=== PATIENT | female | born 1940 | race Caucasian/White ===

== ENCOUNTER 2019-12-02 00:04 | Outpatient (CLI) | payer MEDICARE, SELFPAY ==
[2019-12-02 15:57] LABS: SARS-CoV-2 RNA PCR Negative
== END 2019-12-02 00:05 | disposition home or self-care (01) ==
LOC: ANHCOVIDDT 00:04
PROVIDERS: PCP Family Medicine; Visit Provider Internal Medicine Gastroenterology
DX: Z01.812 Encounter for preprocedural laboratory examination (principal); Z20.828 Contact with and (suspected) exposure to other viral communicable diseases
CPT/HCPCS: 87635; C9803; U0003

== ENCOUNTER 2019-12-04 00:38 | Day surgery (SDC) | payer MEDICARE, SELFPAY ==
[2019-11-26 12:48] VITALS: BMI 39.5
[2019-12-04 06:53] VITALS: BP 149/65; PULSE 90; RESP 18; TEMP 36.3; O2SAT 98
[2019-12-04 07:02] LABS: Glucose Point of Care 145 (65-105)
[2019-12-04] MEDS: LACTATED RINGERS 1,000 ML 150 ML IV CONT (07:26)
--- NOTE | 2019-12-04 07:59 | WPDANESEPPF ---
Anes - Initial Pre Proc Eval Procedure: Operation Date: 12/04/19 08:00 Proposed Procedures p Screening Colonoscopy - Jonel Marrero MD Date/Time: 12/04/19 07:59 Surgeon: Jonel Marrero MD Pre Op Diagnosis: History of Colon Cancer Patient Data Age: 79 Gender: F Height: 5 ft 1 in Weight: 92.3 kg Last Vital Signs Temp 97.4 F L 12/04/19 06:53 Pulse 90 12/04/19 06:53 Resp 18 12/04/19 06:53 BP 149/65 H 12/04/19 06:53 Pulse Ox 98 12/04/19 06:53 Allergies Allergy/AdvReac Type Severity Reaction Status Date / Time No Known Allergies Allergy Verified 12/04/19 06:47 Home Medications Medication Instructions Recorded Confirmed Type aspirin [Aspir-81] 81 mg PO DAILY 04/10/19 11/26/19 History ferrous sulfate 324 mg PO TID 04/10/19 11/26/19 History metformin 2,000 mg PO HS 04/10/19 11/26/19 History levothyroxine 125 mcg tablet 125 mcg PO DAILY #30 tablet 07/23/19 11/26/19 Rx potassium chloride 20 mEq 20 meq PO DAILY 07/23/19 11/26/19 History tablet,extended release losartan 25 mg tablet 25 mg PO DAILY #90 tablet 10/03/19 11/26/19 Rx citalopram 20 mg tablet 20 mg PO DAILY #90 tablet 10/11/19 11/26/19 Rx ezetimibe 10 mg-simvastatin 40 mg 1 tablet PO DAILY #90 tablet 11/15/19 11/26/19 Rx tablet metoprolol succinate 100 mg 100 mg PO HS #90 tablet 11/15/19 11/26/19 Rx tablet,extended release 24 hr acyclovir 400 mg tablet 400 mg PO BID #180 tablet 11/25/19 11/26/19 Rx nystatin 5 ml PO QID PRN 11/26/19 11/26/19 History Laboratory Tests 12/04/19 07:00 POC Capillary Glucose 145 mg/dl H mg/dl (65-105) Patient hx anesthesia problems: none Family hx anesthesia problems: none PMFSH Past Medical History Medical History (Updated 07/23/19 @ 09:26 by Virgil Loya MD) Bladder mass Breast cancer Cancer of appendix Diabetes Hypertension Lymphoma Surgical History Surgical History (Updated 07/23/19 @ 09:26 by Virgil Loya MD) History of cholecystectomy History of left cataract surgery History of right cataract surgery History of right hemicolectomy History of tonsillectomy Status post hysterectomy with oophorectomy Social History Social History (Updated 07/23/19 @ 09:05 by Farzaneh Avina) Smoking status: Never smoker Second hand tobacco smoke exposure: No Alcohol intake: never Substance use: never Substance use type: does not use Gender identity (if verbalized by the patient): Female Anes - Eval Final PreProcedure Day of Procedure 12/04/19 07:59 Patient weight: obese Heart: regular rate and rhythm Lungs: clear to auscultation Airway: Mallampati scale (upper tooth missing) class III Neurological: alert and oriented Last oral intake: >/= 8 hours ASA classification: III Emergent: no Anesthetic plan: proceed Anesthesia type and monitoring: general GIVS and standard monitoring Informed Consent: The patient's anesthetic plan and its attendant risks and benefits were discussed with the patient/family/POA. Questions were solicited and answers provided to the satisfaction of the patient/family/POA.
--- NOTE | 2019-12-04 08:19 | WPDGICN ---
Assessment and Plan Assessment and plan (1) History of colon cancer: Code(s): Z85.038 - Personal history of other malignant neoplasm of large intestine Status: Acute Assessment and Plan: Patient has a history of colon cancer in the cecum resected surgically August of 2018. She has done well since that time status post chemotherapy. Her bowel habits are returned to normal. Plan is for surveillance colonoscopy now. Further recommendations will be given after colonoscopy. GI Consult Note Consult date/time: 12/04/19 08:19 HPI: Lanette Alberts is a 79 year old female Seen in evaluation at the request of Dr. Morales and Dr. Virgil Loya. Patient has a history of cancer of the cecum identified by colonoscopy 1 year ago. Since that time she has had surgical resection and chemotherapy. Recent CT scan revealed no evidence of active disease. Recent cystoscopy revealed a bladder infection. Patient states that her current weight appetite bowel movements have returned to normal. She denies abdominal pain she denies blood in her stools. Her weight has remained stable. Family history is noncontributory. Review of Systems Review of Systems: All systems reviewed & are unremarkable except as noted in HPI and below PMFSH Past Medical History Medical History Bladder mass Breast cancer Cancer of appendix Diabetes Hypertension Lymphoma Surgical History Surgical History History of cholecystectomy History of left cataract surgery History of right cataract surgery History of right hemicolectomy History of tonsillectomy Status post hysterectomy with oophorectomy Family History Family History Mother Patient's mother is , Onset Age: 39 Father Patient's father is , Onset Age: 40 Sibling Family history of cardiovascular disease Family history of malignant neoplasm of breast Family history of heart disease in male family member before age 55 Other Family history of malignant neoplasm Family history of malignant neoplasm of breast in first degree relative Social History Social History Smoking status: Never smoker Second hand tobacco smoke exposure: No Alcohol intake: never Substance use: never Substance use type: does not use Gender identity (if verbalized by the patient): Female Meds Home Medications and Allergies Home Medications Medication Instructions Recorded Confirmed Type aspirin [Aspir-81] 81 mg PO DAILY 04/10/19 11/26/19 History ferrous sulfate 324 mg PO TID 04/10/19 11/26/19 History metformin 2,000 mg PO HS 04/10/19 11/26/19 History levothyroxine 125 mcg tablet 125 mcg PO DAILY #30 tablet 07/23/19 11/26/19 Rx potassium chloride 20 mEq 20 meq PO DAILY 07/23/19 11/26/19 History tablet,extended release losartan 25 mg tablet 25 mg PO DAILY #90 tablet 10/03/19 11/26/19 Rx citalopram 20 mg tablet 20 mg PO DAILY #90 tablet 10/11/19 11/26/19 Rx ezetimibe 10 mg-simvastatin 40 mg 1 tablet PO DAILY #90 tablet 11/15/19 11/26/19 Rx tablet metoprolol succinate 100 mg 100 mg PO HS #90 tablet 11/15/19 11/26/19 Rx tablet,extended release 24 hr acyclovir 400 mg tablet 400 mg PO BID #180 tablet 11/25/19 11/26/19 Rx nystatin 5 ml PO QID PRN 11/26/19 11/26/19 History Allergies Allergy/AdvReac Type Severity Reaction Status Date / Time No Known Allergies Allergy Verified 12/04/19 06:47 Vital Signs Vital Signs - 24 hr 12/04/19 06:53 Temperature 36.3 C L Pulse Rate 90 Respiratory Rate 18 Blood Pressure 149/65 H Pulse Oximetry 98 Exam Narrative: Exam Narrative: Physical exam reveals patient to be alert. Vital signs stable. HEENT exam unremarkable. Lungs are clear to auscultation and percussion. Heart is without murm
[2019-12-04 08:56] VITALS: BP 84/40; PULSE 77; RESP 21; O2SAT 95
[2019-12-04 09:06] VITALS: BP 136/64; PULSE 79; RESP 23; O2SAT 100
[2019-12-04 09:16] VITALS: BP 135/60; PULSE 77; RESP 21; O2SAT 100
[2019-12-04 09:47] LABS: Hemoglobin 11.9 g/dL (12.0-15.0); Mean Corpuscular HGB Conc 32.2 g/dl (32-36); Mean Corpuscular Hemoglobin 27.9 pg (26-34); Mean Corpuscular Volume 86.7 fl (80-100); Mean Platelet Volume 9.3 fl (7.4-10.4); Platelet Count Result 173 k/mm3 (150-375); Red Blood Count 4.27 M/mm3 (4.2-5.4); White Blood Count 3.2 K/mm3 (4.5-10.0)
[2019-12-04 10:07] LABS: Alanine Aminotransferase 14 U/L (4-35); Albumin Level 4.1 g/dL (3.5-5.1); Alkaline Phosphatase 104 U/L (38-126); Aspartate Amino Transferase 24 U/L (14-36); Bilirubin,Total 0.6 mg/dL (0.2-1.3)
[2019-12-04 10:38] LABS: Carcinoembryonic Antigen 5.9 ng/mL (0.0-3.0)
== END 2019-12-04 09:54 | disposition home or self-care (01) ==
PROVIDERS: PCP Family Medicine; Visit Provider Internal Medicine Gastroenterology
PROC: 0DJD8ZZ Inspection of Lower Intestinal Tract, Via Natural or Artificial Opening Endoscopic (ICD-10-PCS; CPT 45378; principal; 2019-12-04 08:00)
DX: Z12.11 Encounter for screening for malignant neoplasm of colon (principal); C18.7 Malignant neoplasm of sigmoid colon; K63.5 Polyp of colon; K57.30 Diverticulosis of large intestine without perforation or abscess without bleeding; K64.8 Other hemorrhoids; I10 Essential (primary) hypertension; E11.9 Type 2 diabetes mellitus without complications; Z79.84 Long term (current) use of oral hypoglycemic drugs; E66.01 Morbid (severe) obesity due to excess calories; Z68.38 Body mass index [BMI] 38.0-38.9, adult; Z85.3 Personal history of malignant neoplasm of breast; Z85.89 Personal history of malignant neoplasm of other organs and systems; Z85.72 Personal history of non-Hodgkin lymphomas; Z92.21 Personal history of antineoplastic chemotherapy; Z90.49 Acquired absence of other specified parts of digestive tract; Z90.710 Acquired absence of both cervix and uterus; Z90.79 Acquired absence of other genital organ(s)
CPT/HCPCS: 45380; 45381; 45385; 36415; 80076; 82378; 85027; 88305; J2704; J7120

== ENCOUNTER 2019-12-12 09:24 | Outpatient (CLI) | payer MEDICARE, SELFPAY ==
--- NOTE | ~2019-12-12 | CT_ITS ---
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 TECHNIQUE: Computed tomographic images of the abdomen and pelvis were obtained after the administrati on of 100 cc of Omnipaque 350 intravenous contrast. The dose-length product (DLP) was 1181.98 mGy-cm. Automated exposure control and iterative reconstruction technique were employed. COMPARISON: 07/12/2019 FINDINGS: Minimal dependent atelectasis is present in the lung bases. The heart size is normal. The g allbladder is surgically absent. The liver, spleen, and pancreas are normal. Punctate calcification i n the right adrenal gland is consistent with prior hemorrhage or infection. The left adrenal gland is unremarkable. There is calcified atherosclerosis of the aorta and many of the other arteries. There is a 2.1 cm segment of irregular wall thickening involving the sigmoid colon near the rectosigmoid ju nction, likely corresponding to the mass described on recent colonoscopy. No pathologically enlarged abdominal or pelvic lymph nodes are identified. There is no free intraperitoneal gas or evidence of b owel obstruction. There is severe thoracolumbar spondylosis. IMPRESSION: 1. Short segment of irregular wall thickening of the sigmoid colon likely corresponding to the sigmoi d mass described on recent colonoscopy. No evidence of metastatic disease. Reviewed, dictated and finalized at location A. IMPRESSION: 1. Short segment of irregular wall thickening of the sigmoid colon likely corre sponding to the sigmoid mass described on recent colonoscopy. No evidence of me tastatic disease.
== END 2019-12-12 09:25 | disposition home or self-care (01) ==
PROVIDERS: PCP Family Medicine; Visit Provider Internal Medicine Gastroenterology
DX: C18.7 Malignant neoplasm of sigmoid colon (principal)
CPT/HCPCS: 74177; Q9967

== ENCOUNTER 2020-01-03 09:54 | Outpatient (CLI) | payer MEDICARE, SELFPAY ==
--- NOTE | 2020-01-03 11:29 | ECG_ITS ---
Measurements Intervals [place] Rate: 75 P: 57 HI: 172 QRS: -15 QRSD: 79 T: 37 QT: 373 QTc: 419 Interpretive Statements SINUS RHYTHM DELAYED PRECORDIAL R/S TRANSITION BORDERLINE ST-T WAVE ABNORMALITY- DIFFUSE LEADS BASELINE ARTIFACT- I, II BORDERLINE ECG Electronically Signed On 01-03-2020 12:55:34 CDT by Inderjit Sorto D.O.
== END 2020-01-03 09:55 | disposition home or self-care (01) ==
LOC: ANHSURGERY 09:57
PROVIDERS: PCP Family Medicine; Visit Provider Surgery
DX: C18.9 Malignant neoplasm of colon, unspecified (principal); I10 Essential (primary) hypertension; R94.31 Abnormal electrocardiogram [ECG] [EKG]
CPT/HCPCS: 36415; 86850; 86900; 86901; 93005

== ENCOUNTER 2020-01-10 00:08 | Outpatient (CLI) | payer MEDICARE, SELFPAY ==
[2020-01-10 19:22] LABS: SARS-CoV-2 RNA PCR Negative
== END 2020-01-10 00:09 | disposition home or self-care (01) ==
LOC: ANHCOVIDDT 00:08
PROVIDERS: PCP Family Medicine; Visit Provider Surgery
DX: Z01.812 Encounter for preprocedural laboratory examination (principal); Z11.59 Encounter for screening for other viral diseases
CPT/HCPCS: 87635; C9803; U0003

== ENCOUNTER 2020-01-13 15:49 | Inpatient (IN) | payer MEDICARE, SELFPAY ==
[2020-01-03 10:32] VITALS: BP 134/53; PULSE 81; RESP 18; TEMP 36.7; O2SAT 99; BMI 39.0
--- NOTE | 2020-01-09 14:19 | PCWOUND ---
WOCN NOTE patient to wound center on 01/09/20 to have abdomen marked for a colostomy. Black marker X applied to the left side of abdomen. Covered with a tegaderm. Patient instructed to keep tegaderm in place for surgery date. Patient given folder with information about having a colostomy. Will follow up with patient after surgery on 01/13/20.
[2020-01-13] VITALS (14 sets, daily range): BP systolic 108–145; BP diastolic 42–71; PULSE 66–98; RESP 16–20; TEMP 35.8–36.4; O2SAT 94–100
[2020-01-13] MEDS: ACETAMINOPHEN 500 MG TABLET 1000 MG PO (06:30)
[2020-01-13] MEDS: LACTATED RINGERS 1,000 ML 30 ML IV CONT ×3 (06:35→14:05)
[2020-01-13 06:40] LABS: Glucose Point of Care 165 (65-105)
[2020-01-13] MEDS: KETOROLAC 15 MG/ML VIAL (*BKC) IV PUSH (06:40)
--- NOTE | 2020-01-13 06:47 | WPDANESEPPF ---
Anes - Initial Pre Proc Eval Procedure: Operation Date: 01/13/20 07:30 Proposed Procedures p Laparoscopic Hand Assisted Sigmoid Colon Resection, Possible Splenic Flexure Take Down, Possible Left Colostomy - Viet Avina MD s Left Stent Placement for Abdominal Surgery - Antwon Dejesus MD Date/Time: 01/13/20 06:47 Surgeon: Viet Avina MD Pre Op Diagnosis: Invasive Carcinoma of Sigmoid Colon Patient Data Age: 79 Gender: F Height: 1.55 m Weight: 93.8 kg Last Vital Signs Temp 36.7 C 01/03/20 10:32 Pulse 81 01/03/20 10:32 Resp 18 01/03/20 10:32 BP 134/53 L 01/03/20 10:32 Pulse Ox 99 01/03/20 10:32 Allergies Allergy/AdvReac Type Severity Reaction Status Date / Time No Known Allergies Allergy Verified 01/03/20 10:03 Home Medications Medication Instructions Recorded Confirmed Type aspirin [Aspir-81] 81 mg PO HS 04/10/19 01/03/20 History ferrous sulfate 324 mg PO BID 04/10/19 01/03/20 History levothyroxine 125 mcg tablet 125 mcg PO DAILY #30 tablet 07/23/19 01/03/20 Rx losartan 25 mg tablet 25 mg PO DAILY #90 tablet 10/03/19 01/03/20 Rx ezetimibe 10 mg-simvastatin 40 mg 1 tablet PO DAILY #90 tablet 11/15/19 01/03/20 Rx tablet metoprolol succinate 100 mg 100 mg PO HS #90 tablet 11/15/19 01/03/20 Rx tablet,extended release 24 hr acyclovir 400 mg tablet 400 mg PO BID #180 tablet 11/25/19 01/03/20 Rx metronidazole 500 mg tablet 500 mg PO .COMPLEX #3 tablet 01/01/20 01/03/20 Rx neomycin 500 mg tablet 1 gm PO .COMPLEX #6 tablet 01/01/20 01/03/20 Rx cyanocobalamin (vitamin B-12) 500 mcg PO DAILY 01/03/20 01/03/20 History metformin 2,000 mg PO QPM 01/03/20 01/03/20 History citalopram 20 mg tablet 20 mg PO DAILY #90 tablet 01/09/20 Rx Laboratory Tests 01/13/20 06:37 POC Capillary Glucose 165 mg/dl H mg/dl (65-105) Patient hx anesthesia problems: none Family hx anesthesia problems: none [facility] Past Medical History Medical History (Updated 01/13/20 @ 06:53 by Geo Starr MD) Anxiety Bladder mass Breast cancer Cancer of appendix Cancer of ileum Cancer of sigmoid colon Chronic kidney disease, stage III (moderate) Diabetes Diverticulosis of large intestine without hemorrhage History of chemotherapy History of colon cancer History of lymphoma History of radiation therapy HLD (hyperlipidemia) Hx of abnormal cervical Pap smear Hx of malignant neoplasm of female breast Hypertension Hypothyroidism Lymphoma Lymphoma in remission Patient on antineoplastic chemotherapy regimen Surgical History Surgical History (Updated 12/17/19 @ 11:27 by Florencia Wilkins) History of cholecystectomy History of left cataract surgery History of right cataract surgery History of right hemicolectomy laparoscopic right hemicolectomy with anastomosis ileum to transverse colon - 09/24/2018 History of tonsillectomy History of total abdominal hysterectomy and bilateral salpingo-oophorectomy Status post hysterectomy with oophorectomy Social History Social History (Updated 01/01/20 @ 09:15 by Vanessa Mistry) Smoking status: Never smoker Second hand tobacco smoke exposure: Yes ( SMOKED QUIT 20 YEARS AGO) Alcohol intake: never Substance use: never Substance use type: does not use Living arrangements: with family Gender identity (if verbalized by the patient): Female Spiritual care concerns: No Anes - Eval Final PreProcedure Day of Procedure 01/13/20 06:47 Patient weight: obese Heart: regular rate and rhythm Lungs: clear to auscultation and normal air movement Airway: Mallampati scale class II Neurological: alert and oriented Last oral intake: >/= 8 hours ASA classification: IV Emergent: no Anesthetic plan: proceed Anesthesia type and monitoring: general ETT Informed Consent: The patient's anesthetic plan and its attendant risks and benefits were discussed with the patient/family/POA. Questions were solicited and answers provided to the sat
[2020-01-13] MEDS: ALVIMOPAN 12 MG CAPSULE PO ×2 (07:00→18:07)
--- NOTE | 2020-01-13 07:23 | WPDHPUPDATE1 ---
History and Physical Update Update Date/Time: 01/13/20 07:23 History and Physical has been reviewed, including an updated exam of the patient. There are NO changes in the patient's condition. Risks, benefits, and alternatives have been discussed and questions answered. Patient agrees to proceed with procedure.
[2020-01-13] MEDS: ceFAZolin 2 GM/D5W 50 ML 2 GM/50 ML BAG IVPB (08:03)
--- NOTE | 2020-01-13 08:28 | P.OP_ITS ---
Procedure Note - Detailed Date of procedure: 01/13/20 Pre-op diagnosis: Invasive Carcinoma of Sigmoid Colon Post-op diagnosis: same Procedure performed: Cystoscopy with bilateral ureteral stent placement Description of procedure: She is correctly identified informed consent is obtained. She is brought to the operating room. She was given general anesthesia. She was prepped and draped in sterile fashion time-out performed. She was given appropriate perioperative antibiotics and a time-out performed. I performed cystoscopy. Her bladder is examined. Her ureteral orifices were normal. On the back wall the bladder there is an area of extrinsic compression and some irritation. This was far remote from the ureteral orifice. Likely related to her colon malignancy. There is no violation of the mucosa. I placed bilateral stents in standard fashion. First the left then on the right. I used a guidewire and a 5 [place] angiographic catheter. They went up easily without resistance. Tolliver catheter was placed. The stents were secured to the Tolliver catheter. She was turned over to Dr. Avina for the remainder for surgery. Anesthesia: GETA Surgeon: Antwon Dejesus MD Drains: Yes (Tolliver and bilateral ureteral catheters) Packing: No Pathology: none sent Complications: No immediate complications Condition: stable Disposition: PACU
[2020-01-13] MEDS: BUPIVACAINE/EPINEPHRINE 0.5% 30 ML VIAL 20 ML INFILTRATE (09:14)
[2020-01-13 10:27] LABS: Glucose Point of Care 247 (65-105)
[2020-01-13] MEDS: ceFAZolin SODIUM 1 GM VIAL IV PUSH (12:08)
--- NOTE | 2020-01-13 14:18 | PM.PROC ---
Procedure Note - Detailed Date of procedure: 01/14/20 Pre-op diagnosis: Invasive Carcinoma of Sigmoid Colon Procedure performed: Hand assisted Laparoscopic left colectomy with anastamosis Description of procedure: Hand assited Laparoscopic left colectomy with anastamosis Patient was seen in the preop area. The suprapubic area marked for the site of possible hand assist incision. I again went over the risks, benefits, and possible complications of surgery with the patient. We went over the results of the prep. I confirmed the patient had received Entereg. Following this the patient was brought to the operating room and placed on the operating table and secured to the table with a dover bag padding the back. The patient was placed in the low lithotomy position with the legs in Ezio stirrups. Prior to my starting the case Dr. Dejesus came into the room and placed ureteral catheters in each ureter for me to be able to feel the ureters. A manzanares catheter was then placed also. An oG tube was then attempted to be placed. it would cone not go easily someone NG tube was placed. Following this 2 L of NS irrigant was used to irrigate out the rectum using a mallenkodt catheter. Betadine was then infused into this catheter using approximately 500 cc. This was allowed to run back out. The catheter was then left in place in the distal rectum. Following this the abdomen was prepped and draped in usual sterile fashion sterile fashion. The perineum was prepped with Betadine. An under the buttocks and leg drapes were applied followed by 4 towels and then the laparotomy / laparoscopy drape applied. This exposed nicely the entire abdomen. Following this time-out was performed with the OR staff. This confirmed patient and site of proposed surgery as the abdomen. Following this local anesthetic was infiltrated into a transverse incision marked out 2 fingerbreadths above the level of the pubic bone. This was centered on the midline. It was approximately 8.5 cm in length. Following this an incision was made and carried down to the fascia overlying the rectus sheath in this area. The anterior rectus sheath was incised the length of this incision transversely. Following this three Ana's were placed on the upper side of the cut edge of the rectus. I then carefully dissected the rectus fascia off the underlying rectus muscles up to about group home from the incision to the umbilicus. This nicely exposed the fatty midline. Following this I also placed the Allis's on the fascia inferiorly and dissected approximately 3 cm inferiorly underneath the rectus sheath. Following this we tented up the midline fat with two DeBakey forceps and carefully entered the midline under direct vision. I then put my finger in the peritoneum and incised the peritoneum cephalad and inferiorly about an 8 cm length. This was our 1st entry into the abdomen and there was no significant adhesions under this incision. I swept my finger completely circumferentially underneath the abdominal wall and there were no significant adhesions. Following this the wound protector of the laparoscopic hand port was placed into the abdomen and then carefully rotated down to secure the hand port in place and protect the edges of the wound. I then placed my hand through wound protector and placed it up in underneath the area of the umbilicus. There were At few adhesions in this area and I was able to take these down carefully with pinching between my forefinger and thumb. Once this area was clear, a vertical incision was outlined in the scar just above the umbilicus and local anesthetic infused. Then an 15 blade knife was used to make a 12 mm incision just superior to the umbilicus and a 12 mm laparoscopic port was placed into the abdomen with my hand underneath the anterior abdominal wall. Once this was adequately in place, we then insufflated the abdomen to 15 mmHg pressure CO2 by connecting the insufflation tubin
[2020-01-13 14:47] LABS: Glucose Point of Care 255 (65-105)
--- NOTE | 2020-01-13 15:49 | ADMGEN ---
This patient, Lanette Alberts, was admitted to -. Patient/family oriented to hospital policies and general routines including ID bracelet, bed and alarms, visiting hours, pain management, procedures, bathroom and other care routines, personal items, smoking policy, room service/diet, and visiting hours. Valuables list has been completed. Information on how to activate the Rapid Response Team has been discussed. Patient/Family are encouraged to report perceived risks to care and to ask questions if they do not understand what they are told or what they should do.
[2020-01-13] MEDS: LACTATED RINGERS 1,000 ML 100 ML IV CONT (16:16)
[2020-01-13] MEDS: MORPHINE SULFATE 4 MG/ML INJ IV PUSH (16:16)
[2020-01-13 16:37] LABS: Glucose Point of Care 283 (65-105)
--- NOTE | 2020-01-13 17:30 | PC.NURSE ---
Dr. Avina requesting patient port be accessed and heparin flushed one time as patient states it has not been flushed in six weeks. However lab was unable to draw patient and requesting IV specialist draw patient in AM. Due to that Dr. Avina is OK with patient's port remaining accessed at this time for blood draws and incase patient's peripheral IV goes bad.
[2020-01-13] MEDS: metroNIDAZOLE 500 MG/ISO 100ML 500 MG/100 ML BAG 100 MG IVPB (18:05)
[2020-01-13] MEDS: GABAPENTIN 300 MG CAPSULE 600 MG PO (18:06)
[2020-01-13] MEDS: ACYCLOVIR 400 MG TABLET PO (18:06)
[2020-01-13] MEDS: METOPROLOL SUCCINATE EXT REL 100 MG TABCR PO (20:46)
[2020-01-13] MEDS: ASPIRIN 81 MG ENTERIC TABLET PO (20:46)
[2020-01-13] MEDS: CENTRAL LINE FLUSH 10 ML IV PUSH (20:54)
[2020-01-13 21:20] LABS: Glucose Point of Care 249 (65-105)
[2020-01-14] VITALS (8 sets, daily range): BP systolic 100–125; BP diastolic 38–62; PULSE 82–92; RESP 16–20; TEMP 36.5–37.1; O2SAT 91–96
[2020-01-14] MEDS: ACETAMINOPHEN 500 MG TABLET PO ×2 (00:27→07:26)
[2020-01-14] MEDS: metroNIDAZOLE 500 MG/ISO 100ML 500 MG/100 ML BAG 100 MG IVPB (02:53)
[2020-01-14] MEDS: LACTATED RINGERS 1,000 ML 100 ML IV CONT (05:46)
[2020-01-14] MEDS: CENTRAL LINE FLUSH 10 ML IV PUSH ×2 (05:46→13:42)
[2020-01-14] MEDS: LEVOTHYROXINE SODIUM 125 MCG TABLET PO (05:47)
[2020-01-14 06:04] LABS: Basophils Percent Auto 0.1 % (0.2-1.2); Hematocrit 30.1 % (37.0-47.0); Hemoglobin 9.8 g/dL (12.0-15.0); Immature Granulocyte Absolute 0.03 K/mm3 (0.00-0.031); Immature Granulocyte Percent A 0.4 % (0-0.5); Lymphocytes Absolute Auto 0.42 K/mm3 (0.9-3.2); Lymphocytes Percent Auto 5.1 % (18.3-44.2); Mean Corpuscular HGB Conc 32.6 g/dl (32-36); Mean Platelet Volume 9.4 fl (7.4-10.4); Monocytes Absolute Auto 0.5 K/mm3 (0.1-0.6); Monocytes Percent Auto 6.3 % (2.6-8.5); Neutrophils Absolute Auto 7.3 K/mm3 (1.3-6.7); Neutrophils Percent Auto 88.1 % (45.5-73.1); Platelet Count Result 189 k/mm3 (150-375); Red Cell Distribution Width 13.7 % (11.5-14.5); White Blood Count 8.3 K/mm3 (4.5-10.0)
[2020-01-14 06:11] LABS: Alanine Aminotransferase 12 U/L (4-35); Albumin Level 3.2 g/dL (3.5-5.1); Alkaline Phosphatase 64 U/L (38-126); Aspartate Amino Transferase 20 U/L (14-36); Bilirubin,Total 0.3 mg/dL (0.2-1.3); Blood Urea Nitrogen 19 mg/dL (7-17); Calcium 8.2 mg/dL (8.4-10.2); Carbon Dioxide 22 mmol/L (22-30); Chloride 103 mmol/L (98-107); Estimated CRCL calculation 35 ml/min; Estimated Glomerular Filt Rate 43; Glucose 176 mg/dL (65-105); Potassium 3.9 mmol/L (3.4-5.0); Sodium 136 mmol/L (137-145)
[2020-01-14] MEDS: LACTATED RINGERS 500 ML 999 ML IVPB (06:59)
[2020-01-14 07:34] LABS: Glucose Point of Care 168 (65-105)
[2020-01-14] MEDS: ACYCLOVIR 400 MG TABLET PO ×2 (08:45→17:07)
[2020-01-14] MEDS: CITALOPRAM HYDROBROMIDE 20 MG TABLET PO (08:45)
[2020-01-14] MEDS: ALVIMOPAN 12 MG CAPSULE PO ×2 (08:45→22:44)
[2020-01-14] MEDS: LOSARTAN POTASSIUM 25 MG TABLET PO (08:45)
[2020-01-14] MEDS: ENOXAPARIN 40 MG/0.4 ML SYRINGE SUB-Q (08:45)
[2020-01-14] MEDS: PANTOPRAZOLE 40 MG TABLET PO (08:45)
--- NOTE | 2020-01-14 09:00 | PC.NURSE ---
Spoke with Dr. Avina in regards to patients wound care instructions. To lower abdomen, keep dressing dry and intact. If dressing comes off, we may reinforce with gauze pads and tape. Dressing currently is dry and intact with surgical dressing, gauze and tegaderm. Will continue to monitor.
--- NOTE | 2020-01-14 09:36 | PM.PNGS ---
Progress Note: A&P Assessment and Plan (1) Cancer of sigmoid colon: Code(s): C18.7 - Malignant neoplasm of sigmoid colon Status: Acute Assessment and Plan: Doing well postop day 1. Tolerating sips of clears well on Entereg. Will begin increasing activity. (2) Lymphoma in remission: Onset Date: ~2015 Code(s): C85.90 - Non-Hodgkin lymphoma, unspecified, unspecified site Status: Acute Assessment and Plan: Patient has been in remission from this with periodic follow-up at the Oncology department at [facility]. (3) HLD (hyperlipidemia): Code(s): E78.5 - Hyperlipidemia, unspecified Status: Acute (4) Chronic kidney disease, stage III (moderate): Code(s): N18.3 - Chronic kidney disease, stage 3 (moderate) Status: Acute (5) Hypothyroidism: Code(s): E03.9 - Hypothyroidism, unspecified Status: Acute Assessment and Plan: Patient could resume this medication with a sip water today. (6) Hx of recurrent urinary tract infection: Code(s): Z87.440 - Personal history of urinary (tract) infections Status: Acute Assessment and Plan: Most recent infection was about 1/2 weeks preop. Will watch for signs or symptoms of recurrence. (7) Diabetes: Code(s): E11.9 - Type 2 diabetes mellitus without complications Status: Acute Assessment and Plan: Patient's blood sugars were up overnight. Will consult hospitalist to assess the situation and establish Rx depending on her intake. (8) Hypovitaminosis D: Code(s): E55.9 - Vitamin D deficiency, unspecified Status: Acute Assessment and Plan: Resume supplementation upon discharge. 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 This was approximately 1 year ago that she had a right hemicolectomy for a problem. She did receive postoperative chemotherapy I believe. (10) Chronic anemia: Code(s): D64.9 - Anemia, unspecified Status: Acute Assessment and Plan: Hemoglobin down to 9.8 but steady. Additional Plan Patient had a little bit of low urine output through the night and received 2 boluses of IV fluid. Will continue to monitor urine output with the Tolliver catheter through at least mid afternoon. If patient has good urine output for the next 2 4 hour period so will probably have the nurse remove the Tolliver catheter. Subjective Subjective Date/Time Seen: 01/14/20 09:36 Post Op day: 1 ( Doing well postop day 1.) Patient reports: no new complaints Interval history: Patient lying in bed when I entered the room. She is well awake. She denies abdominal pain and is taking only Tylenol. She has been getting her Entereg. She has not yet walked in the hallway and has not notice passing any flatus. Review of Systems Constitutional: Constitutional: Reports no additional constitutional complaints ENT: Reports other (Mucous Membranes moist.) Cardiovascular: Cardiovascular: Denies dyspnea Respiratory: Respiratory: Denies pain on inspiration and Denies dyspnea Gastrointestinal: Gastrointestinal: Denies abdominal pain, Denies bloating, Denies heartburn, Denies diarrhea and Denies vomiting Musculoskeletal: Musculoskeletal: Reports other (No calf swelling or edema) Integumentary/Breasts: Skin/Breast: Reports system reviewed and no additional complaints, except as docu Exam Const: General: cooperative, no acute distress, alert and awake Orientation/consciousness: patient oriented x3 HENMT: Mouth: Yes moist mucous membranes Neck: Neck: normal visual inspection Chest: Chest palpation & inspection: normal inspection of the chest Resp: Effort & Inspection: normal respiratory effort Auscultation: clear to auscultation bilaterally Cardio: Jugular venous distension: no JV
[2020-01-14 11:31] LABS: Glucose Point of Care 171 (65-105)
--- NOTE | 2020-01-14 13:04 | PM.IMCN ---
Assessment and Plan Assessment and plan (1) Cancer of sigmoid colon: Code(s): C18.7 - Malignant neoplasm of sigmoid colon Status: Acute Assessment and Plan: patient had a left hemicolectomy per surgery. Postop care per surgery. The patient has a TOBY drain. Patient does not believe that she will need to have chemotherapy or radiation at this time. She is not having any discomfort. She states that she is feeling hungry. She is on Entereg per surgery pain management per surgery. DVT prophylaxis per surgery. It looks like she is on subcu Lovenox daily. (2) HLD (hyperlipidemia): Code(s): E78.5 - Hyperlipidemia, unspecified Status: Acute Assessment and Plan: continue Zetia. (3) Hypertension: Code(s): I10 - Essential (primary) hypertension Status: Chronic Assessment and Plan: Patient has been on metoprolol, losartan (4) Diabetes: Code(s): E11.9 - Type 2 diabetes mellitus without complications Status: Acute Assessment and Plan: Accu-Cheks q.6 hours with sliding scale. The patient told me that her last A1c was around 7.0. holding metformin. (5) Chronic anemia: Code(s): D64.9 - Anemia, unspecified Status: Acute Assessment and Plan: Her H&H has dropped somewhat please continue to monitor. She does have a TOBY drain And estimated blood loss from surgery wastapproximately 100 cc during surgery. Continue with ferrous sulfate (6) Chronic kidney disease, stage III (moderate): Code(s): N18.3 - Chronic kidney disease, stage 3 (moderate) Status: Acute Assessment and Plan: her GF are is pretty stable. Please continue to monitor. (7) Depression with anxiety: Code(s): F41.8 - Other specified anxiety disorders Status: Acute Assessment and Plan: continue with Celexa HPI Data of Consult Consult date: 01/14/20 Requesting Physician: Viet Avina MD Primary Care Provider: Virgil Loya MD Consult Narrative Narrative: Lanette Alberts is a 79 year old female Who I have been asked to consult on for medical management. Patient had invasive carcinoma the sigmoid colon. 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 She has also had lymphoma and breast cancer a which she received chemotherapy. This admission the patient had a preop diagnosis of invasive carcinoma of sigmoid colon she had a hand assisted laparoscopic left colectomy with anastomosis. She has a TOBY drain to the left lower quadrant. She tells me that her blood sugars have been less than 200s. She tells me her last A1c has been around 7. Her estimated blood loss was approximately 100 mL according to her operative note. Patient's H&H is now 9.8 and 30.1. Creatinine 1.2. Glucose 176. Patient is on ice chips clear liquids and ice tea. The patient tells me that she feels hungry. I think the surgical team for this consultation. Date of service 01/14/2020 Review of Systems Review of Systems: All systems reviewed & are unremarkable except as noted in HPI and below Constitutional: Constitutional: Reports as per HPI and Reports no additional constitutional complaints Eyes: Eyes: Reports as per HPI and Reports no additional eye complaints ENT: Reports system reviewed and no additional complaints, except as documented and Reports Normal hearing present Cardiovascular: Cardiovascular: Reports no additional cardiovascular complaints Respiratory: Respiratory: Reports no additional respiratory complaints and Reports no additional respiratory complaints Gastrointestinal: Gastrointestinal: Reports as per HPI and Reports no additional gastrointestinal complaints Musculoskeletal: Musculoskeletal: Reports no additional musculoskeletal complaints Integumentary/Breasts: Skin/Breast: Reports system reviewed and no additional complaints, except as docu and Reports as per HPI Neurologic: R
--- NOTE | 2020-01-14 13:38 | PCCCNOTE ---
On 01/14/20, the student, Kati Anders, provided care and completed [facility] documentation on this patient. I have reviewed the student's documentation and agree with the findings.
--- NOTE | 2020-01-14 15:03 | WPDANESPN ---
Anes - Prog Note Post-Op Date/Time: 01/14/20 15:03 Cardiovascular status: normal Respiratory status: normal Airway patency: baseline Mental status: baseline Post-Op hydration status: normal Vital Signs: Last Vital Signs Temp 36.8 C 01/14/20 13:30 Pulse 82 01/14/20 13:30 Resp 18 01/14/20 13:30 BP 103/62 01/14/20 13:30 Pulse Ox 94 01/14/20 13:30 I/O: Intake & Output 01/13/20 01/14/20 01/14/20 23:59 07:59 15:59 Intake Total 150 1650 Output Total 610 260 350 Balance -460 1390 -350 Laboratory Tests 01/14/20 05:44 01/14/20 05:44 01/13/20 01/13/20 01/14/20 16:29 20:52 05:44 WBC 8.3 RBC 3.50 L Hgb 9.8 L Hct 30.1 L MCV 86.0 MCH 28.0 MCHC 32.6 RDW 13.7 Plt Count 189 MPV 9.4 Immature Gran % (Auto) 0.4 Neut % (Auto) 88.1 H Lymph % (Auto) 5.1 L [place] % (Auto) 6.3 Eos % (Auto) 0.0 Baso % (Auto) 0.1 L Lymph # (Auto) 0.42 L [place] # (Auto) 0.5 Eos # (Auto) 0.0 Baso # (Auto) 0.0 Abs Immat Gran (auto) 0.03 Absolute Neuts (auto) 7.3 H Absolute Nucleated RBC 0.0 Nucleated RBC % 0.0 Sodium Potassium Chloride Carbon Dioxide BUN Creatinine Estim Creat Clear Calc Estimated GFR Glucose POC Capillary Glucose 283 H 249 H Calcium Total Bilirubin AST ALT Alkaline Phosphatase Total Protein Albumin 01/14/20 01/14/20 01/14/20 05:44 07:32 11:24 WBC RBC Hgb Hct MCV MCH MCHC RDW Plt Count MPV Immature Gran % (Auto) Neut % (Auto) Lymph % (Auto) [place] % (Auto) Eos % (Auto) Baso % (Auto) Lymph # (Auto) [place] # (Auto) Eos # (Auto) Baso # (Auto) Abs Immat Gran (auto) Absolute Neuts (auto) Absolute Nucleated RBC Nucleated RBC % Sodium 136 L Potassium 3.9 Chloride 103 Carbon Dioxide 22 BUN 19 H Creatinine 1.20 H Estim Creat Clear Calc 35 Estimated GFR 43 L Glucose 176 H POC Capillary Glucose 168 H 171 H Calcium 8.2 L Total Bilirubin 0.3 AST 20 ALT 12 Alkaline Phosphatase 64 Total Protein 6.0 L Albumin 3.2 L Post-procedural complaints: none Patient Feedback: Patient satisfied with anesthetic care.
[2020-01-14] MEDS: LACTATED RINGERS 1,000 ML 75 ML IV CONT (15:58)
[2020-01-14 18:14] LABS: Glucose Point of Care 138 (65-105)
[2020-01-14] MEDS: ASPIRIN 81 MG ENTERIC TABLET PO (22:44)
[2020-01-14] MEDS: METOPROLOL SUCCINATE EXT REL 100 MG TABCR PO (22:44)
[2020-01-15] MEDS: CENTRAL LINE FLUSH 10 ML IV PUSH ×4 (00:13→22:12)
[2020-01-15 02:00] VITALS: BP 134/46; PULSE 95; RESP 16; TEMP 36.7; O2SAT 93
[2020-01-15 04:00] LABS: Glucose Point of Care 136 (65-105)
[2020-01-15] MEDS: LACTATED RINGERS 1,000 ML 75 ML IV CONT ×2 (05:44→18:22)
[2020-01-15 05:46] VITALS: BP 113/40; PULSE 85; RESP 16; TEMP 36.1; O2SAT 96
[2020-01-15] MEDS: LEVOTHYROXINE SODIUM 125 MCG TABLET PO (05:48)
[2020-01-15 06:18] LABS: Glucose Point of Care 138 (65-105)
[2020-01-15 07:29] LABS: Basophils Percent Auto 0.2 % (0.2-1.2); Eosinophils Percent Auto 0.6 % (0-4.4); Hematocrit 25.8 % (37.0-47.0); Hemoglobin 8.2 g/dL (12.0-15.0); Immature Granulocyte Absolute 0.03 K/mm3 (0.00-0.031); Immature Granulocyte Percent A 0.6 % (0-0.5); Lymphocytes Absolute Auto 0.49 K/mm3 (0.9-3.2); Lymphocytes Percent Auto 9.1 % (18.3-44.2); Mean Corpuscular HGB Conc 31.8 g/dl (32-36); Mean Corpuscular Hemoglobin 28.2 pg (26-34); Mean Corpuscular Volume 88.7 fl (80-100); Mean Platelet Volume 9.6 fl (7.4-10.4); Monocytes Absolute Auto 0.3 K/mm3 (0.1-0.6); Monocytes Percent Auto 5.6 % (2.6-8.5); Neutrophils Absolute Auto 4.5 K/mm3 (1.3-6.7); Neutrophils Percent Auto 83.9 % (45.5-73.1); Platelet Count Result 150 k/mm3 (150-375); Red Blood Count 2.91 M/mm3 (4.2-5.4); Red Cell Distribution Width 14.1 % (11.5-14.5); White Blood Count 5.4 K/mm3 (4.5-10.0)
[2020-01-15 07:44] LABS: Blood Urea Nitrogen 17 mg/dL (7-17); Calcium 7.8 mg/dL (8.4-10.2); Carbon Dioxide 25 mmol/L (22-30); Chloride 106 mmol/L (98-107); Estimated CRCL calculation 46 ml/min; Estimated Glomerular Filt Rate 60; Glucose 119 mg/dL (65-105); Magnesium 1.7 mg/dL (1.6-2.3); Potassium 3.6 mmol/L (3.4-5.0); Sodium 136 mmol/L (137-145)
[2020-01-15] MEDS: ACYCLOVIR 400 MG TABLET PO ×2 (08:43→16:29)
[2020-01-15] MEDS: CITALOPRAM HYDROBROMIDE 20 MG TABLET PO (08:43)
[2020-01-15] MEDS: LOSARTAN POTASSIUM 25 MG TABLET PO (08:43)
[2020-01-15] MEDS: PANTOPRAZOLE 40 MG TABLET PO (08:43)
[2020-01-15] MEDS: ENOXAPARIN 40 MG/0.4 ML SYRINGE SUB-Q (08:43)
[2020-01-15] MEDS: ALVIMOPAN 12 MG CAPSULE PO ×2 (08:43→22:12)
[2020-01-15] MEDS: ACETAMINOPHEN 500 MG TABLET PO ×2 (08:48→18:21)
[2020-01-15 10:00] VITALS: BP 105/37; PULSE 80; RESP 16; TEMP 36.8; O2SAT 94
[2020-01-15] MEDS: INSULIN ASPART (*BKC) 100 UNITS/ML SUB-Q (11:39)
[2020-01-15 11:43] LABS: Glucose Point of Care 212 (65-105)
--- NOTE | 2020-01-15 11:53 | PM.PNGS ---
Progress Note: A&P Assessment and Plan (1) Cancer of sigmoid colon: Code(s): C18.7 - Malignant neoplasm of sigmoid colon Status: Acute Assessment and Plan: Doing well postop day 2 and tolerating a clear liquid diet. Will advance to a full liquid diet for dinner if patient has BM today. Encouraged increased activity, walking the halls, and IS use. Pathology showed moderately to poorly differentiated colonic adenocarcinoma invading through the muscularis propria, with lymphovascular invasion and extramural tumor deposits, extending to serosal surface and to radial margin, metastatic adenocarcinoma consistent with colon primary in 1/9 lymph nodes, diverticulosis. Pathologic staging pT4a pN1a pMX. We will plan to discuss this with patient later today or tomorrow. 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 (3) HLD (hyperlipidemia): Code(s): E78.5 - Hyperlipidemia, unspecified Status: Acute (4) Chronic kidney disease, stage III (moderate): Code(s): N18.3 - Chronic kidney disease, stage 3 (moderate) Status: Acute Assessment and Plan: Creatinine normal today. Continue to monitor labs. (5) Hypothyroidism: Code(s): E03.9 - Hypothyroidism, unspecified Status: Acute (6) Hx of recurrent urinary tract infection: Code(s): Z87.440 - Personal history of urinary (tract) infections Status: Acute Assessment and Plan: Most recent infection was about 1-2 weeks preop. Will watch for signs or symptoms of recurrence. (7) Diabetes: Code(s): E11.9 - Type 2 diabetes mellitus without complications Status: Acute Assessment and Plan: Management per Hospitalist service, appreciate help. (8) Hypovitaminosis D: Code(s): E55.9 - Vitamin D deficiency, unspecified Status: Acute Assessment and Plan: May resume on discharge. 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 This was approximately 1 year ago that she had a right hemicolectomy for a problem. (10) Chronic anemia: Code(s): D64.9 - Anemia, unspecified Status: Acute Assessment and Plan: Hemoglobin 8.2 today. Patient hemodynamically stable. TOBY drain with low output, serosanguineous drainage. No signs of active bleeding. Continue to monitor labs. Additional Plan Discussed the patient's plan of care with Dr. Avina. Subjective Subjective Date/Time Seen: 01/15/20 11:53 Post Op day: 2 Patient reports: feels better and bowel movement Interval history: Patient doing well this morning. Dr. Avina at the bedside for my assessment. States she has taken some hydrocodone for her incisional abdominal pain and this is controlling it well. Reports a few bowel movements overnight that are loose with little flatus today. No BM yet today. No nausea or vomiting. Tolerating clear liquids well. No other complaints at this time. Review of Systems Review of Systems: All systems reviewed & are unremarkable except as noted in HPI and below Constitutional: Constitutional: Reports no additional constitutional complaints, Denies chills, Denies fever(s) and Denies headache(s) Cardiovascular: Cardiovascular: Reports no additional cardiovascular complaints, Denies chest pain and Denies leg edema Respiratory: Respiratory: Reports no additional respiratory complaints and Denies dyspnea Gastrointestinal: Gastrointestinal: Reports as per HPI and Reports no additional gastrointestinal complaints Exam Const: General: comfortable, no acute distress, alert and awake Orientation/consciousness: pat
[2020-01-15 14:00] VITALS: BP 108/46; PULSE 76; RESP 16; TEMP 36.3; O2SAT 96
[2020-01-15 16:29] LABS: Glucose Point of Care 128 (65-105)
--- NOTE | 2020-01-15 17:17 | PM.IMPN ---
Progress Note: A&P Assessment and Plan (1) Cancer of sigmoid colon: Code(s): C18.7 - Malignant neoplasm of sigmoid colon Status: Acute Assessment and Plan: Colonoscopy showing sigmoid mass with pathology showing adenocarcinoma. Patient admitted here for planned left hemicolectomy which was done on 01/13/20 (POD#2). She has toelrated the procedure well. Pathology showing moderate to poorly differentiated adenocarcinoma with invasion through the muscularis propria and 1 fo9 postive lymph nodes. Patient with TOBY drain in place. Continue routine post-op care. IV fluid bolus for decreased UOP with improving UOP. Stop IV fluids when okay with Gen Surgery. (2) Hypertension: Code(s): I10 - Essential (primary) hypertension Status: Chronic Assessment and Plan: Blood pressure reviewed on 01/15/2020. Blood pressure well controlled. Continue metoprolol and losartan. (3) Diabetes: Code(s): E11.9 - Type 2 diabetes mellitus without complications Status: Acute Assessment and Plan: A1c 7.0 per patient (last A1c 9.1 in December 2018 listed here). Glucose reviewed on 01/15/2020. Glucose better controlled overall. Will continue Accu-Cheks QAC with sliding scale. continue to hold metformin. (4) Chronic anemia: Code(s): D64.9 - Anemia, unspecified Status: Acute Assessment and Plan: Patient has a chronic anemia with baseline 10-11 when she is well. Her HH has dropped to 8.2 related to the recent surgery. EBL 100mL. Contineu to trend. (5) Chronic kidney disease, stage III (moderate): Code(s): N18.3 - Chronic kidney disease, stage 3 (moderate) Status: Acute Assessment and Plan: Stable. Cr 1.2 yesterday. Her eGFR mostly in the 40's and better today with Cr down to 0.9. Continue to monitor. (6) Depression with anxiety: Code(s): F41.8 - Other specified anxiety disorders Status: Acute Assessment and Plan: mood stable. Continue Celexa. Subjective Date/time seen: 01/15/20 17:17 Interval history: 79yo female here for elective partial colon resection for colon cancer. Patient tolerating the clear liquids. She has early satiety with clear liquids however. She has had 3 bowel movement since surgery. She has been up walking the halls. No nausea or vomiting. Pain is reasonable. She denies chest or shortness of breath Exam Narrative: Exam Narrative: AF 97.4 108/46 76 16 96% ra Gen - NARD Chest -Few basilar rhonchi otherwise clear. CV - RRR S1/S2 Abd - Soft. obese. Positive bowel sounds. Incisions are clean, dry and intact. TOBY drain left lower quadrant with dark red fluid in the bulb. Ext - No pedal edema Psych - Nml mood and affect Skin - Warm and dry Objective Data Vital Signs Vital Signs: Vital Signs - 24 hr 01/14/20 22:00 01/14/20 22:44 01/15/20 02:00 Temperature 97.9 F 98.1 F Pulse Rate 92 90 95 Respiratory Rate 16 16 Blood Pressure 116/44 L 134/46 L Pulse Oximetry 92 93 01/15/20 05:46 01/15/20 10:00 01/15/20 14:00 Temperature 97.0 F L 98.3 F 97.4 F L Pulse Rate 85 80 76 Respiratory Rate 16 16 16 Blood Pressure 113/40 L 105/37 L 108/46 L Pulse Oximetry 96 94 96 Intake/Output Intake/Output: Intake & Output 01/12/20 01/13/20 01/14/20 01/15/20 23:59 23:59 23:59 23:59 Intake Total 300 2650 1470 Output Total 955 855 630 Balance -655 1795 840 Meds/Results Medications: Active Medications Generic Name Dose Route Start Last Admin Trade Name Freq PRN Reason Stop Dose Admin Acetaminophen 500 mg 01/13/20 15:49 01/15/20 08:48 Tylenol Tablet PO 500 mg Q6H PRN Administration Mild Pain (1-3) or Fever Hydrocodone Bitart/Acetaminophen 1 tab 01/13/20 15:49 01/15/20 00:10 Paramount 5-325 Mg PO 1 tab Q4H PRN Administration Pain Rated 4-6 Hydrocodone Bitart/Acetaminophen 1 tab 01/13/20 15:49 Paramount 7.5-325 Mg PO Q6H PRN Pain
[2020-01-15 20:26] VITALS: BP 117/51; PULSE 88; RESP 16; TEMP 37.2; O2SAT 94
[2020-01-15 22:11] VITALS: PULSE 88
[2020-01-15] MEDS: METOPROLOL SUCCINATE EXT REL 100 MG TABCR PO (22:11)
[2020-01-15] MEDS: ASPIRIN 81 MG ENTERIC TABLET PO (22:12)
[2020-01-16 02:49] LABS: Glucose Point of Care 125 (65-105)
[2020-01-16 04:55] VITALS: BP 126/51; PULSE 84; RESP 16; TEMP 36.8; O2SAT 93
[2020-01-16] MEDS: LACTATED RINGERS 1,000 ML 75 ML IV CONT (06:59)
[2020-01-16 07:06] LABS: Mean Platelet Volume 9.1 fl (7.4-10.4); Platelet Count Result 140 k/mm3 (150-375)
[2020-01-16] MEDS: LEVOTHYROXINE SODIUM 125 MCG TABLET PO (07:29)
[2020-01-16 07:51] LABS: Glucose Point of Care 146 (65-105)
[2020-01-16] MEDS: CITALOPRAM HYDROBROMIDE 20 MG TABLET PO (09:26)
[2020-01-16] MEDS: ACYCLOVIR 400 MG TABLET PO (09:26)
[2020-01-16] MEDS: ALVIMOPAN 12 MG CAPSULE PO (09:26)
[2020-01-16] MEDS: ENOXAPARIN 40 MG/0.4 ML SYRINGE SUB-Q (09:27)
[2020-01-16] MEDS: CENTRAL LINE FLUSH 10 ML IV PUSH (09:27)
[2020-01-16] MEDS: LOSARTAN POTASSIUM 25 MG TABLET PO (09:27)
[2020-01-16] MEDS: PANTOPRAZOLE 40 MG TABLET PO (09:27)
--- NOTE | 2020-01-16 10:47 | PM.IMPN ---
Progress Note: A&P Assessment and Plan (1) Cancer of sigmoid colon: Onset Date: ~11/2019 Code(s): C18.7 - Malignant neoplasm of sigmoid colon Status: Acute Assessment and Plan: Colonoscopy showing sigmoid mass with pathology showing adenocarcinoma. Patient admitted here for planned left hemicolectomy which was done on 01/13/20 (POD#3). She has tolerated the procedure well. Pathology showing moderate to poorly differentiated adenocarcinoma with invasion through the muscularis propria and 1 fo9 positive lymph nodes. Patient with TOBY drain in place. Continue routine post-op care. IV fluid bolus for decreased UOP with improving UOP. Patient eating and toelrating it. Stop IV fluids when okay with Gen Surgery. Okay for discharge from medical standpoint. (2) Hypertension: Code(s): I10 - Essential (primary) hypertension Status: Chronic Assessment and Plan: Blood pressure reviewed on 01/16/2020. Blood pressure well controlled. Continue metoprolol and losartan. (3) Diabetes: Code(s): E11.9 - Type 2 diabetes mellitus without complications Status: Acute Assessment and Plan: A1c 7.0 per patient (last A1c 9.1 in December 2018 listed here). Glucose reviewed on 01/16/2020. Glucose relatively well controlled except for occasional elevated glucose to 212. Will continue Accu-Cheks QAC with sliding scale. Resume metformin at discharge. (4) Chronic anemia: Code(s): D64.9 - Anemia, unspecified Status: Acute Assessment and Plan: Patient has a chronic anemia with baseline 10-11 when she is well. Her Hgb has dropped to 8.2 related to the recent surgery. EBL 100mL. (5) Chronic kidney disease, stage III (moderate): Code(s): N18.3 - Chronic kidney disease, stage 3 (moderate) Status: Acute Assessment and Plan: Stable. Cr up to 1.2 but back down to 0.9 yesterday. Continue to monitor. (6) Depression with anxiety: Code(s): F41.8 - Other specified anxiety disorders Status: Acute Assessment and Plan: mood stable. Continue Celexa. Subjective Date/time seen: 01/16/20 10:47 Interval history: 79yo female here for elective partial colon resection for colon cancer. No problems overnight. Patient had a bowel movement. She has been up walking the halls. Tolerating current diet. No nausea or vomiting. No chest pain or shortness of breath. Exam Narrative: Exam Narrative: AF 98.2 126/51 84 16 93%ra Gen - NARD sitting up in bed Chest - few rhonchi appreciated bilateral lower lobes otherwise clear. Normal respiratory rate CV - RRR S1/S2 Abd - soft. Positive bowel sounds. Minimal tenderness. Serosanguineous fluid in the bulb. Incisions are clean, dry and intact. Ext - No pitting pedal edema Psych - Nml mood and affect Skin - Warm and dry Objective Data Vital Signs Vital Signs: Vital Signs - 24 hr 01/15/20 14:00 01/15/20 20:26 01/15/20 22:11 Temperature 97.4 F L 99.0 F Pulse Rate 76 88 88 Respiratory Rate 16 16 Blood Pressure 108/46 L 117/51 L Pulse Oximetry 96 94 01/16/20 04:55 Temperature 98.2 F Pulse Rate 84 Respiratory Rate 16 Blood Pressure 126/51 L Pulse Oximetry 93 Intake/Output Intake/Output: Intake & Output 01/13/20 01/14/20 01/15/20 01/16/20 23:59 23:59 23:59 23:59 Intake Total 300 2650 2910 1660 Output Total 787 782 4559 950 Balance -655 1795 1780 710 Meds/Results Medications: Active Medications Generic Name Dose Route Start Last Admin Trade Name Freq PRN Reason Stop Dose Admin Acetaminophen 500 mg 01/13/20 15:49 01/15/20 18:21 Tylenol Tablet PO 500 mg Q6H PRN Administration Mild Pain (1-3) or Fever Hydrocodone Bitart/Acetaminophen 1 tab 01/13/20 15:49 01/15/20 00:10 Chancellor 5-325 Mg PO 1 tab Q4H PRN Administration Pain Rated 4-6 Hydrocodone Bitart/Acetaminophen 1 tab 01/13/20 15:49 Chancellor 7.5-325 Mg PO
--- NOTE | 2020-01-16 10:57 | PM.DS ---
DS: Admitting Diagnosis Admitting Diagnosis Admitting Diagnosis: adenocarcinoma of the sigmoid colon diabetes mellitus hypertension chronic anemia DS: Discharge Diagnosis Discharge Diagnosis (1) Cancer of sigmoid colon: Onset Date: ~11/2019 Code(s): C18.7 - Malignant neoplasm of sigmoid colon Status: Acute Assessment and Plan: this was the main reason for admission. Patient underwent surgical intervention on the date of admission. She has had an uneventful postoperative recovery in the hospital. (2) HLD (hyperlipidemia): Onset Date: Unknown Code(s): E78.5 - Hyperlipidemia, unspecified Status: Acute Assessment and Plan: Patient to resume usual medicines for this and on home going (3) Diverticulosis of large intestine without hemorrhage: Onset Date: Unknown Code(s): K57.30 - Diverticulosis of large intestine without perforation or abscess without bleeding Status: Acute Assessment and Plan: interestingly the pathology shows that some of the tumor implants were groin on these. There were multiple diverticula in the area of the sigmoid colon resected for the tumor. (4) Chronic kidney disease, stage III (moderate): Onset Date: Unknown Code(s): N18.3 - Chronic kidney disease, stage 3 (moderate) Status: Acute Assessment and Plan: Patient to maintain good hydration and follow up with PCP. (5) Hx of recurrent urinary tract infection: Onset Date: ~12/2019 Code(s): Z87.440 - Personal history of urinary (tract) infections Status: Acute Assessment and Plan: Patient had a urinary tract infection that was treated just 1 week prior to presenting for the surgery. She will watch for signs of frequency of urination or burning and let us know so we can check another sample if there are any problems. Dr. cezar fontanez indicated that there was some evidence of some inflammation in the wall of the bladder on the left side when he did the cystoscopy to place the ureteral stents. (6) Hypothyroidism: Onset Date: Unknown Code(s): E03.9 - Hypothyroidism, unspecified Status: Acute Assessment and Plan: Patient to resume usual home medication for this. (7) Diabetes: Onset Date: Unknown Code(s): E11.9 - Type 2 diabetes mellitus without complications Status: Acute Assessment and Plan: Patient will resume metformin for this upon discharge. 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 I talked with pathology this morning because question would be whether not some of the tumor implants in the sigmoid area for actually from last year's tumor. Further review of the old pathology slides and the current ones will be under taken by Dr. Mckinnon and further report as an addendum will come to the current pathology report. (9) Port-A-Cath in place: Onset Date: ~11/2018 Code(s): Z95.828 - Presence of other vascular implants and grafts Status: Acute Assessment and Plan: Patient has had this since her last tumor. She may be recommended to have further chemotherapy if she is willing. She has an appointment with Dr. Morales next Monday and I encouraged her to keep this appointment. I believe that in 3 weeks she could start another regimen a chemotherapy if needed. (10) Lymphoma in remission: Onset Date: Unknown Code(s): C85.90 - Non-Hodgkin lymphoma, unspecified, unspecified site Status: Acute Assessment and Plan: Patient continues to follow with a medical oncologist at [place] periodically for this. Over the last year labs have been drawn and sent over to that physician and Dr. Morales has coordinated with him. DS: Summary Hospital
[2020-01-16 11:28] LABS: Glucose Point of Care 162 (65-105)
[2020-01-16] MEDS: HEPARIN SOD FLUSH 500 UNITS/5 ML SYRINGE IV PUSH (12:21)
== END 2020-01-16 12:59 | disposition home or self-care (01) | DRG 331 ==
LOC: ANH2MED 16:01
PROVIDERS: Urology; Admitting Provider Surgery; PCP Family Medicine; Visit Provider Surgery
PROC: 0D1E4Z4 Bypass Large Intestine to Cutaneous, Percutaneous Endoscopic Approach (ICD-10-PCS; principal; 2020-01-13 07:30)
DX: C18.7 Malignant neoplasm of sigmoid colon (principal); I12.9 Hypertensive chronic kidney disease with stage 1 through stage 4 chronic kidney disease, or unspecified chronic kidney disease; E11.22 Type 2 diabetes mellitus with diabetic chronic kidney disease; N18.3 Chronic kidney disease, stage 3 (moderate); F41.8 Other specified anxiety disorders; Z85.3 Personal history of malignant neoplasm of breast; E03.9 Hypothyroidism, unspecified; Z85.038 Personal history of other malignant neoplasm of large intestine; Z85.72 Personal history of non-Hodgkin lymphomas; D64.9 Anemia, unspecified; Z87.440 Personal history of urinary (tract) infections; E55.9 Vitamin D deficiency, unspecified
CPT/HCPCS: 36415; 80048; 80053; 83735; 85025; 85049; 87635; 88305; 88309; A9270; C1729; C1758; C1769; C9803; J0330; J0690; J1100; J1642; J1650; J1815; J1885; J1940; J2270; J2405; J2704; J3010; J7030; J7120; U0003

== ENCOUNTER 2020-04-21 19:23 | Inpatient (IN) | payer MEDICARE, SELFPAY ==
[2020-04-21] VITALS (15 sets, daily range): BP systolic 112–163; BP diastolic 49–75; PULSE 102–120; RESP 20–28; TEMP 36.8; O2SAT 79–100; BMI 29.1
--- NOTE | ~2020-04-21 | XR_ITS ---
EXAMINATION: XR enema water soluble DATE: 05/01/2020 14:52 INDICATION: Ileus versus sigmoid colon obstruction TECHNIQUE: A air conditioning manager radiograph was obtained. A catheter was inserted into the patient's rectum. Water- soluble contrast was infused by gravity. Fluoroscopic spot images and conventional radiographs were o btained. Fluoroscopy exposure time was 3.4 minutes combined for the water-soluble enema and the fluo roscopic guided Dobbhoff tube insertion. A total of 13 images were obtained, 1250 and T2 for the Dobh off placement. COMPARISON: CT dated 12/12/2019 and KUB dated 05/01/2020 FINDINGS: Contrast passed readily through the sigmoid colon with no evident mass or significant stricture. Ther e is nonfocal mild relative narrowing of the sigmoid colon with smooth mucosal contour which may repr esent scarring related to chronic diverticulitis There is gaseous distention of the ascending and tra nsverse colon. The conclusion of the procedure there was similarly prominent drainage of the majority of the contrast from the descending colon again with no evident obstruction. There are multiple gas- filled but not frankly dilated loops of small bowel scattered throughout the abdomen. Overall finding s would be most consistent with an ileus. The Dobbhoff tube can be seen extending to the stomach into the proximal duodenum with versus small amount of additional contrast injected during the Dobbhoff t ube placement. IMPRESSION: 1. Large amount of gas throughout nondilated small bowel as well as in the ascending and transverse c olon most likely representing an ileus with no evident obstructing mass or stricture. 2. Nonobstructing diffuse mild relative narrowing of the sigmoid colon relative to the more proximal colon which may be related to scarring secondary to chronic diverticulitis. Reviewed, dictated and finalized at location A. OYMENT INTERVIEWER IMPRESSION: 1. Large amount of gas throughout nondilated small bowel as well as in the asce nding and transverse colon most likely representing an ileus with no evident ob structing mass or stricture. 2. Nonobstructing diffuse mild relative narrowing of the sigmoid colon relative to the more proximal colon which may be related to scarring secondary to chron ic diverticulitis.
--- NOTE | ~2020-04-21 | XR_ITS ---
EXAMINATION: XR abdomen obstructive series DATE: 05/01/2020 06:21 INDICATION: Abdominal distention TECHNIQUE: Upright and supine views of the abdomen were obtained. COMPARISON: 04/30/2020 FINDINGS: There is persistent gaseous distention of the colon and multiple small bowel loops without significant change. There appears to be gas in the rectum. No free intraperitoneal gas is identified. There is a partially imaged right-sided Port-A-Cath. Cholecystectomy clips are present in the right upper quadrant. There are surgical clips in the left axilla. Left basilar airspace opacities are stab le. IMPRESSION: 1. Persistent bowel distention without significant change with possible gas in the rectum, likely ile us. Reviewed, dictated and finalized at location A. ICATION WELDER IMPRESSION: 1. Persistent bowel distention without significant change with possible gas in the rectum, likely ileus.
--- NOTE | ~2020-04-21 | XR_ITS ---
XR chest 2V 04/21/2020 22:35 Indication: Nausea, vomiting and weakness Procedure: 2 view chest Comparison: 03/31/2019 Findings: Borderline heart size. No focal air space disease, pulmonary edema, pleural effusion or chaparro pected pneumothorax. Port catheter tip in the SVC. There are surgical clips in the left axilla. Impression: 1: No acute cardiopulmonary disease. Reviewed, dictated and finalized at location A. Impression: 1: No acute cardiopulmonary disease.
--- NOTE | ~2020-04-21 | CT_ITS ---
EXAMINATION: CT abdomen pelvis w con DATE: 05/03/2020 13:51 INDICATION: Metastatic appendiceal cancer. TECHNIQUE: Computed tomography (CT) of the abdomen and pelvis was performed with 100 mL Omnipaque 350 intravenous contrast. Automated exposure control and iterative reconstruction technique were employe d. The dose-length product was 1263.32 mGy-cm. COMPARISON: CT abdomen and pelvis 12/12/2019 FINDINGS: The visualized portions of the lung bases demonstrate mild atelectasis. A calcified left emily ng nodule and calcified left hilar lymph nodes are consistent with old granulomatous disease. No pleu ral effusion. The heart size is normal. There are coronary artery calcifications. No pericardial effu mireya. There is a catheter tip in right atrium. The liver is normal. There are changes of cholecystect lor. The spleen, pancreas, and adrenal glands are normal. There is cortical thinning of the kidneys. There is liquid stool in the colon suggestive of diarrhea. There are multiple dilated loops of small bowel. The colon is mildly distended. There are no pathologically enlarged lymph nodes. There is trac e ascites. There is mild thoracal lumbar spondylosis. IMPRESSION: 1. Dilated bowel, consistent with adynamic ileus. Reviewed, dictated and finalized at location A. INSPECTOR
--- NOTE | ~2020-04-21 | XR_ITS ---
EXAMINATION: XR fl Dobhoff insert/rad w img DATE: 05/01/2020 14:54 INDICATION: Ileus. Dobbhoff placement. TECHNIQUE: A Dobbhoff type feeding tube was advanced into the duodenum utilizing intermittent fluoroscopy. Final image demonstrates the feeding tube extending to stomach with the weighted tip in the proximal duode num. The tip is unable to advanced beyond the proximal duodenum due to abrupt change in course of the duodenum. Some redundancy to the tube was placed in the stomach in the hope of further advancement o seble time with peristalsis. The tube was flushed with 10 mL sterile saline and fixed to the nares with adhesive tape. Fluoroscopy exposure time was 3.4 minutes combined for the water-soluble enema and th e fluoroscopic guided Dobbhoff tube insertion. A total of 13 images were obtained, 11 during the enem a and 2 during the Dobbhoff tube placement. There were no immediate competitions. FINDINGS/IMPRESSION: Successful fluoroscopy-guided Dobbhoff feeding tube placement with distal tip in the first portion of the duodenum. Could consider follow-up radiographs of the abdomen on the following morning to assess for further advancement. Reviewed, dictated and finalized at location A. ASTIC TEACHER
--- NOTE | ~2020-04-21 | XR_ITS ---
EXAMINATION: XR abdomen/kub 1V DATE: 04/28/2020 17:06 INDICATION: Abdominal distention. TECHNIQUE: A supine view of the abdomen on 2 radiographs was obtained. COMPARISON: CT abdomen and pelvis 12/12/2019 FINDINGS: There is gaseous distention of the colon. There are multiple dilated loops of small bowel. Surgical clips in the right upper quadrant are likely from cholecystectomy. IMPRESSION: 1. Distended bowel, consistent with adynamic ileus versus bowel obstruction. Reviewed, dictated and finalized at location A. ASSISTANT
--- NOTE | ~2020-04-21 | XR_ITS ---
EXAMINATION: XR abdomen obstructive series DATE: 04/30/2020 06:24 INDICATION: Abdominal distention, ileus versus obstruction TECHNIQUE: Upright and supine views of the abdomen were obtained. COMPARISON: 04/29/2020 FINDINGS: Gaseous distention of the colon at multiple small bowel loops persists but demonstrates sli ght improvement. No free intraperitoneal gas is identified. Cholecystectomy clips are noted in the ri ght upper quadrant. There are surgical clips in the left axilla. A partially imaged Port-A-Cath is pr esent. Left basilar airspace opacities are unchanged. IMPRESSION: 1. Persistent but slightly improved bowel distention, consistent with ileus versus obstruction. Reviewed, dictated and finalized at location A. OIL PUMP OPERATOR HELPER IMPRESSION: 1. Persistent but slightly improved bowel distention, consistent with ileus seble chaparro obstruction.
--- NOTE | ~2020-04-21 | XR_ITS ---
EXAMINATION: XR fl port a cath w contrast DATE: 05/02/2020 17:13 INDICATION: Port dysfunction. No blood return. TECHNIQUE: I injected the port with Omnipaque 240 and performed fluoroscopy. 467 images were obtained . Fluoroscopy exposure time was 0.7 minutes. COMPARISON: None. FINDINGS: There is a right internal jugular port with tip in right atrium. Injection of contrast demo nstrates normal opacification of the catheter and normal passage of contrast beyond the catheter tip. IMPRESSION: 1. Normal port injection. Reviewed, dictated and finalized at location A. TENANCE ASSOCIATE IMPRESSION: 1. Normal port injection.
--- NOTE | ~2020-04-21 | US_ITS ---
EXAMINATION: US renal BI DATE: 04/23/2020 16:00 INDICATION: Hematuria. TECHNIQUE: Multiple ultrasound grayscale images of the kidneys were obtained. COMPARISON: CT abdomen and pelvis 12/12/2019 FINDINGS: The right kidney measures 9.6 x 5.6 x 4.1 cm. The left kidney measures 9.5 x 5.2 x 5.4 cm. The kidney s demonstrate normal parenchymal echogenicity. There is no hydronephrosis. The bladder is not well di stended. IMPRESSION: 1. Normal kidneys. No hydronephrosis. Reviewed, dictated and finalized at location A.
--- NOTE | ~2020-04-21 | XR_ITS ---
EXAMINATION: XR abdomen obstructive series DATE: 04/29/2020 06:19 INDICATION: Abdominal distention, ileus versus obstruction TECHNIQUE: Upright and supine views of the abdomen were obtained. COMPARISON: 04/28/2020 FINDINGS: There is unchanged gaseous distention of the colon and multiple small bowel loops. No defin ite free intraperitoneal gas is identified. Cholecystectomy clips are noted in the right upper quadra nt. Airspace opacities are noted in the left lung base. There is moderate osteoarthritis of the hips. IMPRESSION: 1. Unchanged bowel distention, consistent with ileus versus obstruction. 2. Left basilar airspace opacity, consistent with atelectasis versus pneumonia. Reviewed, dictated and finalized at location A. ICAL LABORATORY SCIENCE PROFESSOR
--- NOTE | 2020-04-21 19:33 | PC.NURSE ---
Unable to verify home medications with patient or . .
--- NOTE | 2020-04-21 19:58 | PC.NURSE ---
Attempt to draw blood unsuccessful per this RN.
--- NOTE | 2020-04-21 20:14 | PC.NURSE ---
orthodontic laboratory technician unable to collect labs. Image Processing Engineer contacted and will be down to attempt lab draw.
--- NOTE | 2020-04-21 20:42 | PC.NURSE ---
Labs collected per phlebotomy.
[2020-04-21 20:49] LABS: Basophils Percent Auto 2.7 % (0.2-1.2); Hematocrit 34.3 % (37.0-47.0); Hemoglobin 10.9 g/dL (12.0-15.0); Immature Granulocyte Absolute 0.03 K/mm3 (0.00-0.031); Immature Granulocyte Percent A 4.1 % (0-0.5); Immature Platelet Fraction Pct 5.8 % (0.9-11.2); Lymphocytes Percent Auto 13.5 % (18.3-44.2); Mean Corpuscular HGB Conc 31.8 g/dl (32-36); Mean Corpuscular Hemoglobin 26.7 pg (26-34); Mean Corpuscular Volume 84.1 fl (80-100); Mean Platelet Volume 11.2 fl (7.4-10.4); Monocytes Absolute Auto 0.2 K/mm3 (0.1-0.6); Monocytes Percent Auto 31.1 % (2.6-8.5); Neutrophils Absolute Auto 0.4 K/mm3 (1.3-6.7); Neutrophils Percent Auto 48.6 % (45.5-73.1); Platelet Count Result 84 k/mm3 (150-375); Red Blood Count 4.08 M/mm3 (4.2-5.4); Red Cell Distribution Width 18.6 % (11.5-14.5)
[2020-04-21] MEDS: LACTATED RINGERS 1,000 ML 999 ML IV CONT (20:49)
[2020-04-21] MEDS: ONDANSETRON INJ 4 MG/2 ML VIAL IV PUSH (20:50)
[2020-04-21] MEDS: PANTOPRAZOLE SODIUM IV 40 MG VIAL 80 MG IV PUSH (20:51)
--- NOTE | 2020-04-21 20:53 | ED.NAVMDI ---
HPI - Nausea/Vomiting/Diarrhea General Chief complaint: Nausea/Vomiting/Diarrhea <Jonel Adair MD - Last Filed: 04/21/20 20:59> Stated complaint: n/v <Jonel Adair MD - Last Filed: 04/21/20 20:59> Time Seen by Provider: 04/21/20 19:30 <Jonel Adair MD - Last Filed: 04/21/20 20:59> Source: patient and family <Jonel Adair MD - Last Filed: 04/21/20 20:59> Limitations: no limitations <Jonel Adair MD - Last Filed: 04/21/20 20:59> History of Present Illness HPI Narrative: 79-year-old female Recently had a left-sided hemicolectomy here for colon cancer Has been getting chemotherapy, also here, with Dr. Morales most recently last Monday, 8 days ago As far as her knows there is no metastatic disease Subsequent to that she got a Neulasta injection on either or Monday And by report she is doing much worse since then with increased weakness terrible appetite achiness nausea and vomiting x4 so far today for instance She has some mild diffuse abdominal pain No cough or shortness of breath, no urinary symptoms <Jonel Adair MD - Last Filed: 04/21/20 20:59> Related Data Home medications: Home Medications Medication Instructions Recorded Confirmed aspirin [Aspir-81] 81 mg PO HS 04/10/19 04/14/20 ferrous sulfate 324 mg PO BID 04/10/19 04/14/20 cyanocobalamin (vitamin B-12) 500 mcg PO DAILY 01/03/20 04/14/20 metformin 2,000 mg PO QPM 01/03/20 04/14/20 .Magic Mouth Wash 1 100 ml SWISHSWALLOW TID PRN 03/17/20 04/14/20 potassium chloride [K-Tab] 20 meq PO DAILY 04/14/20 04/14/20 <Jonel Adair MD - Last Filed: 04/21/20 20:59> Allergies/Adverse reactions: Allergies Allergy/AdvReac Type Severity Reaction Status Date / Time No Known Allergies Allergy Verified 04/21/20 19:32 <Jonel Adair MD - Last Filed: 04/21/20 20:59> Review of Systems Review of Systems: All systems reviewed & are unremarkable except as noted in HPI and below <Jonel Adair MD - Last Filed: 04/21/20 20:59> Constitutional: Constitutional: Denies chills, Reports fatigue, Denies fever(s), Denies headache(s) and Reports weakness <Jonel Adair MD - Last Filed: 04/21/20 20:59> Comments: Poor appetite <Jonel Adair MD - Last Filed: 04/21/20 20:59> Eyes: Eyes: Denies change in vision and Denies other visual disturbances <Jonel Adair MD - Last Filed: 04/21/20 20:59> ENT: Denies headache(s), Denies epistaxis, Denies nasal congestion and Denies sore throat <Jonel Adair MD - Last Filed: 04/21/20 20:59> Cardiovascular: Cardiovascular: Denies chest pain, Denies leg edema, Denies palpitations and Denies dyspnea <Jonel Adair MD - Last Filed: 04/21/20 20:59> Respiratory: Respiratory: Denies cough, Denies dyspnea and Denies wheezing <Jonel Adair MD - Last Filed: 04/21/20 20:59> Gastrointestinal: Gastrointestinal: Denies abdominal pain, Denies diarrhea, Reports nausea and Reports vomiting <Jonel Adair MD - Last Filed: 04/21/20 20:59> Genitourinary: Genitourinary: Denies hematuria, Denies urinary frequency and Denies dysuria <Jonel Adair MD - Last Filed: 04/21/20 20:59> Musculoskeletal: Musculoskeletal: Reports myalgias, Denies deformity, Denies arthralgias, Denies joint swelling, Denies muscle weakness and Denies numbness <Jonel Adair MD - Last Filed: 04/21/20 20:59> Integumentary/Breasts: Skin/Breast: Denies rash, Denies unusual bruising and Denies wounds <Jonel Adair MD - Last Filed: 04/21/20 20:59> Neurologic: Denies Abnormal speech present, Denies headache(s), Denies focal weakness, Denies numbness and Denies weakness <Jonel Adair MD - Last Filed: 04/21/20 20:59> Psychiatric: Psychiatric: Reports no additional psychiatric complaints <Jonel Adair MD - Last Filed: 04/21/20 20:59> Endocrine: Endocrine: Reports fatigue and Denies palpitations <Jonel Adair MD - Last Filed: 04/21/20 20:59> Hematologic/Lymphatic: Hematologic/Lymphatic: D
[2020-04-21 20:58] LABS: Alanine Aminotransferase 10 U/L (4-35); Albumin Level 3.7 g/dL (3.5-5.1); Alkaline Phosphatase 118 U/L (38-126); Anion Gap 14 mmol/L (8-16); Aspartate Amino Transferase 14 U/L (14-36); Bilirubin,Total 0.8 mg/dL (0.2-1.3); Blood Urea Nitrogen 19 mg/dL (7-17); Calcium 8.8 mg/dL (8.4-10.2); Carbon Dioxide 15 mmol/L (22-30); Chloride 107 mmol/L (98-107); Estimated CRCL calculation 46 ml/min; Estimated Glomerular Filt Rate 53; Glucose 229 mg/dL (65-105); Potassium 4.2 mmol/L (3.4-5.0); Sodium 136 mmol/L (137-145)
[2020-04-21 21:01] LABS: Lipase < 10 U/L (23-300)
[2020-04-21 21:06] LABS: White Blood Count 0.7 K/mm3 (4.5-10.0)
--- NOTE | 2020-04-21 21:09 | PC.NURSE ---
Lactic acid rejected per lab; phlebotomy back to attempt lab draw.
[2020-04-21 21:31] LABS: Lactic Acid Reflex 3.9 mmol/L (0.7-2.1)
[2020-04-21 21:43] LABS: Add Urine Microscopic? YES; Amorphous Sediment Urine Few; Appearance Urine Cloudy (Clear); Bacteria Urine Trace /hpf; Bilirubin Urine Negative (Negative); Blood Urine 3+ (Negative); Color Urine Red (Yellow); Glucose Urine UA Negative (Negative); Ketones Urine Negative (Negative); Leukocyte Esterase Ur Negative LEU/UL (Negative); Mucus Urine Rare /lpf; Nitrate Urine Negative (Negative); Protein Urine 2+ mg/dL (Negative); RBC Urine >75 /hpf (0-2); Specific Grav Ur 1.018 (1.001-1.035); Squamous Epithelial Cell Urine Rare /hpf (Few); Urobilinogen Urine Negative mg/dL (<2.0); WBC Urine 0-3 /hpf
--- NOTE | 2020-04-21 22:33 | PC.NURSE ---
Dr. Luz discussing plan of care. Plan to admit the patient. To radiology via stretcher.
--- NOTE | 2020-04-21 22:38 | PC.NURSE ---
janitorial tech at bedside attempting blood cultures.
[2020-04-21] MEDS: SODIUM CHLORIDE 0.9% IV 1,000 ML 999 ML IV CONT (22:52)
--- NOTE | 2020-04-21 22:54 | PC.NURSE ---
Unable to collect blood cultures. Dr. Martinez at bedside for evaluation. Continue to await bed assignment.
--- NOTE | 2020-04-21 23:06 | PM.IMHP ---
H&P: HPI History of Present Illness Date/Time: 04/21/20 23:06 Chief complaint: Dehydration, Intractable nausea and vomiting Narrative: This is a pleasant 79-year-old diabetic female with known history of lymphoma, left-sided breast cancer, and colon cancer x2 who presented to the hospital [facility] with complaint of 1 week of increased weakness, nausea and vomiting, intolerance to food, and crampy abdominal pain. The patient relates that her last chemotherapy was approximately 8 days ago. And since then she has not been able to tolerate any food intake. She denies any fevers, chills, shortness of breath, chest pain, palpitations, dysuria, hematuria, cough, sore throat, diarrhea, rectal bleeding, lower extremity swelling, lower extremity pain, or focal neurological deficits. The patient is known to have had multiple colon resections for her colon cancer and the last of which was in December of this year when she had a left-sided hemicolectomy with anastomosis. The patient was evaluated emergency room this evening and found to be pancytopenic on routine labs As well as dehydrated. Her lactic acid was elevated to 3.9. At this time there is no clear source of sepsis and it is thought that her elevated lactic acid is likely secondary to acute dehydration from decreased p.o. intake. Patient has been treated with IV fluids and ER provider has consulted Oncology, Dr. Morales. We been asked to admit the patient to the hospital for further care. 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 (~11/2019) Chronic kidney disease, stage III (moderate) (Unknown) Diabetes (Unknown) Diverticulosis of large intestine without hemorrhage (Unknown) History of chemotherapy History of colon cancer History of lymphoma History of radiation therapy HLD (hyperlipidemia) (Unknown) Hx of abnormal cervical Pap smear Hx of malignant neoplasm of female breast Hypertension Hypothyroidism (Unknown) Lymphoma 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) received chemotherapy Patient on antineoplastic chemotherapy regimen Surgical History Surgical History History of cholecystectomy History of colectomy hand assited laparoscopic left colectomy with anastamosis 01/14/20 History of left cataract surgery History of lumpectomy left breast History of right cataract surgery History of right hemicolectomy laparoscopic right hemicolectomy with anastomosis ileum to transverse colon - 09/24/2018 hand assisted laparoscopic left colectomy with anastomosis January 13 2020 History of tonsillectomy History of total abdominal hysterectomy and bilateral salpingo-oophorectomy Status post hysterectomy with oophorectomy Family History Family History Mother Patient's mother is , Onset Age: 39 Father Patient's father is , Onset Age: 40 Sibling Family history of cardiovascular disease Family history of malignant neoplasm of breast Family history of heart disease in male family member before age 55 Other Family history of malignant neoplasm Family history of malignant neoplasm of breast in first degree relative Social History Social History Social History: the patient lives with her Trever in [facility]. 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 She is a lifelong nonsmoker. Does not use alcohol or illicit drugs. Her Trever is a durable power attorney recruiter for healthcare and she desires to be a full code. She had 1 son from leukemia in 1
[2020-04-21 23:07] LABS: Creatine Kinase < 20 U/L (30-135)
--- NOTE | 2020-04-21 23:35 | PC.NURSE ---
Lab at bedside collecting blood cultures.
[2020-04-21] MEDS: SODIUM CHLORIDE 0.9% IV 1,000 ML 125 ML IV CONT (23:56)
[2020-04-22] VITALS: BP 112/44; PULSE 99; RESP 20; TEMP 37.4; O2SAT 100
[2020-04-22 00:03] LABS: Glucose Point of Care 202 (65-105)
[2020-04-22 00:17] LABS: Reflex Lactic Acid Yes or No Add Lactic
[2020-04-22] MEDS: INSULIN ASPART (*BKC) 100 UNITS/ML SUB-Q ×3 (00:26→16:44)
--- NOTE | 2020-04-22 00:38 | PC.NURSE ---
This patient, Lanette Alberts, was admitted to Medical Room 249-01. Patient/family oriented to hospital policies and general routines including ID bracelet, bed and alarms, visiting hours, pain management, procedures, bathroom and other care routines, personal items, smoking policy, room service/diet, and visiting hours. Information on how to activate the Rapid Response Team has been discussed. Patient/Family are encouraged to report perceived risks to care and to ask questions if they do not understand what they are told or what they should do.
[2020-04-22] MEDS: ONDANSETRON INJ 4 MG/2 ML VIAL IV PUSH ×4 (05:21→18:19)
[2020-04-22 05:54] LABS: Basophils Percent Auto 3.7 % (0.2-1.2); Eosinophils Percent Auto 1.2 % (0-4.4); Hematocrit 30.9 % (37.0-47.0); Hemoglobin 9.7 g/dL (12.0-15.0); Immature Granulocyte Absolute 0.07 K/mm3 (0.00-0.031); Immature Granulocyte Percent A 8.5 % (0-0.5); Lymphocytes Absolute Auto 0.16 K/mm3 (0.9-3.2); Lymphocytes Percent Auto 19.5 % (18.3-44.2); Mean Corpuscular HGB Conc 31.4 g/dl (32-36); Mean Corpuscular Hemoglobin 26.4 pg (26-34); Mean Corpuscular Volume 84.2 fl (80-100); Mean Platelet Volume 11.3 fl (7.4-10.4); Monocytes Absolute Auto 0.2 K/mm3 (0.1-0.6); Neutrophils Absolute Auto 0.4 K/mm3 (1.3-6.7); Neutrophils Percent Auto 45.1 % (45.5-73.1); Platelet Count Result 86 k/mm3 (150-375); Red Blood Count 3.67 M/mm3 (4.2-5.4); Red Cell Distribution Width 18.1 % (11.5-14.5)
[2020-04-22 06:00] VITALS: BP 136/48; PULSE 103; RESP 20; TEMP 36.1; O2SAT 99
[2020-04-22 06:10] LABS: Anion Gap 10 mmol/L (8-16); Blood Urea Nitrogen 17 mg/dL (7-17); Calcium 7.9 mg/dL (8.4-10.2); Carbon Dioxide 16 mmol/L (22-30); Chloride 110 mmol/L (98-107); Estimated CRCL calculation 45 ml/min; Estimated Glomerular Filt Rate 53; Glucose 201 mg/dL (65-105); Lactic Acid 2.1 mmol/L (0.7-2.1); Potassium 4.2 mmol/L (3.4-5.0); Sodium 136 mmol/L (137-145)
[2020-04-22 06:24] LABS: Glucose Point of Care 213 (65-105)
[2020-04-22] MEDS: LEVOTHYROXINE SODIUM INJ 100 MCG/5 ML VIAL 62.5 MCG IV PUSH (06:31)
[2020-04-22 07:22] LABS: White Blood Count 0.8 K/mm3 (4.5-10.0)
[2020-04-22 07:23] LABS: Platelet Estimate Decreased (Adequate)
[2020-04-22 07:24] LABS: Anisocytosis 1+ (NORMAL); Burr Cells 1+ (NORMAL); Microcytosis 1+ (NORMAL); Ovalocytes 1+ (NORMAL); Poikilocytosis 1+ (NORMAL)
[2020-04-22 07:25] LABS: Tear Drop Cells 1+ (NORMAL)
[2020-04-22 07:49] LABS: Glucose Point of Care 186 (65-105)
[2020-04-22] MEDS: SODIUM CHLORIDE 0.9% IV 1,000 ML 125 ML IV CONT ×2 (08:18→16:11)
[2020-04-22] MEDS: FAMOTIDINE 20 MG/2 ML VIAL IV PUSH ×2 (08:18→20:59)
[2020-04-22 11:20] VITALS: BMI 29.1
[2020-04-22 11:33] LABS: Glucose Point of Care 187 (65-105)
[2020-04-22 14:00] VITALS: BP 152/56; PULSE 95; RESP 16; TEMP 37.1; O2SAT 100
--- NOTE | 2020-04-22 14:22 | P.PNIM_ITS ---
Progress Note: A&P Assessment and Plan (1) Acute dehydration: Code(s): E86.0 - Dehydration Status: Acute Assessment and Plan: Secondary to poor PO intake from N/V. * Continue IV fluid hydration * Monitor vital signs and urine output. (2) Nausea & vomiting: Qualifiers: Vomiting Intractability: non-intractable Vomiting type: unspecified Qualified Code(s): R11.2 - Nausea with vomiting, unspecified Code(s): R11.2 - Nausea with vomiting, unspecified Status: Acute Assessment and Plan: She had nausea and vomiting following chemotherapy. * Advance to clear liquid diet. Continue to advance diet as tolerated. * Antiemetics. * Monitor symptoms. (3) Generalized weakness: Code(s): R53.1 - Weakness Status: Acute Assessment and Plan: Secondary to chemotherapy as well as ongoing colon cancer. * Continue IV hydration. * PT/OT to evaluate and input is appreciated (4) Elevated lactic acid level: Code(s): R79.89 - Other specified abnormal findings of blood chemistry Status: Acute Assessment and Plan: Lactic elevated at presentation at 3.9. This is likely secondary to acute dehydration. Improved this morning at 2.1. * Continue IV hydration (5) Pancytopenia: Code(s): D61.818 - Other pancytopenia Status: Acute Assessment and Plan: Most likely secondary to chemotherapy. White count is very low at 0.8. * Dr. Morales is following and recommendations appreciated * Monitor CBC with diff. * Transfuse prn Hgb <7.0 (6) HLD (hyperlipidemia): Onset Date: Unknown Qualifiers: Hyperlipidemia type: unspecified Qualified Code(s): E78.5 - Hyperlipidemia, unspecified Code(s): E78.5 - Hyperlipidemia, unspecified Status: Chronic Assessment and Plan: Chronic. * Resume statin (7) Hypothyroidism: Onset Date: Unknown Qualifiers: Hypothyroidism type: unspecified Qualified Code(s): E03.9 - Hypothyroidism, unspecified Code(s): E03.9 - Hypothyroidism, unspecified Status: Chronic Assessment and Plan: Chronic. * Continue levothyroxine. Transition to oral. * Check TSH (8) Diabetes: Onset Date: Unknown Qualifiers: Diabetes mellitus complication status: without complication Diabetes mellitus termite control representative insulin use: without care home use Diabetes mellitus type: type 2 Qualified Code(s): E11.9 - Type 2 diabetes mellitus without complications Code(s): E11.9 - Type 2 diabetes mellitus without complications Status: Chronic Assessment and Plan: Last A1c was 9.1 in December 2019. Blood sugars are stable today. Last sugar was 187. * Continue accu-checks ACHS, sliding scale insulin coverage, and hypoglycemia protocol. * Hold metformin (9) Hypertension: Qualifiers: Hypertension type: unspecified Qualified Code(s): I10 - Essential (primary) hypertension Code(s): I10 - Essential (primary) hypertension Status: Chronic Assessment and Plan: BP was evaluated today and is stable at 136/48. * Resume metoprolol and losartan Subjective Date/time seen: 04/22/20 14:22 Interval history: Date of service: 04/22/2020 Lanette Alberts is a 79 year old female with a history of left breast cancer, colon cancer, lymphoma who is currently undergoing chemotherapy. She is
--- NOTE | 2020-04-22 14:22 | PM.IMPN ---
Progress Note: A&P Assessment and Plan (1) Acute dehydration: Code(s): E86.0 - Dehydration Status: Acute Assessment and Plan: Secondary to poor PO intake from N/V. Continue IV fluid hydration Monitor vital signs and urine output. (2) Nausea & vomiting: Qualifiers: Vomiting Intractability: non-intractable Vomiting type: unspecified Qualified Code(s): R11.2 - Nausea with vomiting, unspecified Code(s): R11.2 - Nausea with vomiting, unspecified Status: Acute Assessment and Plan: She had nausea and vomiting following chemotherapy. Advance to clear liquid diet. Continue to advance diet as tolerated. Antiemetics. Monitor symptoms. (3) Generalized weakness: Code(s): R53.1 - Weakness Status: Acute Assessment and Plan: Secondary to chemotherapy as well as ongoing colon cancer. Continue IV hydration. PT/OT to evaluate and input is appreciated (4) Elevated lactic acid level: Code(s): R79.89 - Other specified abnormal findings of blood chemistry Status: Acute Assessment and Plan: Lactic elevated at presentation at 3.9. This is likely secondary to acute dehydration. Improved this morning at 2.1. Continue IV hydration (5) Pancytopenia: Code(s): D61.818 - Other pancytopenia Status: Acute Assessment and Plan: Most likely secondary to chemotherapy. White count is very low at 0.8. Dr. Morales is following and recommendations appreciated Monitor CBC with diff. Transfuse prn Hgb <7.0 (6) HLD (hyperlipidemia): Onset Date: Unknown Qualifiers: Hyperlipidemia type: unspecified Qualified Code(s): E78.5 - Hyperlipidemia, unspecified Code(s): E78.5 - Hyperlipidemia, unspecified Status: Chronic Assessment and Plan: Chronic. Resume statin (7) Hypothyroidism: Onset Date: Unknown Qualifiers: Hypothyroidism type: unspecified Qualified Code(s): E03.9 - Hypothyroidism, unspecified Code(s): E03.9 - Hypothyroidism, unspecified Status: Chronic Assessment and Plan: Chronic. Continue levothyroxine. Transition to oral. 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 Blood sugars are stable today. Last sugar was 187. Continue accu-checks ACHS, sliding scale insulin coverage, and hypoglycemia protocol. Hold metformin (9) Hypertension: Qualifiers: Hypertension type: unspecified Qualified Code(s): I10 - Essential (primary) hypertension Code(s): I10 - Essential (primary) hypertension Status: Chronic Assessment and Plan: BP was evaluated today and is stable at 136/48. Resume metoprolol and losartan Subjective Date/time seen: 04/22/20 14:22 Interval history: Date of service: 04/22/2020 Lanette Alberts is a 79 year old female with a history of left breast cancer, colon cancer, lymphoma who is currently undergoing chemotherapy. She is seen in follow up for weakness, nausea, and vomiting 8 days following chemotherapy. She has not had much to eat today. She has had a few sips of liquids and a couple bites of jello. She feels very nauseous. She is very weak. She has been sleeping the majority of the day. She denies abdominal pain, fever, chills, dizziness, lightheadedness, SOB, cough, or chest pain. She has been walking to the bathroom with assistance and urinating and having BMs without difficulty. I spoke with her at length. He is very worried about he
--- NOTE | 2020-04-22 14:50 | PCOTNOTE ---
OT evaluation attempted. Patient nauseated and requesting therapy try again tomorrow. RN notified. Will attempt OT evaluation at later time.
--- NOTE | 2020-04-22 14:50 | PCPTNOTE ---
Patient attempted to be seen for PT evaluation this afternoon, per patient and RN patient is very nauseated this afternoon, will attempt evaluation tomorrow.
--- NOTE | 2020-04-22 15:45 | PC.NURSE ---
Discussed order to access portacath with patient. Patient has been nauseated since trying clear liquids and does not wish to have her port accessed at this time. Patient has a peripheral IV running without difficulty. Will access port if issues arise with peripheral IV.
[2020-04-22 16:43] LABS: Glucose Point of Care 213 (65-105)
--- NOTE | 2020-04-22 16:56 | PDONCCN ---
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 She is on second-line chemotherapy in an adjuvant setting with FOLFIRI Avastin and received loss chemotherapy with cycle 4. On April 22, 2020. Patient developed significant nausea vomiting 3 days after the chemotherapy. Zofran did not really for nausea vomiting. She has been eating poorly since then. She also developed diarrhea. She was complaining of some abdominal discomfort. Denies any fevers and chills. She was found to be pancytopenic in the ER with WBC count of 0.8. She did receive Neulasta after the last chemotherapy. Now she is feeling slightly better with IV hydration and IV antiemetics. Review of Systems - Review of Systems All systems reviewed & are unremarkable except as noted in HPI and bel - Neurologic Denies abnormal speech, Denies headache(s), Denies focal weakness, Denies numbness, Denies weakness PMFSH Medical History: Medical History (Last Reviewed 04/22/20 @ 06:35 by Stephane Martinez MD) Anxiety Bladder mass Breast cancer lumpectomy and chemotherapy and radiation 1998 Cancer of appendix Onset Date: ~10/2018 Cancer of ileum Cancer of sigmoid colon Onset Date: ~11/2019 Chronic kidney disease, stage III (moderate) Onset Date: Unknown Diabetes Onset Date: Unknown Diverticulosis of large intestine without hemorrhage Onset Date: Unknown History of chemotherapy History of colon cancer History of lymphoma History of radiation therapy HLD (hyperlipidemia) Onset Date: Unknown Hx of abnormal cervical Pap smear Hx of malignant neoplasm of female breast Hypertension Hypothyroidism Onset Date: Unknown Lymphoma Lymphoma in remission Onset Date: Unknown received chemotherapy Patient on antineoplastic chemotherapy regimen Surgical History: Surgical History (Last Reviewed 04/22/20 @ 06:35 by Stephane Martinez MD) History of cholecystectomy History of colectomy hand assited laparoscopic left colectomy with anastamosis 01/14/20 History of left cataract surgery History of lumpectomy left breast History of right cataract surgery History of right hemicolectomy laparoscopic right hemicolectomy with anastomosis ileum to transverse colon - 09/24/2018 hand assisted laparoscopic left colectomy with anastomosis January 13 2020 History of tonsillectomy History of total abdominal hysterectomy and bilateral salpingo-oophorectomy Status post hysterectomy with oophorectomy Family History: Family History (Last Reviewed 04/22/20 @ 06:35 by Stephane Martinez MD) Mother Patient's mother is , Onset Age: 39 Father Patient's father is , Onset Age: 40 Sibling Family history of cardiovascular disease Family history of malignant neoplasm of breast Family history of heart disease in male family member before age 55 Other Family history of malignant neoplasm Family history of malignant neoplasm of breast in first degree relative - Social History Social History: Social History (Last Reviewed 04/22/20 @ 06:35 by Stephane Martinez MD) Gender Identity: Gender identity (if verbalized by the patient): Female Sexual Orientation: Sexual Orientation (if Verbalized by the Patient): Straight or Heterosexual Alcohol Use: Alcohol intake: never Substance Use: Substance use: never Substance use type: does not use Others: Spiritual care concerns: No Smoking Status: Smoking status: Never smoker Second hand tobacco smoke exposure: Yes Second hand tobacco smoke exposure comment: Meds
[2020-04-22 20:59] VITALS: PULSE 82
[2020-04-22] MEDS: ASPIRIN 81 MG ENTERIC TABLET PO (20:59)
[2020-04-22] MEDS: METOPROLOL SUCCINATE EXT REL 100 MG TABCR PO (20:59)
[2020-04-22 22:00] VITALS: BP 133/47; PULSE 99; RESP 18; TEMP 36.6; O2SAT 96
[2020-04-22 22:16] LABS: Glucose Point of Care 169 (65-105)
[2020-04-23] MEDS: SODIUM CHLORIDE 0.9% IV 1,000 ML 125 ML IV CONT ×2 (00:34→09:35)
[2020-04-23] MEDS: ONDANSETRON INJ 4 MG/2 ML VIAL IV PUSH ×4 (00:43→18:57)
[2020-04-23 06:00] VITALS: BP 136/46; PULSE 88; RESP 20; TEMP 37.1; O2SAT 98
[2020-04-23 06:05] LABS: Hematocrit 27.2 % (37.0-47.0); Hemoglobin 8.7 g/dL (12.0-15.0); Mean Corpuscular Hemoglobin 26.9 pg (26-34); Mean Platelet Volume 11.4 fl (7.4-10.4); Platelet Count Result 91 k/mm3 (150-375); Red Blood Count 3.24 M/mm3 (4.2-5.4)
[2020-04-23] MEDS: LEVOTHYROXINE SODIUM 125 MCG TABLET PO (06:11)
[2020-04-23 06:12] LABS: White Blood Count 0.8 K/mm3 (4.5-10.0)
[2020-04-23 06:29] LABS: Anion Gap 7 mmol/L (8-16); Blood Urea Nitrogen 16 mg/dL (7-17); Calcium 7.4 mg/dL (8.4-10.2); Carbon Dioxide 19 mmol/L (22-30); Chloride 114 mmol/L (98-107); Estimated CRCL calculation 45 ml/min; Estimated Glomerular Filt Rate 53; Glucose 172 mg/dL (65-105); Magnesium 1.3 mg/dL (1.6-2.3); Potassium 3.4 mmol/L (3.4-5.0); Sodium 140 mmol/L (137-145)
[2020-04-23] MEDS: MAGNESIUM SULF 1 GM/D5W 100 ML 1 GM/100 ML BAG IVPB (08:04)
[2020-04-23 08:09] LABS: Glucose Point of Care 150 (65-105)
[2020-04-23] MEDS: FAMOTIDINE 20 MG/2 ML VIAL IV PUSH ×2 (09:30→20:57)
[2020-04-23] MEDS: LOSARTAN POTASSIUM 25 MG TABLET PO (09:30)
[2020-04-23 11:33] LABS: Glucose Point of Care 184 (65-105)
[2020-04-23 13:24] VITALS: BP 141/51; PULSE 82; RESP 18; TEMP 36.6; O2SAT 99
--- NOTE | 2020-04-23 14:28 | P.PNIM_ITS ---
Progress Note: A&P Assessment and Plan (1) Acute dehydration: Code(s): E86.0 - Dehydration Status: Acute Assessment and Plan: Secondary to poor PO intake from N/V. She appears euvolemic and vomiting has stopped. * Continue gentle IV fluid hydration * Monitor vital signs and urine output. (2) Nausea & vomiting: Qualifiers: Vomiting Intractability: non-intractable Vomiting type: unspecified Qualified Code(s): R11.2 - Nausea with vomiting, unspecified Code(s): R11.2 - Nausea with vomiting, unspecified Status: Acute Assessment and Plan: She had nausea and vomiting following chemotherapy. She had been unable to tolerate PO intake at home. * Advance to full diet. Continue to advance diet as tolerated. * Antiemetics. * Monitor symptoms. (3) Generalized weakness: Code(s): R53.1 - Weakness Status: Acute Assessment and Plan: Secondary to chemotherapy as well as ongoing colon cancer. * Continue IV hydration. * PT/OT to evaluate and input is appreciated (4) Pancytopenia: Code(s): D61.818 - Other pancytopenia Status: Acute Assessment and Plan: Most likely secondary to chemotherapy. White count is very low at 0.8. She received Neulasta with last round of chemo. * Dr. Morales is following and recommendations appreciated * Monitor CBC with diff. * Transfuse prn Hgb <7.0 (5) Hypomagnesemia: Code(s): E83.42 - Hypomagnesemia Status: Acute Assessment and Plan: Magnesium low at 1.3. Secondary to poor PO intake. * Replace with IV magnesium * Monitor mag closely (6) Visual hallucination: Code(s): R44.1 - Visual hallucinations Status: Acute Assessment and Plan: Patient reports onset of visual hallucinations at admission. She is seeing dogs and pumpkins. She denies any history of visual hallucinations. She denies auditory or tactile hallucinations. Etiology is unclear. Possibly metabolic encephalopathy from acute dehydration or possible UTI. Possibly brain metastases. Does not appear medication induced. Alcohol or drug abuse considered but unlikely. * Head CT * Urine tox screen * Monitor electrolytes * Urine culture * Continue IV hydration (7) Hematuria: Code(s): R31.9 - Hematuria, unspecified Status: Acute Assessment and Plan: Urinalysis was red in appearance with 3+ blood and >75 RBC. Patient has no urinary symptoms. She does not have flank pain or CVA tenderness. Possibly secondary to infection or nephrolithiasis. 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 Blood sugars are stable today. Last sugar was 150. * Continue accu-checks ACHS, sliding scale insulin coverage, and hypoglycemia protocol. * Hold metformin (9) Hypothyroidism: Onset Date: Unknown Qualifiers: Hypothyroidism type: unspecified Qualified Code(s): E03.9 - Hypothyroidism, unspecified Code(s): E03.9 - Hypothyroidism, unspecified
--- NOTE | 2020-04-23 14:28 | PM.IMPN ---
Progress Note: A&P Assessment and Plan (1) Acute dehydration: Code(s): E86.0 - Dehydration Status: Acute Assessment and Plan: Secondary to poor PO intake from N/V. She appears euvolemic and vomiting has stopped. Continue gentle IV fluid hydration Monitor vital signs and urine output. (2) Nausea & vomiting: Qualifiers: Vomiting Intractability: non-intractable Vomiting type: unspecified Qualified Code(s): R11.2 - Nausea with vomiting, unspecified Code(s): R11.2 - Nausea with vomiting, unspecified Status: Acute Assessment and Plan: She had nausea and vomiting following chemotherapy. She had been unable to tolerate PO intake at home. Advance to full diet. Continue to advance diet as tolerated. Antiemetics. Monitor symptoms. (3) Generalized weakness: Code(s): R53.1 - Weakness Status: Acute Assessment and Plan: Secondary to chemotherapy as well as ongoing colon cancer. Continue IV hydration. PT/OT to evaluate and input is appreciated (4) Pancytopenia: Code(s): D61.818 - Other pancytopenia Status: Acute Assessment and Plan: Most likely secondary to chemotherapy. White count is very low at 0.8. She received Neulasta with last round of chemo. Dr. Morales is following and recommendations appreciated Monitor CBC with diff. Transfuse prn Hgb <7.0 (5) Hypomagnesemia: Code(s): E83.42 - Hypomagnesemia Status: Acute Assessment and Plan: Magnesium low at 1.3. Secondary to poor PO intake. Replace with IV magnesium Monitor mag closely (6) Visual hallucination: Code(s): R44.1 - Visual hallucinations Status: Acute Assessment and Plan: Patient reports onset of visual hallucinations at admission. She is seeing dogs and pumpkins. She denies any history of visual hallucinations. She denies auditory or tactile hallucinations. Etiology is unclear. Possibly metabolic encephalopathy from acute dehydration or possible UTI. Possibly brain metastases. Does not appear medication induced. Alcohol or drug abuse considered but unlikely. Head CT Urine tox screen Monitor electrolytes Urine culture Continue IV hydration (7) Hematuria: Code(s): R31.9 - Hematuria, unspecified Status: Acute Assessment and Plan: Urinalysis was red in appearance with 3+ blood and >75 RBC. Patient has no urinary symptoms. She does not have flank pain or CVA tenderness. Possibly secondary to infection or nephrolithiasis. urine culture has been ordered renal ultrasound (8) Diabetes: Onset Date: Unknown Qualifiers: Diabetes mellitus complication status: without complication Diabetes mellitus fpc insulin use: without fpc use Diabetes mellitus type: type 2 Qualified Code(s): E11.9 - Type 2 diabetes mellitus without complications Code(s): E11.9 - Type 2 diabetes mellitus without complications Status: Chronic Assessment and Plan: Last A1c was 9.1 in December 2019. Blood sugars are stable today. Last sugar was 150. Continue accu-checks ACHS, sliding scale insulin coverage, and hypoglycemia protocol. Hold metformin (9) Hypothyroidism: Onset Date: Unknown Qualifiers: Hypothyroidism type: unspecified Qualified Code(s): E03.9 - Hypothyroidism, unspecified Code(s): E03.9 - Hypothyroidism, unspecified Status: Chronic Assessment and Plan: Chronic. TSH is wnl Continue levothyroxine. (10) Hypertension: Qualifiers: Hypertension type: unspecified Qualified Code(s): I10 - Essential (primary) hypertension Code(s): I10 - Essential (primary) hypertension Status: Chronic Assessment and Plan: BP was evaluated today and is stable at 133/47. Continue metoprolol and losartan (11) HLD (hyperlipidemia): Onset Date: Unknown Junior
--- NOTE | 2020-04-23 15:41 | PC.NURSE ---
Talked with patient about accessing portacath today. Patient would like to continue utilizing her peripheral IV site unless there is an issue with it.
[2020-04-23 17:05] LABS: Glucose Point of Care 174 (65-105)
[2020-04-23] MEDS: SACCHAROMYCES BOULARDII 250 MG CAPSULE PO (17:26)
[2020-04-23] MEDS: SODIUM CHLORIDE 0.9% IV 1,000 ML 80 ML IV CONT (18:57)
[2020-04-23 20:57] VITALS: PULSE 92
[2020-04-23] MEDS: ASPIRIN 81 MG ENTERIC TABLET PO (20:57)
[2020-04-23] MEDS: METOPROLOL SUCCINATE EXT REL 100 MG TABCR PO (20:57)
[2020-04-23 21:03] VITALS: BP 147/50; PULSE 93; RESP 16; TEMP 36.7; O2SAT 100
[2020-04-23 22:46] LABS: Glucose Point of Care 164 (65-105)
[2020-04-23 23:41] VITALS: TEMP 37
[2020-04-23 23:45] LABS: Amphetamine Screen Urine Negative (Negative); Barbiturate Screen Urine Negative (Negative); Benzodiazepines Screen Urine Negative (Negative); Cannabinoid Screen Urine Negative (Negative); Cocaine Screen Urine Negative (Negative); Methadone Screen Urine Negative (Negative); Opiate Screen Urine Negative (Negative); Phencyclidine Screen Urine Negative (Negative)
[2020-04-24 05:16] LABS: Hematocrit 27.5 % (37.0-47.0); Hemoglobin 8.9 g/dL (12.0-15.0); Mean Corpuscular HGB Conc 32.4 g/dl (32-36); Mean Corpuscular Volume 83.3 fl (80-100); Mean Platelet Volume 10.1 fl (7.4-10.4); Platelet Count Result 98 k/mm3 (150-375); Red Cell Distribution Width 19.5 % (11.5-14.5)
[2020-04-24 05:19] LABS: White Blood Count 1.9 K/mm3 (4.5-10.0)
[2020-04-24 05:54] LABS: Anion Gap 7 mmol/L (8-16); Blood Urea Nitrogen 12 mg/dL (7-17); Calcium 7.9 mg/dL (8.4-10.2); Carbon Dioxide 18 mmol/L (22-30); Chloride 114 mmol/L (98-107); Estimated CRCL calculation 45 ml/min; Estimated Glomerular Filt Rate 53; Glucose 151 mg/dL (65-105); Magnesium 1.8 mg/dL (1.6-2.3); Potassium 2.3 mmol/L (3.4-5.0); Sodium 139 mmol/L (137-145)
[2020-04-24 06:00] VITALS: BP 115/72; PULSE 112; RESP 18; TEMP 36.4; O2SAT 100
[2020-04-24] MEDS: LEVOTHYROXINE SODIUM 125 MCG TABLET PO (06:37)
[2020-04-24] MEDS: POTASSIUM CHLORIDE 20 MEQ TABLET 40 MEQ PO (06:37)
[2020-04-24] MEDS: SODIUM CHLORIDE 0.9% IV 1,000 ML 80 ML IV CONT (06:38)
[2020-04-24 06:56] LABS: Folic Acid > 20.0 ng/mL (2.76->20); Vitamin B12 > 1000.0 pg/mL (239-931)
[2020-04-24] MEDS: KCL 20 MEQ/SW 100 ML 100 ML 50 MEQ IVPB (07:29)
[2020-04-24 07:50] LABS: Glucose Point of Care 152 (65-105)
[2020-04-24] MEDS: FAMOTIDINE 20 MG/2 ML VIAL IV PUSH (08:10)
[2020-04-24] MEDS: LOSARTAN POTASSIUM 25 MG TABLET PO (08:11)
[2020-04-24] MEDS: SACCHAROMYCES BOULARDII 250 MG CAPSULE PO ×2 (08:11→16:23)
[2020-04-24] MEDS: SODIUM BICARBONATE TAB 650 MG TABLET PO ×2 (10:26→16:23)
[2020-04-24 11:46] LABS: Glucose Point of Care 220 (65-105)
[2020-04-24] MEDS: INSULIN ASPART (*BKC) 100 UNITS/ML SUB-Q (11:47)
[2020-04-24 12:32] LABS: Potassium 2.5 mmol/L (3.4-5.0)
[2020-04-24] MEDS: POTASSIUM CHLORIDE 20 MEQ TABLET PO (13:43)
--- NOTE | 2020-04-24 13:46 | PM.IMPN ---
Progress Note: A&P Assessment and Plan (1) Acute dehydration: Code(s): E86.0 - Dehydration Status: Acute Assessment and Plan: Secondary to poor PO intake from N/V. She appears euvolemic and vomiting has stopped. Discontinue IV fluids. Patient is eating and drinking and no longer having episodes of vomiting. Monitor vital signs and urine output. (2) Nausea & vomiting: Qualifiers: Vomiting type: unspecified Vomiting Intractability: non-intractable Qualified Code(s): R11.2 - Nausea with vomiting, unspecified Code(s): R11.2 - Nausea with vomiting, unspecified Status: Acute Assessment and Plan: She had nausea and vomiting following chemotherapy. She had been unable to tolerate PO intake at home. Advance to solid diet. Antiemetics. Monitor symptoms. (3) Generalized weakness: Code(s): R53.1 - Weakness Status: Acute Assessment and Plan: Secondary to chemotherapy as well as ongoing colon cancer. Continue IV hydration. PT/OT to evaluate and input is appreciated (4) Pancytopenia: Code(s): D61.818 - Other pancytopenia Status: Acute Assessment and Plan: Most likely secondary to chemotherapy. White count has increased to 1.9 today. She received Neulasta with last round of chemo. Dr. Morales is following and recommendations appreciated Monitor CBC with diff. Transfuse prn Hgb <7.0 (5) Visual hallucination: Code(s): R44.1 - Visual hallucinations Status: Acute Assessment and Plan: Patient reports onset of visual hallucinations at admission. She is seeing dogs and pumpkins. She denies any history of visual hallucinations. She denies auditory or tactile hallucinations. Etiology is unclear. Possibly metabolic encephalopathy from acute dehydration or possible UTI. Possibly brain metastases. Does not appear medication induced. Urine tox screen is negative. She has not had any episodes today. Head CT was ordered but patient has declined. I explained my concerns and she still did not wish to proceed. Monitor electrolytes Urine culture is pending (6) Hematuria: Code(s): R31.9 - Hematuria, unspecified Status: Acute Assessment and Plan: Urinalysis was red in appearance with 3+ blood and >75 RBC. Patient has no urinary symptoms. She does not have flank pain or CVA tenderness. Possibly secondary to infection or nephrolithiasis. Renal US showed normal kidneys. urine culture has been ordered and is pending (7) Hypomagnesemia: Code(s): E83.42 - Hypomagnesemia Status: Acute Assessment and Plan: Secondary to poor PO intake. Magnesium improved to 1.8 today. Administer oral magnesium with potassium due to hypokalemia Monitor mag closely (8) Hypokalemia: Code(s): E87.6 - Hypokalemia Status: Acute Assessment and Plan: Potassium low at 2.3 this morning. Secondary to poor oral intake. Patient has received total of 80 mEq KCl. Will repeat potassium this evening. (9) Diabetes: Onset Date: Unknown Qualifiers: Diabetes mellitus type: type 2 Diabetes mellitus care home insulin use: without care home use Diabetes mellitus complication status: without complication Qualified Code(s): E11.9 - Type 2 diabetes mellitus without complications Code(s): E11.9 - Type 2 diabetes mellitus without complications Status: Chronic Assessment and Plan: Last A1c was 9.1 in December 2019. Blood sugars are stable today. Last sugar was 151. Continue accu-checks ACHS, sliding scale insulin coverage, and hypoglycemia protocol. Hold metformin (10) Hypothyroidism: Onset Date: Unknown Qualifiers: Hypothyroidism type: unspecified Qualified Code(s): E03.9 - Hypothyroidism, unspecified Code(s): E03.9 - Hypothyroidism, unspecified Status: Chronic Assessment and Plan: C
[2020-04-24] MEDS: MAGNESIUM OXIDE 400 MG TABLET PO (13:55)
[2020-04-24 14:00] VITALS: BP 139/51; PULSE 70; RESP 14; TEMP 35.9; O2SAT 99
--- NOTE | 2020-04-24 15:35 | PCDIET ---
Nutrition Follow-Up Complete: Inadequate oral intake related to nausea/vomiting as evidenced by NPO status, 14 pound weight loss x 3 weeks without trying. Patient to meet estimated nutritional needs. Goal: Goal not met. Continue goal. Pt current nutrition is DBCC+Glucerna BID Nutrition recommendation: agree Last recorded weight is 84.5 kg (recommend updated wt) Bowel Motility: BM today Labs Reviewed:Glucose 151, GFR 53, B12 over 1000 Folate over 20 Meds Noted: Florastor, NS, Levo, Insulin, Zofran Additional Notes: Pt intake 0, 10, 0. states she will take a few bites of something and then not eat any more. Pt family encouraged to bring her favorite foods in and check in with nurse before providing to encourage intake. Edu provided on stimulating appetite. No nausea today. Nutritional supplements offered BID. We will continue to monitor for adequate intake every three days.
[2020-04-24] MEDS: LOPERAMIDE HCL 2 MG CAPSULE 4 MG PO (16:22)
[2020-04-24 16:24] LABS: Potassium 3.4 mmol/L (3.4-5.0)
--- NOTE | 2020-04-24 16:29 | WPDONCPN ---
Progress Note: A/P - Additional Plan Metastatic appendiceal adenocarcinoma. Patient is on second-line chemotherapy with FOLFIRI Avastin. Patient will follow-up with me in the office to discuss further treatment management as she has been having difficulty tolerating chemotherapy. Chemotherapy-induced diarrhea. Imodium has been ordered. Continue IV hydration. Pancytopenia place secondary to chemotherapy. WBC count hemoglobin and platelet is slowly improving. Patient has received Neulasta. She remains afebrile. Nausea and vomiting. Patient is on Zofran. Sometime experiencing nausea without any vomiting. I instructed her to take Zofran prior to her meal. - Time Spent With Patient Total time spent is greater than 50% in coordination of care (as documented) at patient's floor/unit and/or counseling patient: 15 - 25 minutes Subjective Interval history: Metastatic appendiceal adenocarcinoma Pancytopenia Nausea vomiting Diarrhea secondary to chemotherapy Review of Systems - Review of Systems Patient remains tired and weak and has been having diarrhea on a regular basis. Still complaining of nausea without any vomiting. Patient only ate 5% of her meal today. - Neurologic Denies abnormal speech, Denies headache(s), Denies focal weakness, Denies numbness, Denies weakness Exam Vital signs: Temp Pulse Resp BP Pulse Ox 35.9 C L 70 14 139/51 L 99 04/24/20 14:00 04/24/20 14:00 04/24/20 14:00 04/24/20 14:00 04/24/20 14:00 Narrative: Lungs are clear to auscultation bilaterally Cardiovascular regular rate rhythm no murmurs Abdomen soft nontender nondistended bowel sounds are positive and hyperactive Extremities no edema PN: Objective Data - Labs CBC & Chem 7: 04/24/20 05:06 04/24/20 16:10 Labs: Laboratory Results - last 24 hr 04/23/20 04/23/20 04/23/20 17:03 20:00 22:43 WBC RBC Hgb Hct MCV MCH MCHC RDW Plt Count MPV Sodium Potassium Chloride Carbon Dioxide Anion Gap BUN Creatinine Estim Creat Clear Calc Estimated GFR Glucose POC Capillary Glucose 174 H 164 H Calcium Magnesium Vitamin B12 Folate Urine Opiates Screen Negative Urine Methadone Screen Negative Ur Barbiturates Screen Negative Ur Phencyclidine Scrn Negative Ur Amphetamine Screen Negative U Benzodiazepines Scrn Negative Urine Cocaine Screen Negative U Cannabinoids Screen Negative 04/24/20 04/24/2004/24/20 05:06 05:06 07:31 WBC 1.9 L RBC 3.30 L Hgb 8.9 L Hct 27.5 L MCV 83.3 MCH 27.0 MCHC 32.4 RDW 19.5 H Plt Count 98 L MPV 10.1 Sodium 139 Potassium 2.3 L* Chloride 114 H Carbon Dioxide 18 L Anion Gap 7 L BUN 12 Creatinine 1.00 Estim Creat Clear Calc 45 Estimated GFR 53 L Glucose 151 H POC Capillary Glucose 152 H Calcium 7.9 L Magnesium 1.8 Vitamin B12 > 1000.0 H Folate > 20.0 H Urine Opiates Screen Urine Methadone Screen Ur Barbiturates Screen Ur Phencyclidine Scrn Ur Amphetamine Screen U Benzodiazepines Scrn Urine Cocaine Screen U Cannabinoids Screen 04/24/20 04/24/20 04/24/20 11:44 12:14 16:10 WBC RBC Hgb Hct MCV MCH MCHC RDW Plt Count MPV Sodium Potassium 2.5 L* 3.4 Chloride Carbon Dioxide Anion Gap BUN Creatinine Estim Creat Clear Calc Estimated GFR Glucose POC Capillary Glucose 220 H Calcium Magnesium Vitamin B12 Folate Urine Opiates Screen Urine Methadone Screen Ur Barbiturates Screen Ur Phencyclidine Scrn Ur Amphetamine Screen U Benzodiazepines Scrn Urine Cocaine Screen U Cannabinoids Screen
[2020-04-24] MEDS: ONDANSETRON INJ 4 MG/2 ML VIAL IV PUSH (17:01)
[2020-04-24 17:36] LABS: Glucose Point of Care 186 (65-105)
[2020-04-24] MEDS: LOPERAMIDE HCL 2 MG CAPSULE PO (17:56)
--- NOTE | 2020-04-24 21:31 | PC.NURSE ---
Pt very confused and states she is angry, when questioned why she stated because she just is. Pt refused accucheck and meds this evening will try again if pt becomes more alert.
[2020-04-24 21:37] VITALS: PULSE 70; RESP 14; O2SAT 99
[2020-04-24 22:00] VITALS: BP 146/55; PULSE 94; RESP 14; TEMP 36.6; O2SAT 100
[2020-04-24 23:56] LABS: Glucose Point of Care 159 (65-105)
[2020-04-25 05:42] VITALS: BP 142/51; PULSE 89; RESP 16; TEMP 36.5; O2SAT 100
[2020-04-25 07:05] LABS: Basophils Percent Auto 1.3 % (0.2-1.2); Eosinophils Percent Auto 1.3 % (0-4.4); Hematocrit 25.6 % (37.0-47.0); Hemoglobin 8.4 g/dL (12.0-15.0); Immature Granulocyte Absolute 0.06 K/mm3 (0.00-0.031); Immature Granulocyte Percent A 1.9 % (0-0.5); Lymphocytes Absolute Auto 0.48 K/mm3 (0.9-3.2); Lymphocytes Percent Auto 15.1 % (18.3-44.2); Mean Corpuscular HGB Conc 32.8 g/dl (32-36); Mean Corpuscular Hemoglobin 26.8 pg (26-34); Mean Corpuscular Volume 81.5 fl (80-100); Mean Platelet Volume 11.3 fl (7.4-10.4); Monocytes Absolute Auto 0.5 K/mm3 (0.1-0.6); Monocytes Percent Auto 16.1 % (2.6-8.5); Neutrophils Percent Auto 64.3 % (45.5-73.1); Platelet Count Result 143 k/mm3 (150-375); Red Blood Count 3.14 M/mm3 (4.2-5.4); Red Cell Distribution Width 19.9 % (11.5-14.5); White Blood Count 3.2 K/mm3 (4.5-10.0)
[2020-04-25 07:36] LABS: Anion Gap 5 mmol/L (8-16); Blood Urea Nitrogen 8 mg/dL (7-17); Calcium 7.8 mg/dL (8.4-10.2); Carbon Dioxide 19 mmol/L (22-30); Chloride 115 mmol/L (98-107); Estimated CRCL calculation 45 ml/min; Estimated Glomerular Filt Rate 53; Glucose 189 mg/dL (65-105); Magnesium 1.8 mg/dL (1.6-2.3); Potassium 2.3 mmol/L (3.4-5.0); Sodium 139 mmol/L (137-145)
[2020-04-25 07:38] LABS: Crenated RBC 1+ (NORMAL); Ovalocytes 2+ (NORMAL)
[2020-04-25 07:39] LABS: Tear Drop Cells 1+ (NORMAL)
[2020-04-25 07:49] LABS: Glucose Point of Care 201 (65-105)
[2020-04-25] MEDS: LOSARTAN POTASSIUM 25 MG TABLET PO (08:41)
[2020-04-25] MEDS: LEVOTHYROXINE SODIUM 125 MCG TABLET PO (08:41)
[2020-04-25] MEDS: SODIUM BICARBONATE TAB 650 MG TABLET PO ×3 (08:41→17:33)
[2020-04-25] MEDS: LOPERAMIDE HCL 2 MG CAPSULE PO ×3 (08:41→17:31)
[2020-04-25] MEDS: SACCHAROMYCES BOULARDII 250 MG CAPSULE PO ×2 (08:41→17:32)
[2020-04-25] MEDS: ONDANSETRON INJ 4 MG/2 ML VIAL IV PUSH ×3 (08:42→17:29)
[2020-04-25] MEDS: FAMOTIDINE 20 MG/2 ML VIAL IV PUSH ×2 (08:42→20:40)
[2020-04-25] MEDS: INSULIN ASPART (*BKC) 100 UNITS/ML SUB-Q ×2 (08:50→12:57)
--- NOTE | 2020-04-25 10:26 | PM.IMPN ---
Progress Note: A&P Assessment and Plan (1) Nausea vomiting and diarrhea: Code(s): R11.2 - Nausea with vomiting, unspecified; R19.7 - Diarrhea, unspecified Status: Acute Assessment and Plan: She had nausea and vomiting following chemotherapy. She has been unable to tolerate p.o. intake at home. She has not vomited in several days but she continues to feel nauseous. She is also experiencing chemotherapy-induced diarrhea. Continue solid diet as tolerated Antiemetics. She should begin taking Zofran prior to meals per oncology recommendations Loperamide as needed Will resume IV fluids as patient has had multiple episodes of watery diarrhea. Start LR at 75 ml/hr (2) Acute dehydration: Code(s): E86.0 - Dehydration Status: Acute Assessment and Plan: Secondary to poor PO intake from N/V. IV fluids as above Monitor vital signs and urine output. (3) Generalized weakness: Code(s): R53.1 - Weakness Status: Acute Assessment and Plan: Secondary to chemotherapy as well as ongoing colon cancer. Likely exacerbated by dehydration, N/V, and acute infection Continue IV hydration. PT/OT to evaluate and input is appreciated (4) Pancytopenia: Code(s): D61.818 - Other pancytopenia Status: Acute Assessment and Plan: Improving. Most likely secondary to chemotherapy. White count has increased to 3.2 today. She received Neulasta with last round of chemo. Dr. Morales is following and recommendations appreciated Monitor CBC with diff daily. Transfuse prn Hgb <7.0 (5) Urinary tract infection: Code(s): N39.0 - Urinary tract infection, site not specified Status: Acute Assessment and Plan: Urinalysis was bloody in appearance. She denied any urinary symptoms. She has been afebrile. Urine culture obtained to evaluate hematuria which grew >100,000 CFU E coli with susceptibility to Rocephin. Begin Rocephin (6) Visual hallucination: Code(s): R44.1 - Visual hallucinations Status: Acute Assessment and Plan: Patient reports onset of visual hallucinations at admission. She is seeing dogs and pumpkins. She denies any history of visual hallucinations. She denies auditory or tactile hallucinations. Etiology is unclear. Possibly metabolic encephalopathy from acute dehydration or possible UTI. Possibly brain metastases. Does not appear medication induced. Urine tox screen is negative. She has not had any episodes today. Metabolic cause seems most likely as this seems to resolving. Head CT was ordered but patient has declined. I explained my concerns and she still does not wish to proceed. Monitor electrolytes Continue with treatment for UTI (7) Hypomagnesemia: Code(s): E83.42 - Hypomagnesemia Status: Acute Assessment and Plan: Secondary to poor PO intake. Magnesium improved to 1.8 with replacement. Administer oral magnesium with potassium due to hypokalemia Monitor mag closely (8) Hypokalemia: Code(s): E87.6 - Hypokalemia Status: Acute Assessment and Plan: Potassium again low at 2.3 this morning, despite receiving total 80 mEq KCl yesterday. Most likely due to ongoing GI losses with diarrhea. Replace with IV and PO potassium. Monitor potassium daily (9) Diabetes: Onset Date: Unknown Qualifiers: Diabetes mellitus type: type 2 Diabetes mellitus press tender long goods insulin use: without press tender long goods use Diabetes mellitus complication status: without complication Qualified Code(s): E11.9 - Type 2 diabetes mellitus without complications Code(s): E11.9 - Type 2 diabetes mellitus without complications Status: Chronic Assessment and Plan: Last A1c was 9.1 in December 2019. Blood sugars are stable today. Last sugar was 189. Continue accu-checks ACHS, sliding scale insulin coverage, and hypoglycemia protocol. Hold metformin (10) Hy
[2020-04-25] MEDS: POTASSIUM CHLORIDE 20 MEQ TABLET.ER PO ×2 (10:31→17:32)
[2020-04-25 12:55] LABS: Glucose Point of Care 220 (65-105)
--- NOTE | 2020-04-25 13:10 | PCOTNOTE ---
Attempted to see patient for OT, patient declined to participate in any functional ADL or exercises. Will continue plan of care tomorrow 04/26/2020.
[2020-04-25 14:00] VITALS: BP 162/78; PULSE 111; RESP 26; TEMP 36.3; O2SAT 100
[2020-04-25] MEDS: LACTATED RINGERS 1,000 ML 75 ML IV CONT (14:07)
[2020-04-25 16:47] LABS: Glucose Point of Care 186 (65-105)
[2020-04-25] MEDS: MAGNESIUM OXIDE 400 MG TABLET PO (17:31)
[2020-04-25] MEDS: ASPIRIN 81 MG ENTERIC TABLET PO (20:39)
[2020-04-25 20:40] VITALS: PULSE 80
[2020-04-25] MEDS: METOPROLOL SUCCINATE EXT REL 100 MG TABCR PO (20:40)
[2020-04-25] MEDS: CENTRAL LINE FLUSH 10 ML IV PUSH (20:40)
[2020-04-25 21:51] VITALS: BP 131/54; PULSE 103; RESP 16; TEMP 37; O2SAT 97
[2020-04-25 22:00] LABS: Glucose Point of Care 211 (65-105)
--- NOTE | 2020-04-26 02:00 | PC.NURSE ---
Daylight Savings Time For Daylight Savings Time Ending in the Fall - Clocks are moved back. For Daylight Savings Time Beginning in the Spring - Clocks are moved ahead. For [facility], the time of change occurs at 0200 hrs. Time is taken from the summons server. This entry on the patient's chart recognizes the change in time reflected during documentation. Example: 2 entries for vital signs may be charted for 0200 hrs.
[2020-04-26] MEDS: LACTATED RINGERS 1,000 ML 75 ML IV CONT ×2 (02:19→20:12)
[2020-04-26] MEDS: CENTRAL LINE FLUSH 10 ML IV PUSH ×3 (05:40→23:55)
[2020-04-26] MEDS: LEVOTHYROXINE SODIUM 125 MCG TABLET PO (05:40)
[2020-04-26 05:48] LABS: Basophils Absolute Auto 0.1 K/mm3 (0.0-0.1); Basophils Percent Auto 1.1 % (0.2-1.2); Eosinophils Absolute Auto 0.1 K/mm3 (0-0.3); Eosinophils Percent Auto 1.1 % (0-4.4); Hematocrit 25.7 % (37.0-47.0); Hemoglobin 8.5 g/dL (12.0-15.0); Immature Granulocyte Absolute 0.31 K/mm3 (0.00-0.031); Immature Granulocyte Percent A 6.5 % (0-0.5); Lymphocytes Absolute Auto 0.52 K/mm3 (0.9-3.2); Mean Corpuscular HGB Conc 33.1 g/dl (32-36); Mean Corpuscular Hemoglobin 26.8 pg (26-34); Mean Corpuscular Volume 81.1 fl (80-100); Mean Platelet Volume 10.2 fl (7.4-10.4); Monocytes Absolute Auto 0.7 K/mm3 (0.1-0.6); Monocytes Percent Auto 13.9 % (2.6-8.5); Neutrophils Absolute Auto 3.2 K/mm3 (1.3-6.7); Neutrophils Percent Auto 66.4 % (45.5-73.1); Platelet Count Result 165 k/mm3 (150-375); Red Blood Count 3.17 M/mm3 (4.2-5.4); Red Cell Distribution Width 20.3 % (11.5-14.5); White Blood Count 4.7 K/mm3 (4.5-10.0)
[2020-04-26 06:00] VITALS: BP 139/58; PULSE 86; RESP 16; TEMP 36.6; O2SAT 100
[2020-04-26 06:27] LABS: Anion Gap 6 mmol/L (8-16); Blood Urea Nitrogen 7 mg/dL (7-17); Calcium 7.8 mg/dL (8.4-10.2); Carbon Dioxide 20 mmol/L (22-30); Chloride 113 mmol/L (98-107); Estimated CRCL calculation 41 ml/min; Estimated Glomerular Filt Rate 48; Glucose 164 mg/dL (65-105); Magnesium 1.8 mg/dL (1.6-2.3); Potassium 2.6 mmol/L (3.4-5.0); Sodium 139 mmol/L (137-145)
[2020-04-26 08:00] LABS: Glucose Point of Care 167 (65-105)
[2020-04-26] MEDS: ONDANSETRON INJ 4 MG/2 ML VIAL IV PUSH (08:15)
[2020-04-26] MEDS: SACCHAROMYCES BOULARDII 250 MG CAPSULE PO ×2 (08:41→17:12)
[2020-04-26] MEDS: LOSARTAN POTASSIUM 25 MG TABLET PO (08:41)
[2020-04-26] MEDS: POTASSIUM CHLORIDE 20 MEQ TABLET.ER PO ×2 (08:41→17:12)
[2020-04-26] MEDS: MAGNESIUM OXIDE 400 MG TABLET PO (08:41)
[2020-04-26] MEDS: SODIUM BICARBONATE TAB 650 MG TABLET PO ×3 (08:50→17:12)
[2020-04-26] MEDS: FAMOTIDINE 20 MG/2 ML VIAL IV PUSH ×2 (08:54→20:13)
[2020-04-26] MEDS: LOPERAMIDE HCL 2 MG CAPSULE PO ×4 (10:29→20:22)
[2020-04-26] MEDS: INSULIN ASPART (*BKC) 100 UNITS/ML SUB-Q (11:35)
--- NOTE | 2020-04-26 11:40 | PCOTNOTE ---
Attempted to see patient this AM and at lunch for skilled OT. Patient declined both times, including to participate in ADLs or exercises, or mobility to meet any functional needs - including sitting up to eat in her armchair. Will continue plan of care tomorrow, 04/27/2020.
[2020-04-26 11:44] LABS: Glucose Point of Care 236 (65-105)
[2020-04-26 14:00] VITALS: BP 132/61; PULSE 89; RESP 19; TEMP 36.3; O2SAT 100
--- NOTE | 2020-04-26 16:23 | PM.IMPN ---
Progress Note: A&P Assessment and Plan (1) Nausea vomiting and diarrhea: Code(s): R11.2 - Nausea with vomiting, unspecified; R19.7 - Diarrhea, unspecified Status: Acute Assessment and Plan: She had nausea and vomiting following chemotherapy. She was unable to tolerate p.o. intake at home. She has not vomited in several days and nausea is subsiding. She is also experiencing chemotherapy-induced diarrhea with 3 episodes of watery stools today. Continue solid diet as tolerated Antiemetics. She should begin taking Zofran prior to meals per oncology recommendations Loperamide as needed Continue gentle IV fluids dueto ongoing diarrhea. LR at 75 ml/hr (2) Acute dehydration: Code(s): E86.0 - Dehydration Status: Acute Assessment and Plan: Secondary to poor PO intake from N/V. She appears adequately rehydrated IV fluids as above Monitor vital signs and urine output. (3) Generalized weakness: Code(s): R53.1 - Weakness Status: Acute Assessment and Plan: Secondary to chemotherapy as well as ongoing colon cancer. Likely exacerbated by dehydration, N/V, and acute infection Continue IV hydration. PT/OT to evaluate and input is appreciated (4) Pancytopenia: Code(s): D61.818 - Other pancytopenia Status: Acute Assessment and Plan: Improving. Most likely secondary to chemotherapy. White count has increased to wnl at 4.7 today. She received Neulasta with last round of chemo. Platelets now wnl. Dr. Morales is following and recommendations are appreciated Monitor CBC with diff daily. Transfuse prn Hgb <7.0 (5) Urinary tract infection: Code(s): N39.0 - Urinary tract infection, site not specified Status: Acute Assessment and Plan: Urinalysis was bloody in appearance. She denied any urinary symptoms. She has been afebrile. Urine culture obtained to evaluate hematuria which grew >100,000 CFU E coli with susceptibility to Rocephin. Continue Rocephin (started on 04/25/20) (6) Visual hallucination: Code(s): R44.1 - Visual hallucinations Status: Acute Assessment and Plan: Patient reports onset of visual hallucinations at admission. She reported seeing dogs and pumpkins that she knew were not real. She denies any history of visual hallucinations. She denies auditory or tactile hallucinations. Possible etiologies include metabolic encephalopathy from acute dehydration/UTI, possibly brain metastases. Does not appear medication induced. Urine tox screen is negative. She has not had any episodes today. Metabolic cause seems most likely as this seems to resolving. Head CT was ordered but patient has declined. I explained my concerns and she still does not wish to proceed. Monitor electrolytes Continue with treatment for UTI (7) Hypomagnesemia: Code(s): E83.42 - Hypomagnesemia Status: Acute Assessment and Plan: Secondary to poor PO intake. Magnesium improved to 1.8 with replacement. Administer oral magnesium with potassium due to hypokalemia Monitor mag closely (8) Hypokalemia: Code(s): E87.6 - Hypokalemia Status: Acute Assessment and Plan: Potassium again low due to ongoing GI losses with diarrhea. Replace with IV and PO potassium. She received a total of 80 mEq today Monitor potassium daily (9) Diabetes: Onset Date: Unknown Qualifiers: Diabetes mellitus type: type 2 Diabetes mellitus correction insulin use: without manager long term care use Diabetes mellitus complication status: without complication Qualified Code(s): E11.9 - Type 2 diabetes mellitus without complications Code(s): E11.9 - Type 2 diabetes mellitus without complications Status: Chronic Assessment and Plan: Last A1c was 9.1 in December 2019. Blood sugars are stable today. Last sugar was 164. Continue accu-checks ACHS, sliding scale insulin coverage,
[2020-04-26 16:33] LABS: Glucose Point of Care 161 (65-105)
[2020-04-26 20:14] VITALS: PULSE 80
[2020-04-26] MEDS: METOPROLOL SUCCINATE EXT REL 100 MG TABCR PO (20:14)
[2020-04-26] MEDS: ASPIRIN 81 MG ENTERIC TABLET PO (20:14)
[2020-04-26 21:28] VITALS: BP 148/85; PULSE 99; RESP 18; TEMP 36.2; O2SAT 100
[2020-04-26 22:59] LABS: Glucose Point of Care 152 (65-105)
[2020-04-27] MEDS: LOPERAMIDE HCL 2 MG CAPSULE PO ×3 (04:02→14:13)
[2020-04-27 04:44] LABS: Basophils Percent Auto 0.9 % (0.2-1.2); Eosinophils Absolute Auto 0.1 K/mm3 (0-0.3); Eosinophils Percent Auto 1.9 % (0-4.4); Hematocrit 25.8 % (37.0-47.0); Hemoglobin 8.4 g/dL (12.0-15.0); Immature Granulocyte Absolute 0.06 K/mm3 (0.00-0.031); Immature Granulocyte Percent A 1.9 % (0-0.5); Lymphocytes Absolute Auto 0.34 K/mm3 (0.9-3.2); Lymphocytes Percent Auto 10.6 % (18.3-44.2); Mean Corpuscular HGB Conc 32.6 g/dl (32-36); Mean Corpuscular Hemoglobin 26.7 pg (26-34); Mean Corpuscular Volume 81.9 fl (80-100); Mean Platelet Volume 10.6 fl (7.4-10.4); Monocytes Absolute Auto 0.6 K/mm3 (0.1-0.6); Monocytes Percent Auto 19.7 % (2.6-8.5); Neutrophils Absolute Auto 2.1 K/mm3 (1.3-6.7); Platelet Count Result 166 k/mm3 (150-375); Red Blood Count 3.15 M/mm3 (4.2-5.4); Red Cell Distribution Width 20.9 % (11.5-14.5); White Blood Count 3.2 K/mm3 (4.5-10.0)
[2020-04-27 04:58] LABS: Anion Gap 8 mmol/L (8-16); Blood Urea Nitrogen 6 mg/dL (7-17); Calcium 7.5 mg/dL (8.4-10.2); Carbon Dioxide 18 mmol/L (22-30); Chloride 112 mmol/L (98-107); Estimated CRCL calculation 50 ml/min; Estimated Glomerular Filt Rate 60; Glucose 150 mg/dL (65-105); Magnesium 1.5 mg/dL (1.6-2.3); Sodium 138 mmol/L (137-145)
[2020-04-27 05:39] VITALS: BP 126/54; PULSE 92; RESP 16; TEMP 36.4; O2SAT 98
[2020-04-27] MEDS: CENTRAL LINE FLUSH 10 ML IV PUSH ×3 (05:58→21:07)
[2020-04-27] MEDS: LEVOTHYROXINE SODIUM 125 MCG TABLET PO (05:58)
--- NOTE | 2020-04-27 07:29 | PCOTNOTE ---
Attempted to see Patient for A.M. treatment session at this time. Patient refused to participate in any movement, having severe nausea, RN was notified and aware.
[2020-04-27] MEDS: ONDANSETRON INJ 4 MG/2 ML VIAL IV PUSH ×3 (07:49→21:06)
[2020-04-27] MEDS: FAMOTIDINE 20 MG/2 ML VIAL IV PUSH ×2 (07:52→21:06)
[2020-04-27] MEDS: SODIUM BICARBONATE TAB 650 MG TABLET PO ×3 (07:56→16:38)
[2020-04-27] MEDS: MAGNESIUM OXIDE 400 MG TABLET PO (07:56)
[2020-04-27] MEDS: POTASSIUM CHLORIDE 20 MEQ TABLET.ER PO ×2 (07:56→16:38)
[2020-04-27] MEDS: LOSARTAN POTASSIUM 25 MG TABLET PO (07:56)
[2020-04-27] MEDS: SACCHAROMYCES BOULARDII 250 MG CAPSULE PO ×2 (07:56→16:38)
[2020-04-27 08:54] LABS: Glucose Point of Care 142 (65-105)
[2020-04-27] MEDS: LACTATED RINGERS 1,000 ML 75 ML IV CONT ×2 (10:22→21:07)
--- NOTE | 2020-04-27 11:30 | PM.IMPN ---
Progress Note: A&P Assessment and Plan (1) Nausea vomiting and diarrhea: Code(s): R11.2 - Nausea with vomiting, unspecified; R19.7 - Diarrhea, unspecified Status: Acute Assessment and Plan: Improved likely secondary to SIRS Supportive care Daily labs Tolerating PO (2) Diarrhea: Code(s): R19.7 - Diarrhea, unspecified Status: Acute Assessment and Plan: Number of BM has decreased Much improved. (3) Urinary tract infection: Code(s): N39.0 - Urinary tract infection, site not specified Status: Acute Assessment and Plan: Growing pansensitive E. choli Will benefit for one more day of iv Rocephin (4) Hypokalemia: Code(s): E87.6 - Hypokalemia Status: Acute Assessment and Plan: Replace as needed (5) Hematuria: Code(s): R31.9 - Hematuria, unspecified Status: Acute Assessment and Plan: Likely secondary to UTI. (6) Visual hallucination: Code(s): R44.1 - Visual hallucinations Status: Acute Assessment and Plan: Resolved (7) Hypomagnesemia: Code(s): E83.42 - Hypomagnesemia Status: Acute Assessment and Plan: Replace as needed (8) Elevated lactic acid level: Code(s): R79.89 - Other specified abnormal findings of blood chemistry Status: Acute Assessment and Plan: Trending down (9) Pancytopenia: Code(s): D61.818 - Other pancytopenia Status: Acute Assessment and Plan: Follow up in the outpatient setting. (10) Generalized weakness: Code(s): R53.1 - Weakness Status: Acute Assessment and Plan: PT/OT consult. (11) Acute dehydration: Code(s): E86.0 - Dehydration Status: Acute Assessment and Plan: Continue iv fluids for now until diarrhea stops. (12) Intractable nausea and vomiting: Code(s): R11.2 - Nausea with vomiting, unspecified Status: Acute Assessment and Plan: Supportive care Zofran prn Improved. Subjective Date/time seen: 04/27/20 11:30 States that she is feeling much better. Review of Systems Review of Systems: Narrative: n/v/diarrhea. Constitutional: Comments: no chills. Eyes: Comments: no vision changes. ENT: Comments: no throat pain, no ear ache, no nasal congestion. Cardiovascular: Comments: no chest pain. Respiratory: Comments: no sob. Gastrointestinal: Comments: diarrhea. Musculoskeletal: Comments: no joint pain Integumentary/Breasts: Comments: no rashes. Neurologic: Comments: no sensory motor deficit. Endocrine: Comments: no heat or cold intolerance. Hematologic/Lymphatic: Comments: no LAP Exam Narrative: Exam Narrative: Well nourished, well developed, NAD, well appearing. Const: General: cooperative, healthy appearing, comfortable and no acute distress Nutritional Appearance: average body habitus Orientation/consciousness: patient oriented x3 Limitations: no limitations HENMT: Head: normal to inspection and normocephalic General nose exam: Normal external nose present Face and sinus: normal facial exam Eyes: General: appearance normal, both eyes and all related structures Pupils: Equal, round and reactive pupils present EOM: EOMs intact bilaterally Neck: Neck: normal visual inspection, no lymphadenopathy and no JVD Resp: Effort & Inspection: normal respiratory effort Auscultation: clear to auscultation bilaterally Cardio: Jugular venous distension: no JVD Rate: regular rate Rhythm: regular rhythm Heart sounds: S1 normal heart sound present and S2 normal heart sound present GI: Inspection: normal to inspection GI Palp: Yes Soft to palpation and Yes No hepatosplenomegaly present Auscultation: normal bowel sounds Skin: General skin exam: normal color Lesions: no lesions Rashes: no rashes Wounds: no wounds Neuro: General: patient oriented x3 Cranial nerves: Yes CN's II-XII intact bilaterally Cognition (Neuro): normal cognition Sp
[2020-04-27 11:40] LABS: Glucose Point of Care 165 (65-105)
--- NOTE | 2020-04-27 12:28 | PCDIET ---
Nutrition Follow-Up Complete: Inadequate oral intake related to nausea/vomiting as evidenced by NPO status, 14 pound weight loss x 3 weeks without trying. Patient to meet estimated nutritional needs. Goal: Approaching goal. Continue current goal. Pt current nutrition is DBCC + glucerna BID Nutrition recommendation: agree Last recorded weight is 84.5 kg, recommend updated wt Bowel Motility: diarrhea (chemo induced per MD note) Labs Reviewed:Hgb 8.4, Hct 25.8, K 3.0, Mg 1.5, Ca 7.5 Meds Noted:Na bicarb, florastor, rocephin, heparin, LRs, Mg Oxide, Levo, Zofran, KCL Additional Notes: Pt with much better appetite today than on Monday. PO intakes of 75% x2, 50%x 1. She is trying to drink supplements. Glucerna offered BID to help meet needs in addition to trays. Recommend updated wt. We will continue to follow every five days to monitor for adequate PO intake.
[2020-04-27 13:32] VITALS: BP 137/61; PULSE 82; RESP 18; TEMP 35.7; O2SAT 100
--- NOTE | 2020-04-27 15:01 | PCPTNOTE ---
The PT treatment was unable to be completed today due to patient refusal. Will continue per Plan of Care frequency and duration.
[2020-04-27] MEDS: POTASSIUM CHLORIDE 20 MEQ TABLET 40 MEQ PO (17:31)
[2020-04-27] MEDS: MAGNESIUM OXIDE 400 MG TABLET 800 MG PO (17:34)
[2020-04-27 18:09] LABS: Glucose Point of Care 179 (65-105)
[2020-04-27 20:00] VITALS: BP 141/58; PULSE 78; PULSE 89; RESP 18; TEMP 36.1; O2SAT 98
[2020-04-27 21:06] VITALS: PULSE 78
[2020-04-27] MEDS: ASPIRIN 81 MG ENTERIC TABLET PO (21:06)
[2020-04-27] MEDS: METOPROLOL SUCCINATE EXT REL 100 MG TABCR PO (21:06)
[2020-04-27] MEDS: DIPHENOXYLATE/ATROPINE (*CRX) 2.5 MG TABLET 1 TABLET PO (21:06)
[2020-04-27 21:15] LABS: Glucose Point of Care 198 (65-105)
[2020-04-28 04:00] VITALS: BP 139/48; PULSE 85; RESP 20; TEMP 37.4; O2SAT 99
[2020-04-28] MEDS: ONDANSETRON INJ 4 MG/2 ML VIAL IV PUSH ×3 (05:13→20:31)
[2020-04-28] MEDS: CENTRAL LINE FLUSH 10 ML IV PUSH ×3 (05:14→20:32)
[2020-04-28 05:51] LABS: Anion Gap 7 mmol/L (8-16); Blood Urea Nitrogen 7 mg/dL (7-17); Carbon Dioxide 19 mmol/L (22-30); Chloride 114 mmol/L (98-107); Estimated CRCL calculation 45 ml/min; Estimated Glomerular Filt Rate 53; Glucose 184 mg/dL (65-105); Potassium 3.1 mmol/L (3.4-5.0); Sodium 140 mmol/L (137-145)
[2020-04-28] MEDS: LEVOTHYROXINE SODIUM 125 MCG TABLET PO (06:32)
[2020-04-28] MEDS: POTASSIUM CHLORIDE 20 MEQ PACKET (FOR LIQUID) 40 MEQ PO (07:52)
[2020-04-28] MEDS: FAMOTIDINE 20 MG/2 ML VIAL IV PUSH ×2 (07:56→20:31)
[2020-04-28] MEDS: SACCHAROMYCES BOULARDII 250 MG CAPSULE PO ×2 (07:56→17:20)
[2020-04-28] MEDS: SODIUM BICARBONATE TAB 650 MG TABLET PO ×3 (07:56→17:20)
[2020-04-28] MEDS: MAGNESIUM OXIDE 400 MG TABLET PO (07:56)
[2020-04-28] MEDS: LOSARTAN POTASSIUM 25 MG TABLET PO (08:08)
[2020-04-28] MEDS: POTASSIUM CHLORIDE 20 MEQ PACKET (FOR LIQUID) PO ×2 (09:27→17:20)
[2020-04-28 09:34] LABS: Glucose Point of Care 181 (65-105)
--- NOTE | 2020-04-28 11:21 | PM.IMPN ---
Progress Note: A&P Assessment and Plan (1) Nausea vomiting and diarrhea: Code(s): R11.2 - Nausea with vomiting, unspecified; R19.7 - Diarrhea, unspecified Status: Acute Assessment and Plan: Improved; likely secondary to recent chemo sessions. Likely etiology of electrolyte imbalance. Tolerating PO although she is particular on certain foods. Diarrhea has improved as well. Continue supportive care Daily labs Continue imodium per Dr. Andrew nunez Monitor (2) Urinary tract infection: Code(s): N39.0 - Urinary tract infection, site not specified Status: Acute Assessment and Plan: UCx growing pansensitive E. coli. Rocephin intiated on 04/25 (day 4 today); will transition to PO cefdinir tomorrow to complete 7 days total antibiotics Monitor (3) Hypokalemia: Code(s): E87.6 - Hypokalemia Status: Acute Assessment and Plan: Likely due to N/v and poor PO intake. K 3.1 today Replace as needed Monitor Daily (4) Hematuria: Code(s): R31.9 - Hematuria, unspecified Status: Acute Assessment and Plan: Likely secondary to UTI. Treat UTI with above regimen (5) Visual hallucination: Code(s): R44.1 - Visual hallucinations Status: Acute Assessment and Plan: Resolved (6) Hypomagnesemia: Code(s): E83.42 - Hypomagnesemia Status: Acute Assessment and Plan: Mag 2.0 today Replace as needed (7) Elevated lactic acid level: Code(s): R79.89 - Other specified abnormal findings of blood chemistry Status: Acute Assessment and Plan: Resolved (8) Pancytopenia: Code(s): D61.818 - Other pancytopenia Status: Acute Assessment and Plan: Likely due to recent chemotherapy. Follows Dr. Morales who is following during stay Follow up in the outpatient setting. (9) Generalized weakness: Code(s): R53.1 - Weakness Status: Acute Assessment and Plan: Showing slow improvement. Patient and wish to return home after discharge PT/OT continues Monitor for improvement (10) Acute dehydration: Code(s): E86.0 - Dehydration Status: Acute Assessment and Plan: Appears to have improved. Will d/c IV fluids today as diarrhea has improved. 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 She is seen in follow up for weakness, nausea, and vomiting with onset 3 days following her last chemotherapy. Patient states she feels overall better today, but still feels tired and weak. She has only had one BM today. No N/V currently but vomited this morning. She does not believe there is no blood or coffee ground emesis; no melena/BRBPR as far as she is aware. No other complaints. is in room at time of visit who is concerned about her condition currently as he thinks she is too weak to go home but does note some gradual improvement. Denies f/c/s, headaches, dizziness, lightheadedness, cp/palpitations, sob/cough, current n/v/d/c, abd pain, dysuria, hematuria, cloudy urine that she is aware of, calf pain/swelling. Review of Systems Review of Systems: All systems reviewed & are unremarkable except as noted in HPI and below Exam Narrative: Exam Narrative: General: Patient resting supine in bed in no acute distress. Very tired appearing, but alert and oriented HEENT: Normocephalic, EOMI, oral mucosa moist. Cardiovascular: Rate an
[2020-04-28] MEDS: INSULIN ASPART (*BKC) 100 UNITS/ML SUB-Q ×2 (11:41→17:23)
[2020-04-28 12:54] LABS: Glucose Point of Care 254 (65-105)
[2020-04-28 14:00] VITALS: BP 124/65; PULSE 81; RESP 18; TEMP 36.7; O2SAT 98
[2020-04-28 14:09] LABS: Anion Gap 7 mmol/L (8-16); Blood Urea Nitrogen 9 mg/dL (7-17); Carbon Dioxide 20 mmol/L (22-30); Chloride 112 mmol/L (98-107); Estimated CRCL calculation 45 ml/min; Estimated Glomerular Filt Rate 53; Glucose 239 mg/dL (65-105); Magnesium 2.1 mg/dL (1.6-2.3); Potassium 3.8 mmol/L (3.4-5.0); Sodium 139 mmol/L (137-145)
[2020-04-28 14:50] VITALS: BP 122/67; PULSE 85; O2SAT 99
--- NOTE | 2020-04-28 16:44 | WPDONCPN ---
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 Further chemotherapy is on hold. Chemotherapy-induced diarrhea. Patient is on Imodium along with the IV hydration. I have ordered Lomotil. Some improvement in diarrhea. Pancytopenia secondary to chemotherapy. WBC count has improved. Patient remains anemic. I will check iron studies. Nausea and vomiting. Patient is on Zofran. Nausea vomiting has improved. Poor appetite. I will start her on Megace. - Time Spent With Patient Total time spent is greater than 50% in coordination of care (as documented) at patient's floor/unit and/or counseling patient: 15 - 25 minutes Subjective Interval history: Metastatic appendiceal adenocarcinoma Pancytopenia Nausea vomiting Diarrhea secondary to chemotherapy Review of Systems - Review of Systems Patient remains quite tired and fatigued. She was able to eat clear 4. Just 1 episode of diarrhea. Nausea has improved. - Neurologic Denies abnormal speech, Denies headache(s), Denies focal weakness, Denies numbness, Denies weakness Exam Vital signs: Waldo Perdomo. Assessment of coma and impaired consciousness. A practical scale. Lancet 1974; 2:81-4. Narrative: Lungs are clear to auscultation bilaterally Cardiovascular regular rate rhythm no murmurs Abdomen soft nontender nondistended bowel sounds are positive Extremities no edema PN: Objective Data - Labs CBC & Chem 7: 04/27/20 04:36 04/28/20 13:50 Labs: Laboratory Results - last 24 hr 04/27/20 04/27/20 04/28/20 17:26 21:05 05:16 Sodium 140 Potassium 3.1 L Chloride 114 H Carbon Dioxide 19 L Anion Gap 7 L BUN 7 Creatinine 1.00 Estim Creat Clear Calc 45 Estimated GFR 53 L Glucose 184 H POC Capillary Glucose 179 H 198 H Calcium 8.0 L Magnesium 04/28/20 04/28/20 04/28/20 07:58 08:54 11:33 Sodium Potassium Chloride Carbon Dioxide Anion Gap BUN Creatinine Estim Creat Clear Calc Estimated GFR Glucose POC Capillary Glucose 181 H 254 H Calcium Magnesium 2.0 04/28/20 13:50 Sodium 139 Potassium 3.8 Chloride 112 H Carbon Dioxide 20 L Anion Gap 7 L BUN 9 Creatinine 1.00 Estim Creat Clear Calc 45 Estimated GFR 53 L Glucose 239 H POC Capillary Glucose Calcium 8.0 L Magnesium 2.1
[2020-04-28] MEDS: CALCIUM CARBONATE (TUMS) 500 MG (200 MG ELEMENTAL) PO (17:38)
[2020-04-28 18:24] LABS: Glucose Point of Care 212 (65-105)
[2020-04-28 19:54] LABS: Iron 15 ug/dL (37-170)
[2020-04-28 20:00] VITALS: PULSE 90; RESP 16; O2SAT 99
[2020-04-28 20:03] LABS: Percent Iron Saturation 7 % (20-50)
--- NOTE | 2020-04-28 20:07 | PM.CNGS ---
Assessment and Plan Assessment and plan (1) Adynamic ileus: Code(s): K56.0 - Paralytic ileus Status: Acute Assessment and Plan: This is the main reason I was asked to see the patient. I have discussed with her careful follow-up. We need to carefully keep her electrolytes is normal as possible. Her abdominal xray is most suggestive of ileus however obstruction cannot be totally ruled out. For now I will recommend that we simply repeat a set of abdominal x-rays tomorrow morning and follow her. Continue good IV hydration. (2) Nausea vomiting and diarrhea: Code(s): R11.2 - Nausea with vomiting, unspecified; R19.7 - Diarrhea, unspecified Status: Acute (3) Chronic anemia: Code(s): D64.9 - Anemia, unspecified Status: Acute (4) Cancer of appendix: Onset Date: ~10/2018 Code(s): C18.1 - Malignant neoplasm of appendix Status: Resolved (5) Acquired hypothyroidism: Code(s): E03.9 - Hypothyroidism, unspecified Status: Acute (6) Type 2 diabetes mellitus with hyperglycemia, without long-term current use of insulin: Code(s): E11.65 - Type 2 diabetes mellitus with hyperglycemia Status: Acute (7) Hypertension: Qualifiers: Hypertension type: unspecified Qualified Code(s): I10 - Essential (primary) hypertension Code(s): I10 - Essential (primary) hypertension Status: Chronic (8) Chronic kidney disease, stage III (moderate): Onset Date: Unknown Code(s): N18.3 - Chronic kidney disease, stage 3 (moderate) Status: Acute (9) Port-A-Cath in place: Onset Date: ~11/2018 Code(s): Z95.828 - Presence of other vascular implants and grafts Status: Acute (10) BMI 39.0-39.9,adult: Code(s): Z68.39 - Body mass index [BMI] 39.0-39.9, adult Status: Acute (11) Acute dehydration: Code(s): E86.0 - Dehydration Status: Acute (12) Pancytopenia: Code(s): D61.818 - Other pancytopenia Status: Acute History of Present Illness Consult details Consult date: 04/28/20 Reason for consult: other ( GI issues with x-ray showing possible ileus) Requesting physician: Teddy Morales MD Narrative: this patient is a pleasant 79-year-old white female who I know from previous surgery. She apparently was admitted 6 days ago after developing weakness and poor appetite following her last chemotherapy treatment. She was at home for about 8 days prior to [place] coming to the hospital after her last treatment. Apparently was having significant loose stools and was trying to use Imodium to continued control this. From review of the ER note and the note from her admission it appears that she got significantly dehydrated and therefore weekend and presented to the hospital. She has now been hospitalized for several days and been on antibiotics. Hospitalist have been working whether to try to control diarrhea and she is somewhat anemic and was pancytopenic after her recent chemo. Patient tells me today that she feels weak but she is passing some gas. She has occasional waves of nausea. I was consulted today because when Dr. Morales saw her today he ordered a abdominal x-ray thinking her abdomen was somewhat distended and indeed she has distended small and large bowel on a plain film tonight. This is most suggestive of ileus however obstruction cannot be totally ruled out. For now I will recommend that we simply repeat a set of abdominal x-rays tomorrow morning and follow her. Continue good IV hydration. Review of Systems Constitutional: Constitutional: Reports as per HPI, Reports anorexia and Denies headache(s) Eyes: Eyes: Denies loss of vision and Denies eye pain ENT: Reports Normal hearing present, Denies change in voice, Denies dizziness, Reports dry mouth and Denies headache(s) Cardiovascular: Cardiovascular: Denies chest pain and Denies dyspnea Respiratory: Respiratory: Denies dyspnea and Den
[2020-04-28 20:31] VITALS: PULSE 82
[2020-04-28] MEDS: ASPIRIN 81 MG ENTERIC TABLET PO (20:31)
[2020-04-28] MEDS: METOPROLOL SUCCINATE EXT REL 100 MG TABCR PO (20:31)
[2020-04-28 20:55] VITALS: BP 138/69; PULSE 90; RESP 16; TEMP 36.6; O2SAT 99
[2020-04-28 21:22] LABS: Glucose Point of Care 209 (65-105)
[2020-04-29] MEDS: ONDANSETRON INJ 4 MG/2 ML VIAL IV PUSH ×3 (05:43→20:21)
[2020-04-29] MEDS: LEVOTHYROXINE SODIUM 125 MCG TABLET PO (05:43)
[2020-04-29] MEDS: CENTRAL LINE FLUSH 10 ML IV PUSH ×3 (05:43→20:21)
[2020-04-29 06:00] VITALS: BP 104/80; PULSE 88; RESP 16; TEMP 36.7; O2SAT 99
[2020-04-29 06:57] LABS: Basophils Absolute Auto 0.1 K/mm3 (0.0-0.1); Eosinophils Percent Auto 0.5 % (0-4.4); Hemoglobin 10.1 g/dL (12.0-15.0); Immature Granulocyte Percent A 4.8 % (0-0.5); Lymphocytes Absolute Auto 0.39 K/mm3 (0.9-3.2); Lymphocytes Percent Auto 4.7 % (18.3-44.2); Mean Corpuscular HGB Conc 32.6 g/dl (32-36); Mean Corpuscular Hemoglobin 26.5 pg (26-34); Mean Corpuscular Volume 81.4 fl (80-100); Mean Platelet Volume 10.4 fl (7.4-10.4); Monocytes Absolute Auto 1.6 K/mm3 (0.1-0.6); Monocytes Percent Auto 18.6 % (2.6-8.5); Neutrophils Absolute Auto 5.9 K/mm3 (1.3-6.7); Neutrophils Percent Auto 70.4 % (45.5-73.1); Nucleated Red Blood Cells Perc 0.2 % (0.0-0.2); Platelet Count Result 271 k/mm3 (150-375); Red Blood Count 3.81 M/mm3 (4.2-5.4); Red Cell Distribution Width 22.5 % (11.5-14.5); White Blood Count 8.4 K/mm3 (4.5-10.0)
[2020-04-29 07:08] LABS: Anion Gap 8 mmol/L (8-16); Blood Urea Nitrogen 13 mg/dL (7-17); Calcium 8.4 mg/dL (8.4-10.2); Carbon Dioxide 17 mmol/L (22-30); Chloride 115 mmol/L (98-107); Estimated CRCL calculation 35 ml/min; Estimated Glomerular Filt Rate 40; Glucose 189 mg/dL (65-105); Magnesium 2.4 mg/dL (1.6-2.3); Potassium 3.6 mmol/L (3.4-5.0); Sodium 140 mmol/L (137-145)
[2020-04-29 07:15] LABS: Prealbumin 7.2 mg/dL (17.6-36.0)
[2020-04-29] MEDS: LACTATED RINGERS 1,000 ML 75 ML IV CONT ×2 (08:14→20:20)
[2020-04-29 08:28] LABS: Glucose Point of Care 195 (65-105)
[2020-04-29 08:29] LABS: Platelet Estimate Adequate (Adequate)
[2020-04-29 08:30] LABS: Ovalocytes 1+ (NORMAL)
[2020-04-29] MEDS: SODIUM BICARBONATE TAB 650 MG TABLET PO ×3 (08:34→16:14)
[2020-04-29] MEDS: POTASSIUM CHLORIDE 20 MEQ PACKET (FOR LIQUID) PO ×2 (08:34→16:14)
[2020-04-29 08:35] VITALS: RESP 16; O2SAT 98
[2020-04-29] MEDS: LOSARTAN POTASSIUM 25 MG TABLET PO (08:35)
[2020-04-29] MEDS: SACCHAROMYCES BOULARDII 250 MG CAPSULE PO ×2 (08:35→16:14)
[2020-04-29] MEDS: CEFDINIR 300 MG CAPSULE PO ×2 (08:35→20:19)
[2020-04-29] MEDS: FAMOTIDINE 20 MG/2 ML VIAL IV PUSH ×2 (08:35→20:19)
[2020-04-29] MEDS: MEGESTROL ACETATE (*CHEMO) ORAL SUSP 40 MG/ML SYR 800 MG PO (08:37)
--- NOTE | 2020-04-29 09:48 | PM.PNGS ---
Progress Note: A&P Assessment and Plan (1) Adynamic ileus: Onset Date: ~04/29/20 Code(s): K56.0 - Paralytic ileus Status: Acute Assessment and Plan: X-ray today is unchanged. This AM pt was still nauseated and had some vomiting, However, when I rechecked her at about 1600 she felt better and had kept down some liquids and some Glucerna. Will check x-ray of abd. again in AM, encourage activity, and I agree with holding the anti-diarrheal meds. (2) Pancytopenia: Code(s): D61.818 - Other pancytopenia Status: Acute (3) Generalized weakness: Onset Date: ~03/2020 Code(s): R53.1 - Weakness Status: Acute Assessment and Plan: Rlated to anemia, Chemo and dehydration. 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 This may boost her nutritional status. Subjective Subjective Date/Time Seen: 04/29/20 09:48 Interval history: Patient sleeping in bed when I entered the room. She was slightly confused thinking that it was afternoon. She states she was slightly nauseated when the rolling her back and forth to clean her up. She states she had a loose stool this morning which was involuntary. ( question whether this was her remembering yesterday afternoon versus this morning ). She denies much abdominal pain today. She states she ordered breakfast but has not yet received it. She is not nauseated. Review of Systems Constitutional: Constitutional: Reports no additional constitutional complaints ENT: Reports other (Mucous Membranes moist.) Cardiovascular: Cardiovascular: Denies dyspnea Respiratory: Respiratory: Denies pain on inspiration and Denies dyspnea Gastrointestinal: Gastrointestinal: Reports loose stools ( x1 this morning), Reports nausea and Reports vomiting ( nurse reports she vomited clear liquids this morning.) Musculoskeletal: Musculoskeletal: Reports other (No calf swelling or edema) Integumentary/Breasts: Skin/Breast: Reports system reviewed and no additional complaints, except as docu Exam Const: General: cooperative, no acute distress and alert Orientation/consciousness: oriented to person and oriented to place Other: Patient is slightly confused when I woke her this morning on rounds. She thought it was the afternoon. HENMT: Mouth: Yes moist mucous membranes Neck: Neck: normal visual inspection Chest: Chest palpation & inspection: normal inspection of the chest Resp: Effort & Inspection: normal respiratory effort Auscultation: clear to auscultation bilaterally Cardio: Jugular venous distension: no JVD Rate: regular rate Rhythm: regular rhythm GI: Inspection: obesity and scar ( Suprapubic without signs of infection.) GI Palp: Yes Soft to palpation, Yes Tenderness to palpation present (GI) ( mild in the mid upper abdomen) and No Hernia present Auscultation: normal bowel sounds ( somewhat distant but active) Rectal Exam: deferred Neuro: General: patient oriented x3 and moves all extremities Speech: normal speech Extrem: General: normal exam except as noted Other: SCD hose in place. Psych: Appearance: disheveled Mental Status: mental status grossly normal Speech and movement: Normal speech and movement present Affect: normal affect Thought content: Yes Normal thought content present Insight: Fair insight present (Psych) Judgement: Fair judgement present (Psych) Other: patient did say to me that she wants to go home so she does want to try to get up and moved to get stronger. Objective Data Vital Signs Vital Signs: Vital Signs - 24 hr 04/28/20 14:00 04/28/20 14:50 04/28/20 20:00 Temperature 36.7 C Pulse Rate 81 85 90 Respiratory Rate 18 16 Blood Pressure 124/65 122/67 Pulse Oximetry 98 99 99 04/28/20 20:31 04/28/20 20:55
[2020-04-29] MEDS: BISACODYL 10 MG SUPPOSITORY RECTAL (11:14)
[2020-04-29 11:41] LABS: Glucose Point of Care 228 (65-105)
[2020-04-29] MEDS: INSULIN ASPART (*BKC) 100 UNITS/ML SUB-Q (12:13)
[2020-04-29 14:00] VITALS: BP 116/47; PULSE 81; RESP 16; TEMP 36.3; O2SAT 100
--- NOTE | 2020-04-29 14:50 | P.PNIM_ITS ---
Progress Note: A&P Assessment and Plan (1) Nausea vomiting and diarrhea: Code(s): R11.2 - Nausea with vomiting, unspecified; R19.7 - Diarrhea, unspecified Status: Acute Assessment and Plan: Improved; likely secondary to recent chemo sessions. Likely etiology of electrolyte imbalance. Tolerating PO although she is particular on certain foods. Ileus noted on imaging; please see below. * Continue supportive care * Daily labs * Imodium held given likely ileus * Will add Thrive ice cream for supplementation * Monitor (2) Urinary tract infection: Code(s): N39.0 - Urinary tract infection, site not specified Status: Acute Assessment and Plan: UCx growing pansensitive E. coli. * Rocephin initiated on 04/25-04/28;transitioned to PO cefdinir today through 05/01 to complete 7 days total antibiotics * Monitor (3) Hypokalemia: Code(s): E87.6 - Hypokalemia Status: Acute Assessment and Plan: Likely due to N/v and poor PO intake. K 3.6 today * Replace as needed * Monitor Daily (4) Hematuria: Code(s): R31.9 - Hematuria, unspecified Status: Acute Assessment and Plan: Likely secondary to UTI. * Treat UTI with above regimen (5) Visual hallucination: Code(s): R44.1 - Visual hallucinations Status: Acute Assessment and Plan: * Resolved (6) Hypomagnesemia: Code(s): E83.42 - Hypomagnesemia Status: Acute Assessment and Plan: Mag 2.4 today * Replace as needed (7) Elevated lactic acid level: Code(s): R79.89 - Other specified abnormal findings of blood chemistry Status: Acute Assessment and Plan: Resolved (8) Pancytopenia: Code(s): D61.818 - Other pancytopenia Status: Acute Assessment and Plan: Improved; Likely due to recent chemotherapy. Follows Dr. Morales who is following during stay * Follow up in the outpatient setting. (9) Generalized weakness: Code(s): R53.1 - Weakness Status: Acute Assessment and Plan: Showing slow improvement. Patient and wish to return home after discharge * PT/OT continues * Monitor for improvement (10) Acute dehydration: Code(s): E86.0 - Dehydration Status: Acute Assessment and Plan: Appears to have improved. Cr increased from 1.00 yesterday to 1.30 today suggesting EDWARDO due likely due to poor oral intake. * IV fluids resumed today due to poor PO intake * Monitor BMP * Monitor (11) Adynamic ileus: Code(s): K56.0 - Paralytic ileus Status: Acute Assessment and Plan: Likely ileus given imaging; patient having BMs. Dr. Avina consulted by Dr. Morales given findings on abdominal xray yesterday; appreciate recommendations. Suppository given today. * Continue with surgery recommendations recommendations * Imodium has been held at this time. * Continue with current diet per Surgery recommendations * Monitor for improvement Subjective Date/time seen: 04/29/20 14:50 Interval history: Patient is a 79 year old female with a history of left breast cancer and
--- NOTE | 2020-04-29 14:50 | PM.IMPN ---
Progress Note: A&P Assessment and Plan (1) Nausea vomiting and diarrhea: Code(s): R11.2 - Nausea with vomiting, unspecified; R19.7 - Diarrhea, unspecified Status: Acute Assessment and Plan: Improved; likely secondary to recent chemo sessions. Likely etiology of electrolyte imbalance. Tolerating PO although she is particular on certain foods. Ileus noted on imaging; please see below. Continue supportive care Daily labs Imodium held given likely ileus Will add Thrive ice cream for supplementation Monitor (2) Urinary tract infection: Code(s): N39.0 - Urinary tract infection, site not specified Status: Acute Assessment and Plan: UCx growing pansensitive E. coli. Rocephin initiated on 04/25-04/28;transitioned to PO cefdinir today through 05/01 to complete 7 days total antibiotics Monitor (3) Hypokalemia: Code(s): E87.6 - Hypokalemia Status: Acute Assessment and Plan: Likely due to N/v and poor PO intake. K 3.6 today Replace as needed Monitor Daily (4) Hematuria: Code(s): R31.9 - Hematuria, unspecified Status: Acute Assessment and Plan: Likely secondary to UTI. Treat UTI with above regimen (5) Visual hallucination: Code(s): R44.1 - Visual hallucinations Status: Acute Assessment and Plan: Resolved (6) Hypomagnesemia: Code(s): E83.42 - Hypomagnesemia Status: Acute Assessment and Plan: Mag 2.4 today Replace as needed (7) Elevated lactic acid level: Code(s): R79.89 - Other specified abnormal findings of blood chemistry Status: Acute Assessment and Plan: Resolved (8) Pancytopenia: Code(s): D61.818 - Other pancytopenia Status: Acute Assessment and Plan: Improved; Likely due to recent chemotherapy. Follows Dr. Morales who is following during stay Follow up in the outpatient setting. (9) Generalized weakness: Code(s): R53.1 - Weakness Status: Acute Assessment and Plan: Showing slow improvement. Patient and wish to return home after discharge PT/OT continues Monitor for improvement (10) Acute dehydration: Code(s): E86.0 - Dehydration Status: Acute Assessment and Plan: Appears to have improved. Cr increased from 1.00 yesterday to 1.30 today suggesting EDWARDO due likely due to poor oral intake. IV fluids resumed today due to poor PO intake Monitor BMP Monitor (11) Adynamic ileus: Code(s): K56.0 - Paralytic ileus Status: Acute Assessment and Plan: Likely ileus given imaging; patient having BMs. Dr. Avina consulted by Dr. Morales given findings on abdominal xray yesterday; appreciate recommendations. Suppository given today. Continue with surgery recommendations recommendations Imodium has been held at this time. 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 She is seen in follow up for weakness, nausea, and vomiting with onset 3 days following her last chemotherapy and now likely ileus. Patient states she feels tired today. is concerned about likely ileus and wondering about her diet, which does not appear to have been held. She had a BM today. No N/V currently. No other complaints. Denies f/c/s, cp/palpitations, sob/cough, current n/
[2020-04-29 16:25] LABS: Glucose Point of Care 166 (65-105)
--- NOTE | 2020-04-29 16:58 | WPDONCPN ---
Progress Note: A/P - Additional Plan 1. 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 s/p laparoscopic left colectomy with anastomosis. Initially diagnosed in 09/2018 as stage IIIC disease, treated with Rt hemicolectomy and adjuvant FOLFOX. Currently on FOLFIRI + Avastin, s/p 4 cycles - on HOLD. 2. Ileus versus bowel obstruction. Stable abdominal x-ray. She is passing gas. On full liquid/bland diet. General surgery consulted and following. 3. Nausea/vomiting/anorexia. Likely precipitated by chemotherapy and now with ileus vs SBO. Modestly improving. On scheduled Zofran and Megace. 4. Pancytopenia r/t chemotherapy. WBC and platelets recovered. Anemia improving, appears iron deficient. Recommend Venofer 300 mg daily x 2 doses as d/w Dr. Morales. - Time Spent With Patient Total time spent is greater than 50% in coordination of care (as documented) at patient's floor/unit and/or counseling patient: 15 - 25 minutes (Spoke to ) Subjective Interval history: 79 yo WF admitted on 04/21 after presenting with progressive anorexia and weakness and n/v/d a few days prior to admission. She received cycle 4 of FOLFIRI/Avastin on 04/14. Workup revealed ileus vs SBO on 04/28 and unchanged today. Surgery was consulted yesterday. She was also found to have E. coli associated UTI. She is passing gas and wants to eat. She reportedly had 200 cc emesis today per nurse. She was resting when I visited and obtained most of her history from her . She is currently on full liquid to bland diet. She denies fever or shaking chills or significant abdominal pain. Review of Systems - Constitutional Reports anorexia, Reports fatigue, Reports weakness, Reports weight loss, Denies chills, Denies fever(s) Comments: Wt down 10 pounds since 04/14. - Cardiovascular Denies chest pain, Denies shortness of breath - Respiratory Denies cough - Gastrointestinal Reports constipation, Reports diarrhea, Reports nausea, Reports vomiting - Neurologic Reports hearing normal, Reports abnormal speech, Reports headache(s), Reports focal weakness, Reports loss of vision, Reports memory loss, Reports weakness Exam Vital signs: Temp Pulse Resp BP Pulse Ox 36.3 C L 81 16 116/47 L 100 04/29/20 14:00 04/29/20 14:00 04/29/20 14:00 04/29/20 14:00 04/29/20 14:00 - Constitutional no acute distress, cooperative, somnolent - Routine HEENT Exam Head: Present: atraumatic, normocephalic. Absent: normal inspection Comments: hair loss 2/2 chemo - Routine Neck Exam Present: normal inspection. Absent: lymphadenopathy - Routine Chest/Breast/Axilla Exam Axillae: Absent: lymphadenopathy - Routine Respiratory Exam Present: CTAB - Routine Cardiovascular Exam Cardiovascular: Present: RRR. Absent: murmur - Routine Abdominal Exam Present: distended, hypoactive bowel sounds. Absent: tenderness - Routine Extremities Exam Absent: pedal edema - Routine Skin Exam Present: dry, warm - Routine Neurological Exam Present: alert, moving all extremities When aroused PN: Objective Data - Labs CBC & Chem 7: 04/29/20 06:49 04/29/20 06:49 Labs: Laboratory Results - last 24 hr 04/28/20 04/28/20 04/28/20 17:21 17:23 20:28 WBC RBC Hgb Hct MCV MCH MCHC RDW Plt Count MPV Immature Gran % (Auto) Neut % (Auto) Lymph % (Auto) [place] % (Auto) Eos % (Auto) Baso % (Auto) Lymph # (Auto) [place] # (Auto) Eos # (Auto) Baso # (Auto) Abs Immat Gran (auto) Absolute Neuts (auto) Absolute Nucleated RBC Nucleated RBC % Platelet Estimate Ovalocytes Sodium Potassium Chloride Carbon Dioxide Anion Gap BUN Creatinine Estim Creat Clear Calc Estimated GFR Glucose POC Capillary Glucose 212 H 209 H Calcium Magnesium Iron 15 L TIBC 215 L % Saturation 7 L Ferritin 445.00 H Prealb
[2020-04-29 20:00] VITALS: BP 125/50; PULSE 87; RESP 20; TEMP 37; O2SAT 95
[2020-04-29] MEDS: ASPIRIN 81 MG ENTERIC TABLET PO (20:19)
[2020-04-29] MEDS: TOLNAFTATE 1% POWDER 45 GM BTL 1 APPLIC TOPICAL (20:21)
[2020-04-29 21:07] VITALS: PULSE 87
[2020-04-29] MEDS: METOPROLOL SUCCINATE EXT REL 100 MG TABCR PO (21:07)
[2020-04-29 21:22] LABS: Glucose Point of Care 159 (65-105)
[2020-04-30 04:00] VITALS: BP 107/45; PULSE 106; RESP 20; TEMP 36.2; O2SAT 96
[2020-04-30 05:29] LABS: Basophils Percent Auto 0.3 % (0.2-1.2); Eosinophils Absolute Auto 0.1 K/mm3 (0-0.3); Eosinophils Percent Auto 1.6 % (0-4.4); Hematocrit 25.1 % (37.0-47.0); Hemoglobin 8.2 g/dL (12.0-15.0); Immature Granulocyte Absolute 0.19 K/mm3 (0.00-0.031); Immature Granulocyte Percent A 3.1 % (0-0.5); Lymphocytes Absolute Auto 0.51 K/mm3 (0.9-3.2); Lymphocytes Percent Auto 8.2 % (18.3-44.2); Mean Corpuscular HGB Conc 32.7 g/dl (32-36); Mean Corpuscular Hemoglobin 26.4 pg (26-34); Mean Corpuscular Volume 80.7 fl (80-100); Mean Platelet Volume 10.6 fl (7.4-10.4); Monocytes Percent Auto 16.4 % (2.6-8.5); Neutrophils Absolute Auto 4.4 K/mm3 (1.3-6.7); Neutrophils Percent Auto 70.4 % (45.5-73.1); Nucleated Red Blood Cells Perc 0.3 % (0.0-0.2); Platelet Count Result 223 k/mm3 (150-375); Red Blood Count 3.11 M/mm3 (4.2-5.4); Red Cell Distribution Width 22.2 % (11.5-14.5); White Blood Count 6.2 K/mm3 (4.5-10.0)
[2020-04-30 06:00] LABS: Albumin Level 2.2 g/dL (3.5-5.1); Alkaline Phosphatase 115 U/L (38-126); Anion Gap 7 mmol/L (8-16); Aspartate Amino Transferase 11 U/L (14-36); Bilirubin,Total 0.3 mg/dL (0.2-1.3); Blood Urea Nitrogen 15 mg/dL (7-17); Calcium 8.1 mg/dL (8.4-10.2); Carbon Dioxide 22 mmol/L (22-30); Chloride 114 mmol/L (98-107); Estimated CRCL calculation 33 ml/min; Estimated Glomerular Filt Rate 36; Glucose 149 mg/dL (65-105); Magnesium 2.3 mg/dL (1.6-2.3); Potassium 2.8 mmol/L (3.4-5.0); Sodium 143 mmol/L (137-145)
[2020-04-30] MEDS: CENTRAL LINE FLUSH 10 ML IV PUSH ×3 (06:12→21:11)
[2020-04-30] MEDS: ONDANSETRON INJ 4 MG/2 ML VIAL IV PUSH ×3 (06:12→21:07)
[2020-04-30] MEDS: LEVOTHYROXINE SODIUM 125 MCG TABLET PO (06:12)
[2020-04-30 06:31] LABS: Anisocytosis 1+ (NORMAL); Hypochromasia 1+ (NORMAL); Ovalocytes 2+ (NORMAL); Platelet Estimate Adequate (Adequate)
[2020-04-30 06:37] LABS: Alanine Aminotransferase < 6 U/L (4-35)
[2020-04-30 07:43] LABS: Glucose Point of Care 169 (65-105)
[2020-04-30] MEDS: POTASSIUM CHLORIDE 20 MEQ PACKET (FOR LIQUID) 40 MEQ PO ×2 (07:48→16:23)
[2020-04-30] MEDS: POTASSIUM CHLORIDE 20 MEQ PACKET (FOR LIQUID) PO ×2 (09:31→16:24)
[2020-04-30] MEDS: SODIUM BICARBONATE TAB 650 MG TABLET PO ×3 (09:32→16:23)
[2020-04-30] MEDS: FAMOTIDINE 20 MG/2 ML VIAL IV PUSH ×2 (09:32→21:06)
[2020-04-30] MEDS: LOSARTAN POTASSIUM 25 MG TABLET PO (09:32)
[2020-04-30] MEDS: MEGESTROL ACETATE (*CHEMO) ORAL SUSP 40 MG/ML SYR 800 MG PO (09:32)
[2020-04-30] MEDS: SACCHAROMYCES BOULARDII 250 MG CAPSULE PO ×2 (09:32→16:24)
[2020-04-30] MEDS: CEFDINIR 300 MG CAPSULE PO ×2 (09:33→21:07)
[2020-04-30 09:34] VITALS: RESP 20; O2SAT 96
[2020-04-30] MEDS: TOLNAFTATE 1% POWDER 45 GM BTL 1 APPLIC TOPICAL ×2 (09:34→21:07)
[2020-04-30 11:24] LABS: Glucose Point of Care 193 (65-105)
--- NOTE | 2020-04-30 13:46 | P.PNIM_ITS ---
Progress Note: A&P Assessment and Plan (1) Nausea vomiting and diarrhea: Code(s): R11.2 - Nausea with vomiting, unspecified; R19.7 - Diarrhea, unspecified Status: Acute Assessment and Plan: Improved; likely secondary to recent chemo sessions vs ileus vs combination thereof. Likely etiology of electrolyte imbalance. Tolerating PO although she is particular on certain foods. Ileus noted on imaging; please see below. Discussed case with Dr. Morales * Continue supportive care * Daily labs * Imodium held given likely ileus * Will continue Thrive ice cream for supplementation * Monitor (2) Urinary tract infection: Code(s): N39.0 - Urinary tract infection, site not specified Status: Acute Assessment and Plan: UCx growing pansensitive E. coli. * Rocephin initiated on 04/25-04/28;transitioned to PO cefdinir today through 05/01 to complete 7 days total antibiotics * Monitor (3) Hypokalemia: Code(s): E87.6 - Hypokalemia Status: Acute Assessment and Plan: Likely due to N/V and poor PO intake. K 2.8 today - replaced * Replace as needed * Monitor Daily (4) Hematuria: Code(s): R31.9 - Hematuria, unspecified Status: Acute Assessment and Plan: Likely secondary to UTI. * Treat UTI with above regimen (5) Visual hallucination: Code(s): R44.1 - Visual hallucinations Status: Acute Assessment and Plan: * Resolved (6) Hypomagnesemia: Code(s): E83.42 - Hypomagnesemia Status: Acute Assessment and Plan: Mag 2.3 today * Replace as needed (7) Elevated lactic acid level: Code(s): R79.89 - Other specified abnormal findings of blood chemistry Status: Acute Assessment and Plan: Resolved (8) Pancytopenia: Code(s): D61.818 - Other pancytopenia Status: Acute Assessment and Plan: Improved; Likely due to recent chemotherapy. Follows Dr. Morales who is following during stay. Hgb relatively stable 8.2 today; IV venofer per Andrew * Follow up in the outpatient setting. (9) Generalized weakness: Onset Date: ~03/2020 Code(s): R53.1 - Weakness Status: Acute Assessment and Plan: Showing slow improvement; walked halls today. Patient and wish to return home after discharge * PT/OT continues * Monitor for improvement (10) Acute dehydration: Code(s): E86.0 - Dehydration Status: Acute Assessment and Plan: Appears to have improved. Cr increased to 1.40 today suggesting EDWARDO due likely due to poor oral intake. * Continue IV fluids * Monitor BMP * Monitor (11) Adynamic ileus: Onset Date: ~04/29/20 Code(s): K56.0 - Paralytic ileus Status: Acute Assessment and Plan: Likely ileus given imaging; patient having BMs. Dr. Avina consulted by Dr. Morales given findings on abdominal xray 04/28. appreciate recommendations. BM today * Continue with surgery recommendations recommendations * Imodium has been held at this time. * Continue with current diet per Surgery recommendations * Monitor for improvement (12) EDWARDO (a
--- NOTE | 2020-04-30 13:46 | PM.IMPN ---
Progress Note: A&P Assessment and Plan (1) Nausea vomiting and diarrhea: Code(s): R11.2 - Nausea with vomiting, unspecified; R19.7 - Diarrhea, unspecified Status: Acute Assessment and Plan: Improved; likely secondary to recent chemo sessions vs ileus vs combination thereof. Likely etiology of electrolyte imbalance. Tolerating PO although she is particular on certain foods. Ileus noted on imaging; please see below. Discussed case with Dr. Morales Continue supportive care Daily labs Imodium held given likely ileus Will continue Thrive ice cream for supplementation Monitor (2) Urinary tract infection: Code(s): N39.0 - Urinary tract infection, site not specified Status: Acute Assessment and Plan: UCx growing pansensitive E. coli. Rocephin initiated on 04/25-04/28;transitioned to PO cefdinir today through 05/01 to complete 7 days total antibiotics Monitor (3) Hypokalemia: Code(s): E87.6 - Hypokalemia Status: Acute Assessment and Plan: Likely due to N/V and poor PO intake. K 2.8 today - replaced Replace as needed Monitor Daily (4) Hematuria: Code(s): R31.9 - Hematuria, unspecified Status: Acute Assessment and Plan: Likely secondary to UTI. Treat UTI with above regimen (5) Visual hallucination: Code(s): R44.1 - Visual hallucinations Status: Acute Assessment and Plan: Resolved (6) Hypomagnesemia: Code(s): E83.42 - Hypomagnesemia Status: Acute Assessment and Plan: Mag 2.3 today Replace as needed (7) Elevated lactic acid level: Code(s): R79.89 - Other specified abnormal findings of blood chemistry Status: Acute Assessment and Plan: Resolved (8) Pancytopenia: Code(s): D61.818 - Other pancytopenia Status: Acute Assessment and Plan: Improved; Likely due to recent chemotherapy. Follows Dr. Morales who is following during stay. Hgb relatively stable 8.2 today; IV venofer per Andrew Follow up in the outpatient setting. (9) Generalized weakness: Onset Date: ~03/2020 Code(s): R53.1 - Weakness Status: Acute Assessment and Plan: Showing slow improvement; walked halls today. Patient and wish to return home after discharge PT/OT continues Monitor for improvement (10) Acute dehydration: Code(s): E86.0 - Dehydration Status: Acute Assessment and Plan: Appears to have improved. Cr increased to 1.40 today suggesting EDWARDO due likely due to poor oral intake. Continue IV fluids Monitor BMP Monitor (11) Adynamic ileus: Onset Date: ~04/29/20 Code(s): K56.0 - Paralytic ileus Status: Acute Assessment and Plan: Likely ileus given imaging; patient having BMs. Dr. Avina consulted by Dr. Morales given findings on abdominal xray 04/28. appreciate recommendations. BM today Continue with surgery recommendations recommendations Imodium has been held at this time. Continue with current diet per Surgery recommendations Monitor for improvement (12) EDWARDO (acute kidney injury): Code(s): N17.9 - Acute kidney failure, unspecified Status: Acute Assessment and Plan: Cr 1.40 today; likely prerenal due to poor oral intake. Anticipate improvement with fluids Continue IV fluids for now Consider imaging and nephrology consultation if worsening monitor Subjective Date/time seen: 04/30/20 13:46 Interval history: Patient is a 79 year old female with
[2020-04-30 14:00] VITALS: BP 132/51; PULSE 80; RESP 14; TEMP 36.3; O2SAT 99
[2020-04-30 14:58] LABS: Anion Gap 4 mmol/L (8-16); Blood Urea Nitrogen 15 mg/dL (7-17); Calcium 7.8 mg/dL (8.4-10.2); Carbon Dioxide 21 mmol/L (22-30); Chloride 116 mmol/L (98-107); Estimated CRCL calculation 38 ml/min; Estimated Glomerular Filt Rate 43; Glucose 171 mg/dL (65-105); Magnesium 2.2 mg/dL (1.6-2.3); Potassium 3.4 mmol/L (3.4-5.0); Sodium 141 mmol/L (137-145)
[2020-04-30] MEDS: LACTATED RINGERS 1,000 ML 75 ML IV CONT (15:11)
--- NOTE | 2020-04-30 16:36 | WPDONCPN ---
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 Further chemotherapy is on hold. Chemotherapy-induced diarrhea. Imodium is home on hold due to paralytic ileus. Abdominal x-ray showed improvement. Surgery input noted. We will consider parenteral nutrition due to patient poor oral intake. Pancytopenia secondary to chemotherapy. WBC and platelet normal today. Hemoglobin remains low at 8.2. Patient started IV iron infusion. Nausea vomiting. Continue IV hydration along with antiemetics. - Time Spent With Patient Total time spent is greater than 50% in coordination of care (as documented) at patient's floor/unit and/or counseling patient: 15 - 25 minutes Subjective Interval history: Metastatic appendiceal adenocarcinoma Pancytopenia Nausea vomiting Diarrhea secondary to chemotherapy Review of Systems - Review of Systems Patient remains tired and weak. She is quite sleepy. Denies any vomiting. She had 1 episode of bowel movement. No abdominal pain. Still eating poorly. - Neurologic Reports hearing normal, Reports abnormal speech, Reports headache(s), Reports focal weakness, Reports loss of vision, Reports memory loss, Reports weakness, Denies numbness Exam Vital signs: Waldo Perdomo. Assessment of coma and impaired consciousness. A practical scale. Lancet 1974; 2:81-4. Narrative: Lungs are clear to auscultation bilaterally Cardiovascular regular rate rhythm no murmurs Abdomen slightly distended diminished bowel sounds nontender Extremities no edema - Constitutional no acute distress, cooperative, somnolent - Routine HEENT Exam Head: Present: atraumatic, normocephalic. Absent: normal inspection - Routine Neck Exam Present: normal inspection. Absent: lymphadenopathy - Routine Chest/Breast/Axilla Exam Axillae: Absent: lymphadenopathy - Routine Respiratory Exam Present: CTAB - Routine Cardiovascular Exam Cardiovascular: Present: RRR. Absent: murmur - Routine Abdominal Exam Present: distended, hypoactive bowel sounds. Absent: tenderness - Routine Extremities Exam Absent: pedal edema - Routine Skin Exam Present: dry, warm - Routine Neurological Exam Present: alert, moving all extremities PN: Objective Data - Labs CBC & Chem 7: 04/30/20 05:12 04/30/20 14:41 Labs: Laboratory Results - last 24 hr 04/29/20 04/30/20 04/30/20 21:16 05:12 05:12 WBC 6.2 RBC 3.11 L Hgb 8.2 L Hct 25.1 L MCV 80.7 MCH 26.4 MCHC 32.7 RDW 22.2 H Plt Count 223 MPV 10.6 H Immature Gran % (Auto) 3.1 H Neut % (Auto) 70.4 Lymph % (Auto) 8.2 L [place] % (Auto) 16.4 H Eos % (Auto) 1.6 Baso % (Auto) 0.3 Lymph # (Auto) 0.51 L [place] # (Auto) 1.0 H Eos # (Auto) 0.1 Baso # (Auto) 0.0 Abs Immat Gran (auto) 0.19 H Absolute Neuts (auto) 4.4 Absolute Nucleated RBC 0.0 Nucleated RBC % 0.3 H Platelet Estimate Adequate Hypochromasia 1+ Anisocytosis 1+ Ovalocytes 2+ Sodium 143 Potassium 2.8 L* Chloride 114 H Carbon Dioxide 22 Anion Gap 7 L BUN 15 Creatinine 1.40 H Estim Creat Clear Calc 33 Estimated GFR 36 L Glucose 149 H POC Capillary Glucose 159 H Calcium 8.1 L Magnesium 2.3 Total Bilirubin 0.3 AST 11 L ALT < 6 Alkaline Phosphatase 115 Total Protein 4.0 L Albumin 2.2 L 04/30/20 04/30/20 04/30/20 07:41 11:16 14:41 WBC RBC Hgb Hct MCV MCH MCHC RDW Plt Count MPV Immature Gran % (Auto) Neut % (Auto) Lymph % (Auto) [place] % (Auto) Eos % (Auto) Baso % (Auto) Lymph # (Auto) [place] # (Auto) Eos # (Auto) Baso # (Auto) Abs Immat Gran (auto) Absolute Neuts (auto) Absolute Nucleated RBC Nucleated RBC % Platelet Estimate Hypochromasia Anisocytosis Ovalocytes Sodium 141 Potassium 3.4 Chlorid
[2020-04-30 16:44] LABS: Glucose Point of Care 128 (65-105)
[2020-04-30 20:07] LABS: Glucose Point of Care 146 (65-105)
--- NOTE | 2020-04-30 20:56 | PM.PNGS ---
Progress Note: A&P Assessment and Plan (1) Adynamic ileus: Onset Date: ~04/29/20 Code(s): K56.0 - Paralytic ileus Status: Acute Assessment and Plan: X-ray today is unchanged. However pt does have some bowel sounds. Will check x-ray of abd. again in AM, encourage activity, and I agree with holding the anti-diarrheal meds. (2) Pancytopenia: Code(s): D61.818 - Other pancytopenia Status: Acute (3) Generalized weakness: Onset Date: ~03/2020 Code(s): R53.1 - Weakness Status: Acute Assessment and Plan: Rlated to anemia, Chemo and dehydration. 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 This may boost her nutritional status. Danuta duff discussed with Richard KO and he asked me to order this and monitor it. I will start it toninght via the Shalom-cath Subjective Subjective Date/Time Seen: 04/30/20 09:56 Pt in bed when I arrvied at the room. Denies abd. pain or nausea. Apparently had a BM early this AM. Did walk with PT yesterday.States she still feels weak. Review of Systems Constitutional: Constitutional: Reports as per HPI, Reports no additional constitutional complaints, Reports anorexia and Denies headache(s) Eyes: Eyes: Denies loss of vision and Denies eye pain ENT: Reports Normal hearing present, Denies change in voice, Denies dizziness, Reports dry mouth, Denies headache(s) and Reports other (Mucous Membranes moist.) Cardiovascular: Cardiovascular: Denies chest pain and Denies dyspnea Respiratory: Respiratory: Denies pain on inspiration, Denies dyspnea and Denies wheezing Gastrointestinal: Gastrointestinal: Reports belching and Reports loose stools ( x1 this morning) Musculoskeletal: Musculoskeletal: Denies back pain, Denies arthralgias and Reports other (No calf swelling or edema) Integumentary/Breasts: Skin/Breast: Reports system reviewed and no additional complaints, except as docu Neurologic: Reports Normal hearing present, Denies dizziness, Denies headache(s), Denies loss of vision and Denies memory loss Psychiatric: Psychiatric: Reports depression ( Appears to be mildly depressed.), Denies memory loss and Denies panic attacks Endocrine: Endocrine: Reports no additional endocrine complaints Hematologic/Lymphatic: Hematologic/Lymphatic: Reports no additional hematologic/lymphatic complaints Allergic/Immunologic: Allergic/Immunologic: Denies wheezing Exam Const: General: cooperative, no acute distress, well developed and alert Nutritional Appearance: well nourished Orientation/consciousness: oriented to person, oriented to place and patient oriented x3 Limitations: no limitations Other: Patient is slightly confused when I woke her this morning on rounds. She did know that she had a BM this AM and her nurse confirms that. HENMT: Head: normal to inspection, normocephalic and atraumatic Ears: hearing grossly normal bilaterally General nose exam: Normal external nose present Face and sinus: normal facial exam Mouth: Yes Normal oral and palatal mucosa present, Yes tongue normal and Yes moist mucous membranes Eyes: General: appearance normal, both eyes and all related structures Pupils: Equal, round and reactive pupils present EOM: EOMs intact bilaterally Neck: Neck: normal visual inspection, no lymphadenopathy, trachea midline and supple Lymphatic: no lymphadenopathy noted Chest: Chest palpation & inspection: normal inspection of the chest Resp: Effort & Inspection: normal respiratory effort and able to speak in complete sentences Auscultation: clear to auscultation bilaterally Other: Decreased breath sounds at the bases Cardio: Jugular venous distension: no JVD Rate: regular rate Rhythm: regular rhythm Heart sounds: S1 normal hea
[2020-04-30 21:07] VITALS: PULSE 86
[2020-04-30] MEDS: ASPIRIN 81 MG ENTERIC TABLET PO (21:07)
[2020-04-30] MEDS: METOPROLOL SUCCINATE EXT REL 100 MG TABCR PO (21:07)
[2020-04-30 21:19] VITALS: BP 137/60; PULSE 86; RESP 16; TEMP 36.6; O2SAT 99
[2020-04-30] MEDS: FAT EMULSIONS IV 20% 250 ML 20.83 ML IVPB (22:03)
[2020-04-30 22:39] LABS: Transferrin 109 mg/dL (206-381)
[2020-05-01 00:07] LABS: Glucose Point of Care 170 (65-105)
[2020-05-01] MEDS: ONDANSETRON INJ 4 MG/2 ML VIAL IV PUSH ×3 (05:05→22:01)
[2020-05-01] MEDS: LEVOTHYROXINE SODIUM 125 MCG TABLET PO (05:05)
[2020-05-01] MEDS: CENTRAL LINE FLUSH 10 ML IV PUSH ×2 (05:05→22:02)
[2020-05-01 05:45] LABS: Glucose Point of Care 233 (65-105)
[2020-05-01] MEDS: INSULIN HUMAN REGULAR (*BKC) 100 UNITS/ML SUB-Q ×3 (05:45→17:30)
[2020-05-01 06:00] VITALS: BP 104/45; PULSE 82; RESP 16; TEMP 36.6; O2SAT 100
[2020-05-01 06:34] LABS: Hematocrit 26.9 % (37.0-47.0); Hemoglobin 8.7 g/dL (12.0-15.0); Mean Corpuscular HGB Conc 32.3 g/dl (32-36); Mean Corpuscular Hemoglobin 26.9 pg (26-34); Mean Platelet Volume 10.8 fl (7.4-10.4); Platelet Count Result 223 k/mm3 (150-375); Red Blood Count 3.24 M/mm3 (4.2-5.4); Red Cell Distribution Width 22.7 % (11.5-14.5); White Blood Count 7.3 K/mm3 (4.5-10.0)
[2020-05-01 06:45] LABS: Alanine Aminotransferase 6 U/L (4-35); Albumin Level 2.1 g/dL (3.5-5.1); Alkaline Phosphatase 116 U/L (38-126); Anion Gap 4 mmol/L (8-16); Aspartate Amino Transferase 11 U/L (14-36); Bilirubin,Total 0.3 mg/dL (0.2-1.3); Blood Urea Nitrogen 14 mg/dL (7-17); Calcium 7.9 mg/dL (8.4-10.2); Carbon Dioxide 24 mmol/L (22-30); Chloride 112 mmol/L (98-107); Estimated CRCL calculation 41 ml/min; Estimated Glomerular Filt Rate 48; Glucose 260 mg/dL (65-105); Magnesium 2.2 mg/dL (1.6-2.3); Phosphorus 1.2 mg/dL (2.5-4.5); Potassium 3.3 mmol/L (3.4-5.0); Sodium 140 mmol/L (137-145)
[2020-05-01 07:55] LABS: Glucose Point of Care 239 (65-105)
[2020-05-01] MEDS: FAMOTIDINE 20 MG/2 ML VIAL IV PUSH ×2 (09:18→22:00)
[2020-05-01] MEDS: SACCHAROMYCES BOULARDII 250 MG CAPSULE PO (09:22)
[2020-05-01] MEDS: POTASSIUM CHLORIDE 20 MEQ TABLET 40 MEQ PO ×2 (09:22→11:53)
[2020-05-01] MEDS: SODIUM BICARBONATE TAB 650 MG TABLET PO (09:22)
[2020-05-01] MEDS: MEGESTROL ACETATE (*CHEMO) ORAL SUSP 40 MG/ML SYR 800 MG PO (09:22)
[2020-05-01] MEDS: LOSARTAN POTASSIUM 25 MG TABLET PO (09:22)
[2020-05-01] MEDS: CEFDINIR 300 MG CAPSULE PO ×2 (09:22→22:00)
[2020-05-01] MEDS: TOLNAFTATE 1% POWDER 45 GM BTL 1 APPLIC TOPICAL ×2 (09:23→22:01)
[2020-05-01 11:49] LABS: Glucose Point of Care 277 (65-105)
--- NOTE | 2020-05-01 12:25 | PCNFU ---
Nutrition Follow-Up Complete: Inadequate oral intake related to nausea/vomiting as evidenced by NPO status, 14 pound weight loss x 3 weeks without trying. Goal: Patient to meet estimated nutritional needs. Limited progress towards goal. We will continue current goal. Pt current nutrition is DBCC with TPN. Nutrition recommendation: Glucerna 1.2 at 30 ml/hr advance to goal rate of 70ml/hr. Last recorded weight is 84.5 kg. Bowel Motility:+BM reported-Diarrhea per nursing. Labs Reviewed:PO4 1.2,Glu 260,GFR 48,K 3.3,Hct 26.9, Alb 2.1 Meds Noted:Clinimix E 5/15 at 40 ml/hr and 250 ml of 20% Lipid Emulation, Florastor,Pepcid, Megace, Pepcid. Additional Notes: Nutrition follow up today. I spoke with patients today, patient sleeping. He states she drank a small amount of milk this morning. TPN was started last night providing an additional 1182 kcals and 48 gms protein meeting 63% of patients energy needs. Patient is also receiving diet supplements: Nutritional Treat Ice cream providing an additional 300 kcals and 9 gms protein and Glucerna shakes BID providing 220 kcals and 10 gms protein. Poor po intake. Ileus is improving. Spoke with Dr Clark today, Surgery is planning to start Dobbhoff feedings today. Tube feeding Recommendations: Glucerna 1.2 at 30 ml/hr advance by 10 ml/hr q 6 hours to goal rate of 70 ml/hr providing 1849 kcals and 92 gms protein. Monitoring: Follow up every 3 days.
--- NOTE | 2020-05-01 13:11 | PM.PNGS ---
Progress Note: A&P Assessment and Plan (1) Adynamic ileus: Onset Date: ~04/29/20 Code(s): K56.0 - Paralytic ileus Status: Acute Assessment and Plan: X-ray today is unchanged to slightly better with possible gas noted in the rectum. However pt does have active bowel sounds Which would tend to mitigate against ileus.. Will encourage activity, and I agree with holding the anti-diarrheal meds. I have also discussed her situation with Dr. Jeramy Clark who was seeing her at the same time. We feel like it would be good for the weekend to have the issue of obstruction versus no obstruction settled, therefore I will order a Gastrografin colonic enema to answer this question and I have discussed this with one of the radiologist. Since she is going to Radiology any way and looks like her gut may be working I will have them place a nasal gastric or naso-duodenal feeding tube while she is down x-ray ao that it could be used for to TF in over the weekend also. She consented to this and I discussed the procedure with her. (2) Pancytopenia: Code(s): D61.818 - Other pancytopenia Status: Acute (3) Generalized weakness: Onset Date: ~03/2020 Code(s): R53.1 - Weakness Status: Acute Assessment and Plan: Rlated to anemia, Chemo and dehydration. 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 This may boost her nutritional status. This was discussed with Richard KO and I started TPN via the Shalom-cath on the evening of 04/30/2020. we will ask Radiology to place a nasal duodenal tube for her today and if there is no obstruction in the colon on the testing done today we will consider starting tube feedings over the weekend. Subjective Subjective Date/Time Seen: 05/01/20 13:00 Patient seen in her room. She is laying in bed. She awakens easily. She denies abdominal pain. She is nauseated however, and took some nausea medicine recently. states he believes she has had 1 bowel movement earlier today. She is not having much oral intake although the staff is encouraging her and and and feeding her. She was able to get up with PT today but only in the room as she was quite weak. This is regression from yesterday since I saw her walking with them in the hallway yesterday. Review of Systems Constitutional: Constitutional: Reports as per HPI, Reports no additional constitutional complaints, Reports anorexia, Reports fatigue, Denies headache(s) and Reports poor appetite Eyes: Eyes: Denies loss of vision and Denies eye pain ENT: Reports Normal hearing present, Denies change in voice, Denies dizziness, Reports dry mouth, Denies headache(s) and Reports other (Mucous Membranes moist.) Cardiovascular: Cardiovascular: Denies chest pain and Denies dyspnea Respiratory: Respiratory: Denies pain on inspiration, Denies dyspnea and Denies wheezing Gastrointestinal: Gastrointestinal: Reports as per HPI, Denies abdominal pain, Reports loose stools ( x1 this morning) and Denies vomiting Musculoskeletal: Musculoskeletal: Denies back pain, Denies arthralgias and Reports other (No calf swelling or edema) Integumentary/Breasts: Skin/Breast: Reports system reviewed and no additional complaints, except as docu Neurologic: Reports Normal hearing present, Denies dizziness, Denies headache(s), Denies loss of vision and Denies memory loss Psychiatric: Psychiatric: Reports depression ( Appears to be mildly depressed.), Denies memory loss and Denies panic attacks Endocrine: Endocrine: Reports no additional endocrine complaints Hematologic/Lymphatic: Hematologic/Lymphatic: Reports no additional hematologic/lymphatic complaints Allergic/Immunologic: Allergic/Immunologic: Denies wheezing Exam Const:
--- NOTE | 2020-05-01 14:00 | PC.NURSE ---
Patient taken to radiology for feeding tube placement.
--- NOTE | 2020-05-01 14:59 | PC.NURSE ---
Patient returned to room. NGT inserted in radiology.
[2020-05-01 16:00] VITALS: BP 144/65; PULSE 84; RESP 12; TEMP 36.2; O2SAT 100
--- NOTE | 2020-05-01 16:12 | PCDIET ---
Spoke with nursing, JACE Hdz. Dr. Avina would like to start tube feedings tonight. Tube feeding Recommendations: Night feedings 12 hours of Glucerna 1.2 at 30 ml/hr advancing by 10 ml q 6 hours to goal rate of 65 ml/hr. Recommend TPN to discontinue when goal tube feeding rate has been reached. Oral diet continues at this time, recommend regular diet with continued diet supplements of Nutritional Treat Ice cream TID and Glucerna shakes BID. Will continue to follow.
--- NOTE | 2020-05-01 17:57 | P.PNIM_ITS ---
Progress Note: A&P Assessment and Plan (1) Nausea vomiting and diarrhea: Code(s): R11.2 - Nausea with vomiting, unspecified; R19.7 - Diarrhea, unspecified Status: Acute Assessment and Plan: Improved; likely secondary to recent chemo sessions vs ileus vs combination thereof. Likely etiology of electrolyte imbalance. Tolerating PO although she is particular on certain foods. Ileus noted on imaging; please see below. * Continue supportive care * Daily labs * Imodium held given likely ileus * Will continue Thrive ice cream for supplementation * surgery place Dobbhoff tube for nutrition at night (2) Urinary tract infection: Code(s): N39.0 - Urinary tract infection, site not specified Status: Acute Assessment and Plan: UCx growing pansensitive E. coli. * Rocephin initiated on 04/25-04/28;transitioned to PO cefdinir today through 05/01 to complete 7 days total antibiotics * Monitor (3) Hypokalemia: Code(s): E87.6 - Hypokalemia Status: Acute Assessment and Plan: Likely due to N/V and poor PO intake. K 3.3 today - replaced, 120 mEq ordered * Replace as needed * Monitor Daily (4) Hematuria: Code(s): R31.9 - Hematuria, unspecified Status: Acute Assessment and Plan: Likely secondary to UTI. * Treat UTI with above regimen (5) Visual hallucination: Code(s): R44.1 - Visual hallucinations Status: Acute Assessment and Plan: * Resolved (6) Hypomagnesemia: Code(s): E83.42 - Hypomagnesemia Status: Acute Assessment and Plan: Mag 2.3 today * Replace as needed (7) Elevated lactic acid level: Code(s): R79.89 - Other specified abnormal findings of blood chemistry Status: Acute Assessment and Plan: Resolved (8) Pancytopenia: Code(s): D61.818 - Other pancytopenia Status: Acute Assessment and Plan: Improved; Likely due to recent chemotherapy. Follows Dr. Morales who is following during stay. Hgb relatively stable 8.7 today; IV venofer per Andrew * Follow up in the outpatient setting. (9) Generalized weakness: Onset Date: ~03/2020 Code(s): R53.1 - Weakness Status: Acute Assessment and Plan: Showing slow improvement; walked halls today. Patient and wish to return home after discharge * PT/OT continues * Monitor for improvement (10) Acute dehydration: Code(s): E86.0 - Dehydration Status: Acute Assessment and Plan: Appears to have improved. Cr 1.10 today suggesting EDWARDO due likely due to poor oral intake. * Continue IV fluids * Monitor BMP * Monitor (11) Adynamic ileus: Onset Date: ~04/29/20 Code(s): K56.0 - Paralytic ileus Status: Acute Assessment and Plan: Likely ileus given imaging; patient having BMs. Dr. Avina consulted by Dr. Morales given findings on abdominal xray 04/28. plan will be water-based enema t * Imodium has been held at this time. * Continue with current diet per Surgery recommendations * Monitor for improvement (12) EDWARDO (acute kidney injury): Code(s):
--- NOTE | 2020-05-01 17:57 | PM.IMPN ---
Progress Note: A&P Assessment and Plan (1) Nausea vomiting and diarrhea: Code(s): R11.2 - Nausea with vomiting, unspecified; R19.7 - Diarrhea, unspecified Status: Acute Assessment and Plan: Improved; likely secondary to recent chemo sessions vs ileus vs combination thereof. Likely etiology of electrolyte imbalance. Tolerating PO although she is particular on certain foods. Ileus noted on imaging; please see below. Continue supportive care Daily labs Imodium held given likely ileus Will continue Thrive ice cream for supplementation surgery place Dobbhoff tube for nutrition at night (2) Urinary tract infection: Code(s): N39.0 - Urinary tract infection, site not specified Status: Acute Assessment and Plan: UCx growing pansensitive E. coli. Rocephin initiated on 04/25-04/28;transitioned to PO cefdinir today through 05/01 to complete 7 days total antibiotics Monitor (3) Hypokalemia: Code(s): E87.6 - Hypokalemia Status: Acute Assessment and Plan: Likely due to N/V and poor PO intake. K 3.3 today - replaced, 120 mEq ordered Replace as needed Monitor Daily (4) Hematuria: Code(s): R31.9 - Hematuria, unspecified Status: Acute Assessment and Plan: Likely secondary to UTI. Treat UTI with above regimen (5) Visual hallucination: Code(s): R44.1 - Visual hallucinations Status: Acute Assessment and Plan: Resolved (6) Hypomagnesemia: Code(s): E83.42 - Hypomagnesemia Status: Acute Assessment and Plan: Mag 2.3 today Replace as needed (7) Elevated lactic acid level: Code(s): R79.89 - Other specified abnormal findings of blood chemistry Status: Acute Assessment and Plan: Resolved (8) Pancytopenia: Code(s): D61.818 - Other pancytopenia Status: Acute Assessment and Plan: Improved; Likely due to recent chemotherapy. Follows Dr. Morales who is following during stay. Hgb relatively stable 8.7 today; IV venofer per Andrew Follow up in the outpatient setting. (9) Generalized weakness: Onset Date: ~03/2020 Code(s): R53.1 - Weakness Status: Acute Assessment and Plan: Showing slow improvement; walked halls today. Patient and wish to return home after discharge PT/OT continues Monitor for improvement (10) Acute dehydration: Code(s): E86.0 - Dehydration Status: Acute Assessment and Plan: Appears to have improved. Cr 1.10 today suggesting EDWARDO due likely due to poor oral intake. Continue IV fluids Monitor BMP Monitor (11) Adynamic ileus: Onset Date: ~04/29/20 Code(s): K56.0 - Paralytic ileus Status: Acute Assessment and Plan: Likely ileus given imaging; patient having BMs. Dr. Avina consulted by Dr. Morales given findings on abdominal xray 04/28. plan will be water-based enema t Imodium has been held at this time. Continue with current diet per Surgery recommendations Monitor for improvement (12) EDWARDO (acute kidney injury): Code(s): N17.9 - Acute kidney failure, unspecified Status: Acute Assessment and Plan: Cr 1.10 today; likely prerenal due to poor oral intake. Anticipate improvement with fluids Continue IV fluids for now Subjective Date/time seen: 05/01/20 17:57 Interval history: date of visit 05/01. 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
[2020-05-01 22:00] VITALS: BP 136/62; PULSE 86; PULSE 89; RESP 22; TEMP 36.1; O2SAT 100
[2020-05-01] MEDS: ASPIRIN 81 MG ENTERIC TABLET PO (22:00)
[2020-05-01] MEDS: METOPROLOL SUCCINATE EXT REL 100 MG TABCR PO (22:00)
[2020-05-01] MEDS: FAT EMULSIONS IV 20% 250 ML 20.83 ML IVPB (22:02)
[2020-05-02 02:49] LABS: Glucose Point of Care 185 (65-105)
[2020-05-02 02:49] LABS: Glucose Point of Care 259 (65-105)
[2020-05-02] MEDS: CENTRAL LINE FLUSH 10 ML IV PUSH ×3 (05:55→22:32)
[2020-05-02] MEDS: LEVOTHYROXINE SODIUM 125 MCG TABLET PO (05:55)
[2020-05-02] MEDS: ONDANSETRON INJ 4 MG/2 ML VIAL IV PUSH ×3 (05:55→20:25)
[2020-05-02 06:00] VITALS: BP 139/65; PULSE 82; RESP 18; TEMP 36.2; O2SAT 98
--- NOTE | 2020-05-02 06:40 | PC.NURSE ---
paged dr alvarado who is manager construction for dr bell and notified him that patient pulled out dobhoff that was used for over night tf. dr alvarado stated that he would see patient on rounds today and review the issue. no new orders at this time.
[2020-05-02 07:24] LABS: Anion Gap 4 mmol/L (8-16); Blood Urea Nitrogen 14 mg/dL (7-17); Calcium 7.8 mg/dL (8.4-10.2); Carbon Dioxide 24 mmol/L (22-30); Chloride 111 mmol/L (98-107); Estimated CRCL calculation 51 ml/min; Estimated Glomerular Filt Rate 60; Glucose 246 mg/dL (65-105); Phosphorus 1.1 mg/dL (2.5-4.5); Potassium 3.5 mmol/L (3.4-5.0); Sodium 139 mmol/L (137-145); Triglycerides 229 mg/dL (<150)
[2020-05-02 07:44] LABS: Glucose Point of Care 152 (65-105)
--- NOTE | 2020-05-02 08:43 | P.PNIM_ITS ---
Progress Note: A&P Assessment and Plan (1) Nausea vomiting and diarrhea: Code(s): R11.2 - Nausea with vomiting, unspecified; R19.7 - Diarrhea, unspecified Status: Acute Assessment and Plan: Likely secondary to recent chemo sessions vs ileus vs combination thereof. Likely etiology of electrolyte imbalance. She was tolerating PO although she was not having adequate PO intake and thus Dobbhoff placed yesterday per Surgery rec; this was removed by patient overnight. On TPN per Surgery rec. Ileus noted on imaging; please see below. * Continue supportive care * Continue TPN; further rec per General Surgery appreciated * Daily labs * Imodium held given likely ileus * Will continue Thrive ice cream for supplementation * Await further rec from Surgery in regards to nutrition/tube feeding (2) Urinary tract infection: Code(s): N39.0 - Urinary tract infection, site not specified Status: Acute Assessment and Plan: UCx growing pansensitive E. coli. * Rocephin initiated on 04/25-04/28;transitioned to PO cefdinir on 04/29 through 05/01 to complete 7 days total antibiotics. Completed therapy of 7 days total * Monitor for symptoms/signs (3) Hypokalemia: Code(s): E87.6 - Hypokalemia Status: Acute Assessment and Plan: Likely due to N/V and poor PO intake. K 3.5 today - replaced, 20 mEq daily ordered * Replace as needed * Continue 20 mEq KCl daily for now * Monitor Daily (4) Hematuria: Code(s): R31.9 - Hematuria, unspecified Status: Acute Assessment and Plan: Likely secondary to UTI. * Treated UTI with above regimen (5) Visual hallucination: Code(s): R44.1 - Visual hallucinations Status: Acute Assessment and Plan: * Resolved (6) Hypomagnesemia: Code(s): E83.42 - Hypomagnesemia Status: Acute Assessment and Plan: Resolved * Replace as needed * Monitor daily (7) Elevated lactic acid level: Code(s): R79.89 - Other specified abnormal findings of blood chemistry Status: Acute Assessment and Plan: Resolved (8) Pancytopenia: Code(s): D61.818 - Other pancytopenia Status: Acute Assessment and Plan: Improved; Likely due to recent chemotherapy. Follows Dr. Morales who is following during stay. Hgb relatively stable 8.7 yesterday; IV venofer per Andrew * Follow up in the outpatient setting. (9) Generalized weakness: Onset Date: ~03/2020 Code(s): R53.1 - Weakness Status: Acute Assessment and Plan: Showing slow improvement. PT/OT following. Patient and wish to return home after discharge * PT/OT continues * Monitor for improvement (10) Acute dehydration: Code(s): E86.0 - Dehydration Status: Acute Assessment and Plan: Appears to have improved. Cr 0.90 today suggesting EDWARDO due likely due to poor oral intake. * Continue IV fluids, TPN * Monitor BMP * Monitor (11) Adynamic ileus: Onset Date: ~04/29/20 Code(s): K56.0 - Paralytic ileus Status: Acute Assessment and Plan: Likely ileus given imaging; patient having BMs. Dr. Avina consulte
--- NOTE | 2020-05-02 08:43 | PM.IMPN ---
Progress Note: A&P Assessment and Plan (1) Nausea vomiting and diarrhea: Code(s): R11.2 - Nausea with vomiting, unspecified; R19.7 - Diarrhea, unspecified Status: Acute Assessment and Plan: Likely secondary to recent chemo sessions vs ileus vs combination thereof. Likely etiology of electrolyte imbalance. She was tolerating PO although she was not having adequate PO intake and thus Dobbhoff placed yesterday per Surgery rec; this was removed by patient overnight. On TPN per Surgery rec. Ileus noted on imaging; please see below. Continue supportive care Continue TPN; further rec per General Surgery appreciated Daily labs Imodium held given likely ileus Will continue Thrive ice cream for supplementation Await further rec from Surgery in regards to nutrition/tube feeding (2) Urinary tract infection: Code(s): N39.0 - Urinary tract infection, site not specified Status: Acute Assessment and Plan: UCx growing pansensitive E. coli. Rocephin initiated on 04/25-04/28;transitioned to PO cefdinir on 04/29 through 05/01 to complete 7 days total antibiotics. Completed therapy of 7 days total Monitor for symptoms/signs (3) Hypokalemia: Code(s): E87.6 - Hypokalemia Status: Acute Assessment and Plan: Likely due to N/V and poor PO intake. K 3.5 today - replaced, 20 mEq daily ordered Replace as needed Continue 20 mEq KCl daily for now Monitor Daily (4) Hematuria: Code(s): R31.9 - Hematuria, unspecified Status: Acute Assessment and Plan: Likely secondary to UTI. Treated UTI with above regimen (5) Visual hallucination: Code(s): R44.1 - Visual hallucinations Status: Acute Assessment and Plan: Resolved (6) Hypomagnesemia: Code(s): E83.42 - Hypomagnesemia Status: Acute Assessment and Plan: Resolved Replace as needed Monitor daily (7) Elevated lactic acid level: Code(s): R79.89 - Other specified abnormal findings of blood chemistry Status: Acute Assessment and Plan: Resolved (8) Pancytopenia: Code(s): D61.818 - Other pancytopenia Status: Acute Assessment and Plan: Improved; Likely due to recent chemotherapy. Follows Dr. Morales who is following during stay. Hgb relatively stable 8.7 yesterday; IV venofer per Andrew Follow up in the outpatient setting. (9) Generalized weakness: Onset Date: ~03/2020 Code(s): R53.1 - Weakness Status: Acute Assessment and Plan: Showing slow improvement. PT/OT following. Patient and wish to return home after discharge PT/OT continues Monitor for improvement (10) Acute dehydration: Code(s): E86.0 - Dehydration Status: Acute Assessment and Plan: Appears to have improved. Cr 0.90 today suggesting EDWARDO due likely due to poor oral intake. Continue IV fluids, TPN Monitor BMP Monitor (11) Adynamic ileus: Onset Date: ~04/29/20 Code(s): K56.0 - Paralytic ileus Status: Acute Assessment and Plan: Likely ileus given imaging; patient having BMs. Dr. Avina consulted by Dr. Morales given findings on abdominal xray 04/28. Ileus suggested on water soluble enema imaging yesterday Imodium has been held at this time. Continue with current diet/TPN per Surgery recommendations Monitor for improvement (12) EDWARDO (acute kidney injury): Code(s): N17.9 - Acute kidney failure, unspecified Status: Acute Assessment and Plan: Cr 0.9 today; likely prerenal due to
[2020-05-02] MEDS: MEGESTROL ACETATE (*CHEMO) ORAL SUSP 40 MG/ML SYR 800 MG PO (09:01)
[2020-05-02] MEDS: FAMOTIDINE 20 MG/2 ML VIAL IV PUSH ×2 (09:02→20:25)
[2020-05-02] MEDS: LOSARTAN POTASSIUM 25 MG TABLET PO (09:02)
[2020-05-02] MEDS: TOLNAFTATE 1% POWDER 45 GM BTL 1 APPLIC TOPICAL ×2 (09:03→20:25)
--- NOTE | 2020-05-02 09:25 | PM.PNGS ---
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 Status: Resolved Assessment and Plan: cont mgmt per oncology Subjective Subjective Date/Time Seen: 05/02/20 09:25 pt s c/o this am, confused overnight and pulled feeding tube Review of Systems Constitutional: Constitutional: Reports fatigue, Denies fever(s), Reports poor appetite and Reports weakness Cardiovascular: Cardiovascular: Reports no additional cardiovascular complaints Respiratory: Respiratory: Reports no additional respiratory complaints Gastrointestinal: Gastrointestinal: Reports no additional gastrointestinal complaints Exam Const: General: cooperative, comfortable and no acute distress Nutritional Appearance: obese Orientation/consciousness: patient oriented x3 Resp: Effort & Inspection: normal respiratory effort Auscultation: diminished lung sounds Cardio: Rate: regular rate Rhythm: regular rhythm GI: Inspection: normal to inspection GI Palp: Yes Soft to palpation, No Tenderness to palpation present (GI), No Guarding due to palpation present (GI) and No Rigid due to palpation Objective Data Vital Signs Vital Signs: Vital Signs - 24 hr 05/01/20 16:00 05/01/20 22:00 05/02/20 06:00 Temperature 36.2 C L 36.1 C L 36.2 C L Pulse Rate 84 86 82 Respiratory Rate 12 22 H 18 Blood Pressure 144/65 H 136/62 139/65 Pulse Oximetry 100 100 98 Intake/Output Intake/Output: Intake & Output 04/29/20 04/30/20 05/01/20 05/02/20 23:59 23:59 23:59 23:59 Intake Total 1290 2565 3430 Output Total 0 154 100 Balance 1290 2411 3330 Meds/Results Medications: Active Medications Generic Name Dose Route Start Last Admin Trade Name Freq PRN Reason Stop Dose Admin Aspirin 81 mg 04/22/20 21:00 05/01/20 22:00 Aspirin 81 Mg Enteric Tablet PO 81 mg HS LORIE Administration Bisacodyl 10 mg 04/29/20 08:09 04/29/20 11:14 Bisacodyl 10 Mg Suppository RECTAL 10 mg QAM PRN Administration Constipation/ ileus Calcium Carbonate 200 mg 04/28/20 15:30 04/28/20 17:38 Calcium Carbonate (Tums) 500 Mg (200 Mg Elemental) PO 200 mg Q6H PRN Administration Indigestion Dextrose 12.5 gm 04/21/20 23:17 Dextrose 50% 25 Gm/50 Ml Syringe IV PUSH PRN PRN Hypoglycemia Protocol Famotidine 20 mg 04/22/20 09:00 05/02/20 09:02 Famotidine 20 Mg/2 Ml Vial IV PUSH 20 mg Q12HR LORIE Administration Glucagon 1 mg 04/21/20 23:17 Glucagon For Inj 1 Mg Vial IM PRN PRN Hypoglycemia Protocol Heparin Sodium (Beef Lung) 50 units 04/26/20 09:00 05/02/20 09:02 Heparin Flush 50 Units/5 Ml Syringe IV PUSH Not Given QAM LORIE Heparin Sodium (Beef Lung) 50 units 04/25/20 11:44 04/28/20 08:48 Heparin Flush 50 Units/5 Ml Syringe IV PUSH 50 units PRN PRN Administration after intermittent infusion Heparin Sodium (Beef Lung) 50 units 04/25/20 11:44 04/28/20 17:19 Heparin Flush 50 Units/5 Ml Syringe IV PUSH 50 units PRN PRN Administration after blood draws Heparin Sodium (Porcine) 500 units 04/25/20 11:44 Heparin Sod Flush 500 Units/5 Ml Syringe IV PUSH PRN PRN see comments below Dextrose 1,000 mls @ 100 mls/hr 04/21/20 23:17 Dextrose 5% 1,000 Ml IVPB PRN PRN Hypoglycemia Protocol Dextrose 1,000 mls @ 50 mls/hr 04/30/20 20:47
[2020-05-02 10:57] LABS: Alanine Aminotransferase 7 U/L (4-35); Alkaline Phosphatase 103 U/L (38-126); Aspartate Amino Transferase 13 U/L (14-36); Bilirubin,Total 0.2 mg/dL (0.2-1.3)
[2020-05-02 11:04] LABS: Transferrin 100 mg/dL (206-381)
[2020-05-02] MEDS: POTASSIUM CHLORIDE 20 MEQ PACKET (FOR LIQUID) PO (11:49)
[2020-05-02 11:51] LABS: Glucose Point of Care 322 (65-105)
[2020-05-02] MEDS: INSULIN HUMAN REGULAR (*BKC) 100 UNITS/ML SUB-Q ×2 (12:11→18:22)
[2020-05-02] MEDS: HEPARIN SOD FLUSH 500 UNITS/5 ML SYRINGE IV PUSH (13:21)
[2020-05-02 14:00] VITALS: BP 121/53; PULSE 87; RESP 18; TEMP 36.1; O2SAT 100
--- NOTE | 2020-05-02 15:18 | PC.NURSE ---
1347- Richard Mayer notified of no blood return on Port-a-cath he said to notify Dr. Morales. Dr. Morales notified at [id number]. Order received for Port dye study to check for problems with flow.
--- NOTE | 2020-05-02 17:10 | PC.NURSE ---
1708- patient return from X-ray per bed. Per the radiologist Dr. Rivera, the port is working properly and is OK to use. Port will still not draw back blood.
[2020-05-02 17:27] LABS: Glucose Point of Care 236 (65-105)
[2020-05-02 18:56] LABS: Hematocrit 25.9 % (37.0-47.0); Hemoglobin 8.3 g/dL (12.0-15.0); Mean Corpuscular Hemoglobin 26.8 pg (26-34); Mean Corpuscular Volume 83.5 fl (80-100); Mean Platelet Volume 11.7 fl (7.4-10.4); Platelet Count Result 199 k/mm3 (150-375); Red Cell Distribution Width 22.8 % (11.5-14.5)
[2020-05-02 19:29] LABS: Partial Thromboplastin Time 30.9 SECONDS (22.3-36.8)
[2020-05-02 19:58] LABS: Band Neutrophils Percent 5 % (0-6); Neutrophils Absolute Manual 4.92 K/mm3 (1.7-7.2); Neutrophils Percent Manual 77 % (46-73); Total Cells Counted 100
[2020-05-02 19:59] LABS: Lymphocytes Percent Manual 10 % (18-44); Metamyelocytes Percent 2 %; Nucleated Red Blood Cells 2 %; Platelet Estimate Adequate (Adequate)
[2020-05-02 20:00] LABS: Anisocytosis 1+ (NORMAL); Ovalocytes 1+ (NORMAL); Poikilocytosis 1+ (NORMAL)
[2020-05-02 20:02] LABS: Monocytes Absolute Manual 0.36 K/mm3 (0.1-0.90); Monocytes Percent Manual 6 % (3-9)
[2020-05-02 20:24] VITALS: PULSE 87
[2020-05-02] MEDS: METOPROLOL SUCCINATE EXT REL 100 MG TABCR PO (20:24)
[2020-05-02] MEDS: ASPIRIN 81 MG ENTERIC TABLET PO (20:25)
[2020-05-02 21:59] VITALS: BP 110/54; PULSE 87; RESP 18; TEMP 35.9; O2SAT 100
[2020-05-02] MEDS: FAT EMULSIONS IV 20% 250 ML 20.83 ML IVPB (22:32)
[2020-05-03] MEDS: INSULIN HUMAN REGULAR (*BKC) 100 UNITS/ML SUB-Q ×4 (00:07→17:40)
[2020-05-03 01:12] LABS: Glucose Point of Care 220 (65-105)
[2020-05-03 06:00] VITALS: BP 106/52; PULSE 76; RESP 20; TEMP 36; O2SAT 98
[2020-05-03] MEDS: ONDANSETRON INJ 4 MG/2 ML VIAL IV PUSH ×3 (06:17→21:08)
[2020-05-03] MEDS: LEVOTHYROXINE SODIUM 125 MCG TABLET PO (06:18)
[2020-05-03] MEDS: CENTRAL LINE FLUSH 10 ML IV PUSH ×3 (06:18→21:09)
[2020-05-03 06:44] LABS: Hematocrit 24.4 % (37.0-47.0); Hemoglobin 7.8 g/dL (12.0-15.0); Mean Corpuscular Hemoglobin 26.8 pg (26-34); Mean Corpuscular Volume 83.8 fl (80-100); Platelet Count Result 177 k/mm3 (150-375); Red Blood Count 2.91 M/mm3 (4.2-5.4); White Blood Count 5.8 K/mm3 (4.5-10.0)
[2020-05-03 06:56] LABS: Anion Gap 4 mmol/L (8-16); Blood Urea Nitrogen 14 mg/dL (7-17); Calcium 7.6 mg/dL (8.4-10.2); Carbon Dioxide 26 mmol/L (22-30); Chloride 108 mmol/L (98-107); Estimated CRCL calculation 51 ml/min; Estimated Glomerular Filt Rate 60; Glucose 255 mg/dL (65-105); Magnesium 1.9 mg/dL (1.6-2.3); Phosphorus 1.5 mg/dL (2.5-4.5); Potassium 3.8 mmol/L (3.4-5.0); Sodium 138 mmol/L (137-145)
[2020-05-03 07:21] LABS: Glucose Point of Care 273 (65-105)
[2020-05-03 08:00] LABS: Band Neutrophils Percent 3 % (0-6); Eosinophils Absolute Manual 0.11 K/mm3 (0.02-0.5); Eosinophils Percent Manual 2 % (0-4); Lymphocytes Absolute Manual 0.87 K/mm3 (1.1-4.5); Monocytes Absolute Manual 0.23 K/mm3 (0.1-0.90); Monocytes Percent Manual 4 % (3-9); Neutrophils Absolute Manual 4.58 K/mm3 (1.7-7.2); Neutrophils Percent Manual 76 % (46-73); Total Cells Counted 100
[2020-05-03 08:01] LABS: Ovalocytes 1+ (NORMAL); Platelet Estimate Adequate (Adequate); Poikilocytosis 1+ (NORMAL)
[2020-05-03] MEDS: MEGESTROL ACETATE (*CHEMO) ORAL SUSP 40 MG/ML SYR 800 MG PO (09:17)
[2020-05-03] MEDS: FAMOTIDINE 20 MG/2 ML VIAL IV PUSH ×2 (09:17→21:07)
[2020-05-03] MEDS: LOSARTAN POTASSIUM 25 MG TABLET PO (09:17)
[2020-05-03] MEDS: POTASSIUM CHLORIDE 20 MEQ PACKET (FOR LIQUID) PO (09:18)
[2020-05-03] MEDS: TOLNAFTATE 1% POWDER 45 GM BTL 1 APPLIC TOPICAL ×2 (09:18→21:08)
--- NOTE | 2020-05-03 09:21 | P.PNIM_ITS ---
Progress Note: A&P Assessment and Plan (1) Nausea vomiting and diarrhea: Code(s): R11.2 - Nausea with vomiting, unspecified; R19.7 - Diarrhea, unspecified Status: Acute Assessment and Plan: Likely secondary to recent chemo sessions vs ileus vs combination thereof. Likely etiology of electrolyte imbalances. She was tolerating PO although she was not having adequate PO intake and thus Dobbhoff placed 05/01 per Surgery rec; this was removed by patient that night adn subsequently started on TPN per Surgery rec. Ileus noted on imaging; please see below. It appears Surgery possibly has plans for PEG tube per notes if patient/family agreeable * Continue supportive care * Continue TPN; further rec per General Surgery appreciated * Daily labs * Imodium held given likely ileus * Will continue Thrive ice cream for supplementation * Await further rec from Surgery in regards to nutrition/tube feeding (2) Urinary tract infection: Code(s): N39.0 - Urinary tract infection, site not specified Status: Resolved Assessment and Plan: UCx growing pansensitive E. coli. Denies urinary symptoms * Rocephin initiated on 04/25-04/28;transitioned to PO cefdinir on 04/29 through 05/01 to complete 7 days total antibiotics * Monitor for symptoms/signs (3) Hypokalemia: Code(s): E87.6 - Hypokalemia Status: Acute Assessment and Plan: Likely due to N/V and poor PO intake. K 3.8 today * Replace as needed * Continue 20 mEq KCl daily for now * Monitor Daily (4) Hematuria: Code(s): R31.9 - Hematuria, unspecified Status: Acute Assessment and Plan: Likely secondary to UTI. * Treated UTI with above regimen (5) Visual hallucination: Code(s): R44.1 - Visual hallucinations Status: Acute Assessment and Plan: * Resolved (6) Hypomagnesemia: Code(s): E83.42 - Hypomagnesemia Status: Acute Assessment and Plan: Resolved * Replace as needed * Monitor daily (7) Elevated lactic acid level: Code(s): R79.89 - Other specified abnormal findings of blood chemistry Status: Acute Assessment and Plan: Resolved (8) Pancytopenia: Code(s): D61.818 - Other pancytopenia Status: Acute Assessment and Plan: Improved; although Hgb trending down. No s/sx of acute blood loss. Likely due to recent chemotherapy. Follows Dr. Morales who is following during stay. Hgb 7.8 today * IV venofer per Andrew * Continue to trend * Await further rec from Dr. Morales (9) Generalized weakness: Onset Date: ~03/2020 Code(s): R53.1 - Weakness Status: Acute Assessment and Plan: Showing slow improvement. PT/OT following. Patient and wish to return home after discharge * PT/OT continues * Monitor for improvement (10) Acute dehydration: Code(s): E86.0 - Dehydration Status: Acute Assessment and Plan: Appears to have resolved with IV fluids/TPN. Cr 0.90 today suggesting EDWARDO due likely due to poor oral intake. * Continue IV fluids, TPN * Monitor BMP * Monitor (11) Adynamic ileus: Onset Date: ~04/29/20 Code(s): K56.0 -
--- NOTE | 2020-05-03 09:21 | PM.IMPN ---
Progress Note: A&P Assessment and Plan (1) Nausea vomiting and diarrhea: Code(s): R11.2 - Nausea with vomiting, unspecified; R19.7 - Diarrhea, unspecified Status: Acute Assessment and Plan: Likely secondary to recent chemo sessions vs ileus vs combination thereof. Likely etiology of electrolyte imbalances. She was tolerating PO although she was not having adequate PO intake and thus Dobbhoff placed 05/01 per Surgery rec; this was removed by patient that night adn subsequently started on TPN per Surgery rec. Ileus noted on imaging; please see below. It appears Surgery possibly has plans for PEG tube per notes if patient/family agreeable Continue supportive care Continue TPN; further rec per General Surgery appreciated Daily labs Imodium held given likely ileus Will continue Thrive ice cream for supplementation Await further rec from Surgery in regards to nutrition/tube feeding (2) Urinary tract infection: Code(s): N39.0 - Urinary tract infection, site not specified Status: Resolved Assessment and Plan: UCx growing pansensitive E. coli. Denies urinary symptoms Rocephin initiated on 04/25-04/28;transitioned to PO cefdinir on 04/29 through 05/01 to complete 7 days total antibiotics Monitor for symptoms/signs (3) Hypokalemia: Code(s): E87.6 - Hypokalemia Status: Acute Assessment and Plan: Likely due to N/V and poor PO intake. K 3.8 today Replace as needed Continue 20 mEq KCl daily for now Monitor Daily (4) Hematuria: Code(s): R31.9 - Hematuria, unspecified Status: Acute Assessment and Plan: Likely secondary to UTI. Treated UTI with above regimen (5) Visual hallucination: Code(s): R44.1 - Visual hallucinations Status: Acute Assessment and Plan: Resolved (6) Hypomagnesemia: Code(s): E83.42 - Hypomagnesemia Status: Acute Assessment and Plan: Resolved Replace as needed Monitor daily (7) Elevated lactic acid level: Code(s): R79.89 - Other specified abnormal findings of blood chemistry Status: Acute Assessment and Plan: Resolved (8) Pancytopenia: Code(s): D61.818 - Other pancytopenia Status: Acute Assessment and Plan: Improved; although Hgb trending down. No s/sx of acute blood loss. Likely due to recent chemotherapy. Follows Dr. Morales who is following during stay. Hgb 7.8 today IV venofer per Andrew Continue to trend Await further rec from Dr. Morales (9) Generalized weakness: Onset Date: ~03/2020 Code(s): R53.1 - Weakness Status: Acute Assessment and Plan: Showing slow improvement. PT/OT following. Patient and wish to return home after discharge PT/OT continues Monitor for improvement (10) Acute dehydration: Code(s): E86.0 - Dehydration Status: Acute Assessment and Plan: Appears to have resolved with IV fluids/TPN. Cr 0.90 today suggesting EDWARDO due likely due to poor oral intake. Continue IV fluids, TPN Monitor BMP Monitor (11) Adynamic ileus: Onset Date: ~04/29/20 Code(s): K56.0 - Paralytic ileus Status: Acute Assessment and Plan: Likely ileus given imaging; patient having BMs. Dr. Avina consulted by Dr. Morales given findings on abdominal xray 04/28. Ileus suggested on water soluble enema imaging yesterday Imodium has been held at this time. Continue with current diet/TPN per Surgery recommendations Monitor for improvement (12) EDWARDO (acute kidney injury):
[2020-05-03 09:48] LABS: Triglycerides 261 mg/dL (<150)
--- NOTE | 2020-05-03 11:32 | PM.PNGS ---
Progress Note: A&P Assessment and Plan (1) Failure to thrive: Status: Acute Assessment and Plan: cont TPN, encourage po intake, will consult GI for PEG (2) Adynamic ileus: Onset Date: ~04/29/20 Code(s): K56.0 - Paralytic ileus Status: Acute Assessment and Plan: resolved, exam benign (3) Malignant neoplasm of colon: Code(s): C18.9 - Malignant neoplasm of colon, unspecified Status: Acute Assessment and Plan: management per oncology Subjective Subjective Date/Time Seen: 05/03/20 11:33 no acute issues, mary ellen some breakfast this am, long d/w pt and re: PEG tube Review of Systems Review of Systems: All systems reviewed & are unremarkable except as noted in HPI and below Exam Const: General: comfortable and no acute distress Orientation/consciousness: patient oriented x3 and lethargic Resp: Effort & Inspection: normal respiratory effort Auscultation: diminished lung sounds Cardio: Rate: regular rate Rhythm: regular rhythm GI: Inspection: normal to inspection and non-distended GI Palp: Yes Soft to palpation and No Tenderness to palpation present (GI) Objective Data Vital Signs Vital Signs: Vital Signs - 24 hr 05/02/20 14:00 05/02/20 20:24 05/02/20 21:59 Temperature 36.1 C L 35.9 C L Pulse Rate 87 87 87 Respiratory Rate 18 18 Blood Pressure 121/53 L 110/54 L Pulse Oximetry 100 100 05/03/20 06:00 Temperature 36.0 C L Pulse Rate 76 Respiratory Rate 20 Blood Pressure 106/52 L Pulse Oximetry 98 Intake/Output Intake/Output: Intake & Output 04/30/20 05/01/20 05/02/20 05/03/20 23:59 23:59 23:59 23:59 Intake Total 2565 3430 920 1480 Output Total 154 100 300 Balance 2411 3330 620 1480 Meds/Results Medications: Active Medications Generic Name Dose Route Start Last Admin Trade Name Freq PRN Reason Stop Dose Admin Aspirin 81 mg 04/22/20 21:00 05/02/20 20:25 Aspirin 81 Mg Enteric Tablet PO 81 mg HS LORIE Administration Bisacodyl 10 mg 04/29/20 08:09 04/29/20 11:14 Bisacodyl 10 Mg Suppository RECTAL 10 mg QAM PRN Administration Constipation/ ileus Calcium Carbonate 200 mg 04/28/20 15:30 04/28/20 17:38 Calcium Carbonate (Tums) 500 Mg (200 Mg Elemental) PO 200 mg Q6H PRN Administration Indigestion Dextrose 12.5 gm 04/21/20 23:17 Dextrose 50% 25 Gm/50 Ml Syringe IV PUSH PRN PRN Hypoglycemia Protocol Famotidine 20 mg 04/22/20 09:00 05/03/20 09:17 Famotidine 20 Mg/2 Ml Vial IV PUSH 20 mg Q12HR LORIE Administration Glucagon 1 mg 04/21/20 23:17 Glucagon For Inj 1 Mg Vial IM PRN PRN Hypoglycemia Protocol Heparin Sodium (Beef Lung) 50 units 04/26/20 09:00 05/03/20 09:17 Heparin Flush 50 Units/5 Ml Syringe IV PUSH 50 units QAM LORIE Administration Heparin Sodium (Beef Lung) 50 units 04/25/20 11:44 04/28/20 08:48 Heparin Flush 50 Units/5 Ml Syringe IV PUSH 50 units PRN PRN Administration after intermittent infusion Heparin Sodium (Beef Lung) 50 units 04/25/20 11:44 05/03/20 06:18 Heparin Flush 50 Units/5 Ml Syringe IV PUSH 50 units PRN PRN Administration after blood draws Heparin Sodium (Porcine) 500 units 04/25/20 11:44 05/02/20 13:21 Heparin Sod Flush 500 Units/5 Ml Syringe IV PUSH 500 units PRN PRN Administration see comments below Dextrose 1,000 mls @ 100 mls/hr 04/21/20 23:17 Dextrose 5% 1,000 Ml IVPB PRN PRN Hypoglycemia Protocol Dextrose 1,000 mls @ 50 mls/hr 04/30/20 20:47 Dextrose 10% IV CONT .Q20H PRN if PN is interrupted Multivitamins 5 ml/ Amino 2,005 mls @ 40 mls/hr 04/30/20 22:00 05/03/20 10:15 Acids/Electrolytes/Dextrose IV CONT 40 mls/hr .Q24H LORIE Administration Protocol Fat Emulsion Intravenous 250 mls @ 20.833 mls/hr 04/30/20 22:00 05/02/20 22:32 Lipids 20% IVPB 20.83 mls/hr Q24H LORIE Administration In
[2020-05-03 12:06] LABS: Glucose Point of Care 271 (65-105)
--- NOTE | 2020-05-03 13:11 | WPDGICN ---
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 Will get CT a/p to rule out peritoneal involvement and ascites before even considering to place g-tube Dr Marrero has seen her during recent hospitalization and will take over tomorrow (2) Nausea vomiting and diarrhea: Code(s): R11.2 - Nausea with vomiting, unspecified; R19.7 - Diarrhea, unspecified Status: Acute Assessment and Plan: improving, probably exacerbated by recent chemotherapy, now on TPN (3) Adynamic ileus: Onset Date: ~04/29/20 Code(s): K56.0 - Paralytic ileus Status: Acute Assessment and Plan: surgery on board (4) EDWARDO (acute kidney injury): Code(s): N17.9 - Acute kidney failure, unspecified Status: Acute (5) Failure to thrive: Status: Acute (6) Pancytopenia: Code(s): D61.818 - Other pancytopenia Status: Acute Assessment and Plan: leukopenia resolved, continue to monitor no more chemotherapy is planned (7) Generalized weakness: Onset Date: ~03/2020 Code(s): R53.1 - Weakness Status: Acute GI Consult Note Consult date/time: 05/03/20 13:11 Reason for consult: failure to thrive, malnutrition, metastatic appendiceal cancer HPI: Lanette Alberts is a 79 year old with history of lymphoma, 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 She has been treated medically in the floor, also noted diarrhea and abdominal discomfort. Also was treated for pancytopenia and now improved. She has not been eating, she pulled out DHT and surgery is asking us to evaluated for possible G-tube placement. She was just started on TPN. RN reports that patient has been confused at night, is at bedside. Review of Systems Constitutional: Constitutional: Reports fatigue and Reports lethargy ENT: Reports Normal hearing present Cardiovascular: Cardiovascular: Denies chest pain Respiratory: Respiratory: Denies dyspnea Gastrointestinal: Gastrointestinal: Reports abdominal pain and Reports bloating Genitourinary: Genitourinary: Denies hematuria Integumentary/Breasts: Skin/Breast: Denies rash Neurologic: Denies headache(s) Psychiatric: Psychiatric: Reports confusion [facility] Past Medical History Medical History Anxiety Bladder mass Breast cancer lumpectomy and chemotherapy and radiation 1998 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 Cancer of sigmoid colon (~11/2019) Chronic kidney disease, stage III (moderate) (Unknown) Diabetes (Unknown) Diverticulosis of large intestine without hemorrhage (Unknown) History of chemotherapy History of colon cancer History of lymphoma History of radiation therapy HLD (hyperlipidemia) (Unknown) Hx of abnormal cervical Pap smear Hx of malignant neoplasm of female breast Hypertension Hypothyroidism (Unknown) Lymphoma 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) received chemotherapy Patient on antineoplastic chemotherapy regimen Surgical History Surgical History History of cholecystectomy History of colectomy hand assited laparoscopic left colectomy wit
[2020-05-03 14:00] VITALS: BP 128/56; PULSE 83; RESP 18; TEMP 36.6; O2SAT 100
[2020-05-03 18:29] LABS: Glucose Point of Care 245 (65-105)
[2020-05-03] MEDS: ASPIRIN 81 MG ENTERIC TABLET PO (21:07)
[2020-05-03] MEDS: FAT EMULSIONS IV 20% 250 ML 20.8 ML IVPB (21:08)
[2020-05-03 21:12] VITALS: BP 123/53; PULSE 83; RESP 16; TEMP 37.1; O2SAT 99
[2020-05-03 21:18] VITALS: PULSE 84
[2020-05-03 21:18] LABS: Triglycerides 217 mg/dL (<150)
[2020-05-03] MEDS: METOPROLOL SUCCINATE EXT REL 100 MG TABCR PO (21:18)
[2020-05-04] VITALS (9 sets, daily range): BP systolic 92–131; BP diastolic 45–55; PULSE 76–86; RESP 16–18; TEMP 35.9–37.1; O2SAT 99–100
[2020-05-04] MEDS: INSULIN HUMAN REGULAR (*BKC) 100 UNITS/ML SUB-Q ×3 (00:54→17:36)
[2020-05-04 01:12] LABS: Glucose Point of Care 216 (65-105)
[2020-05-04] MEDS: ONDANSETRON INJ 4 MG/2 ML VIAL IV PUSH ×3 (05:39→20:30)
[2020-05-04] MEDS: CENTRAL LINE FLUSH 10 ML IV PUSH (05:40)
[2020-05-04] MEDS: LEVOTHYROXINE SODIUM 125 MCG TABLET PO (05:40)
[2020-05-04 06:02] LABS: Hemoglobin 7.4 g/dL (12.0-15.0); Mean Corpuscular HGB Conc 32.2 g/dl (32-36); Mean Corpuscular Hemoglobin 26.7 pg (26-34); Mean Platelet Volume 11.3 fl (7.4-10.4); Platelet Count Result 186 k/mm3 (150-375); Red Blood Count 2.77 M/mm3 (4.2-5.4); White Blood Count 4.8 K/mm3 (4.5-10.0)
[2020-05-04 06:07] LABS: Glucose Point of Care 219 (65-105)
[2020-05-04 06:12] LABS: INR 1.1; Prothrombin Time 14.6 Seconds (11.1-14.7)
[2020-05-04 06:15] LABS: Alanine Aminotransferase 7 U/L (4-35); Alkaline Phosphatase 89 U/L (38-126); Anion Gap 2 mmol/L (8-16); Aspartate Amino Transferase 12 U/L (14-36); Bilirubin,Total 0.1 mg/dL (0.2-1.3); Blood Urea Nitrogen 16 mg/dL (7-17); Calcium 7.4 mg/dL (8.4-10.2); Carbon Dioxide 26 mmol/L (22-30); Chloride 106 mmol/L (98-107); Estimated CRCL calculation 51 ml/min; Estimated Glomerular Filt Rate 60; Glucose 200 mg/dL (65-105); Phosphorus 2.5 mg/dL (2.5-4.5); Potassium 3.6 mmol/L (3.4-5.0); Sodium 134 mmol/L (137-145)
[2020-05-04 06:22] LABS: Transferrin 104 mg/dL (206-381)
[2020-05-04 08:11] LABS: Band Neutrophils Percent 12 % (0-6); Lymphocytes Absolute Manual 0.72 K/mm3 (1.1-4.5); Monocytes Absolute Manual 0.52 K/mm3 (0.1-0.90); Monocytes Percent Manual 11 % (3-9); Neutrophils Absolute Manual 3.55 K/mm3 (1.7-7.2); Neutrophils Percent Manual 62 % (46-73); Total Cells Counted 100
[2020-05-04 08:12] LABS: Anisocytosis 1+ (NORMAL); Platelet Estimate Adequate (Adequate)
[2020-05-04 08:13] LABS: Macrocytosis 1+ (NORMAL); Ovalocytes 1+ (NORMAL); Poikilocytosis 1+ (NORMAL); Polychromasia 1+ (NORMAL); Schistocytes 1+ (NORMAL)
[2020-05-04] MEDS: FAMOTIDINE 20 MG/2 ML VIAL IV PUSH ×2 (10:29→21:33)
--- NOTE | 2020-05-04 10:52 | PM.PNGS ---
Progress Note: A&P Assessment and Plan (1) Failure to thrive: Status: Acute Assessment and Plan: Continue TPN via jason-cath, encourage po intake after PEG placement, have consulted GI for PEG. (2) Adynamic ileus: Onset Date: ~04/29/20 Code(s): K56.0 - Paralytic ileus Status: Acute Assessment and Plan: resolved, exam benign (3) Malignant neoplasm of colon: Code(s): C18.9 - Malignant neoplasm of colon, unspecified Status: Acute Assessment and Plan: management per oncology Additional Plan If pt needs IV fluids for a few more days, consider giving some (TPN) using Clinimix via the Jason-cath. This may boost her nutritional status. This was discussed with Richard KO and I started TPN via the Jason-cath on the evening of 04/30/2020. Check pre albumin in AM Discuss with Dr. Andrew evangelista tigger for pRBC transfusion in pt as she is still very weak and Hb down to 7.4 today. Subjective Subjective Date/Time Seen: 05/04/20 10:05 Patient lying in bed when I came in the room. Patient's present. They have decided to proceed with PEG tube if Dr. Marrero is comfortable placing it. Patient is NPO for that procedure at this time. She states she is not nauseated. Nursing reports that she has had loose stools each the last 2 days. Patient states she does not remember pulling out the nasoduodenal tube that was placed Monday but apparently that occurred through the night. The nurse repeats that the patient occasionally becomes confused especially at night. Patient does state that the tube was uncomfortable for her. Review of Systems Review of Systems: All systems reviewed & are unremarkable except as noted in HPI and below Constitutional: Constitutional: Reports as per HPI, Reports no additional constitutional complaints, Reports anorexia, Reports fatigue, Denies fever(s), Denies headache(s), Reports poor appetite and Reports weakness Eyes: Eyes: Denies loss of vision and Denies eye pain ENT: Reports Normal hearing present, Denies change in voice, Denies dizziness, Reports dry mouth, Denies headache(s) and Reports other (Mucous Membranes moist.) Cardiovascular: Cardiovascular: Reports no additional cardiovascular complaints, Denies chest pain and Denies dyspnea Respiratory: Respiratory: Reports no additional respiratory complaints, Denies pain on inspiration, Denies dyspnea and Denies wheezing Gastrointestinal: Gastrointestinal: Reports as per HPI, Reports no additional gastrointestinal complaints, Denies abdominal pain, Reports loose stools ( x1 this morning), Denies nausea and Denies vomiting Musculoskeletal: Musculoskeletal: Denies back pain, Denies arthralgias and Reports other (No calf swelling or edema) Integumentary/Breasts: Skin/Breast: Reports system reviewed and no additional complaints, except as docu Neurologic: Reports Normal hearing present, Denies dizziness, Denies headache(s), Denies loss of vision, Denies memory loss and Reports weakness Psychiatric: Psychiatric: Reports depression ( Appears to be mildly depressed.), Denies memory loss and Denies panic attacks Endocrine: Endocrine: Reports no additional endocrine complaints and Reports fatigue Hematologic/Lymphatic: Hematologic/Lymphatic: Reports no additional hematologic/lymphatic complaints Allergic/Immunologic: Allergic/Immunologic: Denies wheezing Exam Const: General: cooperative, comfortable, no acute distress, well developed, alert and lethargic Nutritional Appearance: well nourished and obese Orientation/consciousness: oriented to person, oriented to place, patient oriented x3 and lethargic Limitations: no limitations Other: Nurses report that the patient seemed slightly confused this morning is always very sleepy and tired. Mid morning is usually her best time and she has walked to the bathroom in the past during that time period. Denies passing flatus that she remembers today. PANCHO: He
--- NOTE | 2020-05-04 11:17 | PCNFU ---
Nutrition Follow-Up Complete: Inadequate oral intake related to nausea/vomiting as evidenced by NPO status, 14 pound weight loss x 3 weeks without trying. Goal:Patient to meet estimated nutritional needs. Progressing towards goal. We will continue current goal. Pt current nutrition is NPO. Nutrition recommendation: Glucerna 1.2 goal rate at 70 ml/hr Last recorded weight is 89 kg up from 84.5 kg. Bowel Motility:+BM reported 05/03. Labs Reviewed:Glu 200,Na 134,Hct 23.0,Hct 7.4 Meds Noted:Clinimix 5/15 at 40 ml/hr with 250 ml of 20% Lipid Emulsion, Pepsid, Insulin Human Regular, Heparin. Additional Notes: Nutrition follow up. Spoke with patient, and nurse today. We are awaiting for GI-possible PEG placement. Patient oral intake poor over the weekend. Receiving TPN providing an additional 1182 kcals and 48 gms protein meeting 63% of patients energy needs. Would recommend PEG tube feedings of Glucerna 1.2 starting at 30 ml/hr advancing by 10 ml/hr q 6 hours to goal rate of 70 ml/hr. Monitoring: every Monday/Monday.
--- NOTE | 2020-05-04 11:55 | WPDGIPROGNO ---
Progress Note: A&P Additional Plan Patient is lethargic not eating well. Peg tube is been suggested. Patient agrees to it at this time. Physical exam reveals abdomen to be obese. Soft nontender no organomegaly evident. Labs reveal hemoglobin 7.4, hematocrit 23.0, MCV 83. Platelets adequate prothrombin time within normal range. Impression 1. Failure to thrive. Patient not eating adequately. Plan is to proceed with PEG tube tomorrow. 2. 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 CT scan reveals no obvious tumor mass in the way of anticipated PEG tube. Subjective Date/time seen: 05/04/20 11:55 Objective Data Vital Signs Vital Signs: Vital Signs - 24 hr 05/03/20 14:00 05/03/20 21:12 05/03/20 21:18 Temperature 97.8 F 98.7 F Pulse Rate 83 83 84 Respiratory Rate 18 16 Blood Pressure 128/56 L 123/53 L Pulse Oximetry 100 99 05/04/20 06:00 Temperature 97.8 F Pulse Rate 76 Respiratory Rate 16 Blood Pressure 103/45 L Pulse Oximetry 100 Intake/Output Intake/Output: Intake & Output 05/01/20 05/02/20 05/03/20 05/04/20 23:59 23:59 23:59 23:59 Intake Total 3430 920 2350 Output Total 100 300 300 Balance 3330 620 2050 Meds/Results Medications: Active Medications Generic Name Dose Route Start Last Admin Trade Name Freq PRN Reason Stop Dose Admin Aspirin 81 mg 04/22/20 21:00 05/03/20 21:07 Aspirin 81 Mg Enteric Tablet PO 81 mg HS LORIE Administration Bisacodyl 10 mg 04/29/20 08:09 04/29/20 11:14 Bisacodyl 10 Mg Suppository RECTAL 10 mg QAM PRN Administration Constipation/ ileus Calcium Carbonate 200 mg 04/28/20 15:30 04/28/20 17:38 Calcium Carbonate (Tums) 500 Mg (200 Mg Elemental) PO 200 mg Q6H PRN Administration Indigestion Dextrose 12.5 gm 04/21/20 23:17 Dextrose 50% 25 Gm/50 Ml Syringe IV PUSH PRN PRN Hypoglycemia Protocol Famotidine 20 mg 04/22/20 09:00 05/04/20 10:29 Famotidine 20 Mg/2 Ml Vial IV PUSH 20 mg Q12HR LORIE Administration Glucagon 1 mg 04/21/20 23:17 Glucagon For Inj 1 Mg Vial IM PRN PRN Hypoglycemia Protocol Heparin Sodium (Beef Lung) 50 units 04/26/20 09:00 05/04/20 10:26 Heparin Flush 50 Units/5 Ml Syringe IV PUSH Not Given QAM LORIE Heparin Sodium (Beef Lung) 50 units 04/25/20 11:44 04/28/20 08:48 Heparin Flush 50 Units/5 Ml Syringe IV PUSH 50 units PRN PRN Administration after intermittent infusion Heparin Sodium (Beef Lung) 50 units 04/25/20 11:44 05/04/20 05:40 Heparin Flush 50 Units/5 Ml Syringe IV PUSH 50 units PRN PRN Administration after blood draws Heparin Sodium (Porcine) 500 units 04/25/20 11:44 05/02/20 13:21 Heparin Sod Flush 500 Units/5 Ml Syringe IV PUSH 500 units PRN PRN Administration see comments below Dextrose 1,000 mls @ 100 mls/hr 04/21/20 23:17 Dextrose 5% 1,000 Ml IVPB PRN PRN Hypoglycemia Protocol Dextrose 1,000 mls @ 50 mls/hr 04/30/20 20:47 Dextrose 10% IV CONT .Q20H PRN if PN is interrupted Multivitamins 5 ml/ Amino 2,005 mls @ 40 mls/hr 04/30/20 22:00 05/03/20 10:15 Acids/Electrolytes/Dextrose IV CONT 40 mls/hr .Q24H LORIE Administration Protocol Fat Emulsion Intravenous 250 mls @ 20.833 mls/hr 04/30/20 22:00 05/03/20 21:08 Lipids 20% IVPB 20.8 mls/hr Q24H LORIE Administration Insulin Human Regular 2 - 5 units 05/01/20 06:00 05/04/20 05:41 Insulin Human Regular (*Bkc) 100 Units/Ml SUB-Q 2 units Q6HR LORIE Administration Protocol Levothyroxine Sodium 125 mcg 04/23/20 06:30 05/04/20 05:40 Levothyroxine Sodium 125 Mcg Tablet PO 125 mcg DAILY@0630 LORIE Administration Losartan Potassium 25 mg 04/23/20 09:00 05/03/20 09:17 Losartan Potassium 25 Mg Tablet PO 25 mg DAILY LORIE
[2020-05-04 12:40] LABS: Triglycerides 202 mg/dL (<150)
[2020-05-04] MEDS: POTASSIUM CHLORIDE 20 MEQ PACKET (FOR LIQUID) PO (13:48)
[2020-05-04] MEDS: TOLNAFTATE 1% POWDER 45 GM BTL 1 APPLIC TOPICAL ×2 (13:48→20:30)
[2020-05-04] MEDS: LOSARTAN POTASSIUM 25 MG TABLET PO (13:48)
[2020-05-04 13:52] LABS: Glucose Point of Care 122 (65-105)
--- NOTE | 2020-05-04 16:32 | P.PNIM_ITS ---
Progress Note: A&P Assessment and Plan (1) Nausea vomiting and diarrhea: Code(s): R11.2 - Nausea with vomiting, unspecified; R19.7 - Diarrhea, unspecified Status: Acute Assessment and Plan: Likely secondary to recent chemo sessions vs ileus vs combination thereof. Likely etiology of electrolyte imbalances. She was tolerating PO although she was not having adequate PO intake and thus Dobbhoff placed 05/01 per Surgery rec; this was removed by patient that night and subsequently started on TPN per Surgery rec. Ileus noted on imaging; please see below. It appears GI plans to proceed with PEG tube on Monday. * Continue supportive care * Continue TPN; further rec per General Surgery appreciated. * Encourage PO intake * Daily labs * Imodium held given likely ileus * Will continue Thrive ice cream for supplementation * Await further rec from Surgery in regards to nutrition/tube feeding (2) Urinary tract infection: Code(s): N39.0 - Urinary tract infection, site not specified Status: Resolved Assessment and Plan: UCx growing pansensitive E. coli. Denies urinary symptoms * Rocephin initiated on 04/25-04/28;transitioned to PO cefdinir on 04/29 through 05/01 to complete 7 days total antibiotics * Monitor for symptoms/signs (3) Hypokalemia: Code(s): E87.6 - Hypokalemia Status: Acute Assessment and Plan: Likely due to N/V and poor PO intake. K 3.6 today * Replace as needed * Continue 20 mEq KCl daily for now * Monitor Daily (4) Hematuria: Code(s): R31.9 - Hematuria, unspecified Status: Acute Assessment and Plan: Likely secondary to UTI. * Treated UTI with above regimen (5) Visual hallucination: Code(s): R44.1 - Visual hallucinations Status: Acute Assessment and Plan: * Resolved (6) Hypomagnesemia: Code(s): E83.42 - Hypomagnesemia Status: Resolved Assessment and Plan: Resolved * Replace as needed * Monitor daily (7) Elevated lactic acid level: Code(s): R79.89 - Other specified abnormal findings of blood chemistry Status: Resolved Assessment and Plan: Resolved (8) Pancytopenia: Code(s): D61.818 - Other pancytopenia Status: Acute Assessment and Plan: Improved; although Hgb trending down. No s/sx of acute blood loss. Likely due to recent chemotherapy. Follows Dr. Morales who is following during stay. Hgb 7.4 today. It appears 1 u pRBC ordered per Surgery after discussing with Dr. Morales * Continue to trend * Await further rec from Dr. Morales * Monitor closely * Stool occult order as this has been noted to be positive in the past (9) Generalized weakness: Onset Date: ~03/2020 Code(s): R53.1 - Weakness Status: Acute Assessment and Plan: Showing slow improvement. PT/OT following. Patient and wish to return home after discharge * PT/OT continues * Monitor for improvement (10) Acute dehydration: Code(s): E86.0 - Dehydration Status: Acute Assessment and Plan: Appears to have resolved with IV fluids/TPN. Cr 0.90 today suggesting EDWARDO due likely due to poor oral intake. * Continue IV fluids, TPN * Monitor BMP
--- NOTE | 2020-05-04 16:32 | PM.IMPN ---
Progress Note: A&P Assessment and Plan (1) Nausea vomiting and diarrhea: Code(s): R11.2 - Nausea with vomiting, unspecified; R19.7 - Diarrhea, unspecified Status: Acute Assessment and Plan: Likely secondary to recent chemo sessions vs ileus vs combination thereof. Likely etiology of electrolyte imbalances. She was tolerating PO although she was not having adequate PO intake and thus Dobbhoff placed 05/01 per Surgery rec; this was removed by patient that night and subsequently started on TPN per Surgery rec. Ileus noted on imaging; please see below. It appears GI plans to proceed with PEG tube on Monday. Continue supportive care Continue TPN; further rec per General Surgery appreciated. Encourage PO intake Daily labs Imodium held given likely ileus Will continue Thrive ice cream for supplementation Await further rec from Surgery in regards to nutrition/tube feeding (2) Urinary tract infection: Code(s): N39.0 - Urinary tract infection, site not specified Status: Resolved Assessment and Plan: UCx growing pansensitive E. coli. Denies urinary symptoms Rocephin initiated on 04/25-04/28;transitioned to PO cefdinir on 04/29 through 05/01 to complete 7 days total antibiotics Monitor for symptoms/signs (3) Hypokalemia: Code(s): E87.6 - Hypokalemia Status: Acute Assessment and Plan: Likely due to N/V and poor PO intake. K 3.6 today Replace as needed Continue 20 mEq KCl daily for now Monitor Daily (4) Hematuria: Code(s): R31.9 - Hematuria, unspecified Status: Acute Assessment and Plan: Likely secondary to UTI. Treated UTI with above regimen (5) Visual hallucination: Code(s): R44.1 - Visual hallucinations Status: Acute Assessment and Plan: Resolved (6) Hypomagnesemia: Code(s): E83.42 - Hypomagnesemia Status: Resolved Assessment and Plan: Resolved Replace as needed Monitor daily (7) Elevated lactic acid level: Code(s): R79.89 - Other specified abnormal findings of blood chemistry Status: Resolved Assessment and Plan: Resolved (8) Pancytopenia: Code(s): D61.818 - Other pancytopenia Status: Acute Assessment and Plan: Improved; although Hgb trending down. No s/sx of acute blood loss. Likely due to recent chemotherapy. Follows Dr. Morales who is following during stay. Hgb 7.4 today. It appears 1 u pRBC ordered per Surgery after discussing with Dr. Morales Continue to trend Await further rec from Dr. Morales Monitor closely Stool occult order as this has been noted to be positive in the past (9) Generalized weakness: Onset Date: ~03/2020 Code(s): R53.1 - Weakness Status: Acute Assessment and Plan: Showing slow improvement. PT/OT following. Patient and wish to return home after discharge PT/OT continues Monitor for improvement (10) Acute dehydration: Code(s): E86.0 - Dehydration Status: Acute Assessment and Plan: Appears to have resolved with IV fluids/TPN. Cr 0.90 today suggesting EDWARDO due likely due to poor oral intake. Continue IV fluids, TPN Monitor BMP (11) Adynamic ileus: Onset Date: ~04/29/20 Code(s): K56.0 - Paralytic ileus Status: Acute Assessment and Plan: Likely ileus given imaging; patient having BMs. Dr. Avina consulted by Dr. Morales given findings on abdominal xray 04/28. Ileus suggested on water soluble enema imaging yesterday Imodium has been held at this time. Continue with current diet/TPN p
[2020-05-04] MEDS: SODIUM CHLORIDE 0.9% IV 250 ML 30 ML IV CONT (17:15)
[2020-05-04 17:44] LABS: Glucose Point of Care 221 (65-105)
--- NOTE | 2020-05-04 18:31 | PHAR ---
PT'S HOME MED LIDOCAINE/NYSTATIN/QDRYL VERIFIED BY PHARMACY. PHARMACY LABEL OF HOME MED IS CONSISTENT WITH WHAT IS ORDERED. IT IS A COMPOUNDED PRODUCT FROM [employer] SO WE ARE NOT ABLE TO VERIFY CONTENTS OF THE BOTTLE.
[2020-05-04] MEDS: ASPIRIN 81 MG ENTERIC TABLET PO (20:30)
[2020-05-04] MEDS: FAT EMULSIONS IV 20% 250 ML 20.8 ML IVPB (21:33)
[2020-05-04] MEDS: METOPROLOL SUCCINATE EXT REL 100 MG TABCR PO (21:33)
[2020-05-05 00:07] LABS: Glucose Point of Care 186 (65-105)
[2020-05-05] MEDS: CENTRAL LINE FLUSH 10 ML IV PUSH ×4 (00:09→21:00)
[2020-05-05 04:50] VITALS: BP 119/53; PULSE 83; RESP 16; TEMP 36.3; O2SAT 100
[2020-05-05 05:29] LABS: Basophils Percent Auto 0.8 % (0.2-1.2); Eosinophils Percent Auto 0.8 % (0-4.4); Hematocrit 29.1 % (37.0-47.0); Hemoglobin 9.3 g/dL (12.0-15.0); Immature Granulocyte Absolute 0.27 K/mm3 (0.00-0.031); Immature Granulocyte Percent A 5.2 % (0-0.5); Lymphocytes Percent Auto 13.5 % (18.3-44.2); Mean Corpuscular Hemoglobin 26.7 pg (26-34); Mean Corpuscular Volume 83.6 fl (80-100); Mean Platelet Volume 11.4 fl (7.4-10.4); Monocytes Absolute Auto 0.6 K/mm3 (0.1-0.6); Monocytes Percent Auto 11.4 % (2.6-8.5); Neutrophils Absolute Auto 3.6 K/mm3 (1.3-6.7); Neutrophils Percent Auto 68.3 % (45.5-73.1); Platelet Count Result 210 k/mm3 (150-375); Red Blood Count 3.48 M/mm3 (4.2-5.4); White Blood Count 5.2 K/mm3 (4.5-10.0)
[2020-05-05 05:39] LABS: Anion Gap 3 mmol/L (8-16); Blood Urea Nitrogen 15 mg/dL (7-17); Calcium 7.5 mg/dL (8.4-10.2); Carbon Dioxide 24 mmol/L (22-30); Chloride 105 mmol/L (98-107); Estimated CRCL calculation 52 ml/min; Estimated Glomerular Filt Rate 60; Glucose 203 mg/dL (65-105); Magnesium 1.9 mg/dL (1.6-2.3); Phosphorus 2.4 mg/dL (2.5-4.5); Potassium 3.8 mmol/L (3.4-5.0); Sodium 132 mmol/L (137-145); Triglycerides 275 mg/dL (<150)
[2020-05-05 05:47] LABS: Prealbumin 12.1 mg/dL (17.6-36.0)
[2020-05-05] MEDS: LEVOTHYROXINE SODIUM 125 MCG TABLET PO (05:55)
[2020-05-05] MEDS: ONDANSETRON INJ 4 MG/2 ML VIAL IV PUSH ×3 (05:55→20:57)
[2020-05-05 06:57] LABS: Glucose Point of Care 170 (65-105)
[2020-05-05 08:33] LABS: IFOB Positive Control Positive; Immunochemical Fecal Occult Bl Positive (N)
[2020-05-05 08:48] LABS: Helmet Cells 1+ (NORMAL); Ovalocytes 2+ (NORMAL); Platelet Estimate Adequate (Adequate); Tear Drop Cells 1+ (NORMAL)
--- NOTE | 2020-05-05 08:52 | PM.PNGS ---
Progress Note: A&P Assessment and Plan (1) Failure to thrive: Status: Acute Assessment and Plan: Since patient is feeling better and tolerating a diet today I will stop the TPN via jason-cath at noon today and encourage po intake. We will ask dietary to follow a calorie count for today and then decide with GI whether not patient still is requiring a PEG tube tomorrow. It may be better to think about just an EGD in that the patient had a heme positive stool done yesterday. she is not however expressing any complaints of upper abdominal pain. This would allow for H pylori testing and for screening regarding an upper GI source of bleeding. (2) Adynamic ileus: Onset Date: ~04/29/20 Code(s): K56.0 - Paralytic ileus Status: Acute Assessment and Plan: resolved, exam benign (3) Malignant neoplasm of colon: Code(s): C18.9 - Malignant neoplasm of colon, unspecified Status: Acute Assessment and Plan: management per oncology Additional Plan pre albumin this AM = 12 --- so improved from late last week. Pt had pRBC transfusion on 05/04 for a Hb down to 7.4. Now hemoglobin up to 9.3. Will add Metamucil twice a day to try to help solidify stools but try to avoid chemically slowing down bowel with either Lomotil or Imodium. (These may have contributed to the ileus she experience). Medicine could consider starting to switch some of her meds to oral form if she is still doing well after lunch. Subjective Subjective Date/Time Seen: 05/05/20 08:32 Patient is sitting up in bed eating breakfast when I entered the room this morning. She is much brighter. Patient's nurse today had her last week too, and feels that she is much brighter, stronger, and more willing to cooperate better today. Patient states her appetite is improved. She confirms that she had 8 loose stools yesterday and is already had 1 that was a bit better formed today. Denies abdominal pain or nausea at this time. Review of Systems Review of Systems: All systems reviewed & are unremarkable except as noted in HPI and below Constitutional: Constitutional: Reports as per HPI, Reports no additional constitutional complaints, Reports anorexia, Reports fatigue, Denies fever(s), Denies headache(s), Reports poor appetite and Reports weakness Eyes: Eyes: Denies loss of vision and Denies eye pain ENT: Reports Normal hearing present, Denies change in voice, Denies dizziness, Reports dry mouth, Denies headache(s) and Reports other (Mucous Membranes moist.) Cardiovascular: Cardiovascular: Reports no additional cardiovascular complaints, Denies chest pain and Denies dyspnea Respiratory: Respiratory: Reports no additional respiratory complaints, Denies pain on inspiration, Denies dyspnea and Denies wheezing Gastrointestinal: Gastrointestinal: Reports as per HPI, Reports no additional gastrointestinal complaints, Denies abdominal pain, Reports loose stools ( x1 this morning and 8 yesterday (this may mean the ileus is rsolving).), Denies nausea and Denies vomiting Genitourinary: Genitourinary: Denies nocturia, Denies urinary incontinence and Denies urinary urgency Musculoskeletal: Musculoskeletal: Denies back pain, Denies arthralgias and Reports other (No calf swelling or edema) Integumentary/Breasts: Skin/Breast: Reports system reviewed and no additional complaints, except as docu Neurologic: Reports Normal hearing present, Denies dizziness, Denies headache(s), Denies loss of vision, Denies memory loss and Reports weakness Psychiatric: Psychiatric: Reports depression ( Appears to be mildly depressed.), Denies memory loss and Denies panic attacks Endocrine: Endocrine: Reports no additional endocrine complaints and Reports fatigue Hematologic/Lymphatic: Hematologic/Lymphatic: Reports no additional hematologic/lymphatic complaints Allergic/Immunologic: Allergic/Immunologic: Denies wheezing Exam Const: General: cooperative
[2020-05-05] MEDS: FAMOTIDINE 20 MG/2 ML VIAL IV PUSH ×2 (09:28→20:57)
[2020-05-05] MEDS: POTASSIUM CHLORIDE 20 MEQ PACKET (FOR LIQUID) PO (09:29)
[2020-05-05] MEDS: MEGESTROL ACETATE (*CHEMO) ORAL SUSP 40 MG/ML SYR 800 MG PO (09:29)
[2020-05-05] MEDS: PSYLLIUM SUGAR FREE POWDER PACKET 1 PACKET PO ×2 (09:30→20:58)
[2020-05-05] MEDS: LOSARTAN POTASSIUM 25 MG TABLET PO (09:30)
[2020-05-05] MEDS: TOLNAFTATE 1% POWDER 45 GM BTL 1 APPLIC TOPICAL ×2 (09:31→20:58)
[2020-05-05 09:38] VITALS: RESP 16; O2SAT 99
[2020-05-05 11:47] LABS: Glucose Point of Care 242 (65-105)
[2020-05-05] MEDS: INSULIN HUMAN REGULAR (*BKC) 100 UNITS/ML SUB-Q (11:48)
--- NOTE | 2020-05-05 11:56 | PCDIET ---
Nutrition Follow-Up Complete: Inadequate oral intake related to nausea/vomiting as evidenced by NPO status, 14 pound weight loss x 3 weeks without trying. Patient to meet estimated nutritional needs. Goal: Progressing towards goal. Continue goal. Pt current nutrition is Regular + TPN /15 at 40ml/hr Nutrition recommendation: Agree with regular diet, recommend enteral nutrition over TPN (Glucerna 1.2 at 60ml/hr) Last recorded weight is 91.3 kg, up from admit wt of 84.5kg Bowel Motility: BM Monday, 2 days ago Labs Reviewed: Hgb 9.3, Hct 29.1, Na 132, Triglycerides 275, Glucose 203, PO4 2.4 Meds Noted: Synthroid, Megace, Mg Oxide, Zofran, KCL Additional Notes: Pt with PO intake of 25 and 20%. TNP providing 1182 calories, 48g protein to assist in meeting needs with poor appetite. Pt on megace. Plans for peg placement on Monday to better meet patient needs via enteral nutrition verses TPN as gut is working. Recommend Glucerna 1.2 start at 10ml/hr, advancing 10ml q 4 hrs to goal of 60ml/hr to provide 1584kcal calories, 79 grams protein, to meet 85% of nutrition needs while allowing for PO intake as desired to meet 15% of daily needs. We will continue to follow every T/F.
--- NOTE | 2020-05-05 13:07 | WPDGIPROGNO ---
Progress Note: A&P Additional Plan Patient much more alert. Sitting in bed. Tolerating diet to a certain degree yesterday. Apparently kept 50% of breakfast down today. Physical exam reveals her to be alert. Comfortable at rest she is anicteric. Lungs are clear. Heart without murmur. Abdomen is obese soft nontender with no organomegaly. Impression 1. Failure to thrive. Patient appears to be improving. Plan is to defer PEG tube at this time. We will check a calorie count. Allow diet as tolerated. Perhaps nutritional supplements may be of some benefit such as Ensure or boost. 2. Metastatic appendiceal cancer. Status post cecal resection and also sigmoid resection. Metastatic disease felt likely. Subjective Date/time seen: 05/05/20 13:07 Objective Data Vital Signs Vital Signs: Vital Signs - 24 hr 05/04/20 14:33 05/04/20 17:20 05/04/20 17:35 Temperature 97.2 F L 98.8 F 97.0 F L Pulse Rate 77 82 86 Respiratory Rate 16 16 16 Blood Pressure 100/45 L 92/55 L 110/50 L Pulse Oximetry 100 100 99 05/04/20 18:35 05/04/20 19:35 05/04/20 20:35 Temperature 97.0 F L 97.7 F 97.1 F L Pulse Rate 82 86 85 Respiratory Rate 16 16 17 Blood Pressure 108/50 L 117/52 L 131/53 L Pulse Oximetry 99 99 100 05/04/20 21:20 05/04/20 21:33 05/05/20 04:50 Temperature 96.7 F L 97.3 F L Pulse Rate 84 84 83 Respiratory Rate 18 16 Blood Pressure 111/45 L 119/53 L Pulse Oximetry 100 100 05/05/20 09:38 Temperature Pulse Rate Respiratory Rate 16 Blood Pressure Pulse Oximetry 99 Intake/Output Intake/Output: Intake & Output 05/02/20 05/03/20 05/04/20 05/05/20 23:59 23:59 23:59 23:59 Intake Total 920 2350 2965 1930 Output Total 300 300 Balance 620 2050 2965 1930 Meds/Results Medications: Active Medications Generic Name Dose Route Start Last Admin Trade Name Freq PRN Reason Stop Dose Admin Aspirin 81 mg 04/22/20 21:00 05/04/20 20:30 Aspirin 81 Mg Enteric Tablet PO 81 mg HS LORIE Administration Calcium Carbonate 200 mg 04/28/20 15:30 04/28/20 17:38 Calcium Carbonate (Tums) 500 Mg (200 Mg Elemental) PO 200 mg Q6H PRN Administration Indigestion Dextrose 12.5 gm 04/21/20 23:17 Dextrose 50% 25 Gm/50 Ml Syringe IV PUSH PRN PRN Hypoglycemia Protocol Famotidine 20 mg 04/22/20 09:00 05/05/20 09:28 Famotidine 20 Mg/2 Ml Vial IV PUSH 20 mg Q12HR LORIE Administration Glucagon 1 mg 04/21/20 23:17 Glucagon For Inj 1 Mg Vial IM PRN PRN Hypoglycemia Protocol Heparin Sodium (Beef Lung) 50 units 04/26/20 09:00 05/05/20 09:28 Heparin Flush 50 Units/5 Ml Syringe IV PUSH Not Given QAM LORIE Heparin Sodium (Beef Lung) 50 units 04/25/20 11:44 05/05/20 12:18 Heparin Flush 50 Units/5 Ml Syringe IV PUSH 50 units PRN PRN Administration after intermittent infusion Heparin Sodium (Beef Lung) 50 units 04/25/20 11:44 05/04/20 05:40 Heparin Flush 50 Units/5 Ml Syringe IV PUSH 50 units PRN PRN Administration after blood draws Heparin Sodium (Porcine) 500 units 04/25/20 11:44 05/02/20 13:21 Heparin Sod Flush 500 Units/5 Ml Syringe IV PUSH 500 units PRN PRN Administration see comments below Dextrose 1,000 mls @ 100 mls/hr 04/21/20 23:17 Dextrose 5% 1,000 Ml IVPB PRN PRN Hypoglycemia Protocol Dextrose 1,000 mls @ 50 mls/hr 04/30/20 20:47 Dextrose 10% IV CONT .Q20H PRN if PN is interrupted Multivitamins 5 ml/ Amino 2,005 mls @ 40 mls/hr 04/30/20 22:00 05/05/20 12:00 Acids/Electrolytes/Dextrose IV CONT Infused .Q24H LORIE Infusion Protocol Insulin Human Regular 2 - 5 units 05/01/20 06:00 05/05/20 11:48 Insulin Human Regular (*Bkc) 100 Units/Ml SUB-Q 2 units Q6HR LORIE Administration Protocol Levothyroxine Sodium 125 mcg 04/23/20 06:05/05/20 05:55 Levothyroxine Sodium 125 Mcg Tablet PO 125 mcg DAILY@0630 [facility] Administrat
--- NOTE | 2020-05-05 13:34 | PM.IMPN ---
Progress Note: A&P Assessment and Plan (1) Failure to thrive: Qualifiers: Failure to thrive age range: in adult Qualified Code(s): R62.7 - Adult failure to thrive Status: Acute Assessment and Plan: -P.o. intake is improving, continue Glucerna and thrive ice cream -stopping TPN, deferring PEG tube placement, reviewed GI note - reviewed surgery input, starting metamucil - continue Megace (2) Adynamic ileus: Onset Date: ~04/29/20 Code(s): K56.0 - Paralytic ileus Status: Acute Assessment and Plan: patient is tolerating PO intake, ileus appears to be improving (3) EDWARDO (acute kidney injury): Code(s): N17.9 - Acute kidney failure, unspecified Status: Acute Assessment and Plan: resolved, back to baseline function (4) Nausea vomiting and diarrhea: Code(s): R11.2 - Nausea with vomiting, unspecified; R19.7 - Diarrhea, unspecified Status: Acute Assessment and Plan: resolved stable, will follow - p.r.n. 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: Code(s): C18.1 - Malignant neoplasm of appendix; C77.2 - Secondary and unspecified malignant neoplasm of intra-abdominal lymph nodes Status: Acute Assessment and Plan: -likely underlying etiology for failure to thrive - patient is considering whether not to continue chemotherapy, a conversation she will have to have with her family and her oncologist - heparin flush for her chemoport (8) Urinary tract infection: Code(s): N39.0 - Urinary tract infection, site not specified Status: Resolved Assessment and Plan: status post 7 days antibiotics for pansensitive E coli Additional Plan #other chronic conditions - hypothyroidism: Continue levothyroxine - hypertension: Continue losartan, metoprolol - type 2 diabetes: Continue low-dose sliding scale, will increase regimen as her p.o. intake increases Diet: regular with glucerna and thrive supplements DVT ppx: SCDs with concern for possible GIB Code status: Full code Disposition: Medical floor, pending clinical course Subjective Date/time seen: 05/05/20 13:34 Examined bedside. She has no new complaints. Plan was to have PEG tube placed tomorrow for failure to thrive however she is reluctant and wants to think about it. Her appetite is increased and she had 4 slices of bread this morning. Stopping TPN noon today. surgery to add Metamucil. Dr. Marrero evaluated patient and will hold off on PEG tube as her p.o. intake is increased. patient denies fever, chills, nausea, and diarrhea. labs stable, vitals stable. Will start Ensure supplement. plan to switch to p.o. medications if she can tolerate meals. Review of Systems Review of Systems: All systems reviewed & are unremarkable except as noted in HPI and below Exam Narrative: Exam Narrative: - GENERAL: Pleasant elderly woman in no acute distress. - EYES: EOMI. Anicteric. - HENT: Moist mucous membranes. No scleral icterus. Thinning hair. - CHEST: chemoport, nontender - LUNGS: Clear to auscultation bilaterally, no wheezing, rhonchi, or rales. - CARDIOVASCULAR: Regular rate and rhythm. No murmur. No JVD. - ABDOMEN: Soft, non-tender and non-distended. No palpable masses. - EXTREMITIES: No edema. Peripheral pulses 2+. Non-tender. - NEUROLOGIC: No focal neurological deficits. CN II-XII grossly intact. - PSYCHIATRIC: Awake, Alert and oriented x 3. Appropriate mood and affect. - SKIN: No rashes or lesions. Warm. - LYMPH: No cervical lymphadenopathy. Objective Data Vital Signs Vital Signs: Vital Signs - 24
[2020-05-05 14:30] VITALS: BP 102/51; PULSE 81; RESP 16; TEMP 36.7; O2SAT 100
[2020-05-05 17:16] LABS: Glucose Point of Care 172 (65-105)
--- NOTE | 2020-05-05 17:24 | WPDONCPN ---
Progress Note: A/P - Additional Plan 1. 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 s/p laparoscopic left colectomy with anastomosis. Initially diagnosed in 09/2018 as stage IIIC disease, treated with Rt hemicolectomy and adjuvant FOLFOX. Currently on FOLFIRI + Avastin, s/p 4 cycles - on HOLD. 2. Ileus. Confirmed by recent CT, now resolving. She is passing gas and having loose BMs, Metamucil added. On regular diet and tolerating. General surgery and GI following - recs noted. 3. Nausea/vomiting/anorexia. Likely precipitated by chemotherapy and now with ileus. Significantly improved, clinically looks much better. Eating well. Continue Megace, antiemetics as needed. 4. Pancytopenia r/t chemotherapy. Leukopenia and thrombocytopenia resolved. Anemia improving after IV Venofer x2 and 1u PRBC, Hgb now 9.3 (up from 7.4). +guaiac, recs noted - EGD deferred for now. Will trend Hgb. - Time Spent With Patient Total time spent is greater than 50% in coordination of care (as documented) at patient's floor/unit and/or counseling patient: 15 - 25 minutes Subjective Interval history: 79 yo WF admitted on 04/21 after presenting with progressive anorexia and weakness and n/v/d a few days prior to admission. She received cycle 4 of FOLFIRI/Avastin on 04/14. Workup revealed ileus vs SBO on 04/28. I last saw her on 04/29. She continued to feel poorly - weak, anorexia, n/v. Given her FTT and electrolyte imbalances, DBF was placed but subsequently pulled by pt. CT scan on 05/03 showed persistent ileus but no obstructing mass. She initiated TPN and continued until noon today while contemplating PEG placement; however, EGD +/- PEG has been canceled for now given clinical improvement over past 24 hours without n/v. She is having unformed BMs and initiated Metamucil. She is able to get OOB well but with assist. She was given IV Venofer x2 with brief improvement in Hgb. Stool guaiac was POSITIVE yesterday. Her Hgb is now up to 9.3 after 1u PRBC yesterday for symptomatic anemia (Hgb amisha 7.4). Overall, she has significantly improved since I saw her last week. She feels she is ready to go home. She denies fevers, shortness of breath, CP, abdominal pain, or n/v. Review of Systems - Review of Systems All systems reviewed & are unremarkable except as noted in HPI and bel - Neurologic Reports system reviewed and no additional complaints, except as documented, Denies headache(s), Denies loss of vision, Denies memory loss, Denies numbness Exam - Constitutional no acute distress, cooperative - Routine HEENT Exam Head: Present: atraumatic, normocephalic. Absent: normal inspection - Routine Neck Exam Present: normal inspection. Absent: lymphadenopathy - Routine Chest/Breast/Axilla Exam Axillae: Absent: lymphadenopathy - Routine Respiratory Exam Present: CTAB - Routine Cardiovascular Exam Cardiovascular: Present: RRR. Absent: murmur - Routine Abdominal Exam Present: distended, hyperactive bowel sounds, soft. Absent: tenderness - Routine Extremities Exam Present: full ROM, pulses intact. Absent: pedal edema - Routine Skin Exam Present: dry, warm - Routine Neurological Exam Present: alert, oriented X3, moving all extremities, normal speech - Routine Psychiatric Exam Present: normal affect, normal thought process, cooperative PN: Objective Data - Labs CBC & Chem 7: 05/05/20 05:02 05/05/20 05:02 Labs: Laboratory Results - last 24 hr 05/04/20 05/04/20 05/04/20 13:50 17:26 21:21 WBC RBC Hgb Hct MCV MCH MCHC RDW Plt Count MPV Immature Gran % (Auto) Neut % (Auto) Lymph % (Auto) Gladwin % (Auto) Eos % (Auto) Baso % (Auto) Lymph # (Auto) Gladwin # (Auto) Eos # (Auto) Baso # (Auto) Abs Immat Gran (auto) Absolute Neuts (auto) Absolute Nucleated RBC Nucleated RBC % Platelet Estimate Tear Drop Cells Ovalocytes Helme
[2020-05-05 20:48] LABS: Glucose Point of Care 156 (65-105)
[2020-05-05 20:57] VITALS: PULSE 72
[2020-05-05] MEDS: METOPROLOL SUCCINATE EXT REL 100 MG TABCR PO (20:57)
[2020-05-05] MEDS: ASPIRIN 81 MG ENTERIC TABLET PO (20:58)
[2020-05-05 22:00] VITALS: BP 106/53; PULSE 79; RESP 18; TEMP 36.1; O2SAT 100
[2020-05-06] MEDS: LEVOTHYROXINE SODIUM 125 MCG TABLET PO (05:58)
[2020-05-06] MEDS: CENTRAL LINE FLUSH 10 ML IV PUSH ×3 (05:58→20:17)
[2020-05-06] MEDS: ONDANSETRON INJ 4 MG/2 ML VIAL IV PUSH ×3 (05:58→20:16)
[2020-05-06 06:00] VITALS: BP 119/54; PULSE 80; RESP 22; TEMP 36.1; O2SAT 100
[2020-05-06 07:28] LABS: Glucose Point of Care 107 (65-105)
--- NOTE | 2020-05-06 08:30 | PM.PNGS ---
Progress Note: A&P Assessment and Plan (1) Failure to thrive: Qualifiers: Failure to thrive age range: in adult Qualified Code(s): R62.7 - Adult failure to thrive Status: Acute Assessment and Plan: Since patient is feeling better and tolerating a diet today And she is stronger she may be able to be discharged later today if medicine agrees. At this point ileus seems to have resolved so I will sign off. Patient can see me office on a p.r.n. basis if needed. (2) Adynamic ileus: Onset Date: ~04/29/20 Code(s): K56.0 - Paralytic ileus Status: Acute Assessment and Plan: resolved, exam benign (3) Malignant neoplasm of colon: Code(s): C18.9 - Malignant neoplasm of colon, unspecified Status: Acute Assessment and Plan: management per oncology Additional Plan pre albumin yesterday AM = 12 --- so improved from late last week. --- Probable downs to encourage patient to get some Glucerna and continue supplements at home. Pt had pRBC transfusion on 05/04 for a Hb down to 7.4. Now hemoglobin up to 9.3 on 05/05. Will add Metamucil twice a day to try to help solidify stools but try to avoid chemically slowing down bowel with either Lomotil or Imodium. (These may have contributed to the ileus she experience). Medicine could her medsto PO and possible discharge later today. Subjective Subjective Date/Time Seen: 05/06/20 08:30 Patient is sitting up in bed when I entered the room. She is bright and alert. She answers all questions well. She states she feels pretty well on 8 a portion of her breakfast but certainly not all of it. She complained about food not being very good. She is willing to go home today if all think that she is okay. She has had 1 bowel movement today and several yesterday that were with more formed. She had no trouble taking Metamucil. Review of Systems Review of Systems: All systems reviewed & are unremarkable except as noted in HPI and below Constitutional: Constitutional: Reports as per HPI, Reports no additional constitutional complaints, Reports anorexia, Reports fatigue, Denies fever(s), Denies headache(s), Reports poor appetite and Reports weakness Eyes: Eyes: Denies loss of vision and Denies eye pain ENT: Reports Normal hearing present, Denies change in voice, Denies dizziness, Reports dry mouth, Denies headache(s) and Reports other (Mucous Membranes moist.) Cardiovascular: Cardiovascular: Reports no additional cardiovascular complaints, Denies chest pain and Denies dyspnea Respiratory: Respiratory: Reports no additional respiratory complaints, Denies pain on inspiration, Denies dyspnea and Denies wheezing Gastrointestinal: Gastrointestinal: Reports as per HPI, Reports no additional gastrointestinal complaints, Denies abdominal pain, Reports loose stools ( Still somewhat loose but more formed than previously.), Denies nausea and Denies vomiting Genitourinary: Genitourinary: Denies nocturia, Denies urinary incontinence and Denies urinary urgency Musculoskeletal: Musculoskeletal: Denies back pain, Denies arthralgias and Reports other (No calf swelling or edema) Integumentary/Breasts: Skin/Breast: Reports system reviewed and no additional complaints, except as docu Comments: denies discomfort at the in for abdominal fold. States she does have powder for the yeast infection in that area at home. Neurologic: Reports Normal hearing present, Denies dizziness, Denies headache(s), Denies loss of vision, Denies memory loss and Reports weakness Psychiatric: Psychiatric: Reports depression ( Appears to be mildly depressed.), Denies memory loss and Denies panic attacks Endocrine: Endocrine: Reports no additional endocrine complaints and Reports fatigue Hematologic/Lymphatic: Hematologic/Lymphatic: Reports no additional hematologic/lymphatic complaints Allergic/Immunologic: Allergic/Immunologic: Denies wheezing Exam Const: General:
[2020-05-06] MEDS: MEGESTROL ACETATE (*CHEMO) ORAL SUSP 40 MG/ML SYR 800 MG PO (08:55)
[2020-05-06] MEDS: POTASSIUM CHLORIDE 20 MEQ PACKET (FOR LIQUID) PO (08:56)
[2020-05-06] MEDS: LOSARTAN POTASSIUM 25 MG TABLET PO (08:56)
[2020-05-06] MEDS: PSYLLIUM SUGAR FREE POWDER PACKET 1 PACKET PO ×2 (08:56→20:16)
[2020-05-06] MEDS: FAMOTIDINE 20 MG/2 ML VIAL IV PUSH ×2 (08:56→20:16)
[2020-05-06] MEDS: TOLNAFTATE 1% POWDER 45 GM BTL 1 APPLIC TOPICAL ×2 (08:57→20:23)
[2020-05-06 09:02] VITALS: RESP 20; O2SAT 98
--- NOTE | 2020-05-06 09:20 | PM.IMPN ---
Progress Note: A&P Assessment and Plan (1) Failure to thrive: Qualifiers: Failure to thrive age range: in adult Qualified Code(s): R62.7 - Adult failure to thrive Status: Acute Assessment and Plan: - P.o. intake is improving, continue Glucerna and thrive ice cream, will keep count of calories daily - TPN step yesterday - continuine metamucil - continue Megace (2) Adynamic ileus: Onset Date: ~04/29/20 Code(s): K56.0 - Paralytic ileus Status: Acute Assessment and Plan: patient is tolerating PO intake, ileus appears to be improving (3) EDWARDO (acute kidney injury): Code(s): N17.9 - Acute kidney failure, unspecified Status: Acute Assessment and Plan: resolved, back to baseline function (4) Nausea vomiting and diarrhea: Code(s): R11.2 - Nausea with vomiting, unspecified; R19.7 - Diarrhea, unspecified Status: Acute Assessment and Plan: - resolved stable, will follow - p.r.n. 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: Code(s): C18.1 - Malignant neoplasm of appendix; C77.2 - Secondary and unspecified malignant neoplasm of intra-abdominal lymph nodes Status: Acute Assessment and Plan: - likely underlying etiology for failure to thrive - patient is considering whether not to continue chemotherapy, a conversation she will have to have with her family and her oncologist - heparin flush for her chemoport (8) Urinary tract infection: Code(s): N39.0 - Urinary tract infection, site not specified Status: Resolved Assessment and Plan: -status post 7 days antibiotics for pansensitive E coli Additional Plan #other chronic conditions - hypothyroidism: Continue levothyroxine - hypertension: Continue losartan, metoprolol - type 2 diabetes: Continue low-dose sliding scale, will increase regimen as her p.o. intake increases Diet: regular with glucerna and thrive supplements DVT ppx: SCDs Code status: Full code Disposition: medical floor, discharge soon 1-2 days home vs rehab Subjective Date/time seen: 05/06/20 09:20 Patient examined bedside. TPN stopped yesterday and it appears patient will not need PEG tube placement. We will track calories today. She drank her glucerna today and picked at her breakfast. She states that food was not tasty and too spicy but she is encouraged and will increase her PO intake. Goals will be to work with PT and OT for disposition either home or rehab. She will follow up with her oncologist outpatient. Patient denies fever, chills, nausea, vomiting, diarrhea. Review of Systems Review of Systems: All systems reviewed & are unremarkable except as noted in HPI and below Exam Narrative: Exam Narrative: - GENERAL: Pleasant elderly woman in no acute distress. - EYES: EOMI. Anicteric. - HENT: Moist mucous membranes. No scleral icterus. Thinning hair. - CHEST: chemoport, nontender - LUNGS: Clear to auscultation bilaterally, no wheezing, rhonchi, or rales. - CARDIOVASCULAR: Regular rate and rhythm. No murmur. No JVD. - ABDOMEN: Soft, non-tender and non-distended. No palpable masses. - EXTREMITIES: No edema. Peripheral pulses 2+. Non-tender. - NEUROLOGIC: No focal neurological deficits. CN II-XII grossly intact. - PSYCHIATRIC: Awake, Alert and oriented x 3. Appropriate mood and affect. - SKIN: No rashes or lesions. Warm. - LYMPH: No cervical lymphadenopathy. Objective Data Vital Signs Vital Signs: Vital Signs - 24 hr 05/05/20 09:38 05/05/20 14:30 05/05/20 20:57 Temperature 36.7 C Pulse Rate 81 72 Respiratory Rate
--- NOTE | 2020-05-06 09:32 | WPDGIPROGNO ---
Progress Note: A&P Additional Plan Patient alert and comfortable this morning. Tolerating diet with minimal difficulties. Vital physical exam reveals Vital Signs to be stable. She is alert and oriented x3 comfortable at rest. Tolerating diet with no pain. Lungs are clear. Heart without murmur. Abdomen bowel sounds present soft nontender. Somewhat obese. Impression 1. Nutritional support. Patient improving with oral intake presently. Peg tube will not be necessary. This been canceled. Anticipate discharge when others agree. 2. Appendiceal carcinoma. Status post resection. She appears to have metastases to the colon. Status post sigmoidectomy. Likely metastatic disease. Plan is for continued oncology follow-up. Nutritional support with Ensure and boost supplements. Subjective Date/time seen: 05/06/20 09:32 Objective Data Vital Signs Vital Signs: Vital Signs - 24 hr 05/05/20 09:38 05/05/20 14:30 05/05/20 20:57 Temperature 98.0 F Pulse Rate 81 72 Respiratory Rate 16 16 Blood Pressure 102/51 L Pulse Oximetry 99 100 05/05/20 22:00 05/06/20 06:00 Temperature 97 F L 97 F L Pulse Rate 79 80 Respiratory Rate 18 22 H Blood Pressure 106/53 L 119/54 L Pulse Oximetry 100 100 Intake/Output Intake/Output: Intake & Output 05/03/20 05/04/20 05/05/20 05/06/20 23:59 23:59 23:59 23:59 Intake Total 2350 2965 2370 670 Output Total 300 300 Balance 2050 2965 2370 370 Meds/Results Medications: Active Medications Generic Name Dose Route Start Last Admin Trade Name Freq PRN Reason Stop Dose Admin Aspirin 81 mg 04/22/20 21:00 05/05/20 20:58 Aspirin 81 Mg Enteric Tablet PO 81 mg HS LORIE Administration Calcium Carbonate 200 mg 04/28/20 15:30 04/28/20 17:38 Calcium Carbonate (Tums) 500 Mg (200 Mg Elemental) PO 200 mg Q6H PRN Administration Indigestion Dextrose 12.5 gm 04/21/20 23:17 Dextrose 50% 25 Gm/50 Ml Syringe IV PUSH PRN PRN Hypoglycemia Protocol Famotidine 20 mg 04/22/20 09:00 05/06/20 08:56 Famotidine 20 Mg/2 Ml Vial IV PUSH 20 mg Q12HR LORIE Administration Glucagon 1 mg 04/21/20 23:17 Glucagon For Inj 1 Mg Vial IM PRN PRN Hypoglycemia Protocol Heparin Sodium (Beef Lung) 50 units 04/26/20 09:00 05/06/20 09:02 Heparin Flush 50 Units/5 Ml Syringe IV PUSH 50 units QAM LORIE Administration Heparin Sodium (Beef Lung) 50 units 04/25/20 11:44 05/05/20 12:18 Heparin Flush 50 Units/5 Ml Syringe IV PUSH 50 units PRN PRN Administration after intermittent infusion Heparin Sodium (Beef Lung) 50 units 04/25/20 11:44 05/04/20 05:40 Heparin Flush 50 Units/5 Ml Syringe IV PUSH 50 units PRN PRN Administration after blood draws Heparin Sodium (Porcine) 500 units 04/25/20 11:44 05/02/20 13:21 Heparin Sod Flush 500 Units/5 Ml Syringe IV PUSH 500 units PRN PRN Administration see comments below Dextrose 1,000 mls @ 100 mls/hr 04/21/20 23:17 Dextrose 5% 1,000 Ml IVPB PRN PRN Hypoglycemia Protocol Dextrose 1,000 mls @ 50 mls/hr 04/30/20 20:47 Dextrose 10% IV CONT .Q20H PRN if PN is interrupted Insulin Human Regular 2 - 5 units 05/06/20 08:00 05/06/20 07:51 Insulin Human Regular (*Bkc) 100 Units/Ml SUB-Q Not Given [facility] LORIE Protocol Levothyroxine Sodium 125 mcg 04/23/20 06:30 05/06/20 05:58 Levothyroxine Sodium 125 Mcg Tablet PO 125 mcg DAILY@0630 LORIE Administration Losartan Potassium 25 mg 04/23/20 09:00 05/06/20 08:56 Losartan Potassium 25 Mg Tablet PO 25 mg DAILY LORIE Administration Magnesium Oxide 400 mg 04/25/20 13:25 04/28/20 07:56 Magnesium Oxide 400 Mg Tablet PO 400 mg QAM LORIE Administration Megestrol Acetate 800 mg 04/29/20 09:00 05/06/20 08:55 Megestrol Acetate (*Chemo) Oral Susp 40 Mg/Ml Syr PO 800 mg QAM LORIE Administration Metoprolol Succinate 100 mg 04/22/20
[2020-05-06 11:58] LABS: Glucose Point of Care 148 (65-105)
[2020-05-06 13:48] VITALS: BP 108/54; PULSE 83; RESP 16; TEMP 36.3; O2SAT 100
--- NOTE | 2020-05-06 15:05 | P.PNONC_ITS ---
Progress Note: A/P - Additional Plan Metastatic appendiceal adenocarcinoma. Will continue to hold chemotherapy until patient is much more stable. Chemotherapy-induced diarrhea. This has much improved. Patient is not eating better and tolerating food well. Nausea and vomiting. This has now resolved. Pancytopenia secondary to chemotherapy. Hemoglobin has improved further. Status post IV iron infusion. Patient can be discharged home today with follow- up with us as an outpatient next week. Patient already has an appointment. - Time Spent With Patient Total time spent is greater than 50% in coordination of care (as documented) at patient's floor/unit and/or counseling patient: 15 - 25 minutes Subjective Interval history: Metastatic appendiceal adenocarcinoma Pancytopenia Nausea vomiting Diarrhea secondary to chemotherapy Review of Systems - Review of Systems Today patient is looking much more energetic and awake. She is be eating better and tolerating food well. Denies any further nausea vomiting. Denies any abdominal pain. No more diarrhea. - Neurologic Reports system reviewed and no additional complaints, except as documented, Reports hearing normal, Reports abnormal speech, Reports confusion (sometimes gets confused), Reports focal weakness, Reports weakness, Denies headache(s), Denies loss of vision, Denies memory loss, Denies numbness Exam Vital signs: Waldo Perdomo. Assessment of coma and impaired consciousness. A practical scale. Lancet 1974; 2:81-4. Narrative: Lungs are clear to auscultation bilaterally Cardiovascular regular rate rhythm no murmurs Abdomen is nontender nondistended bowel sounds are positive Extremities no edema - Constitutional no acute distress, cooperative - Routine HEENT Exam Head: Present: atraumatic, normocephalic. Absent: normal inspection - Routine Neck Exam Present: normal inspection. Absent: lymphadenopathy - Routine Chest/Breast/Axilla Exam Axillae: Absent: lymphadenopathy - Routine Respiratory Exam Present: CTAB - Routine Cardiovascular Exam Cardiovascular: Present: RRR. Absent: murmur - Routine Abdominal Exam Present: distended, hyperactive bowel sounds, soft. Absent: tenderness - Routine Extremities Exam Present: full ROM, pulses intact. Absent: pedal edema - Routine Skin Exam Present: dry, warm - Routine Neurological Exam Present: alert, oriented X3, moving all extremities, normal speech - Routine Psychiatric Exam Present: normal affect, normal thought process, cooperative PN: Objective Data - Labs CBC & Chem 7: 05/05/20 05:02 05/05/20 05:02 Labs: Laboratory Results - last 24 hr 05/05/20 05/05/20 05/06/20 17:13 20:40 07:12 POC Capillary Glucose 172 H 156 H 107 05/06/20 11:55 POC Capillary Glucose 148 H
[2020-05-06 16:46] LABS: Glucose Point of Care 154 (65-105)
[2020-05-06 20:00] VITALS: PULSE 78; RESP 16; O2SAT 100
[2020-05-06 20:16] VITALS: PULSE 78
[2020-05-06] MEDS: ASPIRIN 81 MG ENTERIC TABLET PO (20:16)
[2020-05-06] MEDS: METOPROLOL SUCCINATE EXT REL 100 MG TABCR PO (20:16)
[2020-05-06 20:53] LABS: Glucose Point of Care 188 (65-105)
[2020-05-06 22:00] VITALS: BP 120/64; PULSE 92; RESP 18; TEMP 36.5; O2SAT 100
[2020-05-07] MEDS: ONDANSETRON INJ 4 MG/2 ML VIAL IV PUSH (05:47)
[2020-05-07] MEDS: LEVOTHYROXINE SODIUM 125 MCG TABLET PO (05:47)
[2020-05-07] MEDS: CENTRAL LINE FLUSH 10 ML IV PUSH (05:47)
[2020-05-07 06:00] VITALS: BP 100/52; PULSE 79; RESP 14; TEMP 36.6; O2SAT 100
[2020-05-07 06:38] LABS: Hematocrit 28.5 % (37.0-47.0); Hemoglobin 9.1 g/dL (12.0-15.0); Mean Corpuscular HGB Conc 31.9 g/dl (32-36); Mean Corpuscular Hemoglobin 26.8 pg (26-34); Mean Corpuscular Volume 83.8 fl (80-100); Mean Platelet Volume 11.4 fl (7.4-10.4); Platelet Count Result 270 k/mm3 (150-375); Red Cell Distribution Width 22.4 % (11.5-14.5); White Blood Count 4.8 K/mm3 (4.5-10.0)
[2020-05-07 06:50] LABS: Alanine Aminotransferase 6 U/L (4-35); Albumin Level 2.2 g/dL (3.5-5.1); Alkaline Phosphatase 88 U/L (38-126); Anion Gap 4 mmol/L (8-16); Aspartate Amino Transferase 14 U/L (14-36); Bilirubin,Total 0.1 mg/dL (0.2-1.3); Blood Urea Nitrogen 11 mg/dL (7-17); Carbon Dioxide 24 mmol/L (22-30); Chloride 109 mmol/L (98-107); Estimated CRCL calculation 52 ml/min; Estimated Glomerular Filt Rate 60; Glucose 110 mg/dL (65-105); Potassium 3.8 mmol/L (3.4-5.0); Sodium 137 mmol/L (137-145)
[2020-05-07 08:00] LABS: Glucose Point of Care 120 (65-105)
--- NOTE | 2020-05-07 09:02 | WPDGIPROGNO ---
Progress Note: A&P Additional Plan Patient more alert and comfortable this morning. Reports tolerating diet with increasing appetite. Physical exam reveals abdomen to be soft nontender somewhat obese. No localized masses. Impression 1. Appendiceal cancer with apparent metastases. Status post cecal resection as well as sigmoid resection. Plan is to encourage oral intake. No need for PEG tube at this time period dietary supplements are encourage. Hopefully discharge soon. Subjective Date/time seen: 05/07/20 09:02 Objective Data Vital Signs Vital Signs: Vital Signs - 24 hr 05/06/20 13:48 05/06/20 20:00 05/06/20 20:16 Temperature 97.4 F L Pulse Rate 83 78 78 Respiratory Rate 16 16 Blood Pressure 108/54 L Pulse Oximetry 100 100 05/06/20 22:00 05/07/20 06:00 Temperature 97.7 F 97.9 F Pulse Rate 92 79 Respiratory Rate 18 14 Blood Pressure 120/64 100/52 L Pulse Oximetry 100 100 Intake/Output Intake/Output: Intake & Output 05/04/20 05/05/20 05/06/20 05/07/20 23:59 23:59 23:59 23:59 Intake Total 2965 2370 1570 120 Output Total 800 Balance 2965 2370 770 120 Meds/Results Medications: Active Medications Generic Name Dose Route Start Last Admin Trade Name Freq PRN Reason Stop Dose Admin Aspirin 81 mg 04/22/20 21:00 05/06/20 20:16 Aspirin 81 Mg Enteric Tablet PO 81 mg HS LORIE Administration Calcium Carbonate 200 mg 04/28/20 15:30 04/28/20 17:38 Calcium Carbonate (Tums) 500 Mg (200 Mg Elemental) PO 200 mg Q6H PRN Administration Indigestion Dextrose 12.5 gm 04/21/20 23:17 Dextrose 50% 25 Gm/50 Ml Syringe IV PUSH PRN PRN Hypoglycemia Protocol Famotidine 20 mg 04/22/20 09:00 05/06/20 20:16 Famotidine 20 Mg/2 Ml Vial IV PUSH 20 mg Q12HR LORIE Administration Glucagon 1 mg 04/21/20 23:17 Glucagon For Inj 1 Mg Vial IM PRN PRN Hypoglycemia Protocol Heparin Sodium (Beef Lung) 50 units 04/26/20 09:00 05/06/20 09:02 Heparin Flush 50 Units/5 Ml Syringe IV PUSH 50 units QAM LORIE Administration Heparin Sodium (Beef Lung) 50 units 04/25/20 11:44 05/05/20 12:18 Heparin Flush 50 Units/5 Ml Syringe IV PUSH 50 units PRN PRN Administration after intermittent infusion Heparin Sodium (Beef Lung) 50 units 04/25/20 11:44 05/04/20 05:40 Heparin Flush 50 Units/5 Ml Syringe IV PUSH 50 units PRN PRN Administration after blood draws Heparin Sodium (Porcine) 500 units 04/25/20 11:44 05/02/20 13:21 Heparin Sod Flush 500 Units/5 Ml Syringe IV PUSH 500 units PRN PRN Administration see comments below Dextrose 1,000 mls @ 100 mls/hr 04/21/20 23:17 Dextrose 5% 1,000 Ml IVPB PRN PRN Hypoglycemia Protocol Dextrose 1,000 mls @ 50 mls/hr 04/30/20 20:47 Dextrose 10% IV CONT .Q20H PRN if PN is interrupted Insulin Human Regular 2 - 5 units 05/06/20 08:00 05/07/20 08:15 Insulin Human Regular (*Bkc) 100 Units/Ml SUB-Q Not Given [facility] LORIE Protocol Levothyroxine Sodium 125 mcg 04/23/20 06:30 05/07/20 05:47 Levothyroxine Sodium 125 Mcg Tablet PO 125 mcg DAILY@0630 LORIE Administration Losartan Potassium 25 mg 04/23/20 09:00 05/06/20 08:56 Losartan Potassium 25 Mg Tablet PO 25 mg DAILY LORIE Administration Magnesium Oxide 400 mg 04/25/20 13:25 04/28/20 07:56 Magnesium Oxide 400 Mg Tablet PO 400 mg QAM LORIE Administration Megestrol Acetate 800 mg 04/29/20 09:00 05/06/20 08:55 Megestrol Acetate (*Chemo) Oral Susp 40 Mg/Ml Syr PO 800 mg QAM LORIE Administration Metoprolol Succinate 100 mg 04/22/20 21:00 05/06/20 20:16 Metoprolol Succinate Ext Rel 100 Mg Tabcr PO 100 mg HS LORIE Administration Ondansetron HCl 4 mg 04/21/20 22:37 04/27/20 16:54 Ondansetron Inj 4 Mg/2 Ml Vial IV PUSH 4 mg Q4H PRN Administration Nausea Ondansetron HCl 4 mg 04/27/20 21:00 05/07/20 05:47 Ondanset
[2020-05-07] MEDS: LOSARTAN POTASSIUM 25 MG TABLET PO (09:09)
[2020-05-07] MEDS: FAMOTIDINE 20 MG/2 ML VIAL IV PUSH (09:09)
[2020-05-07] MEDS: PSYLLIUM SUGAR FREE POWDER PACKET 1 PACKET PO (09:10)
[2020-05-07] MEDS: TOLNAFTATE 1% POWDER 45 GM BTL 1 APPLIC TOPICAL (09:10)
[2020-05-07] MEDS: MEGESTROL ACETATE (*CHEMO) ORAL SUSP 40 MG/ML SYR 800 MG PO (09:10)
[2020-05-07] MEDS: POTASSIUM CHLORIDE 20 MEQ PACKET (FOR LIQUID) PO (09:10)
[2020-05-07 11:32] LABS: Glucose Point of Care 145 (65-105)
--- NOTE | 2020-05-07 12:23 | PM.DS ---
DS: Admitting Diagnosis Admitting Diagnosis Admitting Diagnosis: Dehydration, Intractable nausea and vomiting DS: Discharge Diagnosis Discharge Diagnosis (1) Failure to thrive: Qualifiers: Failure to thrive age range: in adult Qualified Code(s): R62.7 - Adult failure to thrive Status: Acute Assessment and Plan: - P.o. intake is improving, continue Glucerna and thrive ice cream - temporarily on TPN, no need for PEG tube - continuine metamucil - continue Megace if able to get prior authorization from PCP or oncology (2) Adynamic ileus: Onset Date: ~04/29/20 Code(s): K56.0 - Paralytic ileus Status: Acute Assessment and Plan: patient is tolerating PO intake (3) EDWARDO (acute kidney injury): Code(s): N17.9 - Acute kidney failure, unspecified Status: Acute Assessment and Plan: resolved, back to baseline function (4) Nausea vomiting and diarrhea: Code(s): R11.2 - Nausea with vomiting, unspecified; R19.7 - Diarrhea, unspecified Status: Acute Assessment and Plan: - resolved stable, will follow - p.r.n. 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 She was seen by general surgery team, rest room maid, oncologist. She is temporarily on TPN and her diet had been slowly advanced. There was consideration for PEG tube placement however with clinical improvement of increased p.o. intake decision was to hold off on PEG tube. She saw a dietitian who discussed dietary supplements glucerna and thrive. EDWARDO was resolved with IVF. Patient will have to discuss with her oncologist about moving forward with chemotherapy as it is causing significant side effects including nausea/ vomiting /diarrhea /pancytopenia. Patient given Rx for Metamucil and probiotic. Patient will need prescription for Megace prior authorization by oncologist since it is not covered by her insurance. Patient to follow up with PCP and oncologist. Patient refuses rehab or home health. Patient has been able to ambulate to the bathroom by herself, she is steady. Patient's vital stable, labs stable, patient is stable for discharge. Status at Discharge Functional status at discharge: uses cane/walker Overall status at discharge: patient is back to baseline Time Spent with Patient Time attestation: Total time spent providing and/or coordinating discharge services: 35 Time spent: Greater than 30 minutes Exam Narrative: Exam Narrative: - GENERAL: Pleasant elderly woman in no acute distress. - EYES: EOMI. Anicteric. - HENT: Moist mucous membranes. No scleral icterus. Thinning hair.
[2020-05-07] MEDS: HEPARIN SOD FLUSH 500 UNITS/5 ML SYRINGE IV PUSH (12:41)
== END 2020-05-07 12:52 | disposition home or self-care (01) | DRG 640 ==
LOC: ANHED 22:40 → ANH2MED 23:20
PROVIDERS: Emergency Medicine; Internal Medicine; Internal Medicine Hematology & Oncology; Physician Assistant; Student in an Organized Health Care Education/Training Program; Surgery; Admitting Provider Family Medicine; Emergency Provider Emergency Medicine; PCP Family Medicine; Visit Provider Physician Assistant
DX: E86.0 Dehydration (principal); C18.1 Malignant neoplasm of appendix; D61.810 Antineoplastic chemotherapy induced pancytopenia; C77.2 Secondary and unspecified malignant neoplasm of intra-abdominal lymph nodes; C78.6 Secondary malignant neoplasm of retroperitoneum and peritoneum; K52.1 Toxic gastroenteritis and colitis; K56.0 Paralytic ileus; N17.9 Acute kidney failure, unspecified; N39.0 Urinary tract infection, site not specified; B96.20 Unspecified Escherichia coli [E. coli] as the cause of diseases classified elsewhere; R31.9 Hematuria, unspecified; R62.7 Adult failure to thrive; T45.1X5A Adverse effect of antineoplastic and immunosuppressive drugs, initial encounter; R53.1 Weakness; E83.42 Hypomagnesemia; R44.1 Visual hallucinations; R79.89 Other specified abnormal findings of blood chemistry; E11.22 Type 2 diabetes mellitus with diabetic chronic kidney disease; I12.9 Hypertensive chronic kidney disease with stage 1 through stage 4 chronic kidney disease, or unspecified chronic kidney disease; N18.30 Chronic kidney disease, stage 3 unspecified; E78.5 Hyperlipidemia, unspecified; E03.9 Hypothyroidism, unspecified; Z23 Encounter for immunization; Z79.82 Long term (current) use of aspirin; Z79.84 Long term (current) use of oral hypoglycemic drugs; Z85.3 Personal history of malignant neoplasm of breast; Z85.72 Personal history of non-Hodgkin lymphomas; Z90.49 Acquired absence of other specified parts of digestive tract; Z92.3 Personal history of irradiation; Z95.828 Presence of other vascular implants and grafts
CPT/HCPCS: 36415; 36430; 36598; 43752; 51701; 71046; 74018; 74019; 74177; 74270; 76775; 80048; 80053; 80076; 80307; 81001; 82274; 82550; 82607; 82728; 82746; 83540; 83550; 83605; 83690; 83735; 84100; 84132; 84134; 84443; 84466; 84478; 85025; 85027; 85055; 85610; 85730; 86850; 86900; 86901; 86923; 87040; 87077; 87086; 87088; 87186; 96361; 96374; 96375; 96376; 97110; 97116; 97161; 97165; 97530; 99285; A9270; C9113; G0378; J0131; J0696; J1642; J1756; J1815; J2405; J3475; J3480; J7030; J7050; J7120; P9016; Q9967

== ENCOUNTER 2020-08-21 08:34 | Outpatient (CLI) | payer MEDICARE, SELFPAY ==
--- NOTE | ~2020-08-21 | CT_ITS ---
EXAMINATION: CT chest abdomen pelvis w con EXAM DATE: 08/21/2020 09:23 INDICATION: Malignant neoplasm of the terminal ileum. TECHNIQUE: Spiral CT of the chest, abdomen and pelvis was performed following intravenous injection o f 100 mL Omnipaque 350. Axial, coronal and sagittal images were reviewed. Coronal maximum intensity pixel images of chest reviewed. The dose-length product (DLP) for this examination was 1354.13 mGy- cm. The exposure was tailored according to patient size (auto mA exposure control), and iterative re construction (ASIR) was used as additional dose reduction technique. Comparison is made to prior exam ination from 05/03/2020. FINDINGS: CHEST: There is a right-sided portacatheter, tip at the cavoatrial junction. There is 3 mm right uppe r lobe nodule on image 28 most likely granuloma. There are no pleural or pericardial effusions. Tr acheobronchial tree is patent. There is no mediastinal, hilar or axillary lymphadenopathy. There is no pneumothorax. Heart normal in size. There is mild coronary arterial calcification, arterial sclerosis. ABDOMEN PELVIS: The liver, spleen, adrenal glands and pancreas are unremarkable. There are cholecyst ectomy clips. Portal and splenic veins are patent. Kidneys enhance symmetrically. There is no hydr onephrosis. The uterus is not identified and has likely been surgically resected. Bladder is undis tended, mildly thick appearing wall with mild adjacent inflammation. There is also transmural enhance ment of the bladder wall at the dome. Could be cystitis or malignancy (see sagittal sequence). The re is moderate scattered arteriosclerotic disease. At the level of the umbilicus and just above there are some small regions of nodularity to the anteri or abdominal wall measuring up to 1.1 cm (see axial images 171, 174). Also, small ill-defined region of soft tissue density in right lower quadrant adjacent to small bowel measuring 1.3 cm (axial image 161). Smaller regions of nodularity along the left colic gutter. There is a possible early omental im plants. Scar tissue would be another consideration. These are not specifically seen on prior studies. There is a mesenteric nodule of soft tissue measuring 1.3 cm, axial image 147, most likely mildly enl arged lymph node. Cecal, terminal ileal resection. Anastomosis is unremarkable. There is a rectosigmo id anastomosis site. The stomach and small bowel are unremarkable. There is expected amount of colon ic stool. No free intraperitoneal gas. There are no osteoblastic or osteolytic lesions identified . IMPRESSION: 1. Enhancing bladder wall at the dome with diffuse wall thickening. Cystitis or malignancy. Consider consult for cystoscopy. 2. Development of several small regions of peritoneal nodularity, suspicious for carcinomatosis. 3. Development of single mildly enlarged mesenteric lymph node, suspicious for metastatic disease. 4. Tiny right upper lobe nodule likely granuloma. Reviewed, dictated and finalized at location B. [facility] IMPRESSION: 1. Enhancing bladder wall at the dome with diffuse wall thickening. Cystitis o r malignancy. Consider consult for cystoscopy. 2. Development of several small regions of peritoneal nodularity, suspicious f or carcinomatosis. 3. Development of single mildly enlarged mesenteric lymph node, suspicious for metastatic disease. 4. Tiny right upper lobe nodule likely granuloma.
== END 2020-08-21 08:35 | disposition home or self-care (01) ==
PROVIDERS: PCP Family Medicine; Visit Provider Internal Medicine Hematology & Oncology
DX: C17.2 Malignant neoplasm of ileum (principal)
CPT/HCPCS: 71260; 74177; Q9967

== ENCOUNTER → 2020-10-05 03:05 | Outpatient (CLI) | payer MEDICARE, SELFPAY ==
[2020-10-05 19:42] LABS: SARS-CoV-2 RNA PCR Negative
== END ==
PROVIDERS: PCP Family Medicine; Visit Provider Urology
DX: Z01.812 Encounter for preprocedural laboratory examination (principal); Z20.822 Contact with and (suspected) exposure to COVID-19
CPT/HCPCS: C9803; U0003; U0005

== ENCOUNTER 2020-10-08 00:39 | Day surgery (SDC) | payer MEDICARE, SELFPAY ==
--- NOTE | 2020-09-28 08:23 | PM.HPGS ---
History of Present Illness History of Present Illness Consent: Risks, benefits, and alternatives have been discussed and questions answered. Patient agrees to proceed with procedure. Chief complaint: CA of the appendix, Bladder wall Thickening Narrative: Lanette Alberts is a 80 year old female with a known history of lymphoma and appendix cancer. She was referred by her medical oncologist possible thickening of her bladder wall and mass in the dome. Initial cystoscopy in August 2019 was unremarkable. Follow-up imaging in September 13 revealed persistence of this thickened area and cystoscopy shows a persistent area of ulceration in the dome. Patient has little symptoms, denying any dysuria or urgency frequency or hematuria. Review of Systems Cardiovascular: Cardiovascular: Denies chest pain, Denies lightheadedness, Denies palpitations and Denies dyspnea Respiratory: Respiratory: Denies dyspnea Gastrointestinal: Gastrointestinal: Denies diarrhea, Denies nausea and Denies vomiting Genitourinary: Genitourinary: Denies hematuria and Denies dysuria Endocrine: Endocrine: Denies palpitations PMFSH Past Medical History Medical History Anxiety Bladder mass Breast cancer lumpectomy and chemotherapy and radiation 1998 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 Cancer of sigmoid colon (~11/2019) Chronic kidney disease, stage III (moderate) (Unknown) Diabetes (Unknown) Diverticulosis of large intestine without hemorrhage (Unknown) History of chemotherapy History of colon cancer History of lymphoma History of radiation therapy HLD (hyperlipidemia) (Unknown) Hx of abnormal cervical Pap smear Hx of malignant neoplasm of female breast Hypertension Hypothyroidism (Unknown) Lymphoma 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) received chemotherapy Patient on antineoplastic chemotherapy regimen Surgical History Surgical History History of cholecystectomy History of colectomy hand assited laparoscopic left colectomy with anastamosis 01/14/20 History of left cataract surgery History of lumpectomy left breast History of right cataract surgery History of right hemicolectomy laparoscopic right hemicolectomy with anastomosis ileum to transverse colon - 09/24/2018 hand assisted laparoscopic left colectomy with anastomosis January 13 2020 History of tonsillectomy History of total abdominal hysterectomy and bilateral salpingo-oophorectomy Status post hysterectomy with oophorectomy Family History Family History Mother Patient's mother is , Onset Age: 39 Father Patient's father is , Onset Age: 40 Sibling Family history of cardiovascular disease Family history of malignant neoplasm of breast Family history of heart disease in male family member before age 55 Other Family history of malignant neoplasm Family history of malignant neoplasm of breast in first degree relative Social History Social History Social History: the patient lives with her Trever in [facility]. 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 She is a lifelong nonsmoker. Does not use alcohol or illicit drugs. Her Trever is a durable power divorce attorney for healthcare and she desires to be a full code. She had 1 son from leukemia in 1998. She gave to 4 children. Smoking status: Never smoker Second hand tobacco smoke exposure: Yes () Alcohol intake: never Substance use: never Substance use type: does not use Gender identity (if verbalized by the patient): Female Spiritual care concerns: No Meds Home Medications and Allergies Home Medications Medication Instructions Recorded Confirmed Type aspirin [Aspir-81] 81 mg PO HS 04/10/19 09/15/20 Hist
[2020-09-30 14:43] VITALS: BMI 40.2
--- NOTE | 2020-10-08 06:53 | WPDHPUPDATE1 ---
History and Physical Update Update Date/Time: 10/08/20 06:53 History and Physical has been reviewed, including an updated exam of the patient. There are NO changes in the patient's condition. Risks, benefits, and alternatives have been discussed and questions answered. Patient agrees to proceed with procedure.
[2020-10-08 09:25] VITALS: BP 140/54; PULSE 74; RESP 18; TEMP 36.4; O2SAT 98
[2020-10-08 09:31] LABS: Glucose Point of Care 143 (65-105)
--- NOTE | 2020-10-08 10:31 | WPDANESEPPF ---
Anes - Initial Pre Proc Eval Procedure: Operation Date: 10/08/20 10:30 Proposed Procedures p Cystoscopy Bladder Biopsy - Cody Bojorquez MD Date/Time: 10/08/20 10:31 Surgeon: Cody Bojorquez MD Pre Op Diagnosis: CA of the appendix, Bladder wall Thickening Patient Data Age: 80 Gender: F Height: 5 ft 1 in Weight: 94.9 kg Last Vital Signs Temp 36.4 C L 10/08/20 09:25 Pulse 74 10/08/20 09:25 Resp 18 10/08/20 09:25 BP 140/54 L 10/08/20 09:25 Pulse Ox 98 10/08/20 09:25 Allergies Allergy/AdvReac Type Severity Reaction Status Date / Time metformin AdvReac Mild Diarrhea Verified 10/08/20 08:46 Home Medications Medication Instructions Recorded Confirmed Type aspirin [Aspir-81] 81 mg PO HS 04/10/19 10/08/20 History losartan 25 mg tablet 25 mg PO DAILY #90 tablet 04/13/20 10/08/20 Rx sitagliptin 100 mg tablet 100 mg PO DAILY #30 tablet 06/08/20 10/08/20 Rx ezetimibe 10 mg-simvastatin 40 mg 1 tablet PO DAILY #90 tablet 06/12/20 10/08/20 Rx tablet metoprolol succinate 100 mg 100 mg PO HS #90 tablet 06/12/20 10/08/20 Rx tablet,extended release 24 hr blood sugar diagnostic #100 ea 06/15/20 09/15/20 Rx lancets 33 gauge #100 ea 06/15/20 09/15/20 Rx acyclovir 400 mg tablet 400 mg PO BID #180 tablet 07/30/20 10/08/20 Rx citalopram 20 mg tablet 20 mg PO DAILY #90 tablet 08/07/20 10/08/20 Rx levothyroxine 125 mcg tablet 125 mcg PO DAILY #30 tablet 08/07/20 10/08/20 Rx cyanocobalamin (vitamin B-12) 1,000 mcg PO DAILY 09/30/20 10/08/20 History nystatin 1 applic TOPICAL PRN PRN 09/30/20 09/30/20 History Laboratory Tests 10/08/20 09:28 POC Capillary Glucose 143 mg/dl H mg/dl (65-105) Patient hx anesthesia problems: none Family hx anesthesia problems: none PMFSH Past Medical History Medical History Anxiety Bladder mass Breast cancer lumpectomy and chemotherapy and radiation 1999 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 Cancer of sigmoid colon (~11/2019) Chronic kidney disease, stage III (moderate) (Unknown) Diabetes (Unknown) Diverticulosis of large intestine without hemorrhage (Unknown) History of chemotherapy History of colon cancer History of lymphoma History of radiation therapy HLD (hyperlipidemia) (Unknown) Hx of abnormal cervical Pap smear Hx of malignant neoplasm of female breast Hypertension Hypothyroidism (Unknown) Lymphoma 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) received chemotherapy Patient on antineoplastic chemotherapy regimen Surgical History Surgical History History of cholecystectomy History of colectomy hand assited laparoscopic left colectomy with anastamosis 01/14/20 History of left cataract surgery History of lumpectomy left breast History of right cataract surgery History of right hemicolectomy laparoscopic right hemicolectomy with anastomosis ileum to transverse colon - 09/24/2018 hand assisted laparoscopic left colectomy with anastomosis January 13 2020 History of tonsillectomy History of total abdominal hysterectomy and bilateral salpingo-oophorectomy Status post hysterectomy with oophorectomy Family History Family History Mother Patient's mother is , Onset Age: 39 Father Patient's father is , Onset Age: 40 Sibling Family history of cardiovascular disease Family history of malignant neoplasm of breast Family history of heart disease in male family member before age 55 Other Family history of malignant neoplasm Family history of malignant neoplasm of breast in first degree relative Social History Social History Social History: the patient lives with her Trever in [facility]. 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 She is a lifelong nonsmoker. Does not use al
[2020-10-08] MEDS: LACTATED RINGERS 1,000 ML 30 ML IV CONT (11:16)
[2020-10-08] MEDS: ceFAZolin 2 GM/D5W 50 ML 2 GM/50 ML BAG IVPB (12:35)
[2020-10-08 13:08] VITALS: BP 116/52; PULSE 75; RESP 14; O2SAT 95
[2020-10-08 13:19] LABS: Glucose Point of Care 119 (65-105)
--- NOTE | 2020-10-08 13:21 | PM.PROC ---
Procedure Note - Detailed Date of procedure: 10/08/20 Pre-op diagnosis: CA of the appendix, Bladder wall Thickening Post-op diagnosis: same Procedure performed: Cystoscopy, bladder biopsy Description of procedure: Patient is brought to the operative suite where she has prepped draped in routine sterile fashion while in a dorsal lithotomy position. 2% xylocaine jelly was introduced intraurethrally and systemic sedation is administered per the anesthesia department. Cystoscopy is undertaken with a 21 F rigid cystoscope. The bladder neck and urethra endoscopically normal. Bladder mucosa is normal with the exception of an area of about 3-4 cm in diameter at the dome that is partially ulcerated centrally with some mildly heaped mucosal tissue peripherally and circumferentially. I opted to use a 24 F resectoscope to obtain biopsies from this heaped tissue. If this lesion were to be neoplastic it is in a position that would likely be amenable to a partial cystectomy. Anesthesia: MAC Surgeon: Cody Bojorquez MD Estimated blood loss (mL): 5 Drains: No Packing: No Pathology: yes Complications: No immediate complications Condition: stable Disposition: PACU
[2020-10-08 13:30] VITALS: BP 139/59; PULSE 69; RESP 14; O2SAT 96
[2020-10-08 13:49] VITALS: BP 141/59; PULSE 66; RESP 14
== END 2020-10-08 13:58 | disposition home or self-care (01) ==
PROVIDERS: PCP Family Medicine; Visit Provider Urology
PROC: 0TBB8ZX Excision of Bladder, Via Natural or Artificial Opening Endoscopic, Diagnostic (ICD-10-PCS; CPT 52204; principal; 2020-10-08 10:30)
DX: C79.11 Secondary malignant neoplasm of bladder (principal); I12.9 Hypertensive chronic kidney disease with stage 1 through stage 4 chronic kidney disease, or unspecified chronic kidney disease; E11.22 Type 2 diabetes mellitus with diabetic chronic kidney disease; N18.30 Chronic kidney disease, stage 3 unspecified; F41.9 Anxiety disorder, unspecified; E78.5 Hyperlipidemia, unspecified; E03.9 Hypothyroidism, unspecified; Z85.3 Personal history of malignant neoplasm of breast; Z85.038 Personal history of other malignant neoplasm of large intestine; Z85.72 Personal history of non-Hodgkin lymphomas; Z92.21 Personal history of antineoplastic chemotherapy; Z92.3 Personal history of irradiation; Z85.09 Personal history of malignant neoplasm of other digestive organs; Z90.49 Acquired absence of other specified parts of digestive tract; Z98.0 Intestinal bypass and anastomosis status; Z79.82 Long term (current) use of aspirin; Z79.84 Long term (current) use of oral hypoglycemic drugs
CPT/HCPCS: 52204; 82948; 88305; 88342; A9270; C9803; J0690; J2704; J3010; J7120; U0003; U0005

== ENCOUNTER 2021-02-19 11:53 | Inpatient (IN) | payer MEDICARE, SELFPAY ==
--- NOTE | ~2021-02-19 | CT_ITS ---
EXAMINATION: CT abdomen pelvis w con DATE: 02/19/2021 13:47 INDICATION: Abdominal pain. Nausea. TECHNIQUE: Computed tomography (CT) of the abdomen and pelvis was performed with 100 mL Omnipaque 350 intravenous contrast. Automated exposure control and iterative reconstruction technique were employe d. The dose-length product was 1372.54 mGy-cm. COMPARISON: CT abdomen and pelvis 08/21/2020 FINDINGS: The visualized portions of the lung bases demonstrate mild atelectasis. No pleural effusion . Calcified left lung nodules and calcified left hilar lymph nodes are consistent with old granulomat ous disease. No pleural effusion. The heart size is normal. There are coronary artery calcifications. No pericardial effusion. There is subcarinal and bilateral hilar lymphadenopathy. For example, a sub carinal node measures 2.5 x 1.8 cm. The liver demonstrates periportal edema. There are changes of cho lecystectomy. The spleen, pancreas, adrenal glands, and right kidney kidneys are normal. There are mu ltiple peritoneal implants. There are multiple dilated loops of small bowel with transition point in the lower abdomen at the site of a 4.1 x 2.1 cm peritoneal implant in the distal ileum. There is a sm all volume of ascites. There is mildly enlarged right obturator lymph node. There is severe thoracic and lumbar spondylosis. IMPRESSION: 1. Small bowel obstruction secondary to peritoneal carcinomatosis. 2. Worsened chest and pelvic lymphadenopathy, consistent with metastatic disease. 3. Small volume of ascites. Reviewed, dictated and finalized at location A. IMPRESSION: 1. Small bowel obstruction secondary to peritoneal carcinomatosis. 2. Worsened chest and pelvic lymphadenopathy, consistent with metastatic diseas e. 3. Small volume of ascites.
--- NOTE | ~2021-02-19 | XR_ITS ---
XR abdomen NG/feed tube insert DATE: 02/19/2021 17:02 INDICATION: NG tube placement TECHNIQUE: Portable AP view on 02/19/2021 at 1656 hours COMPARISON: None FINDINGS: The NG tube tip is in the gastric fundus, the proximal port 3.5 cm distal to the diaphragma tic hiatus. Surgical clips, right upper quadrant, consistent with cholecystectomy. Bilateral renal excretion of contrast material. IMPRESSION: NG tube in gastric fundus Reviewed, dictated and finalized at [facility]. Reviewed, dictated and finalized at location A. IMPRESSION: NG tube in gastric fundus
--- NOTE | ~2021-02-19 | XR_ITS ---
EXAMINATION: XR abdomen obstructive series DATE: 02/21/2021 08:42 INDICATION: Small bowel obstruction. Nasogastric tube. TECHNIQUE: Frontal supine and upright views of the abdomen were obtained. COMPARISON: CT dated 02/19/2021 FINDINGS: Nasogastric tube tip in proximal side port in the body of the stomach. Cholecystectomy clips in right upper quadrant. Right internal jugular central venous port catheter with distal tip at the midsuperi or vena cava. There are few gas-filled but not frankly dilated loops of small bowel in the left abdomen and a singl e mildly dilated loop in the right lower quadrant. Additional small amount of gas scattered along the transverse colon. No free intraperitoneal gas. Opacities at the lateral left lung base corresponding to a prominent pericardial fat pad and mild darrius gular atelectasis. Increased prominence of the right hilum and AP window corresponding to a likely me tastatic hilar and mediastinal lymphadenopathy on prior CT. IMPRESSION: 1. Single residual mildly dilated loop of small bowel in the right lower quadrant suggesting improvi ng small bowel obstruction. Reviewed, dictated and finalized at location A. IMPRESSION: 1. Single residual mildly dilated loop of small bowel in the right lower quadr ant suggesting improving small bowel obstruction.
[2021-02-19 11:55] VITALS: BP 152/65; PULSE 77; RESP 20; TEMP 36.4; O2SAT 97
--- NOTE | 2021-02-19 12:08 | PC.NURSE ---
Patient reports that she is unable to give urine sample at this time, patient declines straight cath.
--- NOTE | 2021-02-19 12:12 | ED.ABDPAIN ---
HPI - Abdominal Pain General Chief Complaint: Abdominal Pain Stated Complaint: Abd Pain Time Seen by Provider: 02/19/21 12:10 Source: patient Mode of arrival: ambulatory Limitations: no limitations History of Present Illness HPI narrative: Patient is an 80-year-old female complaining of lower abdominal pain, 6 out of 10, dull, aching, nonradiating accompanied by nausea that started last night. Patient denies any chest pain, shortness of breath, vomiting, diarrhea, fever, chills or urinary symptoms. Related Data Home Medications Medication Instructions Recorded Confirmed aspirin [Aspir-81] 81 mg PO HS 04/10/19 02/10/21 cyanocobalamin (vitamin B-12) 1,000 mcg PO DAILY 09/30/20 02/10/21 nystatin 1 applic TOPICAL PRN PRN 09/30/20 02/10/21 Allergies Allergy/AdvReac Type Severity Reaction Status Date / Time metformin AdvReac Mild Diarrhea Verified 02/19/21 12:04 Review of Systems Review of Systems: All systems reviewed & are unremarkable except as noted in HPI and below Constitutional: Constitutional: Denies body ache(s), Denies chills, Denies excessive sweating, Denies fatigue, Denies fever(s), Denies headache(s), Denies lethargy, Denies malaise, Denies weakness and Denies weight loss Eyes: Eyes: Denies blurry vision, Denies change in vision and Denies loss of vision ENT: Denies dizziness, Denies ear discharge, Denies headache(s), Denies lip swelling, Denies epistaxis, Denies nasal congestion, Denies neck pain, Denies throat swelling and Denies tongue swelling Cardiovascular: Cardiovascular: Denies chest pain, Denies chest pain at rest, Denies chest pain with activity, Denies diaphoresis, Denies rapid heart rate, Denies edema, Denies irregular heart rhythm, Denies lightheadedness, Denies palpitations, Denies dyspnea and Denies dyspnea on exertion Respiratory: Respiratory: Denies chest congestion, Denies cough, Denies hemoptysis, Denies dyspnea and Denies dyspnea on exertion Gastrointestinal: Gastrointestinal: Denies melena, Denies hematochezia, Denies diarrhea, Denies vomiting and Denies hematemesis Musculoskeletal: Musculoskeletal: Denies abnormal gait, Denies deformity, Denies joint swelling, Denies limited range of motion, Denies neck pain and Denies numbness Neurologic: Denies Abnormal speech present, Denies abnormal gait, Denies confusion, Denies dizziness, Denies headache(s), Denies focal weakness, Denies loss of vision, Denies numbness, Denies Other visual disturbances, Denies Sensory deficit (Neuro) and Denies weakness Psychiatric: Psychiatric: Denies confusion, Denies depression, Denies auditory hallucinations, Denies homicidal ideation and Denies suicidal ideation Endocrine: Endocrine: Denies cold intolerance, Denies excessive sweating, Denies fatigue, Denies heat intolerance and Denies palpitations Hematologic/Lymphatic: Hematologic/Lymphatic: Denies easy bleeding and Denies easy bruising Allergic/Immunologic: Allergic/Immunologic: Denies lip swelling, Denies throat swelling and Denies tongue swelling PMFSH Past Medical History Medical History Anxiety Bladder mass Breast cancer lumpectomy and chemotherapy and radiation 1998 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 Cancer of sigmoid colon (~11/2019) Chronic kidney disease, stage III (moderate) (Unknown) Diabetes (Unknown) Diverticulosis of large intestine without hemorrhage (Unknown) History of chemotherapy History of colon cancer History of lymphoma History of radiation therapy HLD (hyperlipidemia) (Unknown) Hx of abnormal cervical Pap smear Hx of malignant neoplasm of female breast Hypertension Hypothyroidism (Unknown) Lymphoma 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) received chemotherapy Patient on antineoplastic chemotherapy regimen Surgical History Surgical History History of cholecystectomy History of colectomy hand assited laparoscopic le
--- NOTE | 2021-02-19 12:27 | PC.NURSE ---
patient's requesting that department call IV therapy prior to attempting to obtain IV or blood. IV therapy called per patient request and is unavailable at this time. Patient and declines to allow staff to use port access due to department not obtaining ok to use through Dr. Morales. Patient's also requests that the room is quiet and to tell other patient next door to stay quiet and that being too loud when answering questions is not acceptable due to patient having a stomach ache.
[2021-02-19] MEDS: SODIUM CHLORIDE 0.9% IV 1,000 ML 999 ML IV CONT (13:00)
[2021-02-19 13:11] LABS: Basophils Percent Auto 0.2 % (0.2-1.2); Eosinophils Percent Auto 0.7 % (0-4.4); Hematocrit 43.8 % (37.0-47.0); Hemoglobin 13.7 g/dL (12.0-15.0); Immature Granulocyte Absolute 0.02 K/mm3 (0.00-0.031); Immature Granulocyte Percent A 0.4 % (0-0.5); Lymphocytes Absolute Auto 0.42 K/mm3 (0.9-3.2); Lymphocytes Percent Auto 7.8 % (18.3-44.2); Mean Corpuscular HGB Conc 31.3 g/dl (32-36); Mean Corpuscular Hemoglobin 26.8 pg (26-34); Mean Corpuscular Volume 85.5 fl (80-100); Mean Platelet Volume 9.7 fl (7.4-10.4); Monocytes Absolute Auto 0.2 K/mm3 (0.1-0.6); Monocytes Percent Auto 3.9 % (2.6-8.5); Neutrophils Absolute Auto 4.7 K/mm3 (1.3-6.7); Platelet Count Result 200 k/mm3 (150-375); Red Blood Count 5.12 M/mm3 (4.2-5.4); Red Cell Distribution Width 15.9 % (11.5-14.5); White Blood Count 5.4 K/mm3 (4.5-10.0)
[2021-02-19 13:24] LABS: Lactic Acid Reflex 1.1 mmol/L (0.7-2.1)
[2021-02-19 13:25] LABS: Alanine Aminotransferase 11 U/L (4-35); Albumin Level 4.3 g/dL (3.5-5.1); Alkaline Phosphatase 105 U/L (38-126); Anion Gap 11 mmol/L (8-16); Aspartate Amino Transferase 23 U/L (14-36); Bilirubin,Total 0.5 mg/dL (0.2-1.3); Blood Urea Nitrogen 12 mg/dL (7-17); Calcium 9.4 mg/dL (8.4-10.2); Carbon Dioxide 23 mmol/L (22-30); Chloride 102 mmol/L (98-107); Estimated CRCL calculation 47 ml/min; Estimated Glomerular Filt Rate 60; Glucose 210 mg/dL (65-110); Lipase 74 U/L (23-300); Potassium 3.8 mmol/L (3.4-5.0); Sodium 136 mmol/L (137-145)
[2021-02-19 13:51] VITALS: BP 188/84; PULSE 83; RESP 18; O2SAT 96
[2021-02-19] MEDS: ONDANSETRON INJ 4 MG/2 ML VIAL IV PUSH (13:55)
[2021-02-19 14:02] LABS: INR 0.9; Partial Thromboplastin Time 24.7 SECONDS (22.3-36.8); Prothrombin Time 12.1 Seconds (11.1-14.7)
[2021-02-19] MEDS: HYDROmorphone HCL INJ (*CRX) 1 MG/ML SYR 0.5 MG IV PUSH ×2 (14:04→15:18)
[2021-02-19 14:22] LABS: Add Urine Microscopic? YES; Appearance Urine Cloudy (Clear); Bacteria Urine 1+ /hpf; Bilirubin Urine Negative (Negative); Blood Urine 2+ (Negative); Color Urine Yellow (Yellow); Glucose Urine UA Negative (Negative); Ketones Urine Trace mg/dL (Negative); Leukocyte Esterase Ur 3+ LEU/UL (Negative); Mucus Urine Rare /lpf; Nitrate Urine Negative (Negative); Protein Urine 1+ mg/dL (Negative); Specific Grav Ur 1.018 (1.001-1.035); Squamous Epithelial Cell Urine Few /hpf (Few); Urobilinogen Urine Negative mg/dL (<2.0); WBC Urine >75 /hpf
[2021-02-19 14:27] VITALS: BP 145/63; PULSE 93; RESP 20; O2SAT 94
[2021-02-19] MEDS: BENZOCAINE/TETRACAINE SPRAY (*SP) 56 ML AEROSOL 1 SPRAY (16:21)
[2021-02-19 16:38] VITALS: BP 146/67; PULSE 73; RESP 20; O2SAT 91
--- NOTE | 2021-02-19 16:52 | PM.CNGS ---
Assessment and Plan Assessment and plan (1) Bowel obstruction: Qualifiers: Intestinal obstruction extent: unspecified extent Intestinal obstruction type: other intestinal obstruction Qualified Code(s): K56.699 - Other intestinal obstruction unspecified as to partial versus complete obstruction Code(s): K56.609 - Unspecified intestinal obstruction, unspecified as to partial versus complete obstruction Status: Acute Assessment and Plan: I have reviewed the CT and discussed the findings with the patient. 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 This does not appear operable due to significant spread disease throughout her abdominal cavity. Surgery would offer relief of the obstruction, but this would likely only be temporary as the cancer continues to spread. Will continue to treat with NG decompression and bowel rest for now. A repeat CEA level will be helpful along with further evaluation and discussions with Dr. Morales. 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 She states that last night she to sit in a recliner and sleep because she was somewhat full and uncomfortable with her abdomen. She was passing flatus this morning and did have a bowel movement this morning. She states that since then she has become more bloated, nauseated, and she tried to vomit but could. She had a similar incident to this in 04/[address] at that time showed a dynamic ileus. She has not had any other bowel issues since then. She does state that she has been on iron pills and thinks that this does play a part in her abdominal discomfort. 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 She is currently getting immunotherapy once a month. She had previously undergone hand assisted laparoscopic right hemicolectomy on 09/24/[address] Avina. 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 She underwent adjuvant chemotherapy and was doing well for some time, but then developed evidence metastatic spread to her sigmoid colon. She then underwent hand assisted laparoscopic left colectomy by Dr. Avina on 01/13/2020. This showed evidence of metastatic adenocarcinoma from appendiceal origin. She also had a cystoscopy with bladder biopsy on 10/08/2020 which showed evidence of metastatic spread to the bladder. Review of Systems Review of Systems: All systems reviewed & are unremarkable except as noted in HPI and below Constitutional: Constitutional: Denies chills and Denies fever(s) Eyes: Eyes: Denies change in vision ENT: Denies hearing loss, Denies neck pain and Denies sore throat Cardiovascular: Cardiovascular: Denies chest pain and Denies dyspnea Respiratory: Respiratory: Denies cough, Denies dyspnea and Denies wheezing Gastrointestinal: Gastrointestinal: Reports as per HPI Genitourinary: Genitourinary: Denies hematuria and Denies dysuria Musculoskeletal: Musculoskeletal: Denies arthralgias, Denies joint swelling and Denies neck pain Allergic/Immunologic: Allergic/Immunologic: Denies wheezing [facility] Past Medical History Medical History Anxiety Bladder mass Breast cancer lumpectomy and chemotherapy and radiation 1998 Cancer of appendix (~10/2018) Cancer of
--- NOTE | 2021-02-19 17:05 | PM.IMHP ---
H&P: HPI History of Present Illness Date/Time: 02/19/21 17:05 this is an 80-year-old female patient who has a past medical history who has a history of having breast cancer with a lumpectomy and radiation, appendix cancer, sigmoid colon cancer, and colon cancer. The patient is currently being treated for bladder cancer with the immuno therapy. She also has had a history of lymphoma. She currently sees Dr. brantley. CT of her abdomen and pelvis was read as the following 1. Small bowel obstruction secondary to peritoneal carcinomatosis. 2. Worsened chest and pelvic lymphadenopathy, consistent with metastatic disease. 3. Small volume of ascites. The patient had an NG-tube placed. Patient had been complaining of mid abdominal pain which started early this morning. She did not take any medication for this. She has not had any previous pain like this in the past. The patient stated that she had a bowel movement this morning that was have semi formed and half liquid and she did not notice any blood in her stool. Patient has no fever chills. The patient has had her full COVID vaccine plus a booster. The patient was also found to have urinary tract infection was started on Rocephin. The patient was given IV fluids, Dilaudid, Zofran and Rocephin in the emergency room. The patient is being admitted to inpatient services on 02/19/2021 Chief Complaint: Abdominal pain Review of Systems Review of Systems: All systems reviewed & are unremarkable except as noted in HPI and below Constitutional: Constitutional: Reports as per HPI and Reports no additional constitutional complaints Eyes: Eyes: Reports as per HPI and Reports no additional eye complaints ENT: Reports system reviewed and no additional complaints, except as documented and Reports Normal hearing present Cardiovascular: Cardiovascular: Reports no additional cardiovascular complaints Respiratory: Respiratory: Reports no additional respiratory complaints and Reports no additional respiratory complaints Gastrointestinal: Gastrointestinal: Reports as per HPI and Reports no additional gastrointestinal complaints Musculoskeletal: Musculoskeletal: Reports no additional musculoskeletal complaints Integumentary/Breasts: Skin/Breast: Reports system reviewed and no additional complaints, except as docu and Reports as per HPI Neurologic: Reports system reviewed and no additional complaints, except as documented, Reports as per HPI and Reports Normal hearing present Psychiatric: Psychiatric: Reports no additional psychiatric complaints and Reports as per HPI Endocrine: Endocrine: Reports no additional endocrine complaints Hematologic/Lymphatic: Hematologic/Lymphatic: Reports no additional hematologic/lymphatic complaints Allergic/Immunologic: Allergic/Immunologic: Reports no additional allergic/immunologic complaints PMFSH Past Medical History Medical History (Updated 02/19/21 @ 17:18 by Nikki Pate NP) Anxiety Bladder mass On immunotherapy Breast cancer lumpectomy and chemotherapy and radiation 1999 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 Cancer of sigmoid colon (~11/2019) Chronic kidney disease, stage III (moderate) (Unknown) Diabetes (Unknown) Diverticulosis of large intestine without hemorrhage (Unknown) History of chemotherapy History of colon cancer History of lymphoma History of radiation therapy HLD (hyperlipidemia) (Unknown) Hx of abnormal cervical Pap smear Hx of malignant neoplasm of female breast Hypertension Hypothyroidism (Unknown) Lymphoma 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) received chemotherapy Patient on antineoplastic chemotherapy regimen Surgical History Surgical History History of cholecystectomy History of colectomy hand assited laparoscopic left colectomy with anastamosis 01/14/20 History of left cataract surgery History of lumpectomy left breast History of right cataract surgery History of r
--- NOTE | 2021-02-19 17:45 | ADMGEN ---
This patient, Lanette Alberts, was admitted to Medical Room 348-01. Patient/family oriented to hospital policies and general routines including ID bracelet, bed and alarms, visiting hours, pain management, procedures, bathroom and other care routines, personal items, smoking policy, room service/diet, and visiting hours. Information on how to activate the Rapid Response Team has been discussed. Patient/Family are encouraged to report perceived risks to care and to ask questions if they do not understand what they are told or what they should do.
[2021-02-19] MEDS: LACTATED RINGERS 1,000 ML 100 ML IV CONT (17:55)
[2021-02-19 17:56] LABS: Glucose Point of Care 164 mg/dl (65-105)
[2021-02-19 18:42] VITALS: BP 150/61; PULSE 72; RESP 16; TEMP 35.7; O2SAT 95
[2021-02-19 22:00] VITALS: BP 140/50; PULSE 76; RESP 16; TEMP 36.3; O2SAT 95
[2021-02-19 23:52] LABS: Glucose Point of Care 114 mg/dl (65-105)
[2021-02-20] MEDS: HYDROmorphone HCL INJ (*CRX) 1 MG/ML SYR 0.5 MG IV PUSH ×2 (02:10→21:59)
[2021-02-20] MEDS: LACTATED RINGERS 1,000 ML 100 ML IV CONT ×2 (04:16→16:59)
[2021-02-20 06:00] VITALS: BP 139/55; PULSE 71; RESP 20; TEMP 36.7; O2SAT 98
[2021-02-20] MEDS: LEVOTHYROXINE SODIUM INJ 100 MCG/5 ML VIAL 62.5 MCG IV PUSH (06:05)
[2021-02-20 06:23] LABS: Glucose Point of Care 114 mg/dl (65-105)
[2021-02-20 06:51] LABS: Basophils Percent Auto 0.6 % (0.2-1.2); Eosinophils Absolute Auto 0.1 K/mm3 (0-0.3); Eosinophils Percent Auto 1.7 % (0-4.4); Hematocrit 35.8 % (37.0-47.0); Hemoglobin 10.8 g/dL (12.0-15.0); Immature Granulocyte Absolute 0.02 K/mm3 (0.00-0.031); Immature Granulocyte Percent A 0.6 % (0-0.5); Lymphocytes Absolute Auto 0.55 K/mm3 (0.9-3.2); Lymphocytes Percent Auto 15.4 % (18.3-44.2); Mean Corpuscular HGB Conc 30.2 g/dl (32-36); Mean Corpuscular Hemoglobin 26.4 pg (26-34); Mean Corpuscular Volume 87.5 fl (80-100); Mean Platelet Volume 9.8 fl (7.4-10.4); Monocytes Absolute Auto 0.3 K/mm3 (0.1-0.6); Monocytes Percent Auto 8.1 % (2.6-8.5); Neutrophils Absolute Auto 2.6 K/mm3 (1.3-6.7); Neutrophils Percent Auto 73.6 % (45.5-73.1); Platelet Count Result 171 k/mm3 (150-375); Red Blood Count 4.09 M/mm3 (4.2-5.4); Red Cell Distribution Width 15.9 % (11.5-14.5); White Blood Count 3.6 K/mm3 (4.5-10.0)
[2021-02-20 07:00] LABS: Lactic Acid Reflex 0.8 mmol/L (0.7-2.1)
[2021-02-20 07:16] LABS: Hemoglobin A1C 7.4 % (<5.7)
[2021-02-20 07:58] LABS: Alanine Aminotransferase 9 U/L (4-35); Albumin Level 3.5 g/dL (3.5-5.1); Alkaline Phosphatase 83 U/L (38-126); Anion Gap 6 mmol/L (8-16); Aspartate Amino Transferase 19 U/L (14-36); Bilirubin,Total 0.5 mg/dL (0.2-1.3); Blood Urea Nitrogen 9 mg/dL (7-17); Calcium 8.4 mg/dL (8.4-10.2); Carbon Dioxide 24 mmol/L (22-30); Carcinoembryonic Antigen 64.1 ng/mL (0.0-3.0); Chloride 110 mmol/L (98-107); Estimated CRCL calculation 52 ml/min; Estimated Glomerular Filt Rate > 60; Glucose 121 mg/dL (65-110); Magnesium 1.9 mg/dL (1.6-2.3); Potassium 3.4 mmol/L (3.4-5.0); Sodium 140 mmol/L (137-145)
[2021-02-20] MEDS: PANTOPRAZOLE SODIUM IV 40 MG VIAL IV PUSH (09:12)
[2021-02-20 12:07] LABS: Glucose Point of Care 130 mg/dl (65-105)
--- NOTE | 2021-02-20 13:36 | PM.PNGS ---
Progress Note: A&P Assessment and Plan (1) Bowel obstruction: Qualifiers: Intestinal obstruction extent: unspecified extent Intestinal obstruction type: other intestinal obstruction Qualified Code(s): K56.699 - Other intestinal obstruction unspecified as to partial versus complete obstruction Code(s): K56.609 - Unspecified intestinal obstruction, unspecified as to partial versus complete obstruction Status: Acute Assessment and Plan: Normal bowel sounds today and passing flatus, hopefully signs that obstruction is resolving Will give suppository today and continue NG decompression, but nothing really coming out of NG right now Repeat obstructive series tomorrow, possibly remove NG tomorrow if obstruction resolving (2) Abdominal carcinomatosis: Code(s): C76.2 - Malignant neoplasm of abdomen Status: Acute (3) 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 No BM yet. Up sitting in chair and doing a little walking. Exam GI: Inspection: non-distended and obesity GI Palp: Yes Firmness to palpation present (GI), No Tenderness to palpation present (GI), No Guarding due to palpation present (GI) and No Rebound tenderness present Auscultation: normal bowel sounds Objective Data Vital Signs Vital Signs: Vital Signs - 24 hr 02/19/21 13:51 02/19/21 14:27 02/19/21 16:38 Temperature Pulse Rate 83 93 73 Respiratory Rate 18 20 20 Blood Pressure 188/84 H 145/63 H 146/67 H Pulse Oximetry 96 94 91 02/19/21 18:42 02/19/21 22:00 02/20/21 06:00 Temperature 35.7 C L 36.3 C L 36.7 C Pulse Rate 72 76 71 Respiratory Rate 16 16 20 Blood Pressure 150/61 H 140/50 L 139/55 L Pulse Oximetry 95 95 98 Intake/Output Intake/Output: Intake & Output 02/17/21 02/18/21 02/19/21 02/20/21 23:59 23:59 23:59 23:59 Intake Total 2050 1000 Output Total 450 400 Balance 1600 600 Meds/Results Medications: Active Medications Generic Name Dose Route Start Last Admin Trade Name Monique PRN Reason Stop Dose Admin Bisacodyl 10 mg 02/20/21 13:36 Bisacodyl 10 Mg Suppository RECTAL 02/20/21 13:37 ONCE ONE Dextrose 12.5 gm 02/19/21 16:59 Dextrose 50% 25 Gm/50 Ml Syringe IV PUSH PRN PRN Hypoglycemia Protocol Glucagon 1 mg 02/19/21 16:59 Glucagon For Inj 1 Mg Vial IM PRN PRN Hypoglycemia Protocol Glucose 15 gm 02/19/21 16:59 Glucose Oral Gel 15 Gm Of Glucse In 37.5 Gm Tube PO PRN PRN Hypoglycemia Protocol Hydralazine HCl 10 mg 02/19/21 16:55 Hydralazine Hcl 20 Mg/Ml Vial IV PUSH Q8H PRN Blood Pressure - High Hydromorphone HCl 0.5 mg 02/19/21 15:42 02/20/21 02:10 Hydromorphone Hcl Inj (*Crx) 1 Mg/Ml Syr IV PUSH 0.5 mg Q4H PRN Administration Pain Rated 7-10 Lactated Ringer's 1,000 mls @ 100 mls/hr 02/19/21 15:45 02/20/21 04:16 Lr - Lactated Ringers Iv IV CONT 100 mls/hr .Q10H LORIE Administration Dextrose 1,000 mls @ 100 mls/hr 02/19/21 16:59 Dextrose 5% 1,000 Ml IVPB PRN PRN Hypoglycemia Protocol Ceftriaxone Sodium/Dextrose 1 gm in 50 mls @ 100 mls/hr 02/20/21 09:00 02/20/21 08:05 Rocephin 1 Gm/D5w 50 Ml IVPB 100 mls/hr Q24H LORIE Administration Insulin Aspart 2 - 5 units 02/19/21 17:00 02/20/21 12:10 Insulin Aspart (*Bkc) 100 Units/Ml SUB-Q Not Given TIDWM LORIE Protocol Levothyroxine Sodium 62.5 mcg 02/20/21 06:30 02/20/21 06:05 Levothyroxine Sodium Inj 100 Mcg/5 Ml Vial IV PUSH 62.5 mcg DAILY@0630 LORIE Administration Ondansetron HCl 4 mg 02/19/21 15:42 Ondansetron Inj 4 Mg/2 Ml Vial IV PUSH
[2021-02-20 14:00] VITALS: BP 155/57; PULSE 81; RESP 24; TEMP 36.9; O2SAT 91
--- NOTE | 2021-02-20 14:44 | PM.IMPN ---
Progress Note: A&P Assessment and Plan (1) Bowel obstruction: Qualifiers: Intestinal obstruction extent: unspecified extent Intestinal obstruction type: other intestinal obstruction Qualified Code(s): K56.699 - Other intestinal obstruction unspecified as to partial versus complete obstruction Code(s): K56.609 - Unspecified intestinal obstruction, unspecified as to partial versus complete obstruction Status: Acute Assessment and Plan: partial versus complete obstruction, likely related to colon cancer history and persistence/growth Normal bowel sounds today in all 4 quadrants and passing flatus, absolutely no pain even with deep palpation throughout abdomen Gen. Surgery ordered suppository today continue NG decompression and NPO status for bowel rest. low to minimal NG output no N/V today, no stool output. Gen. surgery recommend Repeat obstructive series tomorrow, possibly remove NG tomorrow if obstruction resolving Continue with IV fluids. Continue with pain medication. (2) UTI (urinary tract infection): Code(s): N39.0 - Urinary tract infection, site not specified Status: Acute Assessment and Plan: Continue IV Rocephin 1+ bacteria, >75 WBC on UA blood and urine cultures pending White count 5.4 and 3.6 no fevers Ordered strict I and O No flank pain, no groin pain and patient stated that she is voiding without pain or noting blood. (3) Depression with anxiety: Code(s): F41.8 - Other specified anxiety disorders Status: Acute Assessment and Plan: Patient is NPO at this time. Her Celexa is on hold. Patient has euthymic mood she was pleasant during interview and examination and is participating in her care and interventions (4) HLD (hyperlipidemia): Onset Date: Unknown Qualifiers: Hyperlipidemia type: unspecified Qualified Code(s): E78.5 - Hyperlipidemia, unspecified Code(s): E78.5 - Hyperlipidemia, unspecified Status: Chronic Assessment and Plan: Patient is NPO at this time. Simvastatin is on hold at this time. zetia on hold Follow-up with her primary care provider for continued routine cholesterol control (5) Hypothyroidism: Onset Date: Unknown Qualifiers: Hypothyroidism type: unspecified Qualified Code(s): E03.9 - Hypothyroidism, unspecified Code(s): E03.9 - Hypothyroidism, unspecified Status: Chronic Assessment and Plan: TSH was 2.4 on January 28 Hoping to restart oral levothyroxine tomorrow morning since patient is greatly improved today No acute endocrine concerns today (6) Diabetes: Onset Date: Unknown Qualifiers: Diabetes mellitus complication status: without complication Diabetes mellitus mcc insulin use: without continuous churn buttermaker use Diabetes mellitus type: type 2 Qualified Code(s): E11.9 - Type 2 diabetes mellitus without complications Code(s): E11.9 - Type 2 diabetes mellitus without complications Status: Chronic Assessment and Plan: NPO status Glucose levels today were 114,114, and 130 A1c was 7.4 today Having to hold the patient's oral medications for diabetes Continue Accu-Cheks every 6 hours Continue sliding scale insulin. (7) Hypertension: Qualifiers: Hypertension type: unspecified Qualified Code(s): I10 - Essential (primary) hypertension Code(s): I10 - Essential (primary) hypertension Status: Chronic Assessment and Plan: P.r.n. hydralazine with parameters. oral losartan and oral metoprolol is on hold. BPs 130-150s with HR 70s Well controlled at this time (8) Abdominal carcinomatosis: Code(s): C76.2 - Malignant neoplasm of abdomen Status: Acute Assessment and Plan: history of cancer carcinoembryonic Ag elevated at 64.1 but improved. 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
[2021-02-20] MEDS: BISACODYL 10 MG SUPPOSITORY RECTAL (17:02)
[2021-02-20 17:35] LABS: Glucose Point of Care 94 mg/dl (65-105)
[2021-02-20 20:00] VITALS: BP 148/56; PULSE 87; RESP 18; TEMP 35.9; O2SAT 99
[2021-02-21 01:29] LABS: Glucose Point of Care 82 mg/dl (65-105)
[2021-02-21] MEDS: LACTATED RINGERS 1,000 ML 100 ML IV CONT (03:03)
[2021-02-21 06:00] VITALS: BP 159/72; PULSE 91; RESP 18; TEMP 36; O2SAT 94
[2021-02-21 06:27] LABS: Hematocrit 35.3 % (37.0-47.0); Hemoglobin 10.8 g/dL (12.0-15.0); Mean Corpuscular HGB Conc 30.6 g/dl (32-36); Mean Corpuscular Hemoglobin 27.1 pg (26-34); Mean Corpuscular Volume 88.7 fl (80-100); Mean Platelet Volume 9.6 fl (7.4-10.4); Platelet Count Result 143 k/mm3 (150-375); Red Blood Count 3.98 M/mm3 (4.2-5.4); Red Cell Distribution Width 15.9 % (11.5-14.5); White Blood Count 3.6 K/mm3 (4.5-10.0)
[2021-02-21] MEDS: LEVOTHYROXINE SODIUM INJ 100 MCG/5 ML VIAL 62.5 MCG IV PUSH (06:40)
[2021-02-21 06:46] LABS: Alanine Aminotransferase 7 U/L (4-35); Albumin Level 3.4 g/dL (3.5-5.1); Alkaline Phosphatase 79 U/L (38-126); Anion Gap 7 mmol/L (8-16); Aspartate Amino Transferase 17 U/L (14-36); Bilirubin,Total 0.3 mg/dL (0.2-1.3); Blood Urea Nitrogen 6 mg/dL (7-17); Calcium 8.3 mg/dL (8.4-10.2); Carbon Dioxide 25 mmol/L (22-30); Chloride 103 mmol/L (98-107); Estimated CRCL calculation 52 ml/min; Estimated Glomerular Filt Rate > 60; Glucose 106 mg/dL (65-110); Potassium 3.2 mmol/L (3.4-5.0); Sodium 135 mmol/L (137-145)
[2021-02-21 06:46] LABS: Glucose Point of Care 107 mg/dl (65-105)
[2021-02-21 08:00] VITALS: BP 153/64; PULSE 90; RESP 20; TEMP 37.6; O2SAT 90
[2021-02-21] MEDS: PANTOPRAZOLE SODIUM IV 40 MG VIAL IV PUSH (08:17)
[2021-02-21 08:59] VITALS: O2SAT 93
--- NOTE | 2021-02-21 09:25 | PM.IMPN ---
Progress Note: A&P Assessment and Plan (1) Bowel obstruction: Qualifiers: Intestinal obstruction extent: unspecified extent Intestinal obstruction type: other intestinal obstruction Qualified Code(s): K56.699 - Other intestinal obstruction unspecified as to partial versus complete obstruction Code(s): K56.609 - Unspecified intestinal obstruction, unspecified as to partial versus complete obstruction Status: Acute Assessment and Plan: partial versus complete obstruction, likely related to colon cancer history and persistence/growth Normal bowel sounds today in all 4 quadrants and passing flatus, absolutely no pain even with deep palpation throughout abdomen After suppository yesterday patient has had 2-3 small bowel movements and another 1 small bowel movement this morning continue NG decompression consider allowing patient to try clear liquids today low to minimal NG output no N/V today KUB showed improving SBO Continue with IV fluids. Continue with pain medication. (2) UTI (urinary tract infection): Code(s): N39.0 - Urinary tract infection, site not specified Status: Acute Assessment and Plan: Continue IV Rocephin 1+ bacteria, >75 WBC on UA blood culture show no growth x2, urine cultures show Klebsiella that is sensitive to Rocephin White count 5.4 and 3.6 no fevers Ordered strict I and O No flank pain, no groin pain and patient stated that she is voiding without pain or blood. (3) Depression with anxiety: Code(s): F41.8 - Other specified anxiety disorders Status: Acute Assessment and Plan: Patient is NPO at this time. Her Celexa is on hold. Patient has euthymic mood she was pleasant during interview and examination and is participating in her care and interventions (4) HLD (hyperlipidemia): Onset Date: Unknown Qualifiers: Hyperlipidemia type: unspecified Qualified Code(s): E78.5 - Hyperlipidemia, unspecified Code(s): E78.5 - Hyperlipidemia, unspecified Status: Chronic Assessment and Plan: Patient is NPO at this time. Simvastatin is on hold at this time. zetia on hold Follow-up with her primary care provider for continued routine cholesterol control (5) Hypothyroidism: Onset Date: Unknown Qualifiers: Hypothyroidism type: unspecified Qualified Code(s): E03.9 - Hypothyroidism, unspecified Code(s): E03.9 - Hypothyroidism, unspecified Status: Chronic Assessment and Plan: TSH was 2.4 on January 28 Hoping to restart oral levothyroxine tomorrow morning since patient is greatly improved today No acute endocrine concerns today (6) Diabetes: Onset Date: Unknown Qualifiers: Diabetes mellitus complication status: without complication Diabetes mellitus director long term care insulin use: without detention use Diabetes mellitus type: type 2 Qualified Code(s): E11.9 - Type 2 diabetes mellitus without complications Code(s): E11.9 - Type 2 diabetes mellitus without complications Status: Chronic Assessment and Plan: NPO status Glucose levels today were 114,114, and 130 A1c was 7.4 today Having to hold the patient's oral medications for diabetes Continue Accu-Cheks every 6 hours Continue sliding scale insulin. (7) Hypertension: Qualifiers: Hypertension type: unspecified Qualified Code(s): I10 - Essential (primary) hypertension Code(s): I10 - Essential (primary) hypertension Status: Chronic Assessment and Plan: P.r.n. hydralazine with parameters. oral losartan and oral metoprolol is on hold. Blood pressures and heart rate well controlled Well controlled at this time (8) Abdominal carcinomatosis: Code(s): C76.2 - Malignant neoplasm of abdomen Status: Acute Assessment and Plan: history of cancer carcinoembryonic Ag elevated at 64.1 but improved. see above and below plan (9) Primary malig
[2021-02-21 11:58] VITALS: BP 145/60; PULSE 88; RESP 16; TEMP 37.3; O2SAT 91
[2021-02-21 12:29] LABS: Glucose Point of Care 137 mg/dl (65-105)
[2021-02-21] MEDS: NYSTATIN 100,000 UNITS/ML SUSP 5 ML ORAL.SUSP PO ×3 (13:21→20:00)
--- NOTE | 2021-02-21 14:14 | PM.PNGS ---
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 Will remove NG tube today and start clear liquid diet. Possibly advance diet tomorrow if continuing to improve. Recurrent obstructions certainly possible given the findings of carcinomatosis. 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 No abdominal pain. Wants to try liquids. Exam GI: Inspection: non-distended and obesity GI Palp: Yes Soft to palpation, No Tenderness to palpation present (GI) and No Guarding due to palpation present (GI) Auscultation: normal bowel sounds Objective Data Vital Signs Vital Signs: Vital Signs - 24 hr 02/20/21 20:00 02/21/21 06:00 02/21/21 08:00 Temperature 35.9 C L 36.0 C L 37.6 C Pulse Rate 87 91 90 Respiratory Rate 18 18 20 Blood Pressure 148/56 H 159/72 H 153/64 H Pulse Oximetry 99 94 90 02/21/21 08:59 02/21/21 11:58 Temperature 37.3 C Pulse Rate 88 Respiratory Rate 16 Blood Pressure 145/60 H Pulse Oximetry 93 91 Intake/Output Intake/Output: Intake & Output 02/18/21 02/19/21 02/20/21 02/21/21 23:59 23:59 23:59 23:59 Intake Total 2050 2100 1050 Output Total 450 1100 450 Balance 1600 1000 600 Meds/Results Medications: Active Medications Generic Name Dose Route Start Last Admin Trade Name Freq PRN Reason Stop Dose Admin Dextrose 12.5 gm 02/19/21 16:59 Dextrose 50% 25 Gm/50 Ml Syringe IV PUSH PRN PRN Hypoglycemia Protocol Glucagon 1 mg 02/19/21 16:59 Glucagon For Inj 1 Mg Vial IM PRN PRN Hypoglycemia Protocol Glucose 15 gm 02/19/21 16:59 Glucose Oral Gel 15 Gm Of Glucse In 37.5 Gm Tube PO PRN PRN Hypoglycemia Protocol Hydralazine HCl 10 mg 02/19/21 16:55 Hydralazine Hcl 20 Mg/Ml Vial IV PUSH Q8H PRN Blood Pressure - High Hydromorphone HCl 0.5 mg 02/19/21 15:42 02/20/21 21:59 Hydromorphone Hcl Inj (*Crx) 1 Mg/Ml Syr IV PUSH 0.5 mg Q4H PRN Administration Pain Rated 7-10 Dextrose 1,000 mls @ 100 mls/hr 02/19/21 16:59 Dextrose 5% 1,000 Ml IVPB PRN PRN Hypoglycemia Protocol Ceftriaxone Sodium/Dextrose 1 gm in 50 mls @ 100 mls/hr 02/20/21 09:00 02/21/21 08:19 Rocephin 1 Gm/D5w 50 Ml IVPB 100 mls/hr Q24H LORIE Administration Insulin Aspart 2 - 5 units 02/19/21 17:00 02/21/21 12:27 Insulin Aspart (*Bkc) 100 Units/Ml SUB-Q Not Given TIDWM LORIE Protocol Levothyroxine Sodium 62.5 mcg 02/20/21 06:30 02/21/21 06:40 Levothyroxine Sodium Inj 100 Mcg/5 Ml Vial IV PUSH 62.5 mcg DAILY@0630 LORIE Administration Nystatin 5 ml 02/21/21 13:00 02/21/21 13:21 Nystatin 100,000 Units/Ml Susp 5 Ml Oral.Susp PO 5 ml QID LORIE Administration Ondansetron HCl 4 mg 02/19/21 15:42 Ondansetron Inj 4 Mg/2 Ml Vial IV PUSH Q4H PRN Nausea Pantoprazole Sodium 40 mg 02/20/21 09:00 02/21/21 08:17 Pantoprazole Sodium Iv 40 Mg Vial IV PUSH 40 mg QAM LORIE Administration Ph
[2021-02-21 16:00] VITALS: BP 150/73; PULSE 91; RESP 24; TEMP 35.9; O2SAT 90
[2021-02-21] MEDS: SACCHAROMYCES BOULARDII 250 MG CAPSULE PO (17:44)
[2021-02-21 17:48] LABS: Glucose Point of Care 125 mg/dl (65-105)
[2021-02-21] MEDS: ACETAMINOPHEN 500 MG TABLET 1000 MG PO (18:23)
[2021-02-21 20:00] VITALS: BP 139/76; PULSE 90; RESP 18; TEMP 36.6; O2SAT 97
[2021-02-21 21:30] LABS: Glucose Point of Care 134 mg/dl (65-105)
[2021-02-22 05:30] VITALS: BP 120/69; PULSE 88; RESP 18; TEMP 35.9; O2SAT 95
[2021-02-22] MEDS: LEVOTHYROXINE SODIUM INJ 100 MCG/5 ML VIAL 62.5 MCG IV PUSH (06:00)
[2021-02-22 07:36] LABS: Glucose Point of Care 130 mg/dl (65-105)
--- NOTE | 2021-02-22 08:43 | PM.PNGS ---
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 Tolerated a clear liquid diet. Possibly advance diet today and if continuing to improve could consider discharge this evening or in AM. Recurrent obstructions certainly possible given the findings of carcinomatosis. (2) Bowel obstruction: Qualifiers: Intestinal obstruction extent: unspecified extent Intestinal obstruction type: other intestinal obstruction Qualified Code(s): K56.699 - Other intestinal obstruction unspecified as to partial versus complete obstruction Code(s): K56.609 - Unspecified intestinal obstruction, unspecified as to partial versus complete obstruction Status: Acute Assessment and Plan: resolving I inserted some instructions in her discharge which may help avoid further episodes of obstruction. However, in view of her carcinomatosis her best chance is further immuno or chemotherapy. (3) UTI (urinary tract infection): Code(s): N39.0 - Urinary tract infection, site not specified Status: Acute Assessment and Plan: as per primary service --- ? swith to oral abx? 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 Patient will be having a PET-CT as an outpatient to follow up on the findings of her CT scan done in the ER. Would recommend follow-up with Urology in view of her frequent urinary tract infections if Dr. Morales agrees. Perhaps a low-dose antibiotic such as nitrofurantoin may be reasonable whenever she is receiving immune or chemotherapy. This could be alternated 2 weeks on 2 weeks off depending on her symptoms and reponse. Would await urology opinion. Subjective Subjective Date/Time Seen: 02/22/21 08:43 Pt feels good. Tolerating cl liquids well. + BM's X 3-4 yesterday. Review of Systems Review of Systems: All systems reviewed & are unremarkable except as noted in HPI and below Constitutional: Constitutional: Denies chills and Denies fever(s) Eyes: Eyes: Denies change in vision ENT: Denies hearing loss, Denies neck pain and Denies sore throat Cardiovascular: Cardiovascular: Denies chest pain and Denies dyspnea Respiratory: Respiratory: Denies cough, Denies dyspnea and Denies wheezing Gastrointestinal: Gastrointestinal: Reports as per HPI Genitourinary: Genitourinary: Denies hematuria and Denies dysuria Exam Const: General: alert; No acute distress Orientation/consciousness: patient oriented x3 Limitations: no limitations HENMT: Head: normocephalic and atraumatic Ears: hearing grossly normal bilaterally General nose exam: Normal external nose present and Normal nares present Mouth: Yes Normal oral and palatal mucosa present and Yes moist mucous membranes Eyes: General: appearance normal, both eyes and all related structures Conjunctivae: conjunctivae normal Sclera: sclerae normal Pupils: Equal, round and reactive pupils present EOM: EOMs intact bilaterally Neck: Neck: normal visual inspection, full ROM, no lymphadenopathy, supple and no JVD Lymphatic: no lymphadenopathy noted Chest: Chest palpation & inspection: normal inspection of the chest Breast/axilla palpation: other (not examined) Resp: Effort & Inspection: normal respiratory effort and able to speak in complete sentences Auscultation: clear to auscultation bilaterally Percussion: percussion normal GI: Inspection: non-distended and obesity GI Palp: Yes Soft to palpation and No Tenderness to palpation present (GI) Auscultation: normal bowel sounds : General: Yes no CVA tenderness Back/Spine/Pelvis: Back: no
[2021-02-22] MEDS: NYSTATIN 100,000 UNITS/ML SUSP 5 ML ORAL.SUSP PO ×3 (09:00→16:29)
[2021-02-22] MEDS: SACCHAROMYCES BOULARDII 250 MG CAPSULE PO ×2 (09:01→16:29)
[2021-02-22] MEDS: PANTOPRAZOLE SODIUM IV 40 MG VIAL IV PUSH (09:01)
[2021-02-22 09:21] LABS: Hematocrit 37.1 % (37.0-47.0); Hemoglobin 11.3 g/dL (12.0-15.0); Mean Corpuscular HGB Conc 30.5 g/dl (32-36); Mean Corpuscular Hemoglobin 26.7 pg (26-34); Mean Corpuscular Volume 87.7 fl (80-100); Mean Platelet Volume 9.6 fl (7.4-10.4); Platelet Count Result 158 k/mm3 (150-375); Red Blood Count 4.23 M/mm3 (4.2-5.4); Red Cell Distribution Width 15.9 % (11.5-14.5); White Blood Count 3.7 K/mm3 (4.5-10.0)
[2021-02-22 10:02] LABS: Anion Gap 7 mmol/L (8-16); Blood Urea Nitrogen 6 mg/dL (7-17); Calcium 8.5 mg/dL (8.4-10.2); Carbon Dioxide 28 mmol/L (22-30); Chloride 105 mmol/L (98-107); Estimated CRCL calculation 52 ml/min; Estimated Glomerular Filt Rate > 60; Glucose 191 mg/dL (65-110); Potassium 3.8 mmol/L (3.4-5.0); Sodium 140 mmol/L (137-145)
--- NOTE | 2021-02-22 10:22 | PCDIET ---
Nutrition consult for low fiber diet education. See Nutritional Teaching Intervention. Thank you for the consult.
[2021-02-22 11:27] LABS: Glucose Point of Care 216 mg/dl (65-105)
[2021-02-22] MEDS: INSULIN ASPART (*BKC) 100 UNITS/ML SUB-Q (11:31)
--- NOTE | 2021-02-22 12:10 | PM.DS ---
DS: Admitting Diagnosis Admitting Diagnosis UTI, small-bowel obstruction, abdominal pain DS: Discharge Diagnosis Discharge Diagnosis (1) Bowel obstruction: Qualifiers: Intestinal obstruction extent: unspecified extent Intestinal obstruction type: other intestinal obstruction Qualified Code(s): K56.699 - Other intestinal obstruction unspecified as to partial versus complete obstruction Code(s): K56.609 - Unspecified intestinal obstruction, unspecified as to partial versus complete obstruction Status: Acute Assessment and Plan: partial versus complete obstruction, likely related to colon cancer history and persistence/growth Normal bowel sounds today in all 4 quadrants and passing flatus, absolutely no pain even with deep palpation throughout abdomen After suppository patient has had 2-3 small bowel movements and another 1 small bowel movement allowing patient to advance diet no N/V today KUB showed improving SBO not needing IVFs or pain meds today (2) UTI (urinary tract infection): Code(s): N39.0 - Urinary tract infection, site not specified Status: Acute Assessment and Plan: Continue IV Rocephin - changed to Cefdinir orally at discharge. 1+ bacteria, >75 WBC on UA blood culture show no growth x2, urine cultures show Klebsiella that is sensitive to Rocephin White count 5.4 and 3.6 no fevers Ordered strict I and O No flank pain, no groin pain and patient stated that she is voiding without pain or blood. (3) Depression with anxiety: Code(s): F41.8 - Other specified anxiety disorders Status: Acute Assessment and Plan: Her Celexa irstarted from home, now that she can eat Patient has euthymic mood she was pleasant during interview and examination and is participating in her care and interventions (4) HLD (hyperlipidemia): Onset Date: Unknown Qualifiers: Hyperlipidemia type: unspecified Qualified Code(s): E78.5 - Hyperlipidemia, unspecified Code(s): E78.5 - Hyperlipidemia, unspecified Status: Chronic Assessment and Plan: Simvastatin estarted now that she can eat zetia -restarted now that she can eat Follow-up with her primary care provider for continued routine cholesterol control (5) Hypothyroidism: Onset Date: Unknown Qualifiers: Hypothyroidism type: unspecified Qualified Code(s): E03.9 - Hypothyroidism, unspecified Code(s): E03.9 - Hypothyroidism, unspecified Status: Chronic Assessment and Plan: TSH was 2.4 on January 28 Hoping to restart oral levothyroxine tomorrow morning since patient is greatly improved today No acute endocrine concerns today (6) Diabetes: Onset Date: Unknown Qualifiers: Diabetes mellitus complication status: without complication Diabetes mellitus correction insulin use: without correction use Diabetes mellitus type: type 2 Qualified Code(s): E11.9 - Type 2 diabetes mellitus without complications Code(s): E11.9 - Type 2 diabetes mellitus without complications Status: Chronic Assessment and Plan: NPO status Glucose levels today were 106 A1c was 7.4 today Having to hold the patient's oral medications for diabetes Continue Accu-Cheks every 6 hours Continue sliding scale insulin. (7) Hypertension: Qualifiers: Hypertension type: unspecified Qualified Code(s): I10 - Essential (primary) hypertension Code(s): I10 - Essential (primary) hypertension Status: Chronic Assessment and Plan: P.r.n. hydralazine with parameters. oral losartan and oral metoprolol restarted now that she is eating Blood pressures and heart rate well controlled at this time, HR 80s, SBP 140s (8) Abdominal carcinomatosis: Code(s): C76.2 - Malignant neoplasm of abdomen Status: Acute Assessment and Plan: history of cancer carcinoembryonic Ag elevated at 64.1 but improved. see above and be
--- NOTE | 2021-02-22 12:36 | PDONCCN ---
HPI - Date of Consult Date/Time: 02/22/21 12:36 Requesting Physician: Jo Albrecht MD Primary Care Provider: Virgil Loya MD - Consult Narrative Reason for consult: Metastatic colon cancer Narrative: Lanette Alberts is a 80 year old female with history of metastatic colon cancer with metastatic involvement of urinary bladder status post cystoscopy and biopsy done on October 08 2020. Currently she is on immunotherapy with Opdivo started on December 03. She received 3 treatments so far. Patient came into the hospital with abdominal pain and constipation. CT scan was performed that showed worsened chest and pelvic lymphadenopathy as well as small volume ascites. Her abdominal pain has improved. Denies any melena hematochezia. Denies any weight loss. She is able to eat better. No other new complaints today. Review of Systems - Review of Systems All systems reviewed & are unremarkable except as noted in HPI and bel - Neurologic Reports system reviewed and no additional complaints, except as documented, Reports hearing normal, Denies abnormal speech, Denies abnormal gait, Denies confusion, Denies headache(s), Denies focal weakness, Denies loss of vision, Denies numbness, Denies other visual disturbances, Denies sensory deficit, Denies weakness PMFSH Medical History: Medical History (Last Updated 02/19/21 @ 17:14 by Nikki Pate NP) Anxiety Bladder mass On immunotherapy Breast cancer lumpectomy and chemotherapy and radiation 1998 Cancer of appendix Onset Date: ~10/2018 Cancer of ileum Cancer of sigmoid colon Onset Date: ~11/2019 Chronic kidney disease, stage III (moderate) Onset Date: Unknown Diabetes Onset Date: Unknown Diverticulosis of large intestine without hemorrhage Onset Date: Unknown History of chemotherapy History of colon cancer History of lymphoma History of radiation therapy HLD (hyperlipidemia) Onset Date: Unknown Hx of abnormal cervical Pap smear Hx of malignant neoplasm of female breast Hypertension Hypothyroidism Onset Date: Unknown Lymphoma Lymphoma in remission Onset Date: Unknown received chemotherapy Patient on antineoplastic chemotherapy regimen Surgical History: Surgical History (Last Reviewed 02/19/21 @ 17:14 by Nikki Pate NP) History of cholecystectomy History of colectomy hand assited laparoscopic left colectomy with anastamosis 01/14/20 History of left cataract surgery History of lumpectomy left breast History of right cataract surgery History of right hemicolectomy laparoscopic right hemicolectomy with anastomosis ileum to transverse colon - 09/24/2018 hand assisted laparoscopic left colectomy with anastomosis January 13 2020 History of tonsillectomy History of total abdominal hysterectomy and bilateral salpingo-oophorectomy Status post hysterectomy with oophorectomy Family History: Family History (Last Reviewed 02/19/21 @ 17:48 by Karol Rosario RN) Mother Patient's mother is , Onset Age: 39 Father Patient's father is , Onset Age: 40 Sibling Family history of cardiovascular disease Family history of malignant neoplasm of breast Family history of heart disease in male family member before age 55 Other Family history of malignant neoplasm Family history of malignant neoplasm of breast in first degree relative - Social History Social History: Social History (Last Reviewed 02/19/21 @ 17:17 by Nikki Pate NP) Gender Identity: Gender identity (if verbalized by the patient): Female Sexual Orientation: Sexual Orientation (if Verbalized by the Patient): Straight or Heterosexual Alcohol Use: Alcohol intake: never Substance Use: Substance use: never Substance use type: does not use Others: Spiritual care concerns: No Smoking Status: Smoking status: Never smoker Second hand tobacco smoke exposure: Yes Second hand tobacco
[2021-02-22 14:00] VITALS: BP 132/48; PULSE 87; RESP 20; TEMP 35.8; O2SAT 96
[2021-02-22 15:59] LABS: Glucose Point of Care 98 mg/dl (65-105)
[2021-02-22 16:00] VITALS: BP 134/48; PULSE 88; RESP 20; TEMP 35.8; O2SAT 98
== END 2021-02-22 17:15 | disposition home or self-care (01) | DRG 389 ==
LOC: ANHED 17:08 → ANH3MED 02-22 01:10
PROVIDERS: Nurse Practitioner; Admitting Provider Hospitalist; Emergency Provider Emergency Medicine; PCP Family Medicine; Visit Provider Nurse Practitioner
DX: K56.699 Other intestinal obstruction unspecified as to partial versus complete obstruction (principal); N39.0 Urinary tract infection, site not specified; C77.2 Secondary and unspecified malignant neoplasm of intra-abdominal lymph nodes; C78.6 Secondary malignant neoplasm of retroperitoneum and peritoneum; C18.1 Malignant neoplasm of appendix; B96.1 Klebsiella pneumoniae [K. pneumoniae] as the cause of diseases classified elsewhere; I12.9 Hypertensive chronic kidney disease with stage 1 through stage 4 chronic kidney disease, or unspecified chronic kidney disease; E11.22 Type 2 diabetes mellitus with diabetic chronic kidney disease; N18.30 Chronic kidney disease, stage 3 unspecified; E78.5 Hyperlipidemia, unspecified; E03.9 Hypothyroidism, unspecified; F41.8 Other specified anxiety disorders; Z90.49 Acquired absence of other specified parts of digestive tract; Z85.038 Personal history of other malignant neoplasm of large intestine; Z85.3 Personal history of malignant neoplasm of breast; Z85.72 Personal history of non-Hodgkin lymphomas; Z90.710 Acquired absence of both cervix and uterus; Z90.722 Acquired absence of ovaries, bilateral
CPT/HCPCS: 36415; 74019; 74177; 80048; 80053; 81001; 82378; 82948; 83036; 83605; 83690; 83735; 84443; 85025; 85027; 85610; 85730; 87040; 87077; 87086; 87088; 87186; 96361; 96365; 96375; 96376; 97161; 97165; 99285; A9270; C9113; J0696; J1170; J1815; J2405; J3480; J7030; J7060; J7120; Q9967

== ENCOUNTER 2021-03-02 08:56 | Outpatient (CLI) | payer MEDICARE, SELFPAY ==
--- NOTE | ~2021-03-02 | PE_ITS ---
EXAMINATION: PET skull to mid thigh DATE: 03/02/2021 11:15 INDICATION: Malignant neoplasm of the ileum TECHNIQUE: Blood glucose level was 161 mg/dL. 9.059 mCi of 18-fluorodeoxyglucose (18-FDG) was adminis tered i.v. Low dose computed tomography (CT) images were acquired from the base of the brain to the p roximal thighs for attenuation correction and anatomic localization. Positron emission tomography (PE T) images were acquired in the same distribution beginning 57 minutes after injection. The dose-lengt h product (DLP) was 1127.27 mGy-cm. COMPARISON: 10/23/2018, 02/19/2021 FINDINGS: Head/neck: No abnormal FDG uptake is identified. FDG uptake in the oral cavity, vocal cords, and paro tid glands without suspicious CT correlate is likely physiologic. Chest: There is right paratracheal, subcarinal, prevascular, and bilateral hilar lymphadenopathy with abnormal FDG uptake. The heart size is normal. There is calcified coronary artery atherosclerosis. A right internal jugular Port-A-Cath ends with its tip in the distal superior vena cava. There is no p leural effusion or pneumothorax. Dependent atelectasis is noted. Abdomen/pelvis/proximal thighs: There are are changes of right hemicolectomy. There are multiple soft tissue nodules in the peritoneum with abnormal FDG uptake. The largest measures up to 3.8 cm near th e terminal ileum. There is a 1.2 cm right obturator lymph node with abnormal FDG uptake. There are no dilated loops of bowel. No free intraperitoneal gas is identified. The liver, spleen, pancreas, and adrenal glands are normal. The kidneys are unremarkable. There is moderate cervical, thoracic, and emily mbar spondylosis. Musculoskeletal: No abnormal FDG uptake is identified. There is severe cervical, thoracic, and lumbar spondylosis. IMPRESSION: 1. Peritoneal carcinomatosis with associated abnormal FDG uptake. 2. Mediastinal, hilar, and pelvic lymphadenopathy, consistent with metastatic disease. Reviewed, dictated and finalized at location B. IMPRESSION: 1. Peritoneal carcinomatosis with associated abnormal FDG uptake. 2. Mediastinal, hilar, and pelvic lymphadenopathy, consistent with metastatic d isease.
[2021-03-02 09:50] LABS: Glucose Point of Care 161 mg/dl (65-105)
== END 2021-03-02 08:57 | disposition home or self-care (01) ==
PROVIDERS: PCP Family Medicine; Visit Provider Internal Medicine Hematology & Oncology
DX: C17.2 Malignant neoplasm of ileum (principal)
CPT/HCPCS: 78815; A9552

== ENCOUNTER 2021-04-27 20:25 | Inpatient (IN) | payer MEDICARE, SELFPAY ==
--- NOTE | ~2021-04-27 | XR_ITS ---
XR chest 1V portable DATE: 04/27/2021 21:37 INDICATION: Cough. Hypertension. Nausea, vomiting and diarrhea. Chemotherapy last . History o f breast and colon cancer. TECHNIQUE: Portable supine AP chest on 04/27/2021 at 2132 hours COMPARISON: August 21, 2020 CT chest FINDINGS: Right Port-A-Cath catheter tip overlies superior vena cava. Surgical clips overlie left axillary area consistent with prior left axillary node dissection. Normal heart size. There is extensive thoracic aortic calcification. There is moderate elevation of the right leaf of the diaphragm. There is mild infiltrate and/atelectasis in the left retrocardiac area, left lower lobe. No pulmonary infiltrate or consolidation, pleural effusion or pulmonary vascular congestion or pneumothorax is no shellie otherwise. Surgical clips overlie the right upper quadrant, due to cholecystectomy. IMPRESSION: Left lower lobe infiltrate and/atelectasis Reviewed, dictated and finalized at location A.
--- NOTE | ~2021-04-27 | US_ITS ---
EXAMINATION: US renal BI DATE: 04/29/2021 15:03 INDICATION: Acute kidney injury TECHNIQUE: Multiple grayscale and Doppler ultrasound images of the kidneys were obtained. COMPARISON: 04/23/2020 FINDINGS: The right kidney measures 9.7 x 4.0 x 5.3 cm. The left kidney measures 10.3 x 4.5 x 5.0 cm. The kidneys demonstrate normal parenchymal echogenicity. There is no hydronephrosis. The bladder is decompressed by Tolliver catheter. IMPRESSION: 1. Normal kidneys without hydronephrosis. Reviewed, dictated and finalized at location B.
--- NOTE | ~2021-04-27 | CT_ITS ---
EXAMINATION: CT abdomen pelvis w con DATE: 04/27/2021 22:21 INDICATION: Vomiting and diarrhea after chemotherapy. History of colon cancer, left breast cancer and lymphoma TECHNIQUE: Computed tomography (CT) of the abdomen and pelvis was performed with 100 cc Omnipaque 350 intravenous contrast. Automated exposure control and iterative reconstruction technique were employe d. Exam dose: 981.89 mGy-cm total exam DLP. COMPARISON: 03/02/2021 PET scan 02/19/2021 CT abdomen pelvis FINDINGS: Minimal atelectasis in the lower lung zones. No pericardial or pleural effusion. There is persistent and more prominent subcarinal lymphadenopathy compared to 02/19/2021. The hilar ar eas are not optimally included in this CT abdomen pelvis examination. Diffuse hepatic steatosis. Status post cholecystectomy. No bile duct or pancreatic duct dilatation. No hepatic, pancreatic, sple celeste, and adrenal or renal space-occupying mass lesion, the exception of the of a 12 mm left renal cys ts. No urinary tract calculus or hydroureteronephrosis. The urinary bladder is relatively evacuated. There is extensive abdominal aortic calcification but no aneurysm. Status post sigmoid: And right colon resections. Fluid levels are noted in the right colon. There are dilated ileal segments, measuring up to 3.5 cm diameter, with thickening of the wall and roe rrounding mesenteric edema and/or soft tissue infiltration. Multiple peritoneal implants are noted, one of which appears to be responsible for distal ileal parti al obstruction. Number and size of peritoneal implants and degree of contrast enhancement appear mild ly improved since 02/19/2021, but there is mild increased mesenteric lymphadenopathy since 02/19/2021. IMPRESSION: Mesenteric and peritoneal metastases with associated distal ileal small bowel obstructio n, small bowel wall thickening and fluid levels. Increased small bowel dilatation and ileal bowel wal l thickening since 02/19/2021 Increased subcarinal lymphadenopathy that 02/19/2021 Reviewed, dictated and finalized at [facility]. Reviewed, dictated and finalized at [facility]. IMPRESSION: Mesenteric and peritoneal metastases with associated distal ileal small bowel obstruction, small bowel wall thickening and fluid levels. Increase d small bowel dilatation and ileal bowel wall thickening since 02/19/2021 Increased subcarinal lymphadenopathy that 02/19/2021
--- NOTE | ~2021-04-27 | XR_ITS ---
XR abdomen NG/feed tube insert DATE: 04/28/2021 00:32 INDICATION: NG tube insertion TECHNIQUE: Portable AP view on 05/15/2021 at 0026 hours COMPARISON: None FINDINGS: The nasogastric tube extends into the distal body of the stomach. IMPRESSION: NG tube in distal body of stomach Reviewed, dictated and finalized at [facility]. Reviewed, dictated and finalized at [facility].
--- NOTE | ~2021-04-27 | XR_ITS ---
EXAMINATION: XR abdomen obstructive series DATE: 04/30/2021 05:41 INDICATION: Partial versus complete small bowel obstruction. TECHNIQUE: Frontal supine and upright views of the abdomen were obtained. COMPARISON: 06/29/2020 FINDINGS: Nasogastric tube tip in proximal side port in the body of the stomach. Similar pattern of gas in the transverse colon and a few now nondilated loops of small bowel in the mid abdomen consistent with imp roving ileus versus obstruction. No pneumatosis or free intraperitoneal gas. Cholecystectomy clips in right upper quadrant. Elevation of the right hemidiaphragm. Opacities at the bilateral lower lung zo juan carlos which could represent atelectasis and/or pneumonia. Partially visualized right-sided central veno us port catheter with distal tip at the superior cavoatrial junction. There is also a left femoral ce ntral venous catheter with distal tip at the left external iliac vein. IMPRESSION: 1. Several gas-filled but now no longer dilated loops of small bowel in the mid abdomen consistent w ith improving ileus versus obstruction. 2. Bibasilar lung disease which could represent atelectasis and/or pneumonia. Reviewed, dictated and finalized at location [facility]. IMPRESSION: 1. Several gas-filled but now no longer dilated loops of small bowel in the mi d abdomen consistent with improving ileus versus obstruction. 2. Bibasilar lung disease which could represent atelectasis and/or pneumonia.
--- NOTE | ~2021-04-27 | XR_ITS ---
EXAMINATION: XR chest 1V portable DATE: 05/01/2021 08:37 INDICATION: Hypoxia. Shortness of breath. TECHNIQUE: frontal view of the chest was obtained. COMPARISON: Chest radiograph dated 04/27/21 FINDINGS: Opacification of the right mid to lower lung zone and patchy airspace opacities in the left mid and l ower lung zone consistent with moderate sized right and small left pleural effusions with associated atelectasis and/or pneumonia. No pneumothorax. The enlarged cardiac silhouette is partially obscured. Atherosclerotic aorta. Surgical clips at the left axilla consistent with prior lymph node dissection . IMPRESSION: 1. Opacities in the bilateral mid and lower lung zones, right greater than left consistent with moder ate-sized right and small left pleural effusions with associated atelectasis and/or pneumonia. 2. Cardiomegaly. Reviewed, dictated and finalized at location [facility]. IMPRESSION: 1. Opacities in the bilateral mid and lower lung zones, right greater than left consistent with moderate-sized right and small left pleural effusions with ass ociated atelectasis and/or pneumonia. 2. Cardiomegaly.
--- NOTE | ~2021-04-27 | XR_ITS ---
EXAMINATION: XR abdomen obstructive series EXAM DATE: 04/29/2021 09:10 INDICATION: Small bowel obstruction. Marrow TECHNIQUE: Frontal upright projection of the upper abdomen, frontal projection of the lower abdomen f or interpretation. Comparison is made to prior examination from 04/28/2021. FINDINGS: Feeding tube is in position. There is a Chemo-Port. There are bibasilar air bronchograms, d evelopment of bibasilar atelectasis an/or pneumonia. Possible small effusions. There are several loops of moderately distended air-filled small bowel, probably small bowel obstruct ion correlating with prior CT, but could be partial. There is gas within the colon. There is anastomo sis material overlying the ascending colon. Cholecystectomy clips. No evidence of free intraperitonea l gas. There are bony degenerative changes. Dense nephrograms, probably from contrast administered 2 days ago. This likely indicates poor renal f unction or contrast-induced nephropathy. IMPRESSION: 1. Persistent nephrograms indicating poor renal function and/or contrast-induced nephropathy. 2. Several moderately dilated small bowel loops, obstruction. 3. Development of segmental bibasilar atelectasis an/or pneumonia. 4. Feeding tube in position. Reviewed, dictated and finalized at location [facility]. IMPRESSION: 1. Persistent nephrograms indicating poor renal function and/or contrast-induc ed nephropathy. 2. Several moderately dilated small bowel loops, obstruction. 3. Development of segmental bibasilar atelectasis an/or pneumonia. 4. Feeding tube in position.
--- NOTE | ~2021-04-27 | CT_ITS ---
EXAMINATION: CT abdomen pelvis wo con DATE: 04/30/2021 08:59 INDICATION: Retroperitoneal hematoma TECHNIQUE: Computed tomography (CT) of the abdomen and pelvis was performed without intravenous contr ast. Automated exposure control and iterative reconstruction technique were employed. The dose-length product was 1561.70 mGy-cm. COMPARISON: 04/27/2021 FINDINGS: Small dependently layering right pleural effusion. Consolidation in the dependent right middle and bi lateral lower lobes with associated volume loss and favor atelectasis over pneumonia. Cardiomegaly. A therosclerotic coronary artery calcification. No pericardial effusion. Persistent subcarinal lymphade nopathy. Nasogastric tube tip in the distal body of the stomach. Cholecystectomy clips the gallbladde r fossa. Liver, spleen, pancreas and bilateral adrenal glands are normal. Likely age-related mild naya ateral renal cortical atrophy. Bladder is decompressed around a Tolliver catheter there is fluid through out the large and small bowel consistent with diarrhea. Right hemicolectomy with right abdominal ileo colic anastomosis. There is an additional anastomotic suture line near the rectosigmoid junction. The re are several fluid-filled but not frankly dilated small bowel in the left abdomen measuring up to 3 cm in maximal diameter and without a discrete transition point to suggest obstruction. Again seen is a small dictated soft tissue density centered in the small bowel mesentery in the right lower quadra nt along with a few additional nodular peritoneal deposits more peripherally in the right lower quadr ant along the fat underlying the anterior abdominal wall consistent with peritoneal carcinomatosis. I nterval increase in mild diffuse mesenteric and retroperitoneal edema. Multiple small mesenteric and retroperitoneal lymph nodes more notable for number than size. No retroperitoneal hematoma. No free i ntraperitoneal gas or fluid. There is calcified atherosclerosis of the aorta and bilateral iliac beverley boubacar. No pathologically enlarged abdominal or pelvic lymphadenopathy. Mild lumbar levo scoliosis with moderate spondylosis. Severe thoracic spondylosis with bridging osteophytes at multiple levels consi stent with diffuse idiopathic skeletal hyperostosis (DISH). IMPRESSION: 1. Diarrhea along with multiple fluid-filled but no longer frankly dilated loops of small bowel consi stent with ileus versus resolving small bowel obstruction. 2. Peritoneal and mesenteric soft tissue nodules consistent with peritoneal carcinomatosis. 3. Subcarinal and mild mesenteric and retroperitoneal lymphadenopathy which could be reactive or dorothy tional metastatic disease or lymphoma. 4. Atelectasis versus less likely pneumonia in the bilateral lower lung zones with small right pleura l effusion. Reviewed, dictated and finalized at location [facility]. IMPRESSION: 1. Diarrhea along with multiple fluid-filled but no longer frankly dilated loop s of small bowel consistent with ileus versus resolving small bowel obstruction . 2. Peritoneal and mesenteric soft tissue nodules consistent with peritoneal car cinomatosis. 3. Subcarinal and mild mesenteric and retroperitoneal lymphadenopathy which cou ld be reactive or additional metastatic disease or lymphoma. 4. Atelectasis versus less likely pneumonia in the bilateral lower lung zones w ith small right pleural effusion.
--- NOTE | ~2021-04-27 | XR_ITS ---
EXAMINATION: XR abdomen obstructive series DATE: 04/28/2021 07:30 INDICATION: Small bowel obstruction versus ileus TECHNIQUE: Frontal supine and upright views of the abdomen were obtained. COMPARISON: CT dated 04/27/2021 FINDINGS: Nasogastric tube tip projecting near the pyloric region of the stomach with proximal side-port in the distal body. Cholecystectomy clips in the right upper quadrant. Right internal jugular central venou s port catheter with distal tip near the superior cavoatrial junction. Tolliver catheter in the bladder. Persistent bilateral nephrograms and excreted contrast in the ureters and bladder related to the rec ent contrast enhanced CT of the abdomen and pelvis. No significant change in several mildly dilated gas-filled loops of small bowel in the midabdomen wit h persistent prominent gas in the still normal caliber transverse colon. No pneumatosis or free intra peritoneal gas. Opacities at the left lung base consistent with atelectasis and/or pneumonia. Surgica l clips the left axilla consistent with prior axillary lymph node dissection. IMPRESSION: 1. No interval change in several mildly dilated gas-filled small bowel which could represent either ileus or obstruction. 2. There is a gastric tube tip near the gastric pylorus. Could consider withdrawal by [address] the distal tip at the distal body of the stomach. 3. Opacities at the left lung base which could represent atelectasis and/or pneumonia. Reviewed, dictated and finalized at location [facility]. IMPRESSION: 1. No interval change in several mildly dilated gas-filled small bowel which c ould represent either ileus or obstruction. 2. There is a gastric tube tip near the gastric pylorus. Could consider withdra wal by [address] the distal tip at the distal body of the stomach. 3. Opacities at the left lung base which could represent atelectasis and/or pne umonia.
--- NOTE | ~2021-04-27 | US_ITS ---
EXAMINATION: US art doppler w press LE BI DATE: 04/28/2021 14:07 INDICATION: Asymmetric week right-sided lower limb pulse. TECHNIQUE: Segmental pressures and plethysmographic and Doppler waveforms of the brachial and lower e xtremity arteries were obtained. COMPARISON: None. FINDINGS: Right brachial artery pressure is 92 mm Hg. The left brachial artery pressure was unable to be obtain ed due to a prior lumpectomy. The right ankle-brachial index (SHAHEEN) is 0.91 (normal >= 0.9-1). The right great toe-brachial index (T BI) is 0.85 (normal >= 0.6-0.8). Arterial waveforms are biphasic with brisk systolic upstrokes throug hout the arteries of the right lower limb. The left SHAHEEN is 0.87. The left TBI is 0.78. Arterial waveforms are biphasic with brisk systolic upstr okes throughout the arteries of the left lower limb. IMPRESSION: 1. And no significant arterial occlusive disease in the right lower limb with normal right SHAHEEN and TB I 2. Mild arterial occlusive disease to the left lower limb with mildly decreased left SHAHEEN but normal T BI. Reviewed, dictated and finalized at location [facility]. IMPRESSION: 1. And no significant arterial occlusive disease in the right lower limb with n ormal right SHAHEEN and TBI 2. Mild arterial occlusive disease to the left lower limb with mildly decreased left SHAHEEN but normal TBI.
[2021-04-27 20:27] VITALS: BP 134/77; PULSE 124; RESP 24; TEMP 36.8; O2SAT 94
--- NOTE | 2021-04-27 20:39 | ED.GENADULT ---
HPI - General Adult General Chief complaint: Nausea/Vomiting/Diarrhea Stated complaint: weakness, N/V Source: patient and RN notes reviewed History of Present Illness HPI narrative: Patient is a 80 y/o female complaining nausea, vomiting and diarrhea starting about 5 days ago. She states that she is mostly vomiting up liquid. She vomited about 5 times during the last 24 hours. There is no known alleviating or exacerbating factor. She has no abdominal pain or fever. Related Data Home Medications Medication Instructions Recorded Confirmed aspirin [Aspir-81] 81 mg PO HS 04/10/19 04/22/21 cyanocobalamin (vitamin B-12) 1,000 mcg PO DAILY 09/30/20 04/22/21 OneTouch Verio test strips 02/19/21 04/22/21 potassium 20 mg PO BID 03/25/21 04/22/21 doxycycline monohydrate 10 mg PO BID 04/08/21 04/22/21 Allergies Allergy/AdvReac Type Severity Reaction Status Date / Time metformin AdvReac Mild Diarrhea Verified 04/27/21 20:37 Review of Systems Constitutional: Constitutional: Denies chills, Denies fever(s), Denies headache(s) and Reports weakness Eyes: Eyes: Denies blurry vision ENT: Denies headache(s) and Denies neck pain Cardiovascular: Cardiovascular: Denies chest pain and Denies dyspnea Respiratory: Respiratory: Denies cough and Denies dyspnea Gastrointestinal: Gastrointestinal: Denies abdominal pain, Reports diarrhea, Reports nausea and Reports vomiting Genitourinary: Genitourinary: Denies hematuria and Denies dysuria Musculoskeletal: Musculoskeletal: Denies back pain and Denies neck pain Neurologic: Denies headache(s) and Reports weakness PMF Past Medical History Medical History Anxiety Bladder mass On immunotherapy Breast cancer lumpectomy and chemotherapy and radiation 1998 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 Cancer of sigmoid colon (~11/2019) Chronic kidney disease, stage III (moderate) (Unknown) Diabetes (Unknown) Diverticulosis of large intestine without hemorrhage (Unknown) History of chemotherapy History of colon cancer History of lymphoma History of radiation therapy HLD (hyperlipidemia) (Unknown) Hx of abnormal cervical Pap smear Hx of malignant neoplasm of female breast Hypertension Hypothyroidism (Unknown) Lymphoma 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) received chemotherapy Patient on antineoplastic chemotherapy regimen Surgical History Surgical History History of cholecystectomy History of colectomy hand assited laparoscopic left colectomy with anastamosis 01/14/20 History of left cataract surgery History of lumpectomy left breast History of right cataract surgery History of right hemicolectomy laparoscopic right hemicolectomy with anastomosis ileum to transverse colon - 09/24/2018 hand assisted laparoscopic left colectomy with anastomosis January 13 2020 History of tonsillectomy History of total abdominal hysterectomy and bilateral salpingo-oophorectomy Status post hysterectomy with oophorectomy Family History Family History Mother Patient's mother is , Onset Age: 39 Father Patient's father is , Onset Age: 40 Sibling Family history of cardiovascular disease Family history of malignant neoplasm of breast Family history of heart disease in male family member before age 55 Other Family history of malignant neoplasm Family history of malignant neoplasm of breast in first degree relative Social History Social History Social History: the patient lives with her Trever in [facility]. 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 She is a lifelong nonsmoker. Does not use alcohol or illicit drugs. 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 She had 1 son passed iesah
[2021-04-27] MEDS: ONDANSETRON INJ 4 MG/2 ML VIAL IV PUSH (20:53)
[2021-04-27] MEDS: SODIUM CHLORIDE 0.9% IV 1,000 ML 999 ML IV CONT (20:53)
[2021-04-27 20:59] LABS: Hematocrit 41.4 % (37.0-47.0); Hemoglobin 13.2 g/dL (12.0-15.0); Immature Platelet Fraction Pct 2.2 % (0.9-11.2); Mean Corpuscular HGB Conc 31.9 g/dl (32-36); Mean Corpuscular Hemoglobin 26.9 pg (26-34); Mean Corpuscular Volume 84.5 fl (80-100); Platelet Count Result 128 k/mm3 (150-375); Red Cell Distribution Width 14.4 % (11.5-14.5)
[2021-04-27 21:00] VITALS: PULSE 170
[2021-04-27 21:01] LABS: Glucose Point of Care 433 mg/dl (65-105)
--- NOTE | 2021-04-27 21:03 | ECG_ITS ---
Measurements Intervals [place] Rate: 153 P: VA: 0 QRS: -16 QRSD: 82 T: 153 QT: 284 QTc: 454 Interpretive Statements ATRIAL FIBRILLATION WITH RAPID VENTRICULAR RESPONSE INFERIOR INFARCT, AGE INDETERMINATE ST-T WAVE ABNORMALITY IN ANTEROLAT/HIGH LAT LEADS- CONSIDER ISCHEMIA BASELINE ARTIFACT- II, III, AVR, AVF, V1-V6 ABNORMAL ECG Electronically Signed On 04-28-2021 6:36:44 CDT by Inderjit Sorto D.O.
[2021-04-27 21:04] LABS: Add Urine Microscopic? YES; Appearance Urine Cloudy (Clear); Bilirubin Urine Negative (Negative); Blood Urine 2+ (Negative); Color Urine Yellow (Yellow); Glucose Urine UA Negative (Negative); Ketones Urine Negative (Negative); Leukocyte Esterase Ur Negative LEU/UL (Negative); Nitrate Urine Negative (Negative); Protein Urine 1+ mg/dL (Negative); RBC Urine 51-75 /hpf (0-2); Specific Grav Ur 1.019 (1.001-1.035); Squamous Epithelial Cell Urine Rare /hpf (Few); Urobilinogen Urine Negative mg/dL (<2.0)
--- NOTE | 2021-04-27 21:09 | PC.NURSE ---
Called laboratory and requested add ons per EDP order. Spoke to Quyen.
[2021-04-27] MEDS: dilTIAZem HCl INJ 25 MG/5 ML VIAL 10 MG IV PUSH (21:12)
[2021-04-27 21:13] VITALS: BP 138/63; PULSE 148
[2021-04-27 21:24] LABS: White Blood Count 0.3 K/mm3 (4.5-10.0)
[2021-04-27 21:28] VITALS: BP 115/41; PULSE 126; RESP 29; O2SAT 94
[2021-04-27 21:33] LABS: Lymphocytes Absolute Manual 0.24 K/mm3 (1.1-4.5); Neutrophils Percent Manual 20 % (46-73); Total Cells Counted 10
[2021-04-27 21:34] LABS: Anisocytosis 1+ (NORMAL); Ovalocytes 1+ (NORMAL); Platelet Estimate Decreased (Adequate)
[2021-04-27 21:53] LABS: Alanine Aminotransferase 15 U/L (4-35); Albumin Level 4.7 g/dL (3.5-5.1); Alkaline Phosphatase 104 U/L (38-126); Anion Gap 17 mmol/L (8-16); Aspartate Amino Transferase 19 U/L (14-36); Bilirubin,Total 0.8 mg/dL (0.2-1.3); Blood Urea Nitrogen 27 mg/dL (7-17); Calcium 9.7 mg/dL (8.4-10.2); Carbon Dioxide 14 mmol/L (22-30); Chloride 107 mmol/L (98-107); Estimated Glomerular Filt Rate 39; Glucose 444 mg/dL (65-110); Potassium 4.1 mmol/L (3.4-5.0); Sodium 138 mmol/L (137-145)
[2021-04-27 22:04] LABS: Troponin I < 0.012 ng/mL (0.000-0.034)
--- NOTE | 2021-04-27 22:10 | PC.NURSE ---
Pt to CT scan at this time.
[2021-04-27 22:23] LABS: Thyroid Stimulating Hormone 0.097 uIU/mL (0.465-4.680)
[2021-04-27 22:40] VITALS: BP 108/60; PULSE 145; RESP 31; O2SAT 94
[2021-04-27 23:00] LABS: Beta-Hydroxybutyrate/Acetoacetate 0.57 mmol/L (0.02-0.27)
[2021-04-27] MEDS: FILGRASTIM-SNDZ 300 MCG/0.5 ML SYRINGE SUB-Q (23:19)
[2021-04-27 23:30] LABS: Alveolar/Arterial O2 Gradient 58.2 mmHg; Base Excess ABG -6.9 mEq/l (+/-2.0); Fractional Inspired Oxygen 21 %; HCO3 ABG 16.7 mEq/l (22.0-26.0); Oxygen Saturation ABG 90.1 % (95.0-100.0); Oxyhemoglobin 89.7 % THb (90.0-100.0); PCO2 ABG 28.5 mmHg (35.0-45.0); PO2 ABG 57.4 mmHg (80.0-100.0); PO2 FiO2 Ratio Arterial Blood 2.73 %; Total Hemoglobin 12.7 g/dL (12.0-18.0); pH ABG 7.387 (7.350-7.450)
[2021-04-27 23:32] LABS: Lactic Acid Reflex 2.5 mmol/L (0.7-2.1)
[2021-04-27 23:32] LABS: Device ROOM AIR; Modified Allen's Test Pass; Site Drawn LEFT RADIAL
[2021-04-28] VITALS (30 sets, daily range): BP systolic 85–162; BP diastolic 37–91; PULSE 103–138; RESP 16–44; TEMP 35.9–39.6; O2SAT 90–98; BMI 35.7
[2021-04-28 00:58] LABS: Troponin I < 0.012 ng/mL (0.000-0.034)
[2021-04-28 02:13] LABS: Reflex Lactic Acid Yes or No Add Lactic
[2021-04-28] MEDS: SODIUM CHLORIDE 0.9% IV 1,000 ML 125 ML IV CONT ×3 (02:57→21:43)
[2021-04-28 03:32] LABS: Hemoglobin 12.1 g/dL (12.0-15.0); Mean Corpuscular HGB Conc 31.8 g/dl (32-36); Mean Corpuscular Hemoglobin 27.1 pg (26-34); Mean Platelet Volume 10.3 fl (7.4-10.4); Platelet Count Result 104 k/mm3 (150-375); Red Blood Count 4.47 M/mm3 (4.2-5.4); Red Cell Distribution Width 14.1 % (11.5-14.5)
[2021-04-28 03:34] LABS: White Blood Count 0.2 K/mm3 (4.5-10.0)
[2021-04-28 03:43] LABS: Lactic Acid 2.8 mmol/L (0.7-2.1)
--- NOTE | 2021-04-28 03:49 | ECG_ITS ---
Measurements Intervals [place] Rate: 103 P: 8 MN: 131 QRS: -16 QRSD: 83 T: 72 QT: 357 QTc: 469 Interpretive Statements SINUS TACHYCARDIA DELAYED PRECORDIAL R/S TRANSITION INFERIOR INFARCT, AGE INDETERMINATE ST-T WAVE ABNORMALITY IN ANTEROLATERAL LEADS- CONSIDER ISCHEMIA ABNORMAL ECG Electronically Signed On 04-28-2021 10:45:13 CDT by Inderjit Sorto D.O.
[2021-04-28 03:56] LABS: Troponin I 0.016 ng/mL (0.000-0.034)
[2021-04-28] MEDS: INSULIN ASPART (*BKC) 100 UNITS/ML 10 UNITS SUB-Q (04:00)
[2021-04-28 04:03] LABS: Glucose Point of Care 406 mg/dl (65-105)
[2021-04-28 04:17] LABS: Anion Gap 13 mmol/L (8-16); Blood Urea Nitrogen 31 mg/dL (7-17); Calcium 9.9 mg/dL (8.4-10.2); Carbon Dioxide 17 mmol/L (22-30); Chloride 107 mmol/L (98-107); Estimated CRCL calculation 24 ml/min; Estimated Glomerular Filt Rate 29; Glucose 471 mg/dL (65-110); Potassium 4.2 mmol/L (3.4-5.0); Sodium 137 mmol/L (137-145)
--- NOTE | 2021-04-28 08:27 | PM.IMHP ---
H&P: HPI History of Present Illness Date/Time: 04/28/21 08:27 80-year-old female with multiple cancers currently undergoing chemotherapy for metastatic colon cancer. She received 1st dose of newest chemotherapeutic agent last shortly thereafter she started to have side effects of agitation and insomnia followed by nausea vomiting abdominal distension intolerance to p.o.. She is brought to the hospital shortly after admission has started to become febrile. Significant lab/imaging findings Afib RVR on EKG, wbc 0.3, carbon dioxide 14, BUN 27, Cr 1.3, CT abd Mesenteric and peritoneal metastases with associated distal ileakl small bowel obstruction, small bowel wall thickening and fluid levels. Increased small bowel dilatation and ileal bowel wall thickening since 02/19/2021 Increased subcarinal lymphadenopathy that 02/19/2021, possible pneumonia on chest x-ray, follow up KUB mildly dilated gas-filled small bowel loops ileus versus obstruction NG tube is in place at time of this imaging. 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 (~11/2019) Chronic kidney disease, stage III (moderate) (Unknown) Diabetes (Unknown) Diverticulosis of large intestine without hemorrhage (Unknown) History of chemotherapy History of colon cancer History of lymphoma History of radiation therapy HLD (hyperlipidemia) (Unknown) Hx of abnormal cervical Pap smear Hx of malignant neoplasm of female breast Hypertension Hypothyroidism (Unknown) Lymphoma 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) received chemotherapy Patient on antineoplastic chemotherapy regimen Surgical History Surgical History History of cholecystectomy History of colectomy hand assited laparoscopic left colectomy with anastamosis 01/14/20 History of left cataract surgery History of lumpectomy left breast History of right cataract surgery History of right hemicolectomy laparoscopic right hemicolectomy with anastomosis ileum to transverse colon - 09/24/2018 hand assisted laparoscopic left colectomy with anastomosis January 13 2020 History of tonsillectomy History of total abdominal hysterectomy and bilateral salpingo-oophorectomy Status post hysterectomy with oophorectomy Family History Family History Mother Patient's mother is , Onset Age: 39 Father Patient's father is , Onset Age: 40 Sibling Family history of cardiovascular disease Family history of malignant neoplasm of breast Family history of heart disease in male family member before age 55 Other Family history of malignant neoplasm Family history of malignant neoplasm of breast in first degree relative Social History Social History Social History: the patient lives with her Trever in [facility]. 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 She is a lifelong nonsmoker. Does not use alcohol or illicit drugs. Her Trever is a durable power shoe salesperson for healthcare and she desires to be a full code. She had 1 son from leukemia in 1998. She gave to 4 children. Smoking status: Never smoker Second hand tobacco smoke exposure: Yes Alcohol intake: never Substance use: never Substance use type: does not use Gender identity (if verbalized by the patient): Female Sexual Orientation (if Verbalized by the Patient): Straight or Heterosexual Spiritual care concerns: No Meds Home Medications and Allergies Conchis
[2021-04-28 08:42] LABS: Basophils Percent Auto 3.6 % (0.2-1.2); Eosinophils Percent Auto 3.6 % (0-4.4); Lymphocytes Absolute Auto 0.14 K/mm3 (0.9-3.2); Mean Corpuscular HGB Conc 31.6 g/dl (32-36); Mean Corpuscular Hemoglobin 26.8 pg (26-34); Mean Platelet Volume 11.1 fl (7.4-10.4); Monocytes Percent Auto 7.1 % (2.6-8.5); Neutrophils Absolute Auto 0.1 K/mm3 (1.3-6.7); Neutrophils Percent Auto 35.7 % (45.5-73.1); Platelet Count Result 104 k/mm3 (150-375); Red Blood Count 4.47 M/mm3 (4.2-5.4); Red Cell Distribution Width 14.3 % (11.5-14.5)
[2021-04-28 08:45] LABS: White Blood Count 0.3 K/mm3 (4.5-10.0)
[2021-04-28 08:53] LABS: Anion Gap 13 mmol/L (8-16); Blood Urea Nitrogen 34 mg/dL (7-17); Calcium 9.6 mg/dL (8.4-10.2); Carbon Dioxide 15 mmol/L (22-30); Chloride 108 mmol/L (98-107); Estimated CRCL calculation 21 ml/min; Estimated Glomerular Filt Rate 25; Glucose 402 mg/dL (65-110); Magnesium 1.6 mg/dL (1.6-2.3); Sodium 136 mmol/L (137-145)
[2021-04-28 08:57] LABS: Lactic Acid Reflex 3.8 mmol/L (0.7-2.1)
[2021-04-28 11:57] LABS: Prealbumin 13.9 mg/dL (17.6-36.0)
--- NOTE | 2021-04-28 12:49 | PDONCCN ---
HPI - Date of Consult Date/Time: 04/28/21 12:49 Requesting Physician: Leroy Wild MD Primary Care Provider: Virgil Loya MD - Consult Narrative Reason for consult: Metastatic colorectal cancer Narrative: Lanette Alberts is a 80 year old female with history of metastatic colon cancer currently on second-line chemotherapy with irinotecan and Erbitux. She received last chemotherapy about a week ago. She developed significant amount of nausea vomiting and diarrhea. She came into the hospital with complain of nausea vomiting and diarrhea. CT scan of abdomen was performed that showed mesenteric and peritoneal metastasis associated with distal ileal small bowel obstruction and small bowel wall thickening with fluid levels. There was some increased subcarinal lymphadenopathy. Labs showed neutropenia with total WBC count of 0.3. Hemoglobin was normal and platelet count was [id number]. Surgery service was consulted. Patient has NG tube placed. Review of Systems - Review of Systems All systems reviewed & are unremarkable except as noted in HPI and bel - Neurologic Reports weakness, Denies headache(s) [facility] Medical History: Medical History (Last Reviewed 04/27/21 @ 20:41 by Carlee Granados MD) Anxiety Bladder mass On immunotherapy Breast cancer lumpectomy and chemotherapy and radiation 1998 Cancer of appendix Onset Date: ~10/2018 Cancer of ileum Cancer of sigmoid colon Onset Date: ~11/2019 Chronic kidney disease, stage III (moderate) Onset Date: Unknown Diabetes Onset Date: Unknown Diverticulosis of large intestine without hemorrhage Onset Date: Unknown History of chemotherapy History of colon cancer History of lymphoma History of radiation therapy HLD (hyperlipidemia) Onset Date: Unknown Hx of abnormal cervical Pap smear Hx of malignant neoplasm of female breast Hypertension Hypothyroidism Onset Date: Unknown Lymphoma Lymphoma in remission Onset Date: Unknown received chemotherapy Patient on antineoplastic chemotherapy regimen Surgical History: Surgical History (Last Reviewed 04/27/21 @ 20:41 by Carlee Granados MD) History of cholecystectomy History of colectomy hand assited laparoscopic left colectomy with anastamosis 01/14/20 History of left cataract surgery History of lumpectomy left breast History of right cataract surgery History of right hemicolectomy laparoscopic right hemicolectomy with anastomosis ileum to transverse colon - 09/24/2018 hand assisted laparoscopic left colectomy with anastomosis January 13 2020 History of tonsillectomy History of total abdominal hysterectomy and bilateral salpingo-oophorectomy Status post hysterectomy with oophorectomy Family History: Family History (Last Reviewed 04/28/21 @ 01:47 by Quyen James RN) Mother Patient's mother is , Onset Age: 39 Father Patient's father is , Onset Age: 40 Sibling Family history of cardiovascular disease Family history of malignant neoplasm of breast Family history of heart disease in male family member before age 55 Other Family history of malignant neoplasm Family history of malignant neoplasm of breast in first degree relative - Social History Social History: Social History (Last Reviewed 04/27/21 @ 20:41 by Carlee Granados MD) Gender Identity: Gender identity (if verbalized by the patient): Female Sexual Orientation: Sexual Orientation (if Verbalized by the Patient): Straight or Heterosexual Alcohol Use: Alcohol intake: never Substance Use: Substance use: never Substance use type: does not use Others: Spiritual care concerns: No Smoking Status: Smoking status: Never smoker Second hand tobacco smoke exposure: Yes Meds Home Medications Medication Instructions Recorded Confirmed Type aspirin [Aspir-81] 81 mg PO HS 04/10/19 04/22/21 History lancets 33 gauge #100 ea 06/15/2003/27
--- NOTE | 2021-04-28 15:28 | PM.CNCAR ---
Assessment and Plan Assessment and plan (1) Atrial fibrillation with rapid ventricular response: Code(s): I48.91 - Unspecified atrial fibrillation Status: Acute Assessment and Plan: New onset atrial fibrillation with rapid ventricular response currently in sinus tachycardia. Diltiazem infusion held secondary to hypotension despite IV fluids. Continue fluid support as tolerated. P.r.n. IV metoprolol 5 mg q.6 hours with hold parameters with AFib RVR. Amiodarone IV likely best tolerated option if hypotension remains an issue and atrial fibrillation recurs. Caution given thrombocytopenia, monitor for bleeding risk. Follow trends. Conservative medical management at this time. 2D echocardiogram. She is not taking p.o. secondary to bowel obstruction. Systemic anticoagulation if okay with primary service with recurrence of AFib. Monitor and replete potassium magnesium as appropriate to keep potassium around 4 magnesium closer to 2. TSH slightly low consistent with mild hyperthyroid state. (2) EDWARDO (acute kidney injury): Code(s): N17.9 - Acute kidney failure, unspecified Status: Acute Assessment and Plan: Renal function progressing despite IV fluids. Continue to monitor BMP. Patient has multiple comorbidities and is critical ill. (3) Hypotension: Code(s): I95.9 - Hypotension, unspecified Status: Acute Assessment and Plan: Possible sepsis. Continue antibiotics, IV fluid support. Cultures pending negative to date thus far. Patient at high infection risk given immune compromised status. (4) Acute dehydration: Code(s): E86.0 - Dehydration Status: Acute Assessment and Plan: As above, IV fluids per primary service. (5) Neutropenia: Qualifiers: Neutropenia type: unspecified Qualified Code(s): D70.9 - Neutropenia, unspecified Code(s): D70.9 - Neutropenia, unspecified Status: Acute Assessment and Plan: Neupogen, further management per primary service and Oncology. (6) Small bowel obstruction: Code(s): K56.609 - Unspecified intestinal obstruction, unspecified as to partial versus complete obstruction Status: Acute Assessment and Plan: Per primary and surgical service. Certainly complicating her management. (7) Malignant neoplasm of colon: Code(s): C18.9 - Malignant neoplasm of colon, unspecified Status: Acute Assessment and Plan: Per Oncology, unfortunately it seems options are limited and/or poorly tolerated. (8) Mixed diabetic hyperlipidemia associated with type 2 diabetes mellitus: Code(s): E11.69 - Type 2 diabetes mellitus with other specified complication; E78.2 - Mixed hyperlipidemia Status: Acute Assessment and Plan: Per primary service. History of Present Illness History of Present Illness Consult date/time: Date of service: 04/28/21 15:28 Cardiology consultation at the request of Dr. Albrecht for our opinion regarding new diagnosis atrial fibrillation with rapid ventricular response. Requesting physician: Jo Albrecht MD Consult reason: atrial fibrillation Reason For Visit: AFib w/ RVR, Neutropenia, Bowel Obstruction Narrative: Patient is a complicated 80-year-old female with a past medical history significant for metastatic colon cancer who presented the emergency department with complaints of nausea, vomiting, diarrhea and clinical dehydration, acute renal failure on second-line chemotherapy Irinotecan and Erbitux last therapy approximately 1 week ago. At presentation she was noted to be in A.Fib with RVR HR 150-160's+ started on Dilt gtt converting to SR/ST. Diltiazem infusion stopped due to hypotension SBP 92mmHg and concerns for sepsis. She has been maintained on NS 125ml/hour with worsening renal function and Cr up to 1.9 thus far. She c/o feeling very fatigued. weak, no CP or SOB. Denied palpitations or prior cardiac problems or known A.Fib. Per nursing report p
--- NOTE | 2021-04-28 19:48 | PM.CNGS ---
Assessment and Plan Additional Plan 1. Partial small bowel obstruction: CT scan reviewed and discussed in detail. There is evidence of mesenteric and peritoneal metastasis with a distal ileal small bowel obstruction. This is most likely caused by her metastatic disease. This could also be related to intra-abdominal adhesions. Given her diarrhea, this could be more related to a partial obstruction or enteritis. If this is caused by her metastasis, then surgery would only relieve the obstruction, and would likely be temporary as the cancer continues to spread. Along with her metastatic cancer, she had multiple acute medical issues and co-morbidities that would make her an extremely high surgical risk. We would recommend to continue treating her conservatively with NG tube decompression, bowel rest, IV fluids, and broad-spectrum IV antibiotics. We will monitor her with serial abdominal exams and imaging. Thank you for allowing us to see the patient in consultation and we will continue to follow along with you. 2. Pneumonia 3. Severe sepsis Sepsis criteria met on admission. Continue broad-spectrum IV antibiotics and IV fluids. Monitor labs. Blood cultures pending. 4. Neutropenia with fever Hem/Onc consulted. Patient on Neupogen. Monitor labs. 5. Metastatic colon cancer with multiple previous abdominal surgeries Oncology recommendations noted. Chemotherapy will be held during acute illness. Hospice could be considered if further discussed with patient. 6. Abdominal carcinomatosis 7. Acute kidney injury Creatinine up to 1.9. Continue medical management per Hospitalist. 8. Type 2 diabetes mellitus 9. Obesity BMI 35 10. New onset atrial fibrillation with RVR Cardiology consulted. On telemetry in IMU. Regular rate and rhythm on my exam with HR at 105. Recent EKG showed sinus tachycardia. Management per Cardiology/medicine. I have discussed the patient's case and plan of care with Dr. Avina. History of Present Illness Consult details Consult date: 04/28/21 Reason for consult: other (Small bowel obstruction) Requesting physician: Carlee Granados MD Narrative: This is an 80-year-old obese female with a history of metastatic colon cancer on second-line chemotherapy, with her last dose being last week. 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 She then underwent a hand-assisted laparoscopic left colectomy for a sigmoid colon mass that was found to be residual or recurrent cancer from the initial appendiceal adenocarcinoma. She has followed with Oncology. Her most recent PET scan in February showed peritoneal carcinomatosis with FDG uptake and lymphadenopathy consistent with metastatic disease. Since her abdominal surgeries, she has had a few hospitalizations due to small bowel obstructions that were able to be treated conservatively. Over the past few days, she has developed nasuea, vomiting, and diarrhea. This brought her into the ER for evaluation. CT scan of the abdomen and pelvis showed evidence of peritoneal and metastatic metastasis with an associated distal ileal small bowel obstruction. The patient was found to have a white blood cell count of 0.3, normal hemoglobin, and platelets 128,000. Lactic acid 2.5, glucose in the 400's, and creatinine 1.3. Troponin negative x 3. Chest x-ray showed left lower lobe infiltrate and/or atelectasis. In the ER, she was found to be tachycardic with a heart rate of 124. EKG showed a fib with RVR. She has had a temperature max of 103.2 since admission. She was admitted to IMU and started on broad-spectrum IV antibiotics. NG tube was placed and confirmed placement with abdominal films. Oncology and Cardiology have been consulted. Our service was consulted for evaluation of the small bowel obstruction. She has been started on Neupogen. The patient is now seen on the IMU. She is tired-appearing when I entered the room and difficult to keep awake for conversati
[2021-04-28] MEDS: SODIUM CHLORIDE 0.9% IV 500 ML IV CONT (20:31)
[2021-04-28 20:39] LABS: Alveolar/Arterial O2 Gradient 99.2 mmHg; Base Excess ABG -8.7 mEq/l (+/-2.0); Carboxyhemoglobin 0.3 % THb (0-2.0); Fractional Inspired Oxygen 28 %; HCO3 ABG 14.7 mEq/l (22.0-26.0); Methemoglobin ABG 0.4 %THb (0-1.5); Oxygen Content ABG 15.6 %vol (16.0-22.0); Oxygen Saturation ABG 94.3 % (95.0-100.0); Oxyhemoglobin 92.7 % THb (90.0-100.0); PCO2 ABG 25.3 mmHg (35.0-45.0); PO2 ABG 70.6 mmHg (80.0-100.0); PO2 FiO2 Ratio Arterial Blood 2.52 %; Reduced Hemoglobin 6.6 %THb (0-5.0); Total Hemoglobin 11.9 g/dL (12.0-18.0); pH ABG 7.383 (7.350-7.450)
[2021-04-28 20:40] LABS: Device NASAL CANNULA; Site Drawn RIGHT BRACHIAL
[2021-04-28 20:49] LABS: Lactic Acid Reflex 1.8 mmol/L (0.7-2.1)
[2021-04-28 21:16] LABS: Albumin Level 2.9 g/dL (3.5-5.1); Anion Gap 9 mmol/L (8-16); Blood Urea Nitrogen 43 mg/dL (7-17); Calcium 9.1 mg/dL (8.4-10.2); Carbon Dioxide 17 mmol/L (22-30); Chloride 111 mmol/L (98-107); Estimated CRCL calculation 13 ml/min; Estimated Glomerular Filt Rate 14; Glucose 365 mg/dL (65-110); Phosphorus 2.9 mg/dL (2.5-4.5); Potassium 4.2 mmol/L (3.4-5.0); Sodium 137 mmol/L (137-145)
[2021-04-28 21:28] LABS: Troponin I 0.023 ng/mL (0.000-0.034)
[2021-04-28] MEDS: SODIUM CHLORIDE 0.9% IV 500 ML 999 ML IV CONT (21:42)
[2021-04-28] MEDS: FILGRASTIM-SNDZ 300 MCG/0.5 ML SYRINGE SUB-Q (21:47)
[2021-04-28] MEDS: TOLNAFTATE 1% POWDER 45 GM BTL 1 APPLIC TOPICAL (21:53)
[2021-04-28] MEDS: CENTRAL LINE FLUSH 10 ML IV PUSH (21:54)
--- NOTE | 2021-04-28 22:56 | PC.NURSE ---
04/28/21 at 1999......Patient with B/P 85/37. C/O lower abdominal pain.. Orders for a liter fluid bolus and transfer to the ICU. Blood pressure up to 106/48 after 500ml normal saline. See other labs drawn. Will prepare to transfer.
--- NOTE | 2021-04-28 23:45 | PC.NURSE ---
This patient, Lanette Alberts, was received from [[phone] ] on 04/28/21 at 2348. Patient/family oriented to unit policies and routines
--- NOTE | 2021-04-28 23:49 | PC.NURSE ---
This patient, Lanette Alberts, was transferred to ICU-1 on 04/28/21 at 2345. Personal belongings sent with patient. Report given to Marilyn MCCORMICK. Appropriate documentation sent with patient.
[2021-04-29] VITALS (18 sets, daily range): BP systolic 94–117; BP diastolic 47–89; PULSE 102–165; RESP 20–33; TEMP 36.4–37.8; O2SAT 93–100
--- NOTE | 2021-04-29 | ECHO_ITS ---
Patient Info Name: Lanette Alberts Age: 80 years : 1940 Gender: Female Ht: 61 in Wt: 189 lbs BSA: 1.96 m2 HR: 118 bpm BP: 100 / 47 mmHg Heart Rhythm: Tachycardia, Sinus Rhythm Technical Quality: Fair Exam Date: 04/29/2021 1:48 PM Exam Location: [facility] Pulmonary Exam Room: ICU 1 Patient Status: Inpatient Admit Date: 04/28/2021 Staff Ordering Physician: Jo Albrecht MD Post Commander: Cindy Seth RDCS Attending Provider: Leroy Wild MD Referring Physician: Trena RICE; Exam Type: CA echo doppler color flow Study Info Indications - ASSESS CARDIAC FUNCTION Complete two-dimensional, color flow and Doppler transthoracic echocardiogram is performed. Summary 1. Complete two-dimensional, color flow and Doppler transthoracic echocardiogram is performed. 2. Left ventricular chamber dimension is normal. 3. Left ventricular systolic function is normal, estimated at 65-70%. 4. There is no increased left ventricular wall thickness. 5. The left ventricular diastolic function is grade I diastolic dysfunction. 6. There is no aortic valve stenosis. 7. There is mild mitral valve regurgitation. 8. There is mild tricuspid valve regurgitation. 9. Moderate pulmonary hypertension, estimated pulmonary arterial systolic pressure is 47 mmHg. 10. Moderately dilatedMain pulmonary artery at 3.1 cm. Left Ventricle Left ventricular chamber dimension is normal. Left ventricular systolic function is normal, estimated at 65-70%. There is no increased left ventricular wall thickness. The left ventricular diastolic function is grade I diastolic dysfunction. Right Ventricle Right ventricular chamber dimension is normal. Right ventricular systolic function is normal. Left Atria Left atrial chamber dimension is normal. Right Atria Right atrial chamber dimension is normal. Aortic Valve The aortic valve is not well visualized. There is no aortic valve stenosis. There is no aortic valve regurgitation. Pulmonic Valve The pulmonic valve is normal. There is mild pulmonic regurgitation. Mitral Valve The mitral valve has thickened leaflets. There is mild mitral valve regurgitation. The mitral valve annulus is mildly calcified. Tricuspid Valve The tricuspid valve leaflets are normal. There is mild tricuspid valve regurgitation. Moderate pulmonary hypertension, estimated pulmonary arterial systolic pressure is 47 mmHg. Pulmonary Arteries Moderately dilatedMain pulmonary artery at 3.1 cm. Pericardium/Pleural The pericardium appears normal. There is small pericardial effusion. Inferior Vena Cava Normal inferior vena cava with >50% collapse upon inspiration consistent with normal right atrial pressure, 5 mmHg. Aorta The aortic root size at the sinus of Valsalva is normal. Left Ventricular Outflow Tract Name Value Normal LVOT 2D LVOT Diameter 2.0 cm LVOT Doppler LVOT Peak Gradient 6 mmHg LVOT Mean Gradient 4 mmHg LVOT VTI 19 cm LVOT VTI/AV VTI Ratio 1.0
--- NOTE | 2021-04-29 00:30 | PC.NURSE ---
Late Entry...Karol MCCORMICK called the patients and notified him of transfer to the ICU-1.
[2021-04-29 00:48] LABS: Glucose Point of Care 373 mg/dl (65-105)
[2021-04-29] MEDS: INSULIN ASPART (*BKC) 100 UNITS/ML SUB-Q ×6 (01:25→23:55)
[2021-04-29] MEDS: SODIUM CHLORIDE 0.9% IV 1,000 ML 999 ML IV CONT (01:25)
[2021-04-29 04:46] LABS: Estimated CRCL calculation 13 ml/min; Estimated Glomerular Filt Rate 14
[2021-04-29] MEDS: SODIUM CHLORIDE 0.9% IV 1,000 ML 125 ML IV CONT (05:26)
[2021-04-29 05:27] LABS: Glucose Point of Care 303 mg/dl (65-105)
[2021-04-29] MEDS: LEVOTHYROXINE SODIUM INJ 100 MCG/5 ML VIAL 50 MCG IV PUSH (05:27)
[2021-04-29] MEDS: CENTRAL LINE FLUSH 10 ML IV PUSH ×5 (05:28→20:42)
[2021-04-29 08:18] LABS: Alanine Aminotransferase 14 U/L (4-35); Albumin Level 2.4 g/dL (3.5-5.1); Alkaline Phosphatase 55 U/L (38-126); Anion Gap 13 mmol/L (8-16); Aspartate Amino Transferase 20 U/L (14-36); Bilirubin,Total 0.7 mg/dL (0.2-1.3); Blood Urea Nitrogen 45 mg/dL (7-17); Calcium 8.3 mg/dL (8.4-10.2); Carbon Dioxide 13 mmol/L (22-30); Chloride 112 mmol/L (98-107); Estimated CRCL calculation 13 ml/min; Estimated Glomerular Filt Rate 13; Glucose 339 mg/dL (65-110); Sodium 138 mmol/L (137-145)
[2021-04-29] MEDS: SODIUM BICARBONATE 8.4% 50 MEQ/50 ML SYRINGE IV PUSH (08:18)
[2021-04-29] MEDS: TOLNAFTATE 1% POWDER 45 GM BTL 1 APPLIC TOPICAL ×2 (08:27→20:42)
[2021-04-29 08:29] LABS: Glucose Point of Care 282 mg/dl (65-105)
[2021-04-29] MEDS: SODIUM BICARBONATE 8.4% 150 MEQ in WATER, STERILE FOR INJECTION 950 ML 125 MEQ IV CONT ×2 (09:11→20:40)
--- NOTE | 2021-04-29 09:52 | WPDCNINT ---
Assessment and Plan Assessment and plan (1) Sepsis: Code(s): A41.9 - Sepsis, unspecified organism Status: Acute Assessment and Plan: patient met criteria of sepsis. the source is likely abdominal with question number pneumonia although the base of lungs on CT did showed only atelectasis and she is only on 2 L nasal cannula patient is also neutropenic blood cultures sent and pending, UA not suggestive of UTI on vancomycin and Zosyn patient was hypotensive yesterday on the floor and she was given 1 L of saline bolus and transferred to ICU. Cheetah evaluation on arrival to ICU showed the patient was responsive to additional fluid bolus and was given another 1 L. 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: Code(s): C18.9 - Malignant neoplasm of colon, unspecified; C77.2 - Secondary and unspecified malignant neoplasm of intra-abdominal lymph nodes Status: Acute Assessment and Plan: patient was recently started on second-line chemotherapy Which she did not tolerate due to severe side effects oncology is following (3) Neutropenia: Qualifiers: Neutropenia type: unspecified Qualified Code(s): D70.9 - Neutropenia, unspecified Code(s): D70.9 - Neutropenia, unspecified Status: Acute Assessment and Plan: secondary to chemotherapy patient was started on filgrastim neutropenic precautions (4) Atrial fibrillation with rapid ventricular response: Code(s): I48.91 - Unspecified atrial fibrillation Status: Acute Assessment and Plan: patient was started on diltiazem infusion which was held due to hypertension and then she was switched to IV metoprolol p.r.n. but currently patient appears to be in sinus tach at this time and will continue to monitor closely (5) Small bowel obstruction: Code(s): K56.609 - Unspecified intestinal obstruction, unspecified as to partial versus complete obstruction Status: Acute Assessment and Plan: CT abdomen pelvis on admission showed Mesenteric and peritoneal metastases with associated distal ileal small bowel obstruction, small bowel wall thickening and fluid levels. Increased small bowel dilatation and ileal bowel wall thickening since 02/19/2021 patient is being followed by general surgery NPO NG tube is in place small-bowel obstructive series ordered for today (6) EDWARDO (acute kidney injury): Code(s): N17.9 - Acute kidney failure, unspecified Status: Acute Assessment and Plan: likely prerenal secondary to sepsis renal ultrasound to rule out obstruction check CK she has received IV fluid bolus and is on IV infusion I will change IV fluids to IV bicarb due to metabolic acidosis and hyperchloremia Add 25% albumin monitor urine output electrolytes and creatinine (7) Hyperglycemia: Code(s): R73.9 - Hyperglycemia, unspecified Status: Acute Assessment and Plan: Add sliding scale insulin Additional Plan DVT prophylaxis - SCDs Stress ulcer prophylaxis - add PPI Nutrition - NPO this time Code Status - I discussed code status with patient patient and she stated that she does not want to be intubated or receive CPR in the event of cardiac arrest. she mentioned that if she reaches assays then we should let her 'go in peace'. She told me that her is aware of her wishes. Change code status to DNR DNI as per her wishes in the chart Total Critical Care Time - 40 minutes Due to a high probability of clinically significant, life threatening deterioration, the patient required my highest level of preparedness to intervene emergently and I personally spent this critical care time directly and personally managing the patient. This critical care time included obtaining a history; examining the patient; pulse oximetry; ordering and review of studies; arranging u
[2021-04-29 10:36] LABS: Creatine Kinase 373 U/L (30-135)
[2021-04-29 12:31] LABS: Glucose Point of Care 211 mg/dl (65-105)
--- NOTE | 2021-04-29 12:49 | WPDONCPN ---
Progress Note: A/P - Additional Plan Metastatic colon cancer status post chemotherapy with Erbitux and irinotecan. CT scan done on April 27 showed mesenteric and peritoneal metastatic disease with increased subcarinal lymphadenopathy consistent with progressive disease. Plan is to discontinue chemotherapy. Patient may be able to tolerate Erbitux alone. We will discuss this after the discharge. Febrile neutropenia. Neutrophil remains low. She will continue Neupogen as ordered. She is on broad-spectrum antibiotic coverage. - Time Spent With Patient Total time spent is greater than 50% in coordination of care (as documented) at patient's floor/unit and/or counseling patient: 15 - 25 minutes Subjective Interval history: Metastatic colon cancer Febrile neutropenia Thrombocytopenia Review of Systems - Review of Systems Patient is now transferred to ICU. She remains quite tired and fatigued with no fevers and chills. Denies any diarrhea. Patient has NG suction tube placed. - Neurologic Reports system reviewed and no additional complaints, except as documented, Reports confusion, Reports weakness, Denies headache(s), Denies focal weakness, Denies numbness, Denies tingling Exam Vital signs: Temp Pulse Resp BP Pulse Ox 36.6 C 113 H 24 H 117/57 L 96 04/29/21 08:00 04/29/21 10:00 04/29/21 08:00 04/29/21 08:00 04/29/21 08:00 Narrative: Lungs are clear to auscultation bilaterally Cardiovascular regular rate rhythm no murmurs Abdomen hypoactive bowel sounds non tender slightly distended Extremities no edema PN: Objective Data - Labs CBC & Chem 7: 04/28/21 08:21 04/29/21 04:30 Labs: Laboratory Results - last 24 hr 04/28/21 04/28/21 04/28/21 20:27 20:30 20:53 Puncture Site Right brachial ABG pH 7.383 ABG pCO2 25.3 L ABG pO2 70.6 L ABG PO2/FiO2 Ratio 2.52 ABG HCO3 14.7 L ABG O2 Saturation 94.3 L ABG O2 Content 15.6 L ABG Base Excess -8.7 A-a Gradient 99.2 Oxyhemoglobin 92.7 Carboxyhemoglobin 0.3 Methemoglobin 0.4 Reduced Hemoglobin 6.6 H Total Hemoglobin 11.9 L O2 Delivery Device Nasal cannula O2 Liters/Min 2.0 FiO2 28 Sodium Potassium Chloride Carbon Dioxide Anion Gap BUN Creatinine Estim Creat Clear Calc Estimated GFR Glucose POC Capillary Glucose Lactic Acid 1.8 Calcium Phosphorus Total Bilirubin AST ALT Alkaline Phosphatase Total Creatine Kinase Troponin I 0.023 Total Protein Albumin 04/28/21 04/29/21 04/29/21 20:53 00:43 04:30 Puncture Site ABG pH ABG pCO2 ABG pO2 ABG PO2/FiO2 Ratio ABG HCO3 ABG O2 Saturation ABG O2 Content ABG Base Excess A-a Gradient Oxyhemoglobin Carboxyhemoglobin Methemoglobin Reduced Hemoglobin Total Hemoglobin O2 Delivery Device O2 Liters/Min FiO2 Sodium 137 Potassium 4.2 Chloride 111 H Carbon Dioxide 17 L Anion Gap 9 BUN 43 H Creatinine 3.20 H 3.20 H Estim Creat Clear Calc 13 13 Estimated GFR 14 L 14 L Glucose 365 H POC Capillary Glucose 373 H Lactic Acid Calcium 9.1 Phosphorus 2.9 Total Bilirubin AST ALT Alkaline Phosphatase Total Creatine Kinase Troponin I Total Protein Albumin 2.9 L 04/29/21 04/29/21 04/29/21 04:30 04:30 05:23 Puncture Site ABG pH ABG pCO2 ABG pO2 ABG PO2/FiO2 Ratio ABG HCO3 ABG O2 Saturation ABG O2 Content ABG Base Excess A-a Gradient Oxyhemoglobin Carboxyhemoglobin Methemoglobin Reduced Hemoglobin Total Hemoglobin O2 Delivery Device O2 Liters/Min FiO2 Sodium 138 Potassium 4.0 Chloride 112 H Carbon Dioxide 13 L Anion Gap 13 BUN 45 H Creatinine 3.30 H Estim Creat Clear Calc 13 Estimated GFR 13 L Glucose 339 H POC Capillary Glucose 303 H
[2021-04-29] MEDS: ALBUMIN HUMAN 25% 25 GM/100 ML 200 ML IVPB ×2 (13:54→20:41)
--- NOTE | 2021-04-29 14:00 | PM.PNCARD ---
Progress Note: A&P Assessment and Plan (1) Atrial fibrillation with rapid ventricular response: Code(s): I48.91 - Unspecified atrial fibrillation Status: Acute Assessment and Plan: New onset atrial fibrillation with rapid ventricular response currently in sinus tachycardia. Diltiazem infusion held secondary to hypotension despite IV fluids. Continue fluid support as tolerated. P.r.n. IV metoprolol 5 mg q.6 hours with hold parameters with AFib RVR. Amiodarone IV likely best tolerated option if hypotension remains an issue and atrial fibrillation recurs. Caution given thrombocytopenia, monitor for bleeding risk. Follow trends. Conservative medical management at this time. 2D echocardiogram pending. Recommendations after review when available. She is not taking p.o. secondary to bowel obstruction. Systemic anticoagulation advised with recurrence of atrial fibrillation if okay with primary service. Monitor and replete potassium magnesium as appropriate to keep potassium around 4 magnesium closer to 2. Check CBC, monitor platelet count. (2) EDWARDO (acute kidney injury): Code(s): N17.9 - Acute kidney failure, unspecified Status: Acute Assessment and Plan: Renal function progressing despite IV fluids. Continue IV fluid support and monitor BMP. Patient has multiple comorbidities and remains critically ill. (3) Hypotension: Code(s): I95.9 - Hypotension, unspecified Status: Acute Assessment and Plan: Improved with IV fluid support. Secondary to probable sepsis. Continue antibiotics. Cultures pending negative to date thus far. Patient at high infection risk given immune compromised status. (4) Acute dehydration: Code(s): E86.0 - Dehydration Status: Acute Assessment and Plan: As above, IV fluids per primary service. (5) Neutropenia: Qualifiers: Neutropenia type: unspecified Qualified Code(s): D70.9 - Neutropenia, unspecified Code(s): D70.9 - Neutropenia, unspecified Status: Acute Assessment and Plan: Neupogen, further management per primary service and Oncology. (6) Small bowel obstruction: Code(s): K56.609 - Unspecified intestinal obstruction, unspecified as to partial versus complete obstruction Status: Acute Assessment and Plan: Per primary and surgical service. Certainly complicating her management. (7) Malignant neoplasm of colon: Code(s): C18.9 - Malignant neoplasm of colon, unspecified Status: Acute Assessment and Plan: Per Oncology, unfortunately it seems options are limited and/or poorly tolerated. (8) Mixed diabetic hyperlipidemia associated with type 2 diabetes mellitus: Code(s): E11.69 - Type 2 diabetes mellitus with other specified complication; E78.2 - Mixed hyperlipidemia Status: Acute Assessment and Plan: Per primary service. Subjective Date/time seen: Date of service: 04/29/21 12:35 Follow-up for atrial fibrillation with rapid ventricular response Patient transferred to the ICU overnight due to relative hypotension. However, blood pressure responded nicely to IV fluid without need to initiate pressor support. Patient states he feels better this morning still weak. Denies bowel movement or flatus. No chest pain, shortness of breath. Mild nausea noted abdominal pain. Patient remains sinus tachycardia without recurrence of atrial fibrillation with rapid ventricular response overnight. Review of Systems Review of Systems: All systems reviewed & are unremarkable except as noted in HPI and below Constitutional: Constitutional: Reports as per HPI, Reports no additional constitutional complaints, Reports fatigue, Reports lethargy and Reports weakness Eyes: Eyes: Reports as per HPI and Reports no additional eye complaints ENT: Reports system reviewed and no additional complaints, except as documented and Reports as per HPI Cardiovascular: Car
[2021-04-29] MEDS: METOPROLOL TARTRATE INJ 5 MG/5 ML VIAL IV PUSH ×2 (15:20→20:43)
--- NOTE | 2021-04-29 17:29 | P.PCNBED_ITS ---
Procedures Central Line Placement Left Femoral: Central Line Date: 04/29/21 Central Line Time: 17:20 Discussed w/ the patient/family/POA,the placement of a central venous catheter, including its clinical necessity/indication & associated potential risks, benifits and alternatives.: Yes The patient/family/POA understand(s) and acknowledge(s) the need to proceed with central venous catheter insertion as an important element of the patient's clinical management.: Yes Time Out Performed: Yes Patient Position: supine Patient placed on monitor/pulse ox: Yes Provider Prep: Max. sterile barrier precautions and cap Central line prep: sterile full body sheet applied Local anesthesia used: lidocaine 1% Sterile US Technique with sterile gel/sterile probe covers: Yes Central line lumen inserted: triple [place]: 7 Length (cm): 16 Depth of Insertion (cm): 15 Post Procedure: sutured in place, good blood return, all ports aspirated, flushed, capped, transparent dressing and hemostatic product Patient tolerated procedure: well Complications: none Additional comments: attempted times two to right femoral and was unable to thread guidwire. Left femoral went smoothly without any difficulty. all three ports flushed well with great blood return.
[2021-04-29] MEDS: AMIODARONE 360 MG/D5W 200 ML 360 MG/200 ML BAG 33.33 MG IV CONT (17:57)
[2021-04-29] MEDS: AMIODARONE 150 MG/D5W 100 ML 150 MG/100 ML BAG 600 MG IV CONT (17:57)
[2021-04-29] MEDS: LACTATED RINGERS 1,000 ML 999 ML IV CONT (17:58)
[2021-04-29 18:38] LABS: Glucose Point of Care 158 mg/dl (65-105)
--- NOTE | 2021-04-29 20:47 | PM.PNGS ---
Progress Note: A&P Assessment and Plan (1) Small bowel obstruction: Onset Date: ~04/2021 Code(s): K56.609 - Unspecified intestinal obstruction, unspecified as to partial versus complete obstruction Status: Acute Assessment and Plan: is the main reason that we are involved. There was minimal coming out the NG tube suggesting that this may be improving. However, patient is stating that she is not noticing any flatus and nursing reports no bowel movements. Since minimal out the NG and patient complained of pain will go ahead and try to give milk a magnesia down the NG tube once tonight. If patient improves enough that she could the radiology department we could do a small-bowel follow-through with Gastrografin to prove bowel obstruction or no bowel obstruction. However, with the patient's current status including atrial fibrillation with RVR and hypotension is probably best not to try this. Will get repeat obstructive series of the abdomen in the a.m.. (2) Neutropenia: Qualifiers: Neutropenia type: unspecified Qualified Code(s): D70.9 - Neutropenia, unspecified Code(s): D70.9 - Neutropenia, unspecified Status: Acute Assessment and Plan: No CBC recorded earlier today to see if this is improving. Continue Neupogen Repeat CBC in a.m. (now ordered) (3) Abdominal carcinomatosis: Onset Date: Unknown Code(s): C76.2 - Malignant neoplasm of abdomen Status: Acute Assessment and Plan: this is been known for some time. Please see Dr. Morales notes. Patient recently received chemotherapy because of this problem. There is a possibility that she has new neutropenic and that she has ileus related to some inflammation of the intestinal tract. However I doubt that sepsis is related to the bowel. 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 (5) Neutropenic fever: Onset Date: ~04/2021 Code(s): D70.9 - Neutropenia, unspecified; R50.81 - Fever presenting with conditions classified elsewhere Status: Acute Assessment and Plan: Secondary to her recent chemotherapy. Source of infection I completely obvious although possibilities include translocation from the bowel or pneumonia whether it be related to atelectasis and low white count or aspiration. (6) Atrial fibrillation with rapid ventricular response: Code(s): I48.91 - Unspecified atrial fibrillation Status: Acute Assessment and Plan: Currently back in this and on amiodarone drip. See cardiology notes Additional Plan I will be out of town and Dr. Kelley will be covering for the weekend. Will ask him to round on her tomorrow and be available if it appears surgical intervention may be necessary. However, at this point appears the patient would not be able to tolerate a significant intra-abdominal surgery. Change in DNR status noted and patient reconfirmed this to me. She is a do not intubate and do not resuscitate patient at this time. I agree with this for her and a believe it is appropriate. Subjective Subjective Date/Time Seen: 04/29/21 20:47 Patient reports: pain is less, no flatus and no bowel movement Interval history: patient seems slightly delirious. Does answer some yes or no questions. Nurse also reports no bowel movements that she has been reported. Patient denies abdominal pain today Review of Systems Review of Systems: All systems reviewed & are unremarkable except as noted in HPI and below Constitutional: Constitutional: Reports as per HPI, Denies chills and Denies fever(s
[2021-04-29] MEDS: FILGRASTIM-SNDZ 300 MCG/0.5 ML SYRINGE SUB-Q (20:49)
[2021-04-29] MEDS: MAGNESIUM HYDROXIDE SUSP 30 ML UDC FEED TUBE (21:17)
[2021-04-29 21:25] LABS: Glucose Point of Care 208 mg/dl (65-105)
[2021-04-29] MEDS: AMIODARONE 360 MG/D5W 200 ML 360 MG/200 ML BAG 16.67 MG IV CONT (22:51)
[2021-04-29 23:53] LABS: Glucose Point of Care 203 mg/dl (65-105)
[2021-04-30] VITALS (21 sets, daily range): BP systolic 103–145; BP diastolic 42–106; PULSE 100–136; RESP 20–40; TEMP 36.4–37.1; O2SAT 90–96
[2021-04-30] MEDS: METOPROLOL TARTRATE INJ 5 MG/5 ML VIAL IV PUSH ×2 (01:24→20:03)
[2021-04-30] MEDS: SODIUM BICARBONATE 8.4% 150 MEQ in WATER, STERILE FOR INJECTION 950 ML 125 MEQ IV CONT (04:37)
[2021-04-30] MEDS: ALBUMIN HUMAN 25% 25 GM/100 ML 200 ML IVPB (06:23)
[2021-04-30] MEDS: LEVOTHYROXINE SODIUM INJ 100 MCG/5 ML VIAL 50 MCG IV PUSH (06:25)
[2021-04-30] MEDS: CENTRAL LINE FLUSH 10 ML IV PUSH ×7 (06:25→20:02)
[2021-04-30 06:29] LABS: Alanine Aminotransferase 11 U/L (4-35); Albumin Level 3.3 g/dL (3.5-5.1); Alkaline Phosphatase 40 U/L (38-126); Anion Gap 14 mmol/L (8-16); Aspartate Amino Transferase 14 U/L (14-36); Bilirubin,Total 0.7 mg/dL (0.2-1.3); Blood Urea Nitrogen 54 mg/dL (7-17); Calcium 8.2 mg/dL (8.4-10.2); Carbon Dioxide 25 mmol/L (22-30); Chloride 102 mmol/L (98-107); Estimated CRCL calculation 11 ml/min; Estimated Glomerular Filt Rate 11; Glucose 242 mg/dL (65-110); Magnesium 1.3 mg/dL (1.6-2.3); Potassium 3.5 mmol/L (3.4-5.0); Sodium 141 mmol/L (137-145)
[2021-04-30] MEDS: INSULIN ASPART (*BKC) 100 UNITS/ML SUB-Q ×4 (06:47→23:40)
[2021-04-30 07:30] LABS: Hematocrit 24.5 % (37.0-47.0); Hemoglobin 7.8 g/dL (12.0-15.0); Mean Corpuscular HGB Conc 31.8 g/dl (32-36); Mean Corpuscular Hemoglobin 26.4 pg (26-34); Mean Corpuscular Volume 83.1 fl (80-100); Mean Platelet Volume 11.2 fl (7.4-10.4); Platelet Count Result 40 k/mm3 (150-375); Red Blood Count 2.95 M/mm3 (4.2-5.4); Red Cell Distribution Width 15.2 % (11.5-14.5)
[2021-04-30 07:38] LABS: White Blood Count 0.3 K/mm3 (4.5-10.0)
[2021-04-30] MEDS: TOLNAFTATE 1% POWDER 45 GM BTL 1 APPLIC TOPICAL ×2 (08:36→20:02)
[2021-04-30] MEDS: PANTOPRAZOLE SODIUM IV 40 MG VIAL IV PUSH (08:36)
[2021-04-30] MEDS: FUROSEMIDE INJ 100 MG/10 ML VIAL 80 MG IV PUSH (08:38)
[2021-04-30] MEDS: MAGNESIUM SULF 2 GM/WATER 50ML 2 GM/50 ML BAG IVPB (08:38)
[2021-04-30 08:41] LABS: Eosinophils Percent Auto 14.3 % (0-4.4); Hematocrit 21.4 % (37.0-47.0); Immature Platelet Fraction Pct 8.3 % (0.9-11.2); Lymphocytes Absolute Auto 0.08 K/mm3 (0.9-3.2); Lymphocytes Percent Auto 38.1 % (18.3-44.2); Mean Corpuscular HGB Conc 32.7 g/dl (32-36); Mean Corpuscular Hemoglobin 26.8 pg (26-34); Mean Platelet Volume 10.8 fl (7.4-10.4); Monocytes Percent Auto 9.5 % (2.6-8.5); Neutrophils Absolute Auto 0.1 K/mm3 (1.3-6.7); Neutrophils Percent Auto 38.1 % (45.5-73.1); Platelet Count Result 36 k/mm3 (150-375); Red Blood Count 2.61 M/mm3 (4.2-5.4); Red Cell Distribution Width 15.2 % (11.5-14.5)
[2021-04-30 08:59] LABS: INR 1.6; Prothrombin Time 18.9 Seconds (11.1-14.7); White Blood Count 0.2 K/mm3 (4.5-10.0)
[2021-04-30 09:00] LABS: Ovalocytes 2+ (NORMAL); Platelet Estimate Decreased (Adequate)
[2021-04-30 09:05] LABS: Burr Cells 3+ (NORMAL); Crenated RBC 1+ (NORMAL); Tear Drop Cells 1+ (NORMAL)
[2021-04-30 09:15] LABS: Fibrinogen 295 mg/dl (215-510)
--- NOTE | 2021-04-30 09:24 | WPDINTPN ---
Progress Note: A&P Assessment and Plan (1) Sepsis: Code(s): A41.9 - Sepsis, unspecified organism Status: Acute Assessment and Plan: The source is likely abdominal with question number pneumonia although the base of lungs on CT a more suggestive of atelectasis patient is also neutropenic blood cultures sent and pending, UA not suggestive of UTI she is on vancomycin and Zosyn she she has been adequately volume resuscitated and I will cut down the IV fluids at this time to prevent further volume overload. 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: Onset Date: ~2019 Code(s): C18.9 - Malignant neoplasm of colon, unspecified; C77.2 - Secondary and unspecified malignant neoplasm of intra-abdominal lymph nodes Status: Acute Assessment and Plan: patient was recently started on second-line chemotherapy Which she did not tolerate due to severe side effects oncology is following prognosis poor will discuss option of hospice with patient's (3) Neutropenia: Qualifiers: Neutropenia type: unspecified Qualified Code(s): D70.9 - Neutropenia, unspecified Code(s): D70.9 - Neutropenia, unspecified Status: Acute Assessment and Plan: secondary to chemotherapy patient was started on filgrastim neutropenic precautions (4) Atrial fibrillation with rapid ventricular response: Code(s): I48.91 - Unspecified atrial fibrillation Status: Acute Assessment and Plan: patient was started on diltiazem infusion which was held due to hypertension and then she was switched to IV metoprolol p.r.n. yesterday patient again went into RVR and IV Lopressor was given but patient rate could not be controlled patient was started on IV amiodarone infusion after a bolus and overnight she has converted to sinus rhythm I will let amiodarone IV infusion protocol run out cardiology is following (5) Small bowel obstruction: Onset Date: ~04/2021 Code(s): K56.609 - Unspecified intestinal obstruction, unspecified as to partial versus complete obstruction Status: Acute Assessment and Plan: CT abdomen pelvis on admission showed Mesenteric and peritoneal metastases with associated distal ileal small bowel obstruction, small bowel wall thickening and fluid levels. Increased small bowel dilatation and ileal bowel wall thickening since 02/19/2021 patient is being followed by general surgery NPO NG tube is in place CT done today reviewed (6) EDWARDO (acute kidney injury): Code(s): N17.9 - Acute kidney failure, unspecified Status: Acute Assessment and Plan: likely prerenal secondary to sepsis which may have progressed to ATN renal ultrasound was negative CK was not very high she has received IV fluid bolus and is on IV infusion I will change IV fluids to IV bicarb due to metabolic acidosis and hyperchloremia. I will decrease the rate to 50 she also received 25% albumin monitor urine output electrolytes and creatinine consult nephrology (7) Hyperglycemia: Code(s): R73.9 - Hyperglycemia, unspecified Status: Acute Assessment and Plan: continue sliding scale insulin (8) Pancytopenia: Code(s): D61.818 - Other pancytopenia Status: Acute Assessment and Plan: patient has significant drop in hemoglobin and platelet count overnight I sent patient's for a stat CT abdomen pelvis to rule out any retroperitoneal hemorrhage as there was no other obvious signs of bleeding. Patient did not had any bruising on her skin but she is morbidly obese and hence exam is not Reliable. CT abdomen pelvis is negative for any hematoma or hemorrhage. This drop is likely from bone marrow suppression from chemotherapy plus hemodilution from the IV fluids that we
[2021-04-30 09:43] LABS: Glucose Point of Care 244 mg/dl (65-105)
--- NOTE | 2021-04-30 10:59 | PM.PNCARD ---
Progress Note: A&P Additional Plan 80-year-old woman with: Paroxysmal atrial fibrillation in the setting of disseminated carcinoma of the colon and findings compatible with a small bowel obstruction. The patient is stated above in previous notes is not a candidate for systemic anticoagulation. At the time being we are giving her amiodarone intravenously to treat this arrhythmia which I suppose I will continue until such time as the family and patient choose hospice level services. Obviously prognosis is terminal. Trever Conner MD [facility] Subjective Date/time seen: Date of service: 04/30/21 10:59 Interval history: Follow-up visit in this 80-year-old woman with: Paroxysmal atrial fibrillation who is terminally ill with metastatic colon carcinoma. Currently the patient is being treated with intravenous amiodarone. Is at this time in atrial fib but alternating between AFib and sinus tachycardia. Family and patient have appropriately chosen DNR status at this time. They still still have not made a decision regarding hospice level services and for the time being she is still being treated in the ICU. She patient is very weak but is responsive and answers questions appropriately. No cardiac complaints. No where in is that she is in atrial fibrillation. Exam Const: General: comfortable and no acute distress HENMT: Mouth: Yes moist mucous membranes Eyes: Sclera: sclerae normal Pupils: Equal, round and reactive pupils present Neck: Neck: supple and no JVD Resp: Effort & Inspection: normal respiratory effort Auscultation: clear to auscultation bilaterally Cardio: Rhythm: abnormal rhythm irregularly irregular GI: GI Palp: Yes Soft to palpation Auscultation: normal bowel sounds Skin: General skin exam: normal color Neuro: Cognition (Neuro): normal cognition Extrem: Other: No edema adequate peripheral perfusion Objective Data Vital Signs Vital Signs: Vital Signs - 24 hr 04/29/21 12:00 04/29/21 14:00 04/29/21 15:20 Temperature 36.4 C L Pulse Rate 116 H 117 H 165 H Respiratory Rate 25 H Blood Pressure 116/55 L Pulse Oximetry 97 04/29/21 16:00 04/29/21 17:57 04/29/21 18:00 Temperature 36.7 C 37.8 C H Pulse Rate 132 H 135 H 135 H Respiratory Rate 30 H 33 H Blood Pressure 106/89 94/49 L Pulse Oximetry 97 97 04/29/21 20:00 04/29/21 20:32 04/29/21 20:43 Temperature 36.9 C Pulse Rate 127 H 130 H 128 H Respiratory Rate 30 H 26 H Blood Pressure 94/50 L Pulse Oximetry 95 94 04/29/21 20:52 04/29/21 21:41 04/29/21 22:51 Temperature Pulse Rate 104 H 110 H 117 H Respiratory Rate 20 30 H Blood Pressure 94/50 L 105/59 L Pulse Oximetry 95 93 04/30/21 00:00 04/30/21 01:24 04/30/21 02:00 Temperature 36.9 C 37.1 C Pulse Rate 130 H 122 H 118 H Respiratory Rate 20 26 H Blood Pressure 106/53 L 110/55 L Pulse Oximetry 94 95 04/30/21 03:34 04/30/21 03:40 04/30/21 04:00 Temperature 37.1 C Pulse Rate 100 101 H Respiratory Rate 20 Blood Pressure 103/50 L Pulse Oximetry 94 94 04/30/21 06:00 04/30/21 08:00 04/30/21 10:00 Temperature 36.5 C 36.7 C Pulse Rate 115 H 104 H 120 H Respiratory Rate 26 H 22 H 34 H Blood Pressure 129/42 L 145/59 H 127/55 L Pulse Oximetry 92 91 90 04/30/21 10:52 Temperature 36.6 C Pulse Rate 123 H Respiratory Rate 40 H Blood Pressure 119/53 L Pulse Oximetry 91 Intake/Output Intake/Output: Intake & Output 04/27/21 04/28/21 04/29/21 04/30/21 23:59 23:59 23:59 23:59 Intake Total 1000 3700 3750 1450 Output Total 850 250 250 Balance 1000 2850 3500 1200 Meds/Results Medications: Active Medications Generic Name Dose Route Start Last Admin Trade Name Freq PRN Reason Stop Dose Admin Dextrose 12.5 gm 04/29/21 07:38 Dextrose 50% 25 Gm/50 Ml Syringe IV PUSH PRN PRN Hypoglycemia Protocol Filgrastim-Sndz 300 mcg 04/27/21 22:50 04/29/21 20:49 Filgrastim-Sndz 300 Mcg/0.5 Ml Syringe SUB-Q
[2021-04-30] MEDS: AMIODARONE 360 MG/D5W 200 ML 360 MG/200 ML BAG 16.67 MG IV CONT (11:10)
--- NOTE | 2021-04-30 11:21 | PCDIET ---
Nutrition Follow-Up Complete: Nutrition Diagnosis: Inadequate oral intake related to ileus vs. obstruction as evidenced by NPO status. Nutrition Goal: Patient to meet estimated nutritional needs. Goal not met, though KUB showed improving ileus vs. obstruction. Patient remains NPO with NG tube for decompression. If aggressive nutritional therapy is desired and medically appropriate, best option would be Clinimix E 5/15 at 50mL/hr with 250mL 20% lipids for 1352kcal and 60g protein daily. Last recorded weight is 91 kg which is increased from last review. +I/O. Low urine output noted. Bowel Motility: BM x 1 today. Labs Reviewed: WBC (0.3), RBC (2.95), Hgb (7.8), Hct (24.5), Glu (242), BUN (54), Cr (3.8), Alb (3.3), Agnes Ca (8.76), Mg (1.3) Meds Noted: Albumin, Amiodarone, Zarxio, Novolog, Synthroid, Magnesium Sulfate, Lopressor, Levophed, Protonix, Zosyn, Vancomycin, Water/150mEq Sodium Bicarbonate at 50mL/hr Additional Notes: Bilateral buttocks macerated. Will continue to monitor with same goal. Nutrition Monitoring and Evaluation: Follow up every 3 days.
--- NOTE | 2021-04-30 12:12 | PM.CNNEP ---
Assessment and Plan Assessment and plan (1) EDWARDO (acute kidney injury): Code(s): N17.9 - Acute kidney failure, unspecified Status: Acute Assessment and Plan: The patient has acute kidney injury. Her creatinine was 1.3 on admission and has risen to about 3.8. Urine output is somewhat low. The patient had hypotension yesterday, she has an abdominal process including obstruction which probably also in occludes septic syndrome. It is possible that her abdominal carcinomatosis might be causing some obstruction to the ureters as well. So I think that dehydration, ATN, and possibly obstruction are playing a role in her renal failure. The creatinine is on the rise. Soon she will have uremic symptoms however they will be difficult to distinguish from her current symptoms which are mostly from her abdominal carcinomatosis plus sepsis. Her prognosis is very poor. She has a bowel obstruction which is not operable. She has metastatic cancer. She has anemia and thrombocytopenia. I do not think she would tolerate dialysis. I had a long talk with the . He understands how sick she is. I told him if he decided on comfort measures then I would be fully supportive of that. I discussed with Dr. Rushing (2) Acute hypoxemic respiratory failure: Code(s): J96.01 - Acute respiratory failure with hypoxia Status: Acute Assessment and Plan: The patient has possible pneumonia. She is getting antibiotics. 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 (4) Hypotension: Code(s): I95.9 - Hypotension, unspecified Status: Acute Assessment and Plan: Her blood pressure was very low yesterday. Today's blood pressure is better. (5) Atrial fibrillation with rapid ventricular response: Code(s): I48.91 - Unspecified atrial fibrillation Status: Acute Assessment and Plan: She is in sinus rhythm now (6) Hypertension: Qualifiers: Hypertension type: unspecified Qualified Code(s): I10 - Essential (primary) hypertension Code(s): I10 - Essential (primary) hypertension Status: Chronic Assessment and Plan: Antihypertensives are on hold (7) Diabetes: Onset Date: Unknown Qualifiers: Diabetes mellitus type: type 2 Diabetes mellitus superintendent container terminal insulin use: without superintendent container terminal use Diabetes mellitus complication status: without complication Qualified Code(s): E11.9 - Type 2 diabetes mellitus without complications Code(s): E11.9 - Type 2 diabetes mellitus without complications Status: Chronic Assessment and Plan: Getting Accu-Cheks and sliding scale insulin History of Present Illness Reason for Consult Consult date: 04/30/21 Chief Complaint Chief complaint: AFib w/ RVR, Neutropenia, Bowel Obstruction History of Present Illness Narrative: Lanette is an unfortunate 80-year-old lady who has multiple medical problems including multiple cancers undergoing chemo for metastatic colon cancer, chronic kidney disease stage 3, diabetes, hypertension, hypothyroidism, hyperlipidemia, diverticulosis, and 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 The patient was admitted to the hospital because of abdominal distension. She was seen in the emergency room. They did chest x-ray which showed pneumonia. A CT scan which showed mesenteric and peritoneal masses with the distal ileal small bowel obstruction small bowel wall thickening and air-fluid levels. The patient deteriorated after admission. Her blood pressure dropped and she required pressors for a short time but IV fluids improved that and if so now she is
--- NOTE | 2021-04-30 12:23 | PM.PNGS ---
Progress Note: A&P Assessment and Plan (1) Bowel obstruction: Qualifiers: Intestinal obstruction extent: unspecified extent Intestinal obstruction type: other intestinal obstruction Qualified Code(s): K56.699 - Other intestinal obstruction unspecified as to partial versus complete obstruction Code(s): K56.609 - Unspecified intestinal obstruction, unspecified as to partial versus complete obstruction Status: Acute Assessment and Plan: imaging reviewed, exam benign, will try to clamp and remove NG (2) Abdominal carcinomatosis: Onset Date: Unknown Code(s): C76.2 - Malignant neoplasm of abdomen Status: Acute Assessment and Plan: management per oncology Subjective Subjective Date/Time Seen: 04/30/21 12:23 no acute issues overnight, loose BM per nursing, NG c minimal output Review of Systems Review of Systems: ROS unobtainable: Yes unobtainable due to medical condition and unobtainable due to mental status Exam Const: General: ill appearing Nutritional Appearance: obese Orientation/consciousness: confusion, patient obtunded and lethargic Resp: Effort & Inspection: normal respiratory effort Auscultation: diminished lung sounds Cardio: Rate: tachycardic Rhythm: regular rhythm GI: Inspection: distended GI Palp: Yes Soft to palpation, No Tenderness to palpation present (GI), No Guarding due to palpation present (GI) and No Rigid due to palpation Objective Data Vital Signs Vital Signs: Vital Signs - 24 hr 04/29/21 14:00 04/29/21 15:20 04/29/21 16:00 Temperature 36.7 C Pulse Rate 117 H 165 H 132 H Respiratory Rate 30 H Blood Pressure 106/89 Pulse Oximetry 97 04/29/21 17:57 04/29/21 18:00 04/29/21 20:00 Temperature 37.8 C H 36.9 C Pulse Rate 135 H 135 H 127 H Respiratory Rate 33 H 30 H Blood Pressure 94/49 L 94/50 L Pulse Oximetry 97 95 04/29/21 20:32 04/29/21 20:43 04/29/21 20:52 Temperature Pulse Rate 130 H 128 H 104 H Respiratory Rate 26 H 20 Blood Pressure Pulse Oximetry 94 95 04/29/21 21:41 04/29/21 22:51 04/30/21 00:00 Temperature 36.9 C Pulse Rate 110 H 117 H 130 H Respiratory Rate 30 H 20 Blood Pressure 94/50 L 105/59 L 106/53 L Pulse Oximetry 93 94 04/30/21 01:24 04/30/21 02:00 04/30/21 03:34 Temperature 37.1 C Pulse Rate 122 H 118 H Respiratory Rate 26 H Blood Pressure 110/55 L Pulse Oximetry 95 94 04/30/21 03:40 04/30/21 04:00 04/30/21 06:00 Temperature 37.1 C Pulse Rate 100 101 H 115 H Respiratory Rate 20 26 H Blood Pressure 103/50 L 129/42 L Pulse Oximetry 94 92 04/30/21 08:00 04/30/21 10:00 04/30/21 10:52 Temperature 36.5 C 36.7 C 36.6 C Pulse Rate 104 H 120 H 134 H Respiratory Rate 22 H 34 H 33 H Blood Pressure 145/59 H 127/55 L 108/60 Pulse Oximetry 91 90 92 04/30/21 11:07 04/30/21 11:08 04/30/21 11:18 Temperature 36.6 C 36.6 C 36.7 C Pulse Rate 121 H 134 H 135 H Respiratory Rate 34 H 38 H 35 H Blood Pressure 127/65 127/65 128/66 Pulse Oximetry 92 94 96 Intake/Output Intake/Output: Intake & Output 04/27/21 04/28/21 04/29/21 04/30/21 23:59 23:59 23:59 23:59 Intake Total 1000 3700 3750 2494 Output Total 850 250 250 Balance 1000 2850 3500 2244 Meds/Results Medications: Active Medications Generic Name Dose Route Start Last Admin Trade Name Freq PRN Reason Stop Dose Admin Dextrose 12.5 gm 04/29/21 07:38 Dextrose 50% 25 Gm/50 Ml Syringe IV PUSH PRN PRN Hypoglycemia Protocol Filgrastim-Sndz 300 mcg 04/27/21 22:50 04/29/21 20:49 Filgrastim-Sndz 300 Mcg/0.5 Ml Syringe SUB-Q 300 mcg HS LORIE Administration Glucagon 1 mg 04/29/21 07:38 Glucagon For Inj 1 Mg Vial IM PRN PRN Hypoglycemia Protocol Glucose 15 gm 04/29/21 07:38 Glucose Oral Gel 15 Gm Of Glucse In 37.5 Gm Tube PO PRN PRN Hypoglycemia Protocol Heparin Sodium (Beef Lung) 50 units 04/29/21 09:00 04/30/21 08:38
[2021-04-30 12:34] LABS: Glucose Point of Care 215 mg/dl (65-105)
[2021-04-30] MEDS: AMIODARONE 150 MG/D5W 100 ML 150 MG/100 ML BAG 600 MG IV CONT (15:20)
[2021-04-30 15:41] LABS: Eosinophils Percent Auto 8.8 % (0-4.4); Immature Granulocyte Absolute 0.03 K/mm3 (0.00-0.031); Immature Granulocyte Percent A 8.8 % (0-0.5); Immature Platelet Fraction Pct 9.8 % (0.9-11.2); Lymphocytes Percent Auto 29.4 % (18.3-44.2); Mean Corpuscular HGB Conc 32.5 g/dl (32-36); Mean Corpuscular Hemoglobin 27.4 pg (26-34); Mean Corpuscular Volume 84.2 fl (80-100); Mean Platelet Volume 11.5 fl (7.4-10.4); Monocytes Percent Auto 8.8 % (2.6-8.5); Neutrophils Absolute Auto 0.2 K/mm3 (1.3-6.7); Neutrophils Percent Auto 44.2 % (45.5-73.1); Platelet Count Result 65 k/mm3 (150-375)
[2021-04-30 16:38] LABS: Hemoglobin 10.4 g/dL (12.0-15.0)
[2021-04-30 16:39] LABS: White Blood Count 0.3 K/mm3 (4.5-10.0)
[2021-04-30 16:41] LABS: Anisocytosis 3+ (NORMAL); Platelet Estimate Decreased (Adequate)
[2021-04-30 16:42] LABS: Burr Cells 3+ (NORMAL); Ovalocytes 2+ (NORMAL)
[2021-04-30 17:08] LABS: Glucose Point of Care 162 mg/dl (65-105)
[2021-04-30] MEDS: SODIUM BICARBONATE 8.4% 150 MEQ in WATER, STERILE FOR INJECTION 950 ML 50 MEQ IV CONT (20:01)
[2021-04-30] MEDS: FILGRASTIM-SNDZ 300 MCG/0.5 ML SYRINGE SUB-Q (20:02)
[2021-04-30 20:22] LABS: Glucose Point of Care 185 mg/dl (65-105)
[2021-04-30 23:36] LABS: Glucose Point of Care 227 mg/dl (65-105)
[2021-05-01] VITALS (11 sets, daily range): BP systolic 94–130; BP diastolic 55–71; PULSE 100–134; RESP 24–37; TEMP 36.4–37.1; O2SAT 90–94
[2021-05-01] MEDS: AMIODARONE 360 MG/D5W 200 ML 360 MG/200 ML BAG 16.67 MG IV CONT (00:05)
[2021-05-01] MEDS: LEVOTHYROXINE SODIUM INJ 100 MCG/5 ML VIAL 50 MCG IV PUSH (05:47)
[2021-05-01] MEDS: CENTRAL LINE FLUSH 10 ML IV PUSH ×2 (05:48)
[2021-05-01] MEDS: INSULIN ASPART (*BKC) 100 UNITS/ML SUB-Q ×2 (05:48→08:28)
[2021-05-01 06:01] LABS: Glucose Point of Care 243 mg/dl (65-105)
[2021-05-01 06:47] LABS: Hemoglobin 11.2 g/dL (12.0-15.0); Immature Platelet Fraction Pct 10.9 % (0.9-11.2); Mean Corpuscular HGB Conc 32.9 g/dl (32-36); Mean Corpuscular Hemoglobin 27.5 pg (26-34); Mean Corpuscular Volume 83.3 fl (80-100); Mean Platelet Volume 12.4 fl (7.4-10.4); Platelet Count Result 62 k/mm3 (150-375); Red Blood Count 4.08 M/mm3 (4.2-5.4); Red Cell Distribution Width 16.1 % (11.5-14.5)
[2021-05-01 06:58] LABS: Alanine Aminotransferase 12 U/L (4-35); Albumin Level 3.4 g/dL (3.5-5.1); Alkaline Phosphatase 45 U/L (38-126); Anion Gap 14 mmol/L (8-16); Aspartate Amino Transferase 12 U/L (14-36); Bilirubin,Total 0.8 mg/dL (0.2-1.3); Blood Urea Nitrogen 60 mg/dL (7-17); Calcium 8.6 mg/dL (8.4-10.2); Carbon Dioxide 31 mmol/L (22-30); Chloride 96 mmol/L (98-107); Estimated CRCL calculation 11 ml/min; Estimated Glomerular Filt Rate 11; Glucose 248 mg/dL (65-110); Magnesium 2.1 mg/dL (1.6-2.3); Potassium 3.2 mmol/L (3.4-5.0); Sodium 141 mmol/L (137-145)
[2021-05-01 07:07] LABS: White Blood Count 0.5 K/mm3 (4.5-10.0)
[2021-05-01 08:32] LABS: Glucose Point of Care 250 mg/dl (65-105)
--- NOTE | 2021-05-01 08:59 | PM.PNGS ---
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 re: comfort care, pt cont to deteriorate, no acute surgical issues Subjective Subjective Date/Time Seen: 05/01/21 08:59 cont to be lethargic, obtunded, NG out yest s issue Review of Systems Review of Systems: ROS unobtainable: Yes unobtainable due to medical condition and unobtainable due to mental status Exam Const: General: ill appearing and patient obtunded Orientation/consciousness: patient obtunded Resp: Effort & Inspection: abnormal respiratory pattern Auscultation: diminished lung sounds Cardio: Rate: tachycardic Rhythm: regular rhythm GI: Inspection: normal to inspection and distended GI Palp: Yes Soft to palpation, No Tenderness to palpation present (GI) and No Guarding due to palpation present (GI) Objective Data Vital Signs Vital Signs: Vital Signs - 24 hr 04/30/21 10:00 04/30/21 10:52 04/30/21 11:07 Temperature 36.7 C 36.6 C 36.6 C Pulse Rate 120 H 134 H 121 H Respiratory Rate 34 H 33 H 34 H Blood Pressure 127/55 L 108/60 127/65 Pulse Oximetry 90 92 92 04/30/21 11:08 04/30/21 11:18 04/30/21 12:00 Temperature 36.6 C 36.7 C 36.9 C Pulse Rate 134 H 135 H 127 H Respiratory Rate 38 H 35 H 23 H Blood Pressure 127/65 128/66 126/68 Pulse Oximetry 94 96 94 04/30/21 14:00 04/30/21 16:00 04/30/21 18:00 Temperature 36.9 C 36.6 C 36.7 C Pulse Rate 136 H 118 H 131 H Respiratory Rate 32 H 31 H 32 H Blood Pressure 122/61 108/63 134/106 H Pulse Oximetry 94 94 93 04/30/21 20:00 04/30/21 20:03 04/30/21 20:04 Temperature 36.4 C L Pulse Rate 123 H 130 H 133 H Respiratory Rate 31 H Blood Pressure 115/69 107/62 Pulse Oximetry 95 04/30/21 21:42 05/01/21 00:00 05/01/21 00:05 Temperature 36.4 C L Pulse Rate 124 H 134 H 115 H Respiratory Rate 35 H 31 H Blood Pressure 117/73 115/62 115/62 Pulse Oximetry 94 92 05/01/21 02:00 05/01/21 03:58 05/01/21 04:00 Temperature 36.6 C Pulse Rate 115 H 120 H Respiratory Rate 33 H 24 H Blood Pressure 116/71 103/63 Pulse Oximetry 90 91 90 05/01/21 05:54 Temperature Pulse Rate 102 H Respiratory Rate 32 H Blood Pressure 120/65 Pulse Oximetry 91 Intake/Output Intake/Output: Intake & Output 04/28/21 04/29/21 04/30/21 05/01/21 23:59 23:59 23:59 23:59 Intake Total 3700 3750 3994 350 Output Total 850 250 400 100 Balance 2850 3500 3594 250 Meds/Results Medications: Active Medications Generic Name Dose Route Start Last Admin Trade Name Freq PRN Reason Stop Dose Admin Dextrose 12.5 gm 04/29/21 07:38 Dextrose 50% 25 Gm/50 Ml Syringe IV PUSH PRN PRN Hypoglycemia Protocol Filgrastim-Sndz 300 mcg 04/27/21 22:50 04/30/21 20:02 Filgrastim-Sndz 300 Mcg/0.5 Ml Syringe SUB-Q 300 mcg HS LORIE Administration Glucagon 1 mg 04/29/21 07:38 Glucagon For Inj 1 Mg Vial IM PRN PRN Hypoglycemia Protocol Glucose 15 gm 04/29/21 07:38 Glucose Oral Gel 15 Gm Of Glucse In 37.5 Gm Tube PO PRN PRN Hypoglycemia Protocol Heparin Sodium (Beef Lung) 50 units 04/29/21 09:00 04/30/21 08:38 Heparin Flush 50 Units/5 Ml Syringe IV PUSH 50 units QAM LORIE Administration Heparin Sodium (Beef Lung) 50 units 04/28/21 12:53 Heparin Flush 50 Units/5 Ml Syringe IV PUSH PRN PRN after intermittent infusion Heparin Sodium (Beef Lung) 50 units 04/28/21 12:53 Heparin Flush 50 Units/5 Ml Syringe IV PUSH PRN PRN after blood draws Heparin Sodium (Porcine) 500 units 04/28/21 12:53 Heparin Sodium Lock Flush 500 Units/5 Ml Vial IV PUSH PRN PRN see comments below Vancomycin HCl 1,250 mg in 250 mls @ 200 mls/hr 04/30/21 22:00 05/01/21 00:30 Vancomycin 1,250 Mg/D5w 250 Ml IVPB Infused Q48H
[2021-05-01] MEDS: PANTOPRAZOLE SODIUM IV 40 MG VIAL IV PUSH (09:29)
[2021-05-01] MEDS: TOLNAFTATE 1% POWDER 45 GM BTL 1 APPLIC TOPICAL (09:30)
[2021-05-01] MEDS: FUROSEMIDE INJ 100 MG/10 ML VIAL 80 MG IV PUSH (09:35)
--- NOTE | 2021-05-01 09:43 | WPDINTPN ---
Progress Note: A&P Assessment and Plan (1) Sepsis: Code(s): A41.9 - Sepsis, unspecified organism Status: Acute Assessment and Plan: The source is likely abdominal with question number pneumonia although the base of lungs on CT a more suggestive of atelectasis patient is also neutropenic blood cultures sent and pending, UA not suggestive of UTI she is on vancomycin and Zosyn she she has been adequately volume resuscitated and and now appears to be in volume overload hence I will discontinue fluids altogether. 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: Onset Date: ~2019 Code(s): C18.9 - Malignant neoplasm of colon, unspecified; C77.2 - Secondary and unspecified malignant neoplasm of intra-abdominal lymph nodes Status: Acute Assessment and Plan: patient was recently started on second-line chemotherapy which she did not tolerate due to severe side effects oncology is following prognosis poor I discussed option of hospice with patient's yesterday (3) Neutropenia: Qualifiers: Neutropenia type: unspecified Qualified Code(s): D70.9 - Neutropenia, unspecified Code(s): D70.9 - Neutropenia, unspecified Status: Acute Assessment and Plan: secondary to chemotherapy patient was started on filgrastim neutropenic precautions (4) Atrial fibrillation with rapid ventricular response: Code(s): I48.91 - Unspecified atrial fibrillation Status: Acute Assessment and Plan: patient was started on diltiazem infusion which was held due to hypertension and then she was switched to IV metoprolol p.r.n. 04/29 patient again went into RVR and IV Lopressor was given but patient rate could not be controlled. Shet was started on IV amiodarone infusion after a bolus and overnight she has converted to sinus rhythm. I will discontinue amiodarone IV infusion at this time cardiology is following (5) Small bowel obstruction: Onset Date: ~04/2021 Code(s): K56.609 - Unspecified intestinal obstruction, unspecified as to partial versus complete obstruction Status: Acute Assessment and Plan: CT abdomen pelvis on admission showed Mesenteric and peritoneal metastases with associated distal ileal small bowel obstruction, small bowel wall thickening and fluid levels. Increased small bowel dilatation and ileal bowel wall thickening since 02/19/2021 CT 04/30 IMPRESSION: 1. Diarrhea along with multiple fluid-filled but no longer frankly dilated loops of small bowel consistent with ileus versus resolving small bowel obstruction. 2. Peritoneal and mesenteric soft tissue nodules consistent with peritoneal carcinomatosis. 3. Subcarinal and mild mesenteric and retroperitoneal lymphadenopathy which could be reactive or additional metastatic disease or lymphoma. 4. Atelectasis versus less likely pneumonia in the bilateral lower lung zones with small right pleural effusion. patient is being followed by general surgery and seems to have improved at least radiologically. Continue NPO NG tube was removed (6) EDWARDO (acute kidney injury): Code(s): N17.9 - Acute kidney failure, unspecified Status: Acute Assessment and Plan: likely prerenal secondary to sepsis which may have progressed to ATN renal ultrasound was negative CK was not very high she has received IV fluid bolus and was on IV fluids with IV bicarb due to metabolic acidosis and hyperchloremia. She also received 25% albumin Her urine output remains poor and she has not responded to Lasix. I will DC further fluids as patient is now volume overloaded Will again try Lasix today Monitor urine output electrolytes and creatinine Nephrology is following Replace low potassium (7) Hyperglycemia: Code(s): R73.9 - Hyperglycemia, unspecified Status: Acute Asses
--- NOTE | 2021-05-01 11:22 | PM.PNCARD ---
Progress Note: A&P Assessment and Plan (1) Atrial fibrillation with rapid ventricular response: Code(s): I48.91 - Unspecified atrial fibrillation Status: Acute Assessment and Plan: New onset paroxysmal atrial fibrillation with rapid ventricular response currently in sinus tachycardia after amiodarone initiated then discontinued after conversion to sinus tachycardia once again. Hospice decision noted after my visit with her. No further recommendations from a cardiac perspective. Will sign off. Please do not hesitate to contact us if we may be of any further assistance. Thank you. (2) EDWARDO (acute kidney injury): Code(s): N17.9 - Acute kidney failure, unspecified Status: Acute Assessment and Plan: Renal function progressing despite IV fluids. (3) Hypotension: Code(s): I95.9 - Hypotension, unspecified Status: Acute Assessment and Plan: Improved with IV fluid support, stable at present. (4) Acute dehydration: Code(s): E86.0 - Dehydration Status: Acute Assessment and Plan: As above, IV fluids per primary service. (5) Neutropenia: Qualifiers: Neutropenia type: unspecified Qualified Code(s): D70.9 - Neutropenia, unspecified Code(s): D70.9 - Neutropenia, unspecified Status: Acute Assessment and Plan: Neupogen, further management per primary service and Oncology. Hospice plans noted (6) Small bowel obstruction: Onset Date: ~04/2021 Code(s): K56.609 - Unspecified intestinal obstruction, unspecified as to partial versus complete obstruction Status: Acute Assessment and Plan: Per primary and surgical service. Certainly complicating her management. (7) Malignant neoplasm of colon: Code(s): C18.9 - Malignant neoplasm of colon, unspecified Status: Acute Assessment and Plan: Per Oncology, unfortunately it seems options are limited and/or poorly tolerated. Hospice. (8) Mixed diabetic hyperlipidemia associated with type 2 diabetes mellitus: Code(s): E11.69 - Type 2 diabetes mellitus with other specified complication; E78.2 - Mixed hyperlipidemia Status: Acute Assessment and Plan: Per primary service. Subjective Date/time seen: Date of service: 05/01/21 09:35 Interval history: Follow-up visit in this 80-year-old woman with: Paroxysmal atrial fibrillation who is terminally ill with metastatic colon carcinoma. Currently the patient is being treated with intravenous amiodarone. Is at this time in atrial fib but alternating between AFib and sinus tachycardia. Family and patient have appropriately chosen DNR status at this time. They still still have not made a decision regarding hospice level services and for the time being she is still being treated in the ICU. She patient is very weak but is responsive and answers questions appropriately. She was moaning help me when I entered the room. O2 was off a pulse oximeter had slipped off her finger and upon reapplication O2 sats down in the low 70s oxygen return to the 90s with re-application of her oxygen nasal cannula. Patient denies chest pain. Mild cough noted. Amiodarone discontinued upon conversion to sinus rhythm yesterday a critical care. She is in sinus tachycardia at this time. Review of Systems Review of Systems: All systems reviewed & are unremarkable except as noted in HPI and below Constitutional: Constitutional: Reports as per HPI, Reports no additional constitutional complaints, Reports fatigue, Reports lethargy and Reports weakness Eyes: Eyes: Reports as per HPI and Reports no additional eye complaints ENT: Reports system reviewed and no additional complaints, except as documented and Reports as per HPI Cardiovascular: Cardiovascular: Reports as per HPI, Reports no additional cardiovascular complaints, Denies chest pain, Denies diaphoresis, Denies leg edema, Denies lightheadedness, Denies palp
[2021-05-01] MEDS: MORPHINE SULFATE INJ (*CRX) 10 MG/ML AMP 5 MG IV PUSH (12:43)
[2021-05-01] MEDS: LORazepam INJ (*CRX) 2 MG/ML VIAL 1 MG IV PUSH ×2 (13:09→17:04)
[2021-05-01 13:40] LABS: Glucose Point of Care 186 mg/dl (65-105)
--- NOTE | 2021-05-01 14:06 | PM.EVENT ---
Event Note Event Note Event Note: talked with Dr Rushing and pt is now comfort measures. I offered support to .
--- NOTE | 2021-05-01 17:00 | PM.DS ---
DS: Admitting Diagnosis Discharge Date 05/01/21 Admitting Diagnosis (1) Atrial fibrillation with rapid ventricular response: Code(s): I48.91 - Unspecified atrial fibrillation Status: Acute (2) Neutropenia: Qualifiers: Neutropenia type: unspecified Qualified Code(s): D70.9 - Neutropenia, unspecified Code(s): D70.9 - Neutropenia, unspecified Status: Acute (3) Neutropenic fever: Code(s): D70.9 - Neutropenia, unspecified; R50.81 - Fever presenting with conditions classified elsewhere Status: Acute (4) Small bowel obstruction: Code(s): K56.609 - Unspecified intestinal obstruction, unspecified as to partial versus complete obstruction Status: Acute (5) Abdominal carcinomatosis: Code(s): C76.2 - Malignant neoplasm of abdomen Status: Acute (6) Failure to thrive: Qualifiers: Failure to thrive age range: in adult Qualified Code(s): R62.7 - Adult failure to thrive Status: Acute (7) Nausea & vomiting: Code(s): R11.2 - Nausea with vomiting, unspecified Status: Acute (8) Severe sepsis: Code(s): A41.9 - Sepsis, unspecified organism; R65.20 - Severe sepsis without septic shock Status: Acute (9) EDWARDO (acute kidney injury): Code(s): N17.9 - Acute kidney failure, unspecified Status: Acute (10) Colon cancer metastasized to intra-abdominal lymph node: Code(s): C18.9 - Malignant neoplasm of colon, unspecified; C77.2 - Secondary and unspecified malignant neoplasm of intra-abdominal lymph nodes Status: Acute (11) Acute hypoxemic respiratory failure: Code(s): J96.01 - Acute respiratory failure with hypoxia Status: Acute (12) Aspiration pneumonia: Code(s): J69.0 - Pneumonitis due to inhalation of food and vomit Status: Acute DS: Discharge Diagnosis Discharge Diagnosis (1) Atrial fibrillation with rapid ventricular response: Code(s): I48.91 - Unspecified atrial fibrillation Status: Acute (2) Neutropenia: Qualifiers: Neutropenia type: unspecified Qualified Code(s): D70.9 - Neutropenia, unspecified Code(s): D70.9 - Neutropenia, unspecified Status: Acute (3) Neutropenic fever: Onset Date: ~04/2021 Code(s): D70.9 - Neutropenia, unspecified; R50.81 - Fever presenting with conditions classified elsewhere Status: Acute (4) Small bowel obstruction: Onset Date: ~04/2021 Code(s): K56.609 - Unspecified intestinal obstruction, unspecified as to partial versus complete obstruction Status: Acute (5) Abdominal carcinomatosis: Onset Date: Unknown Code(s): C76.2 - Malignant neoplasm of abdomen Status: Acute (6) Failure to thrive: Qualifiers: Failure to thrive age range: in adult Qualified Code(s): R62.7 - Adult failure to thrive Status: Acute (7) Nausea & vomiting: Code(s): R11.2 - Nausea with vomiting, unspecified Status: Acute (8) Severe sepsis: Code(s): A41.9 - Sepsis, unspecified organism; R65.20 - Severe sepsis without septic shock Status: Acute (9) EDWARDO (acute kidney injury): Code(s): N17.9 - Acute kidney failure, unspecified Status: Acute (10) Colon cancer metastasized to intra-abdominal lymph node: Onset Date: ~2019 Code(s): C18.9 - Malignant neoplasm of colon, unspecified; C77.2 - Secondary and unspecified malignant neoplasm of intra-abdominal lymph nodes Status: Acute (11) Acute hypoxemic respiratory failure: Code(s): J96.01 - Acute respiratory failure with hypoxia Status: Acute (12) Aspiration pneumonia: Code(s): J69.0 - Pneumonitis due to inhalation of food and vomit Status: Acute DS: Summary Hospital Course Reason for hospitalization: nausea vomiting Hospital Course: 80yo F admitted w nausea and vomiting found to have small-bowel obstruction secondary to malignant neoplasm of h
[2021-05-01] MEDS: MORPHINE SULFATE (*CRX) 2 MG/ML INJ IV PUSH (17:02)
== END 2021-05-01 17:25 | disposition hospice, inpatient (51) | DRG 871 ==
LOC: ANHED 20:56 → ANHIMU 04-28 00:53 → ANHICU 05-01 16:56 → ANHIMU 05-04 12:57
PROVIDERS: Internal Medicine; Surgery; Admitting Provider Internal Medicine; Emergency Provider Emergency Medicine; PCP Family Medicine; Visit Provider Hospitalist
DX: A41.9 Sepsis, unspecified organism (principal); J18.9 Pneumonia, unspecified organism; J69.0 Pneumonitis due to inhalation of food and vomit; J96.01 Acute respiratory failure with hypoxia; D61.810 Antineoplastic chemotherapy induced pancytopenia; N17.0 Acute kidney failure with tubular necrosis; C18.9 Malignant neoplasm of colon, unspecified; C77.2 Secondary and unspecified malignant neoplasm of intra-abdominal lymph nodes; J98.11 Atelectasis; R65.20 Severe sepsis without septic shock; R62.7 Adult failure to thrive; D70.1 Agranulocytosis secondary to cancer chemotherapy; R50.81 Fever presenting with conditions classified elsewhere; T45.1X5A Adverse effect of antineoplastic and immunosuppressive drugs, initial encounter; D69.59 Other secondary thrombocytopenia; F41.9 Anxiety disorder, unspecified; I48.0 Paroxysmal atrial fibrillation; I12.9 Hypertensive chronic kidney disease with stage 1 through stage 4 chronic kidney disease, or unspecified chronic kidney disease; E11.22 Type 2 diabetes mellitus with diabetic chronic kidney disease; N18.30 Chronic kidney disease, stage 3 unspecified; E11.69 Type 2 diabetes mellitus with other specified complication; E11.65 Type 2 diabetes mellitus with hyperglycemia; E86.0 Dehydration; E78.2 Mixed hyperlipidemia; E03.9 Hypothyroidism, unspecified; Z79.82 Long term (current) use of aspirin; Z90.49 Acquired absence of other specified parts of digestive tract; Z90.710 Acquired absence of both cervix and uterus; Z90.722 Acquired absence of ovaries, bilateral; Z85.3 Personal history of malignant neoplasm of breast; Z85.72 Personal history of non-Hodgkin lymphomas; Z85.89 Personal history of malignant neoplasm of other organs and systems
CPT/HCPCS: 36415; 36430; 36600; 51701; 71045; 74019; 74176; 74177; 76775; 80048; 80053; 80069; 81001; 82010; 82375; 82550; 82565; 82805; 82948; 83050; 83605; 83735; 84134; 84443; 84484; 85025; 85027; 85055; 85384; 85610; 86644; 86850; 86900; 86901; 86920; 87040; 93005; 93306; 93923; 96361; 96365; 96366; 96375; 99285; A9270; C1751; C9113; J0131; J0282; J0456; J0696; J1642; J1815; J1940; J2060; J2270; J2405; J2543; J3370; J3475; J3480; J7030; J7040; J7120; P9016; P9034; P9047; Q5101; Q9967

== ENCOUNTER 2021-05-01 15:45 | HOS | payer OTHER, MEDICARE, SELFPAY ==
[2021-05-01 17:36] VITALS: BP 98/53; PULSE 134; RESP 29; O2SAT 88
[2021-05-01 18:03] VITALS: BMI 38.4
--- NOTE | 2021-05-01 19:23 | PM.IMHP ---
H&P: HPI History of Present Illness Date/Time: 05/01/21 19:23 Chief Complaint: Uncontrolled dyspnea Narrative: This unfortunate 80-year-old female with known stage IV colon cancer was admitted to acute care April 28 with atrial fibrillation rapid ventricular rate septic shock and small-bowel obstruction. She had abdominal carcinomatosis by CT scan. She was neutropenic due to recent second-line chemotherapy agent. In spite of fluid resuscitation and broad-spectrum antibiotics and pressors she had progressive renal function and declining mental status. Because of her poor functional status and limited prognosis with her colon cancer her family opted for comfort care. She was dyspneic tachypneic requiring 15 L of oxygen when evaluated for hospice admission by the hospice clinical manager. Because of these issues she was admitted to inpatient hospice for symptom management. 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 Cancer of sigmoid colon (~11/2019) Chronic kidney disease, stage III (moderate) (Unknown) Diabetes (Unknown) Diverticulosis of large intestine without hemorrhage (Unknown) History of chemotherapy History of colon cancer History of lymphoma History of radiation therapy HLD (hyperlipidemia) (Unknown) Hx of abnormal cervical Pap smear Hx of malignant neoplasm of female breast Hypertension Hypothyroidism (Unknown) Lymphoma 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) received chemotherapy Patient on antineoplastic chemotherapy regimen Surgical History Surgical History History of cholecystectomy History of colectomy hand assited laparoscopic left colectomy with anastamosis 01/14/20 History of left cataract surgery History of lumpectomy left breast History of right cataract surgery History of right hemicolectomy laparoscopic right hemicolectomy with anastomosis ileum to transverse colon - 09/24/2018 hand assisted laparoscopic left colectomy with anastomosis January 13 2020 History of tonsillectomy History of total abdominal hysterectomy and bilateral salpingo-oophorectomy Status post hysterectomy with oophorectomy Family History Family History Mother Patient's mother is , Onset Age: 39 Father Patient's father is , Onset Age: 40 Sibling Family history of cardiovascular disease Family history of malignant neoplasm of breast Family history of heart disease in male family member before age 55 Other Family history of malignant neoplasm Family history of malignant neoplasm of breast in first degree relative Social History Social History Social History: the patient lives with her Trever in [facility]. 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 She is a lifelong nonsmoker. Does not use alcohol or illicit drugs. Her Trever is a durable power senior attorney for healthcare and she desires to be a full code. She had 1 son from leukemia in 1998. She gave to 4 children. Smoking status: Never smoker Second hand tobacco smoke exposure: Yes Alcohol intake: never Substance use: never Substance use type: does not use Gender identity (if verbalized by the patient): Female Sexual Orientation (if Verbalized by the Patient): Straight or Heterosexual Spiritual care concerns: No Meds Home Medications and Allergies Home Medications Medication Instructions Recorded Confirmed Type aspirin [Aspir-81] 81 mg PO HS 04/10/19 04/28/21 History lancets 33 gauge #100 ea 06/15/20 04/28/21 Rx ezetimibe 1
[2021-05-01 19:54] VITALS: O2SAT 86
[2021-05-01 20:05] VITALS: BP 107/53; PULSE 134; RESP 24; TEMP 37.1; O2SAT 87
--- NOTE | 2021-05-01 21:12 | PC.NURSE ---
This patient, Lanette Alberts, was transferred to [facility] on 05/01/21 at 2050. Personal belongings sent with patient. Report given to JACE Infante. Appropriate documentation sent with patient.
[2021-05-01 22:41] VITALS: PULSE 134; RESP 24
[2021-05-01] MEDS: HYDROmorphone HCL/PF (*CRX) 50 MG in SODIUM CHLORIDE 0.9% IV 95 ML IV CONT (22:41)
--- NOTE | 2021-05-02 01:15 | PC.NURSE ---
Daylight Savings Time For Daylight Savings Time Ending in the Fall - Clocks are moved back. For Daylight Savings Time Beginning in the Spring - Clocks are moved ahead. For [facility], the time of change occurs at 0200 hrs. Time is taken from the senior sql server dba. This entry on the patient's chart recognizes the change in time reflected during documentation. Example: 2 entries for vital signs may be charted for 0200 hrs.
[2021-05-02] MEDS: ARTIFICIAL TEARS OPHTH SOLN 15 ML BOTTLE 1 DROP EACH EYE ×4 (02:42→22:12)
[2021-05-02 06:00] VITALS: BP 97/46; PULSE 150; RESP 16; TEMP 35.6; O2SAT 95
[2021-05-02 09:30] VITALS: PULSE 146; RESP 16; O2SAT 95
[2021-05-02 15:02] VITALS: PULSE 146; RESP 16
[2021-05-02] MEDS: PHARMACIST COMMUNICATION ORDER 1 EACH XX (15:04)
[2021-05-02 20:00] VITALS: PULSE 103; RESP 16; O2SAT 95
[2021-05-02 22:03] VITALS: PULSE 103; RESP 16
[2021-05-02] MEDS: HYDROmorphone HCL/PF (*CRX) 50 MG in SODIUM CHLORIDE 0.9% IV 95 ML IV CONT (22:03)
[2021-05-02 22:35] VITALS: BP 86/49; PULSE 147; RESP 14; TEMP 36.1; O2SAT 92
--- NOTE | 2021-05-02 22:55 | PM.IMPN ---
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: Onset Date: ~2019 Code(s): C18.9 - Malignant neoplasm of colon, unspecified; C77.2 - Secondary and unspecified malignant neoplasm of intra-abdominal lymph nodes Status: Acute (3) Atrial fibrillation with rapid ventricular response: Code(s): I48.91 - Unspecified atrial fibrillation Status: Acute (4) Neutropenia: Qualifiers: Neutropenia type: unspecified Qualified Code(s): D70.9 - Neutropenia, unspecified Code(s): D70.9 - Neutropenia, unspecified Status: Acute (5) Small bowel obstruction: Onset Date: ~04/2021 Code(s): K56.609 - Unspecified intestinal obstruction, unspecified as to partial versus complete obstruction Status: Acute Subjective Date/time seen: 05/02/21 13:10 telemedicine visit with hospice home care coordinator Ginny at bedside Interval history: Not struggling to breathe. Sleeping. Review of Systems Review of Systems: ROS unobtainable: Yes unobtainable due to medical condition Exam Narrative: sleeping Objective Data Vital Signs Vital Signs: Vital Signs - 24 hr 05/02/21 06:00 05/02/21 09:30 05/02/21 15:02 Temperature 96.0 F L Pulse Rate 150 H 146 H 146 H Respiratory Rate 16 16 16 Blood Pressure 97/46 L Pulse Oximetry 95 95 05/02/21 20:00 05/02/21 22:03 Temperature Pulse Rate 103 H 103 H Respiratory Rate 16 16 Blood Pressure Pulse Oximetry 95 Intake/Output Intake/Output: Intake & Output 04/29/21 04/30/21 05/01/21 05/02/21 23:59 23:59 23:59 22:59 Intake Total 40 Output Total 50 Balance -10 Meds/Results Medications: Active Medications Generic Name Dose Route Start Last Admin Trade Name Freq PRN Reason Stop Dose Admin Acetaminophen 650 mg 05/01/21 19:41 Acetaminophen 650 Mg Suppository RECTAL Q6H PRN Fever Artificial Tears 1 drop 05/01/21 19:39 Artificial Tears Ophth Soln 15 Ml Bottle EACH EYE PRN PRN Dry Eye(s) Artificial Tears 1 drop 05/01/21 22:00 05/02/21 22:12 Artificial Tears Ophth Soln 15 Ml Bottle EACH EYE 1 drop Q8HR LORIE Administration Bisacodyl 10 mg 05/01/21 19:40 Bisacodyl 10 Mg Suppository RECTAL DAILY PRN Constipation Glycopyrrolate 0.1 mg 05/01/21 19:42 Glycopyrrolate Inj (*Sp) 0.2 Mg/Ml Vial IV PUSH Q6H PRN SECRETIONS Hydromorphone HCl 1 mg 05/01/21 19:44 Hydromorphone Hcl Inj (*Crx) 1 Mg/Ml Syr IV PUSH Q2H PRN PAIN/SOB Hydromorphone HCl 50 mg/ 100 mls @ 2 mls/hr 05/01/21 20:00 05/02/21 22:03 Sodium Chloride IV CONT 1 mg/hr .Q24H LORIE 2 mls/hr Administration 1 MG/HR Lorazepam 1 mg 05/01/21 19:43 Lorazepam Inj (*Crx) 2 Mg/Ml Vial IV PUSH Q4H PRN Anxiety
[2021-05-03] MEDS: ARTIFICIAL TEARS OPHTH SOLN 15 ML BOTTLE 1 DROP EACH EYE (05:24)
--- NOTE | 2021-05-03 10:36 | PC.NURSE ---
Gilbert Jordan in room oxygen removed per families request, PT after oxygen was removed per Nikki MCCORMICK. Java Architect entered room no vital signs of life present charge nurse made aware.
--- NOTE | 2021-05-03 16:50 | P.DN_ITS ---
Discharge Summary Date and Time Date of : 05/03/21 Time of : 10:18 Provider Pronounced By: Nikki (director of technology) and Zahida Card RN Probable Cause of Probable Cause of : colon cancer bowel obstruction respiratory failure acute renal failure Summary Hospital Course: This unfortunate 80-year-old female with known stage IV colon cancer was admitted to acute care April 28 with atrial fibrillation rapid ventricular rate septic shock and small-bowel obstruction. She had abdominal ca rcinomatosis by CT scan. She was neutropenic due to recent second-line chemotherapy agent. In spite of fluid resuscitation and broad-spectrum antibiotics and pressors she had progressive renal function and declining mental status. Because of her poor functional status and limited prognosis with her colon cancer her family opted for comfort care. She was dyspneic tachypneic requiring 15 L of oxygen when evaluated for hospice admission by the director of technology. Because of these issues she was admitted to inpatient hospice for symptom management. medications were titrated to comfort and she peacefully. Additional Data Confirmation of as documented by pronouncing clinician: Pupillary Reflex, Palpable Pulses, Response to Stimuli, Heart Tones and Breath Sounds Name of Provider Notified: Dr. Quinn (notified by director of technology) Time Provider Notified: 10:30 Provider Requests Autopsy: No Family Requests Autopsy: No Top Taper Machine Notified: Yes Date [facility] Notified of : 05/03/21 Time [facility] Notified of : 10:39
== END 2021-05-03 11:50 | disposition expired | DRG 951 ==
LOC: ANH2MED 05-03 11:57 → ANHICU 05-05 14:41
PROVIDERS: Admitting Provider Internal Medicine; PCP Family Medicine; Visit Provider Internal Medicine
DX: Z51.5 Encounter for palliative care (principal); A41.9 Sepsis, unspecified organism; R65.21 Severe sepsis with septic shock; C18.9 Malignant neoplasm of colon, unspecified; C77.2 Secondary and unspecified malignant neoplasm of intra-abdominal lymph nodes; N17.9 Acute kidney failure, unspecified; I48.91 Unspecified atrial fibrillation; D70.1 Agranulocytosis secondary to cancer chemotherapy; T45.1X5A Adverse effect of antineoplastic and immunosuppressive drugs, initial encounter; F41.9 Anxiety disorder, unspecified; N32.9 Bladder disorder, unspecified; I12.9 Hypertensive chronic kidney disease with stage 1 through stage 4 chronic kidney disease, or unspecified chronic kidney disease; E11.22 Type 2 diabetes mellitus with diabetic chronic kidney disease; N18.30 Chronic kidney disease, stage 3 unspecified; K57.90 Diverticulosis of intestine, part unspecified, without perforation or abscess without bleeding; E78.5 Hyperlipidemia, unspecified; Z85.3 Personal history of malignant neoplasm of breast; Z85.72 Personal history of non-Hodgkin lymphomas; Z85.89 Personal history of malignant neoplasm of other organs and systems; Z90.49 Acquired absence of other specified parts of digestive tract; Z90.710 Acquired absence of both cervix and uterus; Z90.722 Acquired absence of ovaries, bilateral; Z79.82 Long term (current) use of aspirin
CPT/HCPCS: A9270; J1170